=== PATIENT | female | born 1955 | race Caucasian/White ===

== ENCOUNTER 2017-09-29 14:13 | Emergency (ER) | payer MEDICARE ==
[2017-09-29] MEDS ORDERED: HYDROmorphone 0.5 MG/0.5 ML SYRINGE IVP STA (14:27)
[2017-09-29] MEDS ORDERED: SODIUM CHLORIDE 0.9% 1,000 ML IV STA ×2 (14:27→16:00)
[2017-09-29] MEDS ORDERED: ONDANSETRON 4 MG/2 ML VIAL IVP STA (14:27)
--- NOTE | 2017-09-29 14:29 | ED ---
General Adult HPI <Ruddy Donnelly - Last Filed: 09/29/17 18:31> - General Source: patient, RN notes reviewed Mode of arrival: wheelchair Limitations: no limitations <Hany Valles - Last Filed: 09/30/17 08:08> - General Chief complaint: Abdominal Pain Stated complaint: VOMITING, ABDOMINAL PAIN Time Seen by Provider: 09/29/17 14:21 - History of Present Illness Initial comments: Patient's a 62-year-old female who presents emergency room today with a chief complaint of increased nausea vomiting diarrhea that started at 1 AM in the morning. Patient does admit to abdominal pain lower abdomen. Denies any signs of blood in the emesis or stool. Patient admits to approximate 5 episodes of nausea vomiting diarrhea. She denies any blood symptoms currently. Patient denies any recent fever, chills, shortness of breath, chest pain, back pain, numbness or tingling, dysuria or hematuria, constipation, headaches or visual changes, or any other complaints. (Hany Valles) - Related Data Home Medications Medication Instructions Recorded Confirmed Escitalopram [Lexapro] 20 mg PO DAILY 09/29/17 09/29/17 Ezetimibe [Zetia] 10 mg PO DAILY 09/29/17 09/29/17 Levothyroxine Sodium [Synthroid] 125 mcg PO DAILY 09/29/17 09/29/17 Multivitamins, Thera [Multivitamin 1 tab PO DAILY 09/29/17 09/29/17 (formulary)] Previous Rx's Medication Instructions Recorded Ondansetron Odt [Zofran Odt] 4 mg PO Q8HR PRN #3 tab 09/29/17 Allergies Allergy/AdvReac Type Severity Reaction Status Date / Time No Known Allergies Allergy Verified 09/29/17 14:41 Review of Systems ROS Other: All systems not noted in ROS Statement are negative. <Ruddy Donnelly - Last Filed: 09/29/17 18:31> ROS Other: All systems not noted in ROS Statement are negative. <Hany Valles - Last Filed: 09/30/17 08:08> ROS Statement: Those systems with pertinent positive or pertinent negative responses have been documented in the HPI. Past Medical History Past Medical History: No Reported History History of Any Multi-Drug Resistant Organisms: None Reported Past Surgical History: Joint Replacement Additional Past Surgical History / Comment(s): hip replacements Past Psychological History: No Psychological Hx Reported Smoking Status: Current every day smoker Past Alcohol Use History: Unable to Obtain Past Drug Use History: Marijuana <Hany Valles - Last Filed: 09/30/17 08:08> General Exam <ConyRuddy A - Last Filed: 09/29/17 18:31> Limitations: no limitations <Hany Valles - Last Filed: 09/30/17 08:08> - General Exam Comments Initial Comments: General: The patient is awake and alert, in no distress, and does not appear acutely ill. Eye: Pupils are equal, round and reactive to light, extra-ocular movements are intact. No nystagmus. There is normal conjunctiva bilaterally. No signs of icterus. Ears, nose, mouth and throat: There are moist mucous membranes and no oral lesions. Neck: The neck is supple, there is no tenderness or JVD. Cardiovascular: There is a regular rate and rhythm. No murmur, rub or gallop is appreciated. Respiratory: Lungs are clear to auscultation, respirations are non-labored, breath sounds are equal. No wheezes, stridor, rales, or rhonchi. Gastrointestinal: Normal. 7. Normal bowel sounds. Abdomen soft on palpation. Patient does have tenderness to the lower abdomen. No rebound or guarding. No CVA tenderness. Musculoskeletal: Normal ROM, no tenderness. Strength 5/5. Sensation intact. Pulses equal bilaterally 2+. Neurological: A&O x 3. CN II-XII intact, There are no obvious motor or sensory deficits. Coordination appears grossly intact. Speech is normal. Skin: Skin is warm and dry and no rashes or lesions are noted. Psychiatric: Cooperative, appropriate mood & affect, normal judgment. (Hany Valles) Course <Ruddy Donnelly - Last Filed: 09/29/17 18:31> <Hany Valles - Last Filed: 09/30/17 08:08> Vital Signs 09/29/17 09/29/17 09/29/17 14:15 17:13 18:53 Temperature 98.1 F 98.0 F 98.8 F Pulse Rate 61 59 L 59 L Respiratory 20 16 16 Rate Blood Pressure 185/85 106/58 109/59 O2 Sat by Pulse 97 96 94 L Oximetry - Reevaluation(s) Reevaluation #1: 09/29/17 16:[address] at this time. Case discussed and signed out to Dr Donnelly at this time. (Hany Valles) Medical Decision Making - Lab Data Result diagrams: 09/29/17 14:50 09/29/17 14:50 <Ruddy Donnelly - Last Filed: 09/29/17 18:31> - Lab Data Result diagrams: 09/29/17 14:50 09/29/17 14:50 <Hany Valles - Last Filed: 09/30/17 08:08> - Medical Decision Making Patient was signed out to me at the end of previous shift. Patient was reevaluated and stated marketed improvement in her symptoms and requested a by mouth challenge which she tolerated without complications. CT abdomen and pelvis resulted and showed evidence of previous surgeries, small umbilical hernia, and evidence of removal of gastric sleeve compared to previous exam. No sign of acute abdomen and pelvis. The patient was informed of this result and through shared decision making it was determined that she would be discharged home with instructions to follow-up with her primary care physician. She was further given return instructions including but not limited to: Intractable abdominal pain, intractable nausea and vomiting, fevers and chills, profound constipation, lightheadedness/dizziness and the patient acknowledged an understanding of all information provided and agreed with this plan of care. (Ruddy Donnelly) - Lab Data Lab Results 09/29/17 09/29/17 09/29/17 Range/Units 14:50 14:50 14:50 WBC 6.7 (3.8-10.6) k/uL RBC 4.16 (3.80-5.40) m/uL Hgb 14.2 (11.4-16.0) gm/dL Hct 41.9 (34.0-46.0) % MCV 100.6 H (80.0-100.0) fL MCH 34.0 (25.0-35.0) pg MCHC 33.8 (31.0-37.0) g/dL RDW 13.3 (11.5-15.5) % Plt Count 201 (150-450) k/uL Neutrophils % 83 % Lymphocytes % 13 % Monocytes % 4 % Eosinophils % 0 % Basophils % 0 % Neutrophils # 5.6 (1.3-7.7) k/uL Lymphocytes # 0.9 L (1.0-4.8) k/uL Monocytes # 0.3 (0-1.0) k/uL Eosinophils # 0.0 (0-0.7) k/uL Basophils # 0.0 (0-0.2) k/uL Sodium 138 (137-145) mmol/L Potassium 4.2 (3.5-5.1) mmol/L Chloride 102 (98-107) mmol/L Carbon Dioxide 24 (22-30) mmol/L Anion Gap 12 mmol/L BUN 10 (7-17) mg/dL Creatinine 0.70 (0.52-1.04) mg/dL Est GFR (MDRD) Af Amer >60 (>60 ml/min/1.73 sqM) Est GFR (MDRD) Non-Af >60 (>60 ml/min/1.73 sqM) Glucose 167 H (74-99) mg/dL Lactic Ac Sepsis Rflx Plasma Lactic Acid Franklyn 2.2 H* (0.7-2.0) mmol/L Calcium 10.2 (8.4-10.2) mg/dL Total Bilirubin 0.7 (0.2-1.3) mg/dL AST 33 (14-36) U/L ALT 36 (9-52) U/L Alkaline Phosphatase 70 (38-126) U/L Total Protein 7.8 (6.3-8.2) g/dL Albumin 4.7 (3.5-5.0) g/dL Amylase 88 (30-110) U/L Lipase 53 (23-300) U/L Urine Color Urine Appearance (Clear) Urine pH (5.0-8.0) Ur Specific Caspian (1.001-1.035) Urine Protein (Negative) Urine Glucose (UA) (Negative) Urine Ketones (Negative) Urine Blood (Negative) Urine Nitrite (Negative) Urine Bilirubin (Negative) Urine Urobilinogen (<2.0) mg/dL Ur Leukocyte Esterase (Negative) Urine RBC (0-5) /hpf Urine WBC (0-5) /hpf Ur Squamous Epith Cells (0-4) /hpf Urine Bacteria (None) /hpf Urine Mucus (None) /hpf Urine Yeast (Budding) (None) /hpf 09/29/17 09/29/17 Range/Units 15:30 15:50 WBC (3.8-10.6) k/uL RBC (3.80-5.40) m/uL Hgb (11.4-16.0) gm/dL Hct (34.0-46.0) % MCV (80.0-100.0) fL MCH (25.0-35.0) pg MCHC (31.0-37.0) g/dL RDW (11.5-15.5) % Plt Count (150-450) k/uL Neutrophils % % Lymphocytes % % Monocytes % % Eosinophils % % Basophils % % Neutrophils # (1.3-7.7) k/uL Lymphocytes # (1.0-4.8) k/uL Monocytes # (0-1.0) k/uL Eosinophils # (0-0.7) k/uL Basophils # (0-0.2) k/uL Sodium (137-145) mmol/L Potassium (3.5-5.1) mmol/L Chloride (98-107) mmol/L Carbon Dioxide (22-30) mmol/L Anion Gap mmol/L BUN (7-17) mg/dL Creatinine (0.52-1.04) mg/dL Est GFR (MDRD) Af Amer (>60 ml/min/1.73 sqM) Est GFR (MDRD) Non-Af (>60 ml/min/1.73 sqM) Glucose (74-99) mg/dL Lactic Ac Sepsis Rflx Y Plasma Lactic Acid Franklyn (0.7-2.0) mmol/L Calcium (8.4-10.2) mg/dL Total Bilirubin (0.2-1.3) mg/dL AST (14-36) U/L ALT (9-52) U/L Alkaline Phosphatase (38-126) U/L Total Protein (6.3-8.2) g/dL Albumin (3.5-5.0) g/dL Amylase (30-110) U/L Lipase (23-300) U/L Urine Color Yellow Urine Appearance Cloudy H (Clear) Urine pH 8.0 (5.0-8.0) Ur Specific Caspian 1.014 (1.001-1.035) Urine Protein 1+ H (Negative) Urine Glucose (UA) Trace H (Negative) Urine Ketones Negative (Negative) Urine Blood Negative (Negative) Urine Nitrite Negative (Negative) Urine Bilirubin Negative (Negative) Urine Urobilinogen <2.0 (<2.0) mg/dL Ur Leukocyte Esterase Negative (Negative) Urine RBC 7 H (0-5) /hpf Urine WBC 2 (0-5) /hpf Ur Squamous Epith Cells <1 (0-4) /hpf Urine Bacteria Rare H (None) /hpf Urine Mucus Rare H (None) /hpf Urine Yeast (Budding) Occasional H (None) /hpf Disposition Time of Disposition: 18:35 <Ruddy Donnelly - Last Filed: 09/29/17 18:31> <Hany Valles - Last Filed: 09/30/17 08:08> Clinical Impression: Abdominal pain Disposition: HOME SELF-CARE Condition: Stable Instructions: Abdominal Pain (ED) Prescriptions: Ondansetron Odt [Zofran Odt] 4 mg PO Q8HR PRN #3 tab PRN Reason: Nausea Referrals: None,Stated [REFERRING] - 1-2 days Jason Horowitz MD [STAFF PHYSICIAN] - 1-2 days
[2017-09-29] MEDS ORDERED: RX INFO: IV CONTRAST WAS GIVEN 1 EACH MISC MISCELLANE PRN (15:00)
[2017-09-29 15:26] LABS: ALT 36 U/L (9-52); AST 33 U/L (14-36); Alkaline Phosphatase 70 U/L (38-126); Amylase 88 U/L (30-110); Anion Gap 12 mmol/L; Blood Urea Nitrogen 10 mg/dL (7-17); Calcium 10.2 mg/dL (8.4-10.2); Carbon Dioxide 24 mmol/L (22-30); Chloride 102 mmol/L (98-107); Glucose 167 mg/dL (74-99); Non-African American GFR(MDRD) >60 (>60 ml/min/1.73 sqM); Potassium 4.2 mmol/L (3.5-5.1); Sodium 138 mmol/L (137-145); Total Bilirubin 0.7 mg/dL (0.2-1.3); Total Protein 7.8 g/dL (6.3-8.2)
--- NOTE | 2017-09-29 15:27 | XR ---
EXAMINATION TYPE: XR KUB DATE OF EXAM: 09/29/2017 CLINICAL DATA: 62-year-old female with abdominal pain, [facility] COMPARISON: 01/26/2011 FINDINGS: The lap band appears to have been removed in the interval. There is some strandy atelectasis at the l eft base. No evidence for free intraperitoneal air. Nondilated small bowel. No significant stool burden. Some scattered air within small bowel and colon and some small air-fluid levels in the upper mid abdomen seem to localize to the colon. High density material along the peritoneum is unchanged. Numerous phleboliths in the low right hemipe lvis. Partially visualized bilateral total hip arthroplasties IMPRESSION: 1. No evidence of bowel obstruction or free intraperitoneal air. Some small air-fluid levels could re flect enteritis or ileus. 2. High density material along the peritoneum and some surgical clips are unchanged from 2010. Correl ate as to any known etiology.
[2017-09-29 15:42] LABS: Basophils % (A) 0 %; CH 34.8; CHCM 34.8; Eosinophils % (A) 0 %; HCT 41.9 % (34.0-46.0); HDW 2.47; HGB 14.2 gm/dL (11.4-16.0); Luc # (Auto) 0.04; Luc % (Auto) 1; Lymphocytes # (A) 0.9 k/uL (1.0-4.8); Lymphocytes % (A) 13 %; MCHC 33.8 g/dL (31.0-37.0); MCV 100.6 fL (80.0-100.0); Mean Platelet Volume 8.6; Monocytes # (A) 0.3 k/uL (0-1.0); Monocytes % (A) 4 %; Neutrophils # (A) 5.6 k/uL (1.3-7.7); Neutrophils % (A) 83 %; RBC 4.16 m/uL (3.80-5.40); RDW 13.3 % (11.5-15.5); WBC 6.7 k/uL (3.8-10.6); WBC (Perox) 6.61
[2017-09-29 16:08] LABS: Appearance,Urine Cloudy (Clear); Bacteria,Urine Rare /hpf; Bilirubin,Urine Negative (Negative); Glucose,Urine (UA) Trace (Negative); Ketones,Urine Negative (Negative); Leukocyte Esterase,Urine Negative (Negative); Mucus,Urine Rare /hpf; Nitrite,Urine Negative (Negative); Particle Count 3670; Protein,Urine 1+ (Negative); RBC,Urine 7 /hpf (0-5); Specific Gravity,Urine 1.014 (1.001-1.035); Squamous Epithelial Cell,Urine <1 /hpf (0-4); UA Billing (MACRO vs. MICRO) MICRO; Urobilinogen,Urine <2.0 mg/dL (<2.0); WBC,Urine 2 /hpf (0-5)
--- NOTE | 2017-09-29 17:04 | CT ---
EXAMINATION TYPE: CT abdomen pelvis w con DATE OF EXAM: 09/29/2017 COMPARISON: 09/07/2011 HISTORY: Vomiting and abdominal pain. CT DLP: 976.7 mGycm Automated exposure control for dose reduction was used. TECHNIQUE: Helical acquisition of images was performed from the lung bases through the pelvis. CONTRAST: Performed without Oral Contrast and with IV Contrast, patient injected with 100 mL of Omnipaque 300. FINDINGS: Lung bases are clear. There is no pleural effusion. Liver spleen pancreas and bladder appear normal. Bile ducts are not dilated. There is no adrenal mass. Kidneys show satisfactory contrast opacificatio n. There is no hydronephrosis. There is no retroperitoneal adenopathy. Abdominal aorta is atheromatou s. There are surgical clips around the stomach. There is a 3 cm umbilical hernia that contains fat. There is no sign of free air. I see no intestinal wall thickening. There are multiple metallic densit ies at the floor of the pelvis. Detail of the pelvis is limited by metal artifact from the hip surger y. There is no free fluid in the pelvis. There is no sign of appendicitis. There is a first-degree L4 -5 spondylolisthesis. I see no focal bone destruction. IMPRESSION: PREVIOUS SURGERY. SMALL UMBILICAL HERNIA. THERE IS BEEN REMOVAL OF THE GASTRIC SLEEVE COMPARED TO LAS T EXAM. EXTENSIVE METAL DENSITY AT THE FLOOR OF THE PELVIS OF UNCERTAIN SIGNIFICANCE. NO SIGN OF ACUT E ABDOMEN AND PELVIS. THERE IS MODERATELY SEVERE L4-5 BONY SPINAL STENOSIS DUE TO DEGENERATIVE FIRST DEGREE SPONDYLOLISTHES IS.
[2017-09-29 17:14] VITALS: PULSE 59; RESP 16
[2017-09-29 18:54] VITALS: BP 109/59; TEMP 98.8
== END 2017-09-29 18:56 | disposition home or self-care (01) ==
LOC: EC 14:13
DX: R10.30 Lower abdominal pain, unspecified (principal); R11.2 Nausea with vomiting, unspecified; R19.7 Diarrhea, unspecified; K42.9 Umbilical hernia without obstruction or gangrene; F17.200 Nicotine dependence, unspecified, uncomplicated; Z79.899 Other long term (current) drug therapy; Z98.890 Other specified postprocedural states
CPT/HCPCS: 36415; 80053; 82150; 83605; 83690; 85025; 81001; 74000; 74177; 99284; 96374; 96375; 96361 ×3; J2405; Q9967; J1170

== ENCOUNTER → 2018-03-22 | Outpatient (CLI) | payer MEDICARE ==
--- NOTE | 2018-03-22 13:09 | CT ---
EXAMINATION TYPE: CT abdomen wo/w con DATE OF EXAM: 03/22/2018 HISTORY: LLQ pain CT DLP: 1274.6mGycm Automated Exposure Control for Dose Reduction was Utilized. CONTRAST: CT scan of the abdomen is performed with oral and without and with IV Contrast, patient injected with 100 mL of Isovue 300. COMPARISON: CT abdomen pelvis September 29, 2017. FINDINGS: LUNG BASES: There is linear scarring and/or atelectasis anteriorly in both bases. LIVER/GB: There is mild to moderate extrahepatic biliary dilatation without significant intrahepatic biliary dilatation. Common bile duct measures up to 12 mm near cassy hepatis and 12 mm distally near duodenal ampulla. No obstructing calculus or mass is clearly seen. Pancreatic duct is not dilated. Th is is not significantly changed from prior CT. PANCREAS: No significant abnormality is seen. SPLEEN: No significant abnormality is seen. ADRENALS: No significant abnormality is seen. KIDNEYS: Noncontrast images show no renal calculi bilaterally. Postcontrast images show symmetric upt shannon and excretion from both kidneys without evidence of hydronephrosis bilaterally. There is subcenti meter simple appearing cyst medially upper pole level left kidney series 8 image 25. Right kidney is asymmetrically smaller versus left kidney. BOWEL: No suspicious small or large bowel dilatation is seen. Oral contrast does not reach colonic l evel. There are few diverticula seen in the sigmoid colon. Evaluation suboptimal as the pelvis is not included LYMPH NODES: No greater than 1cm abdominal lymph nodes are appreciated. OSSEOUS STRUCTURES: Facet arthropathy lower lumbar levels is seen. There is grade 1 anterolisthesis o f L4 on L5. There is moderate to advanced disc space narrowing at this level. Osseous structures are demineralized. OTHER: There is persistent moderate to large sized umbilical hernia containing fat and tiny mesenteri c vessels. There is moderate calcified plaque in the distal abdominal aorta. IMPRESSION: No significant acute finding is seen to account for patient's clinical symptoms on CT abd omen study. Technologist called office to change to CT abdomen and pelvis study before performing exa m but this was refused. Cannot exclude pelvic pathology or diverticulitis in the sigmoid colon at [facility] el of pelvis.
--- NOTE | 2018-03-22 15:13 | CT ---
EXAMINATION TYPE: CT pelvis wo con DATE OF EXAM: 03/22/2018 COMPARISON: CT abdomen earlier today. HISTORY: Pain, rule out diverticulitis. CT DLP: 472 mGycm Automated exposure control for dose reduction was used. FINDINGS: Diverticula are seen in the sigmoid colon. There is mild to moderate mesenteric fat stranding and ill -defined fluid in the pelvis just left of midline near axial image 27 centered in the proximal sigmoi d colon. CT findings are consistent with acute diverticulitis at this level. No free air is identifie d. No well-formed fluid collection is seen. Evaluation slightly suboptimal as oral contrast does not reach the distal colon level. Metallic hardware from bilateral hip arthroplasties is present causing streak artifact limiting evalu ation of pelvic structures. Some scattered pelvic phleboliths are present. IMPRESSION: CT FINDINGS CONSISTENT WITH A MILD TO MODERATE ACUTE DIVERTICULITIS CENTERED IN THE PROXIMAL SIGMOID COLON OF THE LEFT PELVIS DETAILED ABOVE.
== END | disposition home or self-care (01) ==
LOC: RADCTMAIN 11:40
PROVIDERS: ATTEND Family Medicine
DX: R10.31 Right lower quadrant pain (principal)
CPT/HCPCS: 72192; 74170; Q9967

== ENCOUNTER → 2018-05-04 | Outpatient (CLI) | payer MEDICARE ==
[2018-05-05 14:50] LABS: Hepatits C Virus RNA Not detected (Not detected); Hepatits C Virus RNA, Quant <12 IU/mL (<12); LOG HCV IU/mL <1.08 (<1.08)
== END | disposition home or self-care (01) ==
LOC: LABWHC1 15:58
PROVIDERS: ATTEND Family Medicine
DX: R76.8 Other specified abnormal immunological findings in serum (principal)
CPT/HCPCS: 36415; 87522

== ENCOUNTER → 2018-05-17 | Outpatient (CLI) | payer MEDICARE ==
--- NOTE | 2018-05-19 08:55 | MM ---
Reason for exam: screening (asymptomatic). Last mammogram was performed 5 years and 2 months ago. History: Patient is postmenopausal. Physical Findings: A clinical breast exam by your physician is recommended on an annual basis and results should be correlated with mammographic findings. MG Screening Mammo w CAD Bilateral CC and MLO view(s) were taken. Prior study comparison: March 20, 2013, bilateral digital screening mammo w/CAD. October 14, 2011, bilateral digital screening mammo w/CAD. There is a stable right middle depth central mass back to 2010. Benign appearing bilateral calcifications. There is no discrete abnormality. No significant changes when compared with prior studies. ASSESSMENT: Benign, BI-RAD 2 RECOMMENDATION: Routine screening mammogram of both breasts in 1 year.
== END | disposition home or self-care (01) ==
LOC: RADMAMWWP 13:43
PROVIDERS: ATTEND Family Medicine
DX: Z12.31 Encounter for screening mammogram for malignant neoplasm of breast (principal)
CPT/HCPCS: 77067

== ENCOUNTER → 2018-05-30 | Outpatient (CLI) | payer MEDICARE ==
--- NOTE | 2018-05-30 14:54 | BD ---
EXAMINATION TYPE: Axial Bone Density DATE OF EXAM: 05/30/2018 COMPARISON: NONE CLINICAL HISTORY: Postmenopausal female. Osteoporosis screening. Height: 64 IN Weight: 188 LBS FRAX RISK QUESTIONS: Family History (Parent hip fracture): YES MOTHER Secondary Osteoporosis: Current Tobacco Use: YES RISK FACTORS HISTORY OF: Surgery to Hip(ABIMAEL): When: LEFT 2015 RIGHT 2007 Active: MODERATE Postmenopausal woman: AGE 48 MEDICATIONS: Thyroid Medications: YES Which medication: LEVOTHYROXINE How Lon YEARS Additional Medications: LEVOTHYROXINE,ANTI DEPRESSANT MEDS, EZETIMIVE, PROBIOTIC, CENTRUM, TUMERIC, P ERCOCET EXAM MEASUREMENTS: Bone mineral densitometry was performed using the [employer] System. Bone mineral density as measured about the Lumbar spine is: ----- L1-L4(G/cm2): 1.464 T Score Values are as follows: ----- L2: 1.1 ----- L3: 2.3 ----- L4: 3.3 ----- L1-L4: 2.4 Bone mineral density BASELINE PT HAD BILATERAL HIP REPLACEMENTS. Bone mineral density about the L Wrist (g/cm2): 0.649 T Score values are as follows: -----Dist. R+U: -1.0 -----Prox. R+U: -0.1 -----Radius total: -0.4 Bone mineral density BASELINE IMPRESSION: Normal (Values between +1 and -1 indicate normal bone mass). Consider repeating this study in 5 year s or sooner if there is some new clinical indication. NOTE: T-SCORE=SD OF THE YOUNG ADULT MEAN.
== END | disposition home or self-care (01) ==
LOC: RADBDWWP 09:24
PROVIDERS: ATTEND Family Medicine
DX: Q78.2 Osteopetrosis (principal); Z96.643 Presence of artificial hip joint, bilateral
CPT/HCPCS: 77080

== ENCOUNTER → 2019-06-27 | Outpatient (CLI) | payer MEDICARE ==
--- NOTE | 2019-06-29 07:46 | MM ---
Reason for exam: screening (asymptomatic). Last mammogram was performed 1 year and 1 month ago. History: Patient is postmenopausal. Physical Findings: A clinical breast exam by your physician is recommended on an annual basis and results should be correlated with mammographic findings. MG 3D Screening Mammo W/Cad Bilateral CC and MLO view(s) were taken. Prior study comparison: May 17, 2018, bilateral MG screening mammo w CAD. March 20, 2013, bilateral digital screening mammo w/CAD. There are scattered fibroglandular densities. Focal asymmetry right CC is stable. No significant changes when compared with prior studies. ASSESSMENT: Benign, BI-RAD 2 RECOMMENDATION: Routine screening mammogram of both breasts in 1 year.
== END | disposition home or self-care (01) ==
LOC: RADMAMWWP 16:07
PROVIDERS: ATTEND Family Medicine
DX: Z12.31 Encounter for screening mammogram for malignant neoplasm of breast (principal)
CPT/HCPCS: 77063; 77067

== ENCOUNTER 2019-08-26 15:44 | Emergency (ER) | payer MEDICARE ==
[2019-08-26 15:50] VITALS: TEMP 98.3
--- NOTE | 2019-08-26 16:42 | XR ---
EXAMINATION TYPE: XR hand complete RT DATE OF EXAM: 08/26/2019 COMPARISON: NONE HISTORY: Pain after falling TECHNIQUE: 3 views FINDINGS: There is soft tissue swelling around the hand. There is moderate narrowing and spurring at the DIP joints and more severe at the thumb and index finger and middle finger. There is some spurrin g at the first carpometacarpal joint. Metacarpals are intact. On the lateral view there is a 5 mm bon y density that could be at chip fracture of the triquetrum. IMPRESSION: Osteoarthritic changes. Possi ble posterior chip fracture of the carpus. Soft tissue swelling.
--- NOTE | 2019-08-26 16:44 | XR ---
EXAMINATION TYPE: XR wrist complete RT DATE OF EXAM: 08/26/2019 COMPARISON: NONE HISTORY: Pain after falling TECHNIQUE: 4 views FINDINGS: There is 5 mm triangular-shaped bony density posterior to the mid carpus on the lateral vie w consistent with a chip fracture. This is probably arising from the triquetrum. There is no dislocat ion. There is some spurring at the first carpometacarpal joint. There is narrowing and spurring at th e scaphoid trapezium joint. There is soft tissue swelling. IMPRESSION: Chip fracture of the triquetrum. Soft tissue swelling. Osteoarthritis.
[2019-08-26] MEDS ORDERED: KETOROLAC 30 MG/ML 1 ML VIAL IM STA (16:45)
--- NOTE | 2019-08-26 16:45 | ED ---
General Adult HPI - General Chief complaint: Fall Stated complaint: Fall Time Seen by Provider: 08/26/19 15:51 Source: patient, RN notes reviewed Mode of arrival: ambulatory Limitations: no limitations - History of Present Illness Initial comments: 64-year-old female without any past medical history presents to the emergency department for a chief complaint of fall. Patient states that she tripped yesterday on a dog leash and fell onto her right hand and wrist. States that she also fell onto her left knee her left knee. States it is painful to walk on the left knee or move the right wrist. Patient denies hitting her head. Denies any neck pain or back pain. Patient is not on any blood thinners. No lightheadedness preceding the fall.Patient has no other complaints at this time including shortness of breath, chest pain, abdominal pain, nausea or vomiting, headache, or visual changes. - Related Data Home Medications Medication Instructions Recorded Confirmed Escitalopram [Lexapro] 20 mg PO DAILY 09/29/17 09/29/17 Ezetimibe [Zetia] 10 mg PO DAILY 09/29/17 09/29/17 Levothyroxine Sodium [Synthroid] 125 mcg PO DAILY 09/29/17 09/29/17 Multivitamins, Thera [Multivitamin 1 tab PO DAILY 09/29/17 09/29/17 (formulary)] Previous Rx's Medication Instructions Recorded Ondansetron Odt [Zofran Odt] 4 mg PO Q8HR PRN #3 tab 09/29/17 Allergies Allergy/AdvReac Type Severity Reaction Status Date / Time No Known Allergies Allergy Verified 08/26/19 15:50 Review of Systems ROS Statement: Those systems with pertinent positive or pertinent negative responses have been documented in the HPI. ROS Other: All systems not noted in ROS Statement are negative. Past Medical History Past Medical History: No Reported History History of Any Multi-Drug Resistant Organisms: None Reported Past Surgical History: Joint Replacement Additional Past Surgical History / Comment(s): hip replacements Past Psychological History: No Psychological Hx Reported Smoking Status: Current every day smoker Past Alcohol Use History: Unable to Obtain Past Drug Use History: Marijuana General Exam - General Exam Comments Initial Comments: Right wrist: Patient has tenderness noted to the distal right radius as well as the dorsum of the right hand. Patient does have range of motion in all digits of the right hand although this is somewhat limited by pain. Radial pulse 2+. Capillary refill less than 2 seconds. Sensation intact in the right upper extremities. Left knee: Patient has full flexion and extension of the left knee. DP pulse 2+, capillary refill less than 2 seconds in the left lower extremity. Patient is able to ambulate on the left knee but does have a slight limp due to pain. Patient has tenderness noted to the anterior aspect of the left knee as well as the lateral aspect. Limitations: no limitations General appearance: alert, in no apparent distress Head exam: Present: atraumatic, normocephalic, normal inspection Eye exam: Present: normal appearance, PERRL, EOMI. Absent: scleral icterus, conjunctival injection, periorbital swelling ENT exam: Present: normal exam, mucous membranes moist Neck exam: Present: normal inspection, full ROM. Absent: tenderness, meningismus, lymphadenopathy Respiratory exam: Present: normal lung sounds bilaterally. Absent: respiratory distress, wheezes, rales, rhonchi, stridor Cardiovascular Exam: Present: regular rate, normal rhythm, normal heart sounds. Absent: systolic murmur, diastolic murmur, rubs, gallop, clicks Neurological exam: Present: alert, oriented X3, other (GCS 15) Psychiatric exam: Present: normal affect, normal mood Course Vital Signs 08/26/19 15:48 Temperature 98.3 F Pulse Rate 63 Respiratory 18 Rate Blood Pressure 142/75 O2 Sat by Pulse 93 L Oximetry Procedures - Orthopedic Splinting/Casting Injury #1 Side: right Upper Extremity Injury Location: wrist Upper Extremity Immobilizer: volar splint Medical Decision Making - Medical Decision Making Neurovascular status intact in the left lower extremity. Patient is ambulatory with full range of motion. X-ray shows osteoarthritis in the lateral joint space, no fracture or joint effusion. No significant concern for occult injury given ambulatory nature, no edema or ecchymosis. Patient does have tenderness noted to the dorsum of the right hand and wrist. Neurovascular status intact. However x-ray does reveal a chip fracture of the triquetrum. X-ray of the right hand again demonstrates the posterior chip fracture of the carpus. Patient was splinted in a volar wrist splint. She will follow-up with orthopedics in one to 2 days. She will return here if she has any worsening symptoms. Disposition Clinical Impression: Fracture of triquetrum of right wrist Disposition: HOME SELF-CARE Condition: Good Instructions (If sedation given, give patient instructions): Wrist Injury (ED) Additional Instructions: Please take Motrin for pain. If pain is severe take tramadol. Rest ice and elevate the right wrist. Follow-up with orthopedics on Tuesday. Return here to the emergency department if you have any worsening symptoms. Is patient prescribed a controlled substance at d/c from ED?: No Referrals: Gladis Wilkins MD [Primary Care Provider] - 1-2 days Charlie Vance MD [STAFF PHYSICIAN] - 1-2 days Time of Disposition: 17:06
--- NOTE | 2019-08-26 16:45 | XR ---
EXAMINATION TYPE: XR knee 4V LT DATE OF EXAM: 08/26/2019 COMPARISON: NONE HISTORY: Pain TECHNIQUE: 4 views FINDINGS: There is some narrowing and spurring of the lateral femoral and tibial condyles. There is s light genu valgus. I see no fracture nor dislocation. There is no sign of joint effusion. IMPRESSION: Osteoarthritis mainly in the lateral joint space. No fracture seen.
[2019-08-26] MEDS ORDERED: traMADol 50 MG STARTER PACK 3 TAB BTL PO STA (17:03)
[2019-08-26 17:10] VITALS: BP 140/70; PULSE 64; RESP 16
== END 2019-08-26 17:08 | disposition home or self-care (01) ==
LOC: EC 15:44
DX: S62.111A Displaced fracture of triquetrum [cuneiform] bone, right wrist, initial encounter for closed fracture (principal); M25.562 Pain in left knee; F17.200 Nicotine dependence, unspecified, uncomplicated; W01.0XXA Fall on same level from slipping, tripping and stumbling without subsequent striking against object, initial encounter; Y92.009 Unspecified place in unspecified non-institutional (private) residence as the place of occurrence of the external cause
CPT/HCPCS: 73110; 73130; 73564; 99283; 29125; 96372; J1885

== ENCOUNTER → 2019-10-17 | Outpatient (CLI) | payer MEDICARE | END | disposition home or self-care (01) | LOC: LABWHC1 11:50 | PROVIDERS: ATTEND Orthopaedic Surgery | DX: Z01.812 Encounter for preprocedural laboratory examination (principal) | CPT/HCPCS: 87070 ==

== ENCOUNTER 2019-11-13 14:24 | Day surgery (SDC) | payer MEDICARE ==
[2019-11-08 14:08] VITALS: BMI 32.5
--- NOTE | 2019-11-12 09:45 | HP ---
HISTORY AND PHYSICAL CHIEF COMPLAINT: Left knee pain. HISTORY OF PRESENT ILLNESS: The patient is a 64-year-old retired female who presents with progressive left knee pain secondary to osteoarthrosis for the past several years. It has worsened recently. She has pain with weightbearing activities with intermittent swelling. She has tried medications, injections, and use of a brace. She does ambulate with a cane. PAST MEDICAL HISTORY: Significant for arthritis, hypothyroidism, COPD, and obesity. PAST SURGICAL HISTORY: Significant for bilateral total hip arthroplasty with subsequent revision hip arthroplasty, hernia repair, carpal tunnel surgery, bladder suspension, and tubal ligation. CURRENT MEDICATIONS: Omeprazole, levothyroxine, Simms, Zetia. She denies drug allergies. FAMILY HISTORY: Noncontributory. SOCIAL HISTORY: Significant for one pack per day tobacco use. REVIEW OF SYSTEMS: Sixteen-point review of systems otherwise reviewed and is noncontributory. PHYSICAL EXAMINATION: On examination, the patient is approximately 5 foot 6, 155 pounds of endomorphic habitus. HEENT: Nonfocal. Neck is supple. She has painless passive motion of her left hip. Straight leg raise is negative. Active motion left knee -10 to 115 degrees of flexion. She has a large effusion. She is tender about the lateral joint line. She has genu valgum alignment. Collaterals are stable, Barb is negative, Naveed's is equivocal. Her distal neurovascular exam appears intact in the left lower extremity. Previous x-rays of the left knee obtained in the office show severe lateral patellofemoral compartment osteoarthrosis with [id number] changes. IMPRESSION: 1. Left knee severe lateral and patellofemoral compartment osteoarthrosis. 2. Chronic Obstructive Pulmonary Disease. .. RECOMMENDATIONS: I talked to the patient at length regarding her condition along with treatment options. At this point, she is quite symptomatic despite extensive conservative measures. After thorough discussion, she opts to proceed with surgery. We will plan to proceed with left total knee arthroplasty. Risks and benefits were discussed at length in layman's terms. We will institute DVT prophylaxis postoperatively. MMODL / IJN: [id number] /
[~2019-11-13 14:24] MED LIST: ACETAMINOPHEN TAB 500 MG TAB PO ONE; DEXAMETHASONE SOD PHOSPHATE 10 MG/ML 1 ML VIAL IV ONE; HYDROmorphone 0.5 MG/0.5 ML SYRINGE IVP PRN; LIDOCAINE 1% 20 ML VIAL (10MG/ML) FOR IV START INTRADERMA PRN; MELOXICAM 7.5 MG TAB PO ONE; MIDAZOLAM 2 MG/2 ML VIAL IV PRN; ONDANSETRON 4 MG/2 ML VIAL IVP ONE; SCOPOLAMINE 1.5MG/72HR PATCH TRANSDERM ONE; TRANEXAMIC ACID 1,000 MG in SODIUM CHLORIDE 0.9% 100 ML IVPB ONE
[2019-11-13] MEDS: LACTATED RINGERS 1,000 ML IV SCH (15:14)
[2019-11-13] MEDS ORDERED: MIDAZOLAM 2 MG/2 ML VIAL IV ONE (15:36)
[2019-11-13] MEDS ORDERED: fentaNYL (PF) 50 MCG/ML 2 ML AMP IV ONE (15:36)
[2019-11-13] MEDS ORDERED: ROPIVACAINE 246.25 MG, EPINEPHrine 0.5 MG, KETOROLAC 30 MG, cloNIDine HCL/PF 80 MCG, WA... MISCELLANE ONE ×5 (15:38)
[2019-11-13] MEDS ORDERED: ROPIVACAINE 0.2%-NS ON-Q PUMP 1,090 MG, EMPTY PAIN BALL 1 EACH MISCELLANE PRN (16:05)
--- NOTE | 2019-11-13 16:05 | P.OP ---
Date of Procedure: 11/13/19 Preoperative Diagnosis: Left knee tricompartmental osteoarthrosis Postoperative Diagnosis: Same Procedure(s) Performed: Left total knee arthroplastycementedposterior stabilized Implants: Depuy Attune size 5 narrow cemented femoral component, size 4 cemented tibial component, 9 mm articular surface, 32 mm cemented patellar component. This is a posterior stabilized implant. Anesthesia: regional, local, spinal Surgeon: Charlie Vance Visually Impaired Teacher #1: Barrington Manzanares Estimated Blood Loss (ml): 50 Pathology: other (Bone fragments) Condition: stable Disposition: PACU Indications for Procedure: The patient's a 64-year-old female who presents with progressive left knee pain secondary to osteoarthrosis despite conservative measures. A discussion of the risks and benefits of operative intervention versus continued conservative measures was made with patient. She opted proceed with surgery. Operative risks to include infection, neurovascular injury, development of blood clots, possible component loosening, possible fracture, possible need for subsequent procedures was discussed. Informed consent was obtained. Operative Findings: As below Description of Procedure: The patient was brought to the operating room, and after induction of spinal anesthesia the left lower extremity was prepped and draped in a normal fashion. The tourniquet was inflated to 270 mm marker. A longitudinal incision extending 3 finger breaths above the superior pole of patella extending to the medial aspect the tibial tubercle was then made. The skin and subcutaneous tissues wer e divided sharply. Electrocautery was used for hemostasis. A medial parapatellar arthrotomy was performed. The medial soft tissues to include the superficial and deep portions of the medial collateral ligament were elevated subperiosteally. The patella was everted. A portion of the retropatellar fat pad was excised sharply. The anterior cruciate ligament was sacrificed. Blunt retractors were placed. A starting hole was made in the distal femur 1 cm anterior to the posterior cruciate ligament origin. An intramedullary femoral guide was then inserted planning on 5 valgus distal cut with 9 mm distal resection. The cutting block was pinned in place. The distal cut was then made. The posterior referencing sizing guide was utilized. I felt size 5 narrow was most appropriate. 3 of external rotation was built into the system and verified off the trans-epicondylar axis and the posterior condyles. The cutting block was pinned in place. The anterior, posterior, and chamfer cuts then made. Bone fragments were removed. The intercondylar guide was placed and the notch cut was made with a sagittal saw. The bone block was removed in one fragment. The trial component was then placed. There is good anterior to posterior and medial to lateral fit. The distal peg holes were drilled. The trial component was removed. Attention was then paid towards preparing the proximal femur. An extra medullary guide was utilized in line with the tibial shaft and second metatarsal distally. I planned on 2 mm resection from the medial compartment. The cutting block was pinned in place. The proximal tibial cut was then made. The bone was removed in one fragment. The remnants of the medial and lateral menisci were excised at the capsular junction with electrocautery. The tibia sized most appropriately at size 4. The trial femoral and tibial components were placed along with a 9 mm articular surface. I was able to obtain full flexion and extension with internal and external rotation. After several flexion and extension cycles, the tibial rotation was marked with electrocautery line with the medial one third of the tibial tubercle. Attention was then paid towards preparing the patella. A patella reamer was utilized taking stem to 14 mm of bone stock. A good flush cut was made. The patella sized most appropriately 32 mm. The peg holes were drilled. The trial components placed. I had good patellofemoral tracking with no hands technique. The trial components were then removed. The tibia was prepared in the appropriate rotation with appropriate drill and keel punch. The posterior osteophytes were removed with a curved osteotome. The flexion and extension gaps were checked and felt to be symmetric at 9 mm. A trial components were then removed. The posterior soft tissues were injected with ropivacaine. The bony surfaces were prepared with pulsatile lavage and dried. The tibial component was then cemented place was fully seated. Excess cement was removed. The femoral component cemented place and was fully seated. Excess cement was removed. The trial 9 mm articular surface was placed and the knee was put in full extension. The patella component was cemented place. After the cement had sufficiently hardened, the knee was again taken through a range of motion. Again I was able to obtain full flexion and extension with varus and valgus stress. The trial 9 mm articular surface was removed and the final one inserted. This was fully seated. Care was taken to avoid any soft tissue interposition. Pulsatile lavage was again utilized. The medial parapatellar arthrotomy was closed with #2 Ethibond suture. The tourniquet was deflated with approximately 70 minutes total tourniquet time. Final hemostasis was obtained with the cautery. There was minimal bleeding therefore a deep drain was not placed. The subcutaneous tissues were reapproximated with interrupted 2-0 Vicryl sutures. The skin was reapproximated with 3-0 subcuticular strata fix suture. Skin tape and adhesive was applied. A sterile dressing was applied. The patient was awoken from sedation and transferred to recovery room in good condition. Blood loss was estimated at 50 mL. No complications were incurred. Sponge and needle counts were correct at the end of the case. Estrada ALDANA assisted during the major components of this case to include exposure, bone resection, implantation, and closure.
--- NOTE | 2019-11-13 16:07 | P.ANPRN ---
Procedure Note - Anesthesia - Nerve Block Performed Left Adductor Canal Infusion Time Out Performed: Yes (1535) Date of Procedure: 11/13/19 Procedure Start Time: 15:36 Procedure Stop Time: 15:42 Location of Patient: PreOp Indication: Acute Post-Operative Pain, Requested by Surgeon Specifically requested for management of pain by : Charlie Vance Sedation Type: Sedate with meaningful contact maintained Preparation: Sterile Prep Position: Supine Catheter Depth at Skin (cm): 6 Catheter: Indwelling Needle Types: Pajunk Needle Gauge: 18 Ultrasound used to visualize needle placement: Yes Ultrasound used to observe medication spread: Yes Injectate: 0.5% Ropivacaine (see comment for volume) (20 cc) Blood Aspirated: No Pain Paresthesia on Injection Noted: No Resistance on Injection: Normal Image Stored and Saved: Yes Events: Uneventful and Well Tolerated
[2019-11-13] MEDS ORDERED: MIDAZOLAM 2 MG/2 ML VIAL ONE (16:11)
[2019-11-13] MEDS ORDERED: fentaNYL (PF) 50 MCG/ML 2 ML AMP ONE (16:11)
[2019-11-13] MEDS ORDERED: PROPOFOL 10 MG/ML 20 ML VIAL IV ONE (16:11)
[2019-11-13] MEDS ORDERED: HYDROcodone/APAP 10-325MG 1 EACH TAB PO PRN (17:52)
[2019-11-13] MEDS ORDERED: ONDANSETRON 4 MG/2 ML VIAL IVP PRN (17:52)
[2019-11-13] MEDS ORDERED: HYDROmorphone 1 MG/ML 1 ML SYRINGE IVP PRN (17:52)
[2019-11-13] MEDS ORDERED: traMADol 50 MG TAB PO PRN (17:52)
[2019-11-13] MEDS ORDERED: HYDROmorphone 0.5 MG/0.5 ML SYRINGE IVP PRN (17:52)
[2019-11-13] MEDS ORDERED: NALOXONE 0.4 MG/ML 1 ML VIAL IV PRN (17:52)
[2019-11-13] MEDS ORDERED: MAGNESIUM HYDROXIDE 2,400 MG/10 ML CUP PO PRN (17:52)
[2019-11-13] MEDS ORDERED: ACETAMINOPHEN TAB 325 MG TAB PO PRN (17:52)
[2019-11-13] MEDS ORDERED: ceFAZolin 3,000 MG in SODIUM CHLORIDE 0.9% IRRIGATIO 3,000 ML IRRIGATION ONE (18:08)
--- NOTE | 2019-11-13 18:23 | P.OP ---
Date of Procedure: 11/13/19 Preoperative Diagnosis: Left knee severe tricompartmental osteoarthrosis Postoperative Diagnosis: Same Procedure(s) Performed: Left total knee arthroplastycementedcruciate retaining Implants: Depuy Attune size 6 narrow femoral component, size 5 tibial component, 9 mm articular surface, 35 mm cemented patellar component. This is a cruciate retaining implant. Anesthesia: regional, local, spinal Surgeon: Charlie Vance Trashman #1: Barrington Manzanares Estimated Blood Loss (ml): 50 Pathology: other (Bone fragments) Condition: stable Disposition: PACU Indications for Procedure: The patient's a 64-year-old female who presents with progressive left knee pain secondary to osteoarthrosis despite conservative measures. A discussion of the risks and benefits of operative intervention versus continued conservative measures was made with patient. She opted to proceed. Operative risks to include infection, neurovascular injury, development of blood clots, possible component loosening, possible component failure need for subsequent procedures was discussed. Informed consent was obtained. Operative Findings: As below Description of Procedure: The patient was brought to the operating room, and after induction of spinal anesthesia the left lower extremity was prepped and draped in a normal fashion. The tourniquet was inflated to 270 mmHg. A longitudinal incision extending 3 finger breaths above the superior pole of the patella extending to the medial aspect the tibial tubercle was then made. The skin and subcutaneous tissues were divided sharply. Electrocautery was used for hemostasis. A medial parapatellar arthrotomy was then performed. The medial soft tissues to include the superficial and deep portions of the medial collateral ligament as well as the medial hamstring tendons were elevated subperiosteally. The lateral collateral and popliteus were elevated subperiosteally off the lateral femoral epicondyle as she had significant valgus deformity. The proximal medial tibia osteophytes were carefully removed. The patella was everted. The knee was flexed. A portion of the retropatellar fat pad was excised sharply. The anterior cruciate ligament was sacrificed. A starting hole was made in the distal femur 1 cm anterior to the posterior cruciate origin. An intramedullary femoral guide was gently inserted planning on 5 valgus distal cut with 9 mm distal resection. The cutting block was pinned in place. The distal cut was then made. The posterior referencing sizing guide was utilized. 3 of external rotation was built into the system and verified off the trans- epicondylar axis and the posterior condyles. I felt size 6 narrow was most appropriate. The cutting block was pinned in place. The anterior, posterior, and chamfer cuts were then made. The bone fragments were removed. A sulcus cut was then made with the appropriate guide. The trial size 6 narrow femoral component was then placed and was fully seated. There was good anterior to posterior and medial to lateral fit. The distal peg holes were then drilled. The trial component was then removed. Attention was then paid towards preparing the proximal tibia. An extra medullary guide was utilized in line with the tibial shaft and second metatarsal distally. A 7 posterior slope was planned. I planned on 2 mm resection from the medial compartment. The cutting block was pinned in place. The proximal tibial cut was then made. The bone was removed in one fragment. The remnants of the medial and lateral menisci were excised the capsule junction with electrocautery. The tibia sized most appropriately at size 5. The posterior osteophytes off the distal femur were carefully removed with a curved osteotome. The trial tibial and femoral components were placed along with a 9 millimeters articular surface. I was able to obtain full flexion and extension with good stability with varus and valgus stress. After several flexion and extension cycles, the tibial rotation was marked with electrocautery in line with the medial one third of the tibial tubercle. Attention was then paid towards preparing the patella. A patella reamer was utilized taking this down to 14 mm of bone stock. A good flush cut was made. The patella sized most appropriately at 35 millimeters. The peg holes were then drilled. The trial component was placed. The knee was taken through a range of motion. I had good patellofemoral tracking with no hands technique. The trial components were then removed. The tibia was prepared in the appropriate rotation with appropriate drill and keel punch. The flexion and extension gaps were checked and felt to be symmetric. The posterior soft tissues were injected with ropivacaine. The bony surfaces were prepared with pulsatile lavage and dried. The deep tibial component was then cemented in place and was fully seated. Excess cement was removed. The femoral component was cemented in place and was fully seated. Again excess cement was removed. The trial 9 millimeters surface was then inserted in the knee was put in full extension. The patella component was cemented in place. After the cement had sufficiently hardened, the knee was again taken through a range of motion. Again there was good stability in flexion and extension with varus and valgus stress. The trial articular surface was then removed. The final articular surface was placed and was impacted. Care was taken to avoid any soft tissue interposition. Pulsatile lavage was again utilized. The tourniquet was deflated with approximately 60 minutes total tourniquet time. There was minimal drainage therefore a deep drain was not placed. The medial parapatellar arthrotomy was then closed with #2 Ethibond suture. The subcutaneous tissues were reapproximated interrupted 2-0 Vicryl sutures. The skin was reapproximated with 3-0 subarticular strata fix suture. Skin tape and adhesive was applied. A sterile dressing was applied. The patient was then awoken from sedation and transferred to recovery room in good condition. Blood loss was estimated at 50 milliliters. No complications were incurred. Sponge and needle counts were correct at the end the case. Estrada ALDANA assisted during the major components this case to include exposure, bone resection, and implantation.
--- NOTE | 2019-11-13 18:54 | XR ---
EXAMINATION TYPE: XR knee limited LT DATE OF EXAM: 11/13/2019 COMPARISON: 08/26/2019 HISTORY: Knee surgery There is a left knee prosthesis. Components are in anatomic position. : IMPRESSION: No complicating process seen.
[2019-11-13] MEDS ORDERED: SENNOSIDES-DOCUSATE SODIUM 1 EACH TAB PO SCH (21:00)
[2019-11-13] MEDS: HYDROcodone/APAP 10-325MG 1 EACH TAB PO PRN (21:55)
[2019-11-14 00:47] VITALS: RESP 16
[2019-11-14] MEDS: HYDROcodone/APAP 10-325MG 1 EACH TAB PO PRN ×2 (04:48→10:08)
[2019-11-14] MEDS ORDERED: LEVOTHYROXINE 112 MCG TAB PO SCH (06:30)
[2019-11-14] MEDS: LACTATED RINGERS 1,000 ML IV SCH (07:11)
--- NOTE | 2019-11-14 07:32 | P.PN ---
Progress Note - Text Progress Note Date: 11/14/19 Patient was seen at bedside at 6:30 AM. Patient is postop day 1 from left total knee replacement with adductor canal catheter placed for pain . Ropivacaine 0.2% infusion running at 8 ml per hour. VAS score is 4/10. Patient denies side effects. Lower extremity sensation and motor function is intact. Patient has ambulated. Dressing clean dry and intact over catheter site
[2019-11-14 08:23] LABS: Basophils # (A) 0.1 k/uL (0-0.2); Basophils % (A) 1 %; Eosinophils % (A) 0 %; HCT 38.4 % (34.0-46.0); Lymphocytes # (A) 1.1 k/uL (1.0-4.8); Lymphocytes % (A) 12 %; MCH 34.1 pg (25.0-35.0); MCHC 33.9 g/dL (31.0-37.0); MCV 100.7 fL (80.0-100.0); Mean Platelet Volume 8.2; Monocytes # (A) 0.5 k/uL (0-1.0); Monocytes % (A) 6 %; Neutrophils # (A) 7.8 k/uL (1.3-7.7); Neutrophils % (A) 81 %; Platelet Count 197 k/uL (150-450); RBC 3.82 m/uL (3.80-5.40); RDW 12.2 % (11.5-15.5); WBC 9.6 k/uL (3.8-10.6)
[2019-11-14 08:55] VITALS: BP 133/75; PULSE 60; TEMP 97.8
[2019-11-14] MEDS ORDERED: ESCITALOPRAM 20 MG TAB PO SCH (09:00)
[2019-11-14] MEDS ORDERED: RIVAROXABAN 10 MG TAB PO SCH (09:00)
[2019-11-14] MEDS ORDERED: PANTOPRAZOLE 40 MG TABLET PO ONE (10:18)
--- NOTE | 2019-11-14 10:18 | P.CONS ---
History of Present Illness - Reason for Consult Consult date: 11/14/19 - Chief Complaint L knee pain - History of Present Illness Wen Schwarz is a 64 yo F with hx OA, hypothyroidism, anxiety who is s/p L TKA with Dr. Vance. She has been ambulatory today and has good knee ROM. She denies chest pain, shortness of breath, abdominal pain, fever, chills, leg swelling. Pt does complain of some heartburn today and reports pain with ambulation, which has been well controlled with norco. Vitals and labs are reviewed today and unremarkable. Review of Systems All systems: negative Constitutional: Denies chills, Denies fever Eyes: denies blurred vision, denies pain Ears, nose, mouth and throat: Denies headache, Denies sore throat Cardiovascular: Denies chest pain, Denies shortness of breath Respiratory: Denies cough Gastrointestinal: Denies abdominal pain, Denies diarrhea, Denies nausea, Denies vomiting Genitourinary: Denies dysuria, Denies hematuria Musculoskeletal: Reports limitation of motion, Denies myalgias Integumentary: Denies pruritus, Denies rash Neurological: Denies numbness, Denies weakness Psychiatric: Denies anxiety, Denies depression Endocrine: Denies fatigue, Denies weight change Past Medical History Past Medical History: Hyperlipidemia, Osteoarthritis (OA), Thyroid Disorder History of Any Multi-Drug Resistant Organisms: None Reported Past Surgical History: Bariatric Surgery, Bladder Surgery, Hernia Repair, Joint Replacement, Tubal Ligation Additional Past Surgical History / Comment(s): kilo hip replacement, kilo carpal tunnel, bladder suspension, lap band in, now removed, abd hernia Past Anesthesia/Blood Transfusion Reactions: No Reported Reaction Past Psychological History: Anxiety, Depression Smoking Status: Current every day smoker Past Alcohol Use History: Occasional Additional Past Alcohol Use History / Comment(s): smokes 1ppd from age 16 Past Drug Use History: Marijuana Additional Drug Use History / Comment(s): occasional use instructed to hold 24 hrs prior Medications and Allergies Home Medications Medication Instructions Recorded Confirmed Type Escitalopram [Lexapro] 20 mg PO DAILY 09/29/17 11/13/19 History Ezetimibe [Zetia] 10 mg PO DAILY 09/29/17 11/13/19 History HYDROcodone/APAP 10-325MG [[place] 1 tab PO Q6HR PRN 11/08/19 11/08/19 History 10-325] L.acidoph,Paracasei, B.lactis 1 each PO DAILY 11/08/19 11/13/19 History [Probiotic] Levothyroxine Sodium [Synthroid] 112 mcg PO DAILY 11/08/19 11/13/19 History Multivit-Min/Iron/Folic/Lutein 1 each PO DAILY 11/08/19 11/13/19 History [Centrum Silver Women Tablet] Allergies Allergy/AdvReac Type Severity Reaction Status Date / Time No Known Allergies Allergy Verified 11/13/19 14:53 Physical Exam Vitals: Vital Signs Temp Pulse Resp BP Pulse Ox 11/14/19 07:35 16 11/14/19 07:00 97.8 F 60 16 133/75 95 11/14/19 00:19 98.1 F 53 L 16 112/66 97 11/13/19 21:35 49 L 117/67 11/13/19 21:20 47 L 116/73 11/13/19 21:05 49 L 122/70 11/13/19 20:50 50 L 111/68 11/13/19 20:35 49 L 102/61 11/13/19 20:20 49 L 111/60 11/13/19 20:05 47 L 129/66 11/13/19 19:50 46 L 121/72 11/13/19 19:35 97.6 F 51 L 15 132/75 98 11/13/19 19:15 45 L 16 111/61 98 11/13/19 19:00 48 L 16 111/61 98 11/13/19 18:45 47 L 16 112/66 99 11/13/19 18:30 50 L 14 112/66 94 L 11/13/19 18:25 97.7 F 51 L 122/70 96 11/13/19 18:17 98.7 F 50 L 12 113/59 95 11/13/19 15:55 53 L 16 102/58 94 L 11/13/19 15:34 50 L 16 121/72 98 11/13/19 14:51 56 L 16 141/74 94 L Intake and Output 11/13/19 11/14/19 11/14/19 22:59 06:59 14:59 Intake Total 1950 596 Output Total 50 Balance 1900 596 Intake: IV 1950 Oral 596 Output: Estimated Blood Loss 50 Other: Weight 84.1 kg General: well nourished, well developed, NAD. Vitals reviewed Eyes: PERRL, EOMI, conjunctiva normal HENT: normocephalic, mucus membranes moist Neck: supple, no JVD Lungs: normal respiratory effort, no wheezes or rales CV: Regular rate and rhythm, no murmur. Peripheral pulses 2+ MSK: L knee full ROM, no erythema or edema Abdomen: soft, nondistended, no organomegaly Lymph: no cervical or axillary LAD Skin: warm and dry. Results CBC & Chem 7: 11/14/19 07:29 Labs: Abnormal Lab Results - Last 24 Hours (Table) 11/14/19 Range/Units 07:29 MCV 100.7 H (80.0-100.0) fL Neutrophils # 7.8 H (1.3-7.7) k/uL Assessment and Plan (1) Osteoarthritis of left knee Current Visit: Yes Status: Acute Code(s): M17.12 - UNILATERAL PRIMARY OSTEOARTHRITIS, LEFT KNEE SNOMED Code(s): 634015449134145 (2) Status post total knee replacement, left Current Visit: Yes Status: Acute Code(s): Z96.652 - PRESENCE OF LEFT ARTIFICIAL KNEE JOINT SNOMED Code(s): 5277794143568 (3) Hypothyroid Current Visit: Yes Status: Acute Code(s): E03.9 - HYPOTHYROIDISM, UNSPECIFIED SNOMED Code(s): 58313423 (4) Hyperlipidemia Current Visit: Yes Status: Acute Code(s): E78.5 - HYPERLIPIDEMIA, UNSPECIFIED SNOMED Code(s): 82955821 (5) Anxiety Current Visit: Yes Status: Acute Code(s): F41.9 - ANXIETY DISORDER, UNSPECIFIED SNOMED Code(s): 96368948 Plan: 1. S/p L TKA. Management per primary. Continue to mobilize with PT. Pain control. Continue xarelto for total 12 days. Pt is medically stable for discha rge 2. Hypothyroidism. Continue home synthroid 3. HLD. Resume zetia 4. JOURDAN. Continue lexapro 5. GERD. Protonix
--- NOTE | 2019-11-14 12:01 | P.PN ---
Subjective Progress Note Date: 11/14/19 Principal diagnosis: Status post left total knee arthroplasty Patient evaluated at bedside, she is resting comfortably. She's ambulating well with therapy. Patient did notice some increasing pain after ambulating. She denies any chest pain or shortness of breath. Objective - Vital Signs Vital signs: Vital Signs Temp 97.8 F 11/14/19 07:00 Pulse 60 11/14/19 07:00 Resp 16 11/14/19 07:35 BP 133/75 11/14/19 07:00 Pulse Ox 95 11/14/19 07:00 Intake & Output 11/13/19 11/14/19 11/14/19 18:59 06:59 18:59 Intake Total 1950 596 Output Total 50 Balance 1 596 Weight 84.1 kg Intake: IV 1950 Oral 596 Output: Estimated Blood Loss 50 - Exam Left lower extremity: Incision is clean, dry, and intact. The exofin fusion tape is in good condition. There is minimal soft tissue swelling and ecchymosis surrounding the medial and lateral aspects of the incision. Calf is soft, no tenderness with palpation. Plantar flexion, dorsiflexion, EHL, FHL are intact. Sensory exam to light touch throughout the extremity is intact, dorsal pedis pulses 2+. - Labs CBC & Chem 7: 11/14/19 07:29 Labs: Abnormal Lab Results - Last 24 Hours (Table) 11/14/19 Range/Units 07:29 MCV 100.7 H (80.0-100.0) fL Neutrophils # 7.8 H (1.3-7.7) k/uL Assessment and Plan Plan: Assessment: Postop day 1 status post left total knee arthroplasty Plan: Pain control, will increase pain medication oxycodone 5 mg/325 mg. Explained the patient to have her call her pain management doctor regarding this. GI and DVT prophylaxis, Eliquis 2.5mg bid for 2 weeks Wound care instructions discussed Home physical therapy and nursing after discharge Icing and elevating techniques discussed Medical recommendations Plan discharged home today
--- NOTE | 2019-11-14 12:05 | P.DS ---
Providers Date of admission: 11/13/2019 Expected date of discharge: 11/14/19 Attending physician: Charlie Vance Consults: 11/13/19 17:52 Consult Physician Routine Consulting Provider: Giovanny Mendoza Consult Reason/Comments: medical management Do you want consulting provider notified?: Yes Primary care physician: Gladis Wilkins Hospital Course: Date of admission: 11/13/2019 Date of discharge: 11/14/2019 Admission diagnosis: Status post left total knee arthroplasty Discharge diagnosis: Same Attending physician: Dr. Vance Surgical procedures: Left total knee arthroplasty Brief history: Patient is a 64-year-old female with a history of progressive primary left knee osteoarthritis. At this point patient has failed conservative treatment measures and has opted to proceed with a elective left total knee arthroplasty. Hospital course: Details of patient's surgery can be found in operative report. Patient tolerated the procedure well and was subsequently transported to orthopedic floor. Patient's orthopeidc and medical care was provided daily. Patient had daily laboratory tests performed for evaluation of overall blood counts. Patient had daily physical therapy to include strengthening range of motion as well as education with walker ambulation. Patient had daily CPM usage as part of their physical therapy program. Patient was treated with Xarelto for their postoperative DVT prophylaxis during their inpatient stay. Patient was noted to have a relatively uneventful postoperative course. Patient reported satisfactory pain control with oral pain medications by postoperative day 0. Patient showed satisfactory progress with physical therapy. Patient moved steadily through the program and had no difficulty meeting the goals by postoperative day 1. Given patient's otherwise satisfactory course and having met physical therapy goals, plan is to discharge patient home on postoperative day 1. Discharge condition/disposition: Patient will be discharged home in stable condition. Discharge medications: Instructions are given on resumption of patient's normal daily medications per primary care recommendation, in addition patient will be prescribed Percocet 5 mg/325 mg, Eliquis 2.5mg. Discharge instructions: 1. Wound care and infection precautions, keep incision dry and covered while showering, no lotions, creams, moisturizers. No soaking, tubs, pools, hottubs. Do not scrub over the incision. 2. Weight-bear as tolerated with walker / cane until follow-up. 3. Ice and elevate when necessary. Do not exceed 20 minutes per hour with ice pack. 4. Utilize compression sleeve until seen at first follow up appointment. 5. Visiting nursing care. 6. Home physical therapy including home CPM. 7. Pain meds and anticoagulants per prescription. 8. Pain medication has potential to cause constipation. Increase oral fluid and fiber intake. Contact primary care provider if you have not had a bowel movement within 48 hours after discharge 9. No anti-inflammatory medication until discussed at first post operative visit, this including Motrin, Aleve, Mobic, Diclofenac. 10. Follow up in office at 2 weeks postop with Estrada Manzanares PA-C 11. Follow up with your primary care doctor 7-10 days after discharge. 12. Contact [facility] with any questions, . Procedures: Left total knee arthroplasty Patient Condition at Discharge: Good Plan - Discharge Summary Discharge Rx Participant: Yes New Discharge Prescriptions: New Apixaban [Eliquis] 2.5 mg PO BID #60 tab oxyCODONE HCL/ACETAMINOPHEN [Percocet 5-325 mg] 1 tab PO Q6HR PRN 7 Days #28 tab PRN Reason: Pain No Action Ezetimibe [Zetia] 10 mg PO DAILY Escitalopram [Lexapro] 20 mg PO DAILY Levothyroxine Sodium [Synthroid] 112 mcg PO DAILY HYDROcodone/APAP 10-325MG [[place] 10-325] 1 tab PO Q6HR PRN PRN Reason: Pain Multivit-Min/Iron/Folic/Lutein [Centrum Silver Women Tablet] 1 each PO DAILY L.acidoph,Paracasei, B.lactis [Probiotic] 1 each PO DAILY Discharge Medication List Escitalopram [Lexapro] 20 mg PO DAILY 09/29/17 [History] Ezetimibe [Zetia] 10 mg PO DAILY 09/29/17 [History] HYDROcodone/APAP 10-325MG [[place] 10-325] 1 tab PO Q6HR PRN 11/08/19 [History] L.acidoph,Paracasei, B.lactis [Probiotic] 1 each PO DAILY 11/08/19 [History] Levothyroxine Sodium [Synthroid] 112 mcg PO DAILY 11/08/19 [History] Multivit-Min/Iron/Folic/Lutein [Centrum Silver Women Tablet] 1 each PO DAILY 11/08/19 [History] Apixaban [Eliquis] 2.5 mg PO BID #60 tab 11/14/19 [Rx] oxyCODONE HCL/ACETAMINOPHEN [Percocet 5-325 mg] 1 tab PO Q6HR PRN 7 Days #28 tab 11/14/19 [Rx] Follow up Appointment(s)/Referral(s): [facility] [NON-STAFF] - As Needed (walker and Continuous Passive Motion knee machine) [facility], [NON-STAFF] - As Needed Barrington Manzanares PAC [PHYSICIAN WEB ANALYST] - 11/28/19 3:10 pm Gladis Wilkins MD [Primary Care Provider] - 11/21/19 12:00 pm ([place] [facility].) Patient Instructions/Handouts: *Surgery [facility] - On-Q Pain Pump Discharge Instructions, Knee Replacement (DC) Activity/Diet/Wound Care/Special Instructions: Orthopedic Discharge Instructions: 1. Wound care and infection precautions, keep incision dry and covered while showering, no lotions, creams, moisturizers. No soaking, pools, hot tubs. Do not scrub over incision. 2. Weight-bear as tolerated with walker / cane until follow-up. 3. Ice and elevate when necessary. Do not exceed 20 minutes per hour with ice pack. 4. Utilize compression sleeve until seen at first follow up appointment. 5. Pain meds and anticoagulants per prescription. 6. Pain medication has potential to cause constipation. Increase oral fluid and fiber intake. Contact primary care provider if you have not had a bowel movement within 48 hours after discharge. 7. No anti-inflammatory medication until discussed at first post operative visit, this including Motrin, Aleve, Mobic, Diclofenac 8. Follow up in office at 2 weeks postop with Estrada Manzanares PA-C 9. Follow up with your primary care doctor 7-10 days after discharge. 10. Contact [facility] with any questions, . Discharge Disposition: HOME WITH HOME HEALTH SERVICES
== END 2019-11-14 14:27 | disposition home health service (06) ==
LOC: OR 14:24 → 4SSUR 18:15 → OR 11-14 14:27
PROVIDERS: ATTEND Orthopaedic Surgery
DX: M17.12 Unilateral primary osteoarthritis, left knee (principal); E03.9 Hypothyroidism, unspecified; J44.9 Chronic obstructive pulmonary disease, unspecified; K21.9 Gastro-esophageal reflux disease without esophagitis; E66.9 Obesity, unspecified; Z68.31 Body mass index [BMI] 31.0-31.9, adult; Z96.643 Presence of artificial hip joint, bilateral; F41.1 Generalized anxiety disorder; F17.210 Nicotine dependence, cigarettes, uncomplicated; E78.5 Hyperlipidemia, unspecified; F32.9 Major depressive disorder, single episode, unspecified; Z79.890 Hormone replacement therapy; Z79.891 Long term (current) use of opiate analgesic; Z79.899 Other long term (current) drug therapy
CPT/HCPCS: 97161; 64448; 76942; 85025; 88300; 73560; 27447; C1713; C1776; J2250; J0171; J1100; J0690 ×3; J2405; J3010; J1885; J2795 ×2; J2704; J0735

== ENCOUNTER 2020-12-01 08:28 | Emergency (ER) | payer MEDICARE ==
[2020-12-01 08:37] VITALS: TEMP 99.3
[2020-12-01] MEDS ORDERED: ONDANSETRON 4 MG/2 ML VIAL IVP STA (08:55)
[2020-12-01] MEDS ORDERED: SODIUM CHLORIDE 0.9% 1,000 ML IV STA ×2 (08:55)
[2020-12-01] MEDS ORDERED: KETOROLAC 15 MG/ML 1 ML VIAL IVP STA (08:56)
[2020-12-01 09:06] VITALS: PULSE 80
--- NOTE | 2020-12-01 09:10 | ED ---
Nausea/Vomiting/Diarrhea HPI - General Chief complaint: Nausea/Vomiting/Diarrhea Stated complaint: abd pain, dehydration Time Seen by Provider: 12/01/20 08:40 Source: patient, RN notes reviewed Mode of arrival: wheelchair Limitations: no limitations - History of Present Illness Initial comments: This is a 65-year-old female with a history of diverticulitis past as well as a lap band with removal of all the hardware who states for the past 5 days she's had nausea vomiting decreased oral intake and doesn't believe she is dehydrated. She's had some hot and cold flashes and some sweats. She states the pain has been mostly lower abdominal but some upper abdominal pain. /10 pain is knifelike in nature. It goes to her back and flank areas. MD complaint: nausea, vomiting, abdominal pain - Related Data Home Medications Medication Instructions Recorded Confirmed Ezetimibe [Zetia] 10 mg PO DAILY 09/29/17 12/01/20 Levothyroxine Sodium [Synthroid] 112 mcg PO DAILY 11/08/19 12/01/20 Multivit-Min/Iron/Folic/Lutein 1 tab PO DAILY 11/08/19 12/01/20 [Centrum Silver Women Tablet] ARIPiprazole [Abilify] 5 mg PO DAILY 12/01/20 12/01/20 Cyanocobalamin (Vitamin B-12) 1,000 mcg PO DAILY 12/01/20 12/01/20 [Vitamin B-12] Cyclobenzaprine [Flexeril] 10 mg PO HS 12/01/20 12/01/20 Diclofenac Sodium [Voltaren] 75 mg PO BID 12/01/20 12/01/20 Elderberry Fruit and Flower [Black 1 cap PO DAILY 12/01/20 12/01/20 Elderberry 575 mg Cap] Magnesium(Unknown Dose) 1 tab PO DAILY 12/01/20 12/01/20 Zinc 50 mg PO DAILY 12/01/20 12/01/20 oxyCODONE-APAP 10-325MG [Percocet 1 tab PO Q6H PRN 12/01/20 12/01/20 10-325 mg] Previous Rx's Medication Instructions Recorded Dicyclomine [Bentyl] 10 mg PO TID #12 capsule 12/01/20 Allergies Allergy/AdvReac Type Severity Reaction Status Date / Time No Known Allergies Allergy Verified 12/01/20 09:10 Review of Systems ROS Statement: Those systems with pertinent positive or pertinent negative responses have been documented in the HPI. ROS Other: All systems not noted in ROS Statement are negative. Past Medical History Past Medical History: Hyperlipidemia, Osteoarthritis (OA), Thyroid Disorder Additional Past Medical History / Comment(s): diverticulitis History of Any Multi-Drug Resistant Organisms: None Reported Past Surgical History: Bariatric Surgery, Bladder Surgery, Hernia Repair, Joint Replacement, Tubal Ligation Additional Past Surgical History / Comment(s): kilo hip replacement, kilo carpal tunnel, bladder suspension, lap band in, now removed, abd hernia Past Anesthesia/Blood Transfusion Reactions: No Reported Reaction Past Psychological History: Anxiety, Depression Smoking Status: Current every day smoker Past Alcohol Use History: Occasional Past Drug Use History: Marijuana General Exam - General Exam Comments Initial Comments: This is a well-developed well-nourished awake alert oriented 3 female Limitations: no limitations General appearance: alert, anxious Head exam: Present: atraumatic, normocephalic, normal inspection Eye exam: Present: normal appearance, PERRL, EOMI. Absent: scleral icterus, conjunctival injection, periorbital swelling ENT exam: Present: mucous membranes dry Neck exam: Present: normal inspection. Absent: tenderness, meningismus, lymphadenopathy Respiratory exam: Present: normal lung sounds bilaterally. Absent: respiratory distress, wheezes, rales, rhonchi, stridor Cardiovascular Exam: Present: regular rate, normal rhythm, normal heart sounds. Absent: systolic murmur, diastolic murmur, rubs, gallop, clicks GI/Abdominal exam: Present: soft, tenderness, normal bowel sounds. Absent: distended, guarding, rebound, rigid, bruit, pulsatile mass, hernia (Some tenderness palpation no definitive guarding or rebound this time) Rectal exam: Present: deferred Extremities exam: Present: normal inspection, full ROM, normal capillary refill. Absent: tenderness, pedal edema, joint swelling, calf tenderness Back exam: Present: normal inspection Neurological exam: Present: alert, oriented X3, CN II-XII intact Psychiatric exam: Present: normal affect, normal mood Skin exam: Present: warm, dry, intact, normal color. Absent: rash Course Vital Signs 12/01/20 12/01/20 12/01/20 08:35 09:00 09:06 Temperature 99.3 F Pulse Rate 90 80 Respiratory 18 15 16 Rate Blood Pressure 110/72 120/78 120/78 O2 Sat by Pulse 99 96 97 Oximetry 12/01/20 12/01/20 12/01/20 10:00 11:00 12:00 Temperature Pulse Rate Respiratory 15 15 15 Rate Blood Pressure 120/78 119/72 O2 Sat by Pulse 95 97 96 Oximetry - Reevaluation(s) Reevaluation #1: 12/01/20 10:41 The patient still nauseated in spite of fluids and IV Zofran. Compazine has been ordered Medical Decision Making - Medical Decision Making The patient did get relief and feels much improved this time she would like to go home she'll be discharged and is to keep follow-up with her doctor. She will go home with a prescription for Bentyl. He lactic acidosis noted is likely secondary to find depletion which has been corrected. - Lab Data Result diagrams: 12/01/20 09:02 12/01/20 09:02 Lab Results 12/01/20 12/01/20 12/01/20 Range/Units 09:02 09:02 09:02 WBC 7.3 (3.8-10.6) k/uL RBC 4.40 (3.80-5.40) m/uL Hgb 15.3 (11.4-16.0) gm/dL Hct 44.4 (34.0-46.0) % MCV 100.9 H (80.0-100.0) fL MCH 34.7 (25.0-35.0) pg MCHC 34.4 (31.0-37.0) g/dL RDW 12.4 (11.5-15.5) % Plt Count 192 (150-450) k/uL MPV 8.2 Neutrophils % 72 % Lymphocytes % 15 % Monocytes % 7 % Eosinophils % 3 % Basophils % 0 % Neutrophils # 5.2 (1.3-7.7) k/uL Lymphocytes # 1.1 (1.0-4.8) k/uL Monocytes # 0.5 (0-1.0) k/uL Eosinophils # 0.2 (0-0.7) k/uL Basophils # 0.0 (0-0.2) k/uL Manual Slide Review Performed Toxic Granulation Present Sodium 130 L (137-145) mmol/L Potassium 4.2 (3.5-5.1) mmol/L Chloride 99 (98-107) mmol/L Carbon Dioxide 27 (22-30) mmol/L Anion Gap 4 mmol/L BUN 12 (7-17) mg/dL Creatinine 0.71 (0.52-1.04) mg/dL Est GFR (CKD-EPI)AfAm >90 (>60 ml/min/1.73 sqM) Est GFR (CKD-EPI)NonAf 89 (>60 ml/min/1.73 sqM) Glucose 240 H (74-99) mg/dL Lactic Ac Sepsis Rflx Plasma Lactic Acid Frank[place] (0.7-2.0) mmol/L Calcium 8.7 (8.4-10.2) mg/dL Magnesium 2.1 (1.6-2.3) mg/dL Total Bilirubin 1.0 (0.2-1.3) mg/dL AST 23 (14-36) U/L ALT 17 (4-34) U/L Alkaline Phosphatase 65 (38-126) U/L Creatine Kinase 42 (30-135) U/L Troponin I (0.000-0.034) ng/mL Total Protein 6.6 (6.3-8.2) g/dL Albumin 3.5 (3.5-5.0) g/dL Lipase 46 (23-300) U/L Urine Color Yellow Urine Appearance Cloudy H (Clear) Urine pH 6.0 (5.0-8.0) Ur Specific Monon 1.021 (1.001-1.035) Urine Protein 1+ H (Negative) Urine Glucose (UA) 2+ H (Negative) Urine Ketones Negative (Negative) Urine Blood Small H (Negative) Urine Nitrite Negative (Negative) Urine Bilirubin Negative (Negative) Urine Urobilinogen <2.0 (<2.0) mg/dL Ur Leukocyte Esterase Small H (Negative) Urine RBC 7 H (0-5) /hpf Urine WBC 7 H (0-5) /hpf Ur Squamous Epith Cells 24 H (0-4) /hpf Urine Bacteria Many H (None) /hpf Urine Mucus Rare H (None) /hpf 12/01/20 12/01/20 12/01/20 Range/Units 09:02 09:02 09:32 WBC (3.8-10.6) k/uL RBC (3.80-5.40) m/uL Hgb (11.4-16.0) gm/dL Hct (34.0-46.0) % MCV (80.0-100.0) fL MCH (25.0-35.0) pg MCHC (31.0-37.0) g/dL RDW (11.5-15.5) % Plt Count (150-450) k/uL MPV Neutrophils % % Lymphocytes % % Monocytes % % Eosinophils % % Basophils % % Neutrophils # (1.3-7.7) k/uL Lymphocytes # (1.0-4.8) k/uL Monocytes # (0-1.0) k/uL Eosinophils # (0-0.7) k/uL Basophils # (0-0.2) k/uL Manual Slide Review Toxic Granulation Sodium (137-145) mmol/L Potassium (3.5-5.1) mmol/L Chloride (98-107) mmol/L Carbon Dioxide (22-30) mmol/L Anion Gap mmol/L BUN (7-17) mg/dL Creatinine (0.52-1.04) mg/dL Est GFR (CKD-EPI)AfAm (>60 ml/min/1.73 sqM) Est GFR (CKD-EPI)NonAf (>60 ml/min/1.73 sqM) Glucose (74-99) mg/dL Lactic Ac Sepsis Rflx Y Plasma Lactic Acid Franklyn 2.7 H* (0.7-2.0) mmol/L Calcium (8.4-10.2) mg/dL Magnesium (1.6-2.3) mg/dL Total Bilirubin (0.2-1.3) mg/dL AST (14-36) U/L ALT (4-34) U/L Alkaline Phosphatase (38-126) U/L Creatine Kinase (30-135) U/L Troponin I <0.012 (0.000-0.034) ng/mL Total Protein (6.3-8.2) g/dL Albumin (3.5-5.0) g/dL Lipase (23-300) U/L Urine Color Urine Appearance (Clear) Urine pH (5.0-8.0) Ur Specific Monon (1.001-1.035) Urine Protein (Negative) Urine Glucose (UA) (Negative) Urine Ketones (Negative) Urine Blood (Negative) Urine Nitrite (Negative) Urine Bilirubin (Negative) Urine Urobilinogen (<2.0) mg/dL Ur Leukocyte Esterase (Negative) Urine RBC (0-5) /hpf Urine WBC (0-5) /hpf Ur Squamous Epith Cells (0-4) /hpf Urine Bacteria (None) /hpf Urine Mucus (None) /hpf - Radiology Data Radiology results: report reviewed (I did review the imaging and report no acute findings are seen patient does demonstrate a persistent mildly dilated common bile duct.), image reviewed Disposition Clinical Impression: Spastic colon, Dehydration, Nausea & vomiting Disposition: HOME SELF-CARE Condition: Good Instructions (If sedation given, give patient instructions): Acute Nausea and Vomiting (ED), Dehydration (ED), Irritable Bowel Syndrome (ED) Prescriptions: Dicyclomine [Bentyl] 10 mg PO TID #12 capsule Is patient prescribed a controlled substance at d/c from ED?: No Referrals: Gladis Wilkins MD [Primary Care Provider] - 1-2 days
[2020-12-01 09:16] LABS: Basophils % (A) 0 %; Eosinophils # (A) 0.2 k/uL (0-0.7); Eosinophils % (A) 3 %; HCT 44.4 % (34.0-46.0); HGB 15.3 gm/dL (11.4-16.0); Lymphocytes # (A) 1.1 k/uL (1.0-4.8); Lymphocytes % (A) 15 %; MCH 34.7 pg (25.0-35.0); MCHC 34.4 g/dL (31.0-37.0); MCV 100.9 fL (80.0-100.0); Mean Platelet Volume 8.2; Monocytes # (A) 0.5 k/uL (0-1.0); Monocytes % (A) 7 %; Neutrophils # (A) 5.2 k/uL (1.3-7.7); Neutrophils % (A) 72 %; Platelet Count 192 k/uL (150-450); RDW 12.4 % (11.5-15.5); WBC 7.3 k/uL (3.8-10.6)
[2020-12-01 09:38] LABS: Appearance,Urine Cloudy (Clear); Bacteria,Urine Many /hpf; Bilirubin,Urine Negative (Negative); Blood,Urine Small (Negative); Color,Urine Yellow; Glucose,Urine (UA) 2+ (Negative); Ketones,Urine Negative (Negative); Leukocyte Esterase,Urine Small (Negative); Mucus,Urine Rare /hpf; Nitrite,Urine Negative (Negative); Protein,Urine 1+ (Negative); RBC,Urine 7 /hpf (0-5); Specific Gravity,Urine 1.021 (1.001-1.035); Squamous Epithelial Cell,Urine 24 /hpf (0-4); Urobilinogen,Urine <2.0 mg/dL (<2.0); WBC,Urine 7 /hpf (0-5)
[2020-12-01 09:46] LABS: Toxic Granulation Present
[2020-12-01 09:59] LABS: ALT 17 U/L (4-34); AST 23 U/L (14-36); African American GFR (CKD) >90 (>60 ml/min/1.73 sqM); Albumin 3.5 g/dL (3.5-5.0); Alkaline Phosphatase 65 U/L (38-126); Anion Gap 4 mmol/L; Blood Urea Nitrogen 12 mg/dL (7-17); Calcium 8.7 mg/dL (8.4-10.2); Carbon Dioxide 27 mmol/L (22-30); Chloride 99 mmol/L (98-107); Creatine Kinase 42 U/L (30-135); Glucose 240 mg/dL (74-99); Lipase 46 U/L (23-300); Magnesium 2.1 mg/dL (1.6-2.3); Non-African American GFR(CKD) 89 (>60 ml/min/1.73 sqM); Potassium 4.2 mmol/L (3.5-5.1); Sodium 130 mmol/L (137-145); Total Protein 6.6 g/dL (6.3-8.2)
--- NOTE | 2020-12-01 10:25 | XR ---
EXAMINATION TYPE: XR chest 2V DATE OF EXAM: 12/01/2020 COMPARISON: 01/26/2011 HISTORY: 65-year-old female with pain TECHNIQUE: PA and lateral views FINDINGS: Heart normal size. Aorta and pulmonary vasculature within normal limits. Focal bibasilar opacities xiong ve a somewhat linear configuration suggesting atelectasis rather than infiltrate. No pleural effusion . IMPRESSION: Focal bibasilar opacities have a somewhat strandy configuration suggesting bands of atelectasis rathe r than infiltrates. Clinically correlate.
--- NOTE | 2020-12-01 10:26 | XR ---
EXAMINATION TYPE: XR KUB DATE OF EXAM: 12/01/2020 Comparison: 09/29/2017 Clinical History: 65-year-old female pain Findings: Chest reported separately. No evidence for free intraperitoneal air. No dilated small bowel or air-fluid levels. Moderate stool burden with air and stool extending throughout the colon and distally to the rectum. This seems to be a surgical clip in the left upper quadrant. Fluid within the pelvis. Bilateral total hip arthroplasties partially visualized. Impression: Moderate stool burden may reflect constipation. Clinically correlate. No evidence for free air or bow el obstruction.
[2020-12-01] MEDS ORDERED: PROCHLORPERAZINE INJ 10 MG/2 ML VIAL IVP STA (10:40)
--- NOTE | 2020-12-01 11:33 | CT ---
EXAMINATION TYPE: CT abdomen pelvis w con DATE OF EXAM: 12/01/2020 COMPARISON: 03/22/2018 HISTORY: Gagan pain, acute, not localized CT DLP: 1123.7 mGycm CONTRAST: CT scan of the abdomen and pelvis is performed without Oral Contrast and with IV Contrast, patient in jected with 100 mL of Isovue 300. FINDINGS: LUNG BASES-: No visible nodule. Strandy basilar infiltrates are nonspecific. LIVER/GB: No calcified gallstones. No space occupying hepatic lesion. Persistent common bile duct dilatation of 1.1 cm with mild intrahepatic biliary ductal dilatation. Mild distention of the gallbla dder. PANCREAS: No inflammation. No distinct mass. SPLEEN: No splenic enlargement. No lesion seen. ADRENALS: No nodule. No thickening. KIDNEYS/BLADDER: No hydronephrosis. No nephrolithiasis. No distinct renal mass. Urinary bladder g rossly unremarkable. BOWEL: Sigmoid diverticulosis without diverticulitis. Normal bowel caliber. No inflammation. GENITAL ORGANS: No gross abnormality. LYMPH NODES: No greater than 1cm abdominal or pelvic lymph nodes are appreciated. AORTA: No significant abnormality. OSSEOUS STRUCTURES: Bilateral hip prostheses noted. Severe degenerative change of thoracolumbar spine . Grade 1 anterolisthesis L4 on L5. OTHER: Umbilical fat-containing hernia noted. Multiple pelvic morgan cifications. IMPRESSION: 1. Persistent common bile duct dilatation of 1.1 cm with mild intrahepatic biliary ductal dilatation. Mild distention of the gallbladder.
[2020-12-01] MEDS ORDERED: HYDROmorphone 1 MG/ML 1 ML SYRINGE IVP STA (12:06)
[2020-12-01 12:23] VITALS: BP 119/72; RESP 15
== END 2020-12-01 12:45 | disposition home or self-care (01) ==
LOC: EC 08:28
DX: K58.9 Irritable bowel syndrome, unspecified (principal); E86.0 Dehydration; R11.2 Nausea with vomiting, unspecified; F41.9 Anxiety disorder, unspecified; F32.9 Major depressive disorder, single episode, unspecified; E78.5 Hyperlipidemia, unspecified; E07.9 Disorder of thyroid, unspecified; M19.90 Unspecified osteoarthritis, unspecified site; F17.200 Nicotine dependence, unspecified, uncomplicated; Z79.1 Long term (current) use of non-steroidal anti-inflammatories (NSAID); Z79.890 Hormone replacement therapy; Z79.899 Other long term (current) drug therapy; Z98.51 Tubal ligation status; Z96.643 Presence of artificial hip joint, bilateral
CPT/HCPCS: 36415; 80053; 82550; 83605; 83690; 83735; 84484; 85025; 81001; 71046; 74018; 74177; 99284; 96374; 96375 ×3; 96361 ×4; J0780; J2405; J1170; J1885; Q9967

== ENCOUNTER 2021-01-21 10:20 | Day surgery (SDC) | payer MEDICARE ==
[2021-01-19 09:26] VITALS: BMI 26.6
--- NOTE | 2021-01-21 07:16 | P.GSHP ---
History of Present Illness H&P Date: 01/21/21 CHIEF COMPLAINT: GERD and colon screen HISTORY OF PRESENT ILLNESS: The patient is a 65-year-old female who presents with gastroesophageal reflux disease and need for colon screen. Upper and lower endoscopy were offered for further evaluation and management. PAST MEDICAL HISTORY: Please see list. PAST SURGICAL HISTORY: Please see list. MEDICATIONS: Please see list. ALLERGIES: Please see list. SOCIAL HISTORY: No illicit drug use FAMILY HISTORY: No reports of Crohn disease or ulcerative colitis. REVIEW OF ORGAN SYSTEMS: CONSTITUTIONAL: No reports of fevers or chills. GI: Denies any blood in stools or constipation. PHYSICAL EXAM: VITAL SIGNS: Stable GENERAL: Well-developed pleasant in no acute distress. HEENT: No scleral icterus. Extraocular movements grossly intact. Moist buccal mucosa. NECK: Supple without lymphadenopathy. CHEST: Unlabored respirations. Equal bilateral excursions. CARDIOVASCULAR: Regular rate and rhythm. Distal 2+ pulses. ABDOMEN: Soft, nondistended. MUSCULOSKELETAL: No clubbing, cyanosis, or edema. ASSESSMENT: 1. Gastroesophageal reflux disease 2. Colon screen. PLAN: 1. Recommend proceeding with an upper and lower endoscopy Past Medical History Past Medical History: Hyperlipidemia, Osteoarthritis (OA), Thyroid Disorder Additional Past Medical History / Comment(s): diverticulitis History of Any Multi-Drug Resistant Organisms: None Reported Past Surgical History: Bariatric Surgery, Bladder Surgery, Hernia Repair, Joint Replacement, Tubal Ligation Additional Past Surgical History / Comment(s): kilo hip replacement, kilo carpal tunnel, bladder suspension, lap band in, now removed, abd hernia, TOTAL LEFT KNEE Past Anesthesia/Blood Transfusion Reactions: No Reported Reaction Smoking Status: Current every day smoker - Past Family History Mother Family Medical History: No Reported History Medications and Allergies Home Medications Medication Instructions Recorded Confirmed Type Ezetimibe [Zetia] 10 mg PO DAILY 09/29/17 01/19/21 History Levothyroxine Sodium [Synthroid] 112 mcg PO DAILY 11/08/19 01/19/21 History Elderberry Fruit and Flower [Black 1 cap PO DAILY 12/01/20 01/19/21 History Elderberry 575 mg Cap] Zinc 50 mg PO DAILY 12/01/20 01/19/21 History oxyCODONE-APAP 10-325MG [Percocet 1 tab PO Q6H PRN 12/01/20 01/19/21 History 10-325 mg] Cholecalciferol [Vitamin D3 (25 50 mcg PO DAILY 01/19/21 01/19/21 History Mcg = 1000 Iu)] Cyanocobalamin (Vitamin B-12) 50 mcg PO DAILY 01/19/21 01/19/21 History [Vitamin B-12] L.acidoph,Paracasei, B.lactis 1 each PO DAILY 01/19/21 01/19/21 History [Probiotic] Magnesium Oxide [Mag-Ox] 400 mg PO DAILY 01/19/21 01/19/21 History Multivitamins, Thera [Multivitamin 1 tab PO DAILY 01/19/21 01/19/21 History (formulary)] Allergies Allergy/AdvReac Type Severity Reaction Status Date / Time No Known Allergies Allergy Verified 01/19/21 08:43
[~2021-01-21 10:20] MED LIST changes: -ACETAMINOPHEN TAB 500 MG TAB PO ONE; -DEXAMETHASONE SOD PHOSPHATE 10 MG/ML 1 ML VIAL IV ONE; -HYDROmorphone 0.5 MG/0.5 ML SYRINGE IVP PRN; +LIDOCAINE 1% (10MG/ML) FOR IV START INTRADERMA PRN; -LIDOCAINE 1% 20 ML VIAL (10MG/ML) FOR IV START INTRADERMA PRN; -MELOXICAM 7.5 MG TAB PO ONE; -MIDAZOLAM 2 MG/2 ML VIAL IV PRN; -ONDANSETRON 4 MG/2 ML VIAL IVP ONE; -SCOPOLAMINE 1.5MG/72HR PATCH TRANSDERM ONE; -TRANEXAMIC ACID 1,000 MG in SODIUM CHLORIDE 0.9% 100 ML IVPB ONE
[2021-01-21 11:01] VITALS: TEMP 98.2
[2021-01-21] MEDS: LACTATED RINGERS 1,000 ML IV SCH ×2 (11:08→11:41)
[2021-01-21] MEDS ORDERED: PROPOFOL 10 MG/ML 20 ML VIAL IV ONE (11:44)
[2021-01-21] MEDS ORDERED: LIDOCAINE 1% INJ 10MG/ML (20 ML MDV) ONE (11:44)
--- NOTE | 2021-01-21 11:58 | P.PCN ---
Date of Procedure: 01/21/21 Description of Procedure: PREOPERATIVE DIAGNOSIS: Gastroesophageal reflux disease. Previous history of perforated stomach due to adjustable gastric POSTOPERATIVE DIAGNOSIS: Gastroesophageal reflux disease. Previous history of perforated stomach due to adjustable gastric Severe acute on chronic gastritis, antrum Gastric ischemia Diaphragmatic hiatal hernia OPERATION: Esophagogastroduodenoscopy with biopsies along antrum. SURGEON: Jacqueline Lopes MD ANESTHESIA: MAC. INDICATIONS: The patient is a 65-year-old female who presents with a history of reflux disease. Benefits and risks of the procedure were described. Informed consent was obtained. DESCRIPTION: The patient was brought into the endoscopy suite and laid in the left lateral decubitus position. An Olympus gastroscope was passed along the posterior oropharynx down to the distal esophagus where the squamocolumnar junction was encountered at 37 cm from the incisors. The stomach was entered and no bile reflux was found. Additional findings are listed below. Biopsies with cold forceps were obtained of the antrum. The first through third portion of the duodenum was examined and unremarkable. Retroflexion of the scope confirmed Hill grade 3 lower esophageal valve. The squamocolumnar junction demonstrated LA grade B erosive esophagitis. The stomach was desufflated. The patient tolerated the procedure well. FINDINGS: Squamocolumnar junction 37 cm from the incisors. Diaphragmatic hiatus at 38 cm. Hiatal hernia, 1 cm Hill grade 3 lower esophageal valve. Ischemia along the gastric cardia with partial fundoplasty LA grade B erosive esophagitis. No active duodenitis. Acute on chronic gastritis with recent bleed RECOMMENDATIONS: Upper endoscopy as needed. Omeprazole 40 mg daily
--- NOTE | 2021-01-21 12:13 | P.PCN ---
Date of Procedure: 01/21/21 Description of Procedure: PREOPERATIVE DIAGNOSIS: Change in bowel habits Diverticulosis POSTOPERATIVE DIAGNOSIS: Diverticulosis Rectal polyp OPERATION: Colonoscopy to the ileocecal valve and appendiceal orifice, cecum Colonoscopy with cold forceps biopsy SURGEON: Jacqueline Lopes MD. ANESTHESIA: MAC. INDICATIONS: The patient is an 65-year-old male who presents change in bowel habits including diverticulosis. Last colonoscopy over 5 years. Benefits and risks were described and informed consent was obtained. DESCRIPTION OF PROCEDURE: The patient had undergone Suprep. The patient had been brought into the operating room and laid in the left lateral decubitus position. After adequate intravenous sedation, the rectum was examined with 2% lidocaine jelly. The prostate was unremarkable. External hemorrhoids were encountered. The rectal tone was within normal limits. No lesions were palpated in the rectal vault. An Olympus colonoscope was advanced until the cecum, ileocecal valve and appendiceal orifice were clearly viewed. The prep was fair. Sigmoid diverticulosis was encountered. Colonic polyps were found and removed. No evidence of focal colitis was found. Retroflexion of the scope demonstrated grade 2 internal hemorrhoids without active bleeding or inflammation. The colon was desufflated. The patient had tolerated the procedure well. Withdrawal time was over 6 minutes. FINDINGS: Aronchick preparation quality scale 2 (1-5) Internal hemorrhoids, grade 2 External hemorrhoids, grade 2. No arteriovenous malformations. Sigmoid diverticulosis Removal of 1 polyp: - Cold forceps biopsy at 10 cm from the anal verge, 4 mm polyp, rectal polyp No focal colitis. RECOMMENDATIONS: Repeat colonoscopy 5 years, 2025 Plan - Discharge Summary Discharge Rx Participant: No New Discharge Prescriptions: New Sucralfate [Carafate] 1 gm PO BID #60 tab Omeprazole [PriLOSEC] 40 mg PO DAILY #14 cap Continue Ezetimibe [Zetia] 10 mg PO DAILY Levothyroxine Sodium [Synthroid] 112 mcg PO DAILY Elderberry Fruit and Flower [Black Elderberry 575 mg Cap] 1 cap PO DAILY Zinc 50 mg PO DAILY oxyCODONE-APAP 10-325MG [Percocet 10-325 mg] 1 tab PO Q6H PRN PRN Reason: Pain Cholecalciferol [Vitamin D3 (25 Mcg = 1000 Iu)] 50 mcg PO DAILY Magnesium Oxide [Mag-Ox] 400 mg PO DAILY Multivitamins, Thera [Multivitamin (formulary)] 1 tab PO DAILY L.acidoph,Paracasei, B.lactis [Probiotic] 1 each PO DAILY Cyanocobalamin (Vitamin B-12) [Vitamin B-12] 50 mcg PO DAILY Discharge Medication List Ezetimibe [Zetia] 10 mg PO DAILY 09/29/17 [History] Levothyroxine Sodium [Synthroid] 112 mcg PO DAILY 11/08/19 [History] Elderberry Fruit and Flower [Black Elderberry 575 mg Cap] 1 cap PO DAILY 12/01/20 [History] Zinc 50 mg PO DAILY 12/01/20 [History] oxyCODONE-APAP 10-325MG [Percocet 10-325 mg] 1 tab PO Q6H PRN 12/01/20 [History] Cholecalciferol [Vitamin D3 (25 Mcg = 1000 Iu)] 50 mcg PO DAILY 01/19/21 [History] Cyanocobalamin (Vitamin B-12) [Vitamin B-12] 50 mcg PO DAILY 01/19/21 [History] L.acidoph,Paracasei, B.lactis [Probiotic] 1 each PO DAILY 01/19/21 [History] Magnesium Oxide [Mag-Ox] 400 mg PO DAILY 01/19/21 [History] Multivitamins, Thera [Multivitamin (formulary)] 1 tab PO DAILY 01/19/21 [History] Omeprazole [PriLOSEC] 40 mg PO DAILY #14 cap 01/21/21 [Rx] Sucralfate [Carafate] 1 gm PO BID #60 tab 01/21/21 [Rx] Follow up Appointment(s)/Referral(s): Jacqueline Lopes MD [STAFF PHYSICIAN] - 02/03/21 Patient Instructions/Handouts: Gastritis (DC), Colorectal Polyps (GEN) Activity/Diet/Wound Care/Special Instructions: Repeat colonoscopy 5 years, 2025 Discharge Disposition: HOME SELF-CARE
[2021-01-21 12:28] VITALS: RESP 16
[2021-01-21 12:33] VITALS: BP 133/74; PULSE 66
== END 2021-01-21 13:19 | disposition home or self-care (01) ==
LOC: ORWHC2ENDO 10:20
PROVIDERS: ATTEND Surgery Plastic and Reconstructive Surgery
DX: K29.00 Acute gastritis without bleeding (principal); K29.50 Unspecified chronic gastritis without bleeding; K21.00 Gastro-esophageal reflux disease with esophagitis, without bleeding; K31.9 Disease of stomach and duodenum, unspecified; K44.9 Diaphragmatic hernia without obstruction or gangrene; K62.1 Rectal polyp; K57.30 Diverticulosis of large intestine without perforation or abscess without bleeding; K64.1 Second degree hemorrhoids; K64.4 Residual hemorrhoidal skin tags; E78.5 Hyperlipidemia, unspecified; M19.90 Unspecified osteoarthritis, unspecified site; E07.9 Disorder of thyroid, unspecified; F17.210 Nicotine dependence, cigarettes, uncomplicated; Z98.84 Bariatric surgery status; Z87.19 Personal history of other diseases of the digestive system; Z79.890 Hormone replacement therapy; Z79.899 Other long term (current) drug therapy; Z98.890 Other specified postprocedural states; Z96.652 Presence of left artificial knee joint; Z98.51 Tubal ligation status; Z96.643 Presence of artificial hip joint, bilateral
CPT/HCPCS: 88305; 45380; 43239; J2001; J2704

== ENCOUNTER 2021-03-10 19:22 | Observation (INO) | payer MEDICARE ==
[2021-03-10] MEDS ORDERED: SODIUM CHLORIDE 0.9% 1,000 ML IV STA (19:43)
[2021-03-10] MEDS ORDERED: METOCLOPRAMIDE 5 MG/ML 2 ML VIAL IVP STA (19:43)
--- NOTE | 2021-03-10 19:52 | ED ---
General Adult HPI - General Chief complaint: Headache Stated complaint: Weakness, headache Time Seen by Provider: 03/10/21 19:33 Source: patient, family, RN notes reviewed Mode of arrival: ambulatory Limitations: no limitations - History of Present Illness Initial comments: 65-year-old white female patient, alert and oriented 4, presents to the emergen cy room with nausea and vomiting and diarrhea for 3 days. Patient states this has happened to her in the past and it was a dehydration issue. States came to the hospital and at that time and received IV fluids and felt better. Patient states that started Tuesday night and he had vomiting all night with diarrhea. Patient states tried to hydrate by taking sips of fluid but continues to have nausea and vomiting. Patient denies any further diarrhea, has not had a bowel movement since Tuesday. Patient denies any hematochezia or hematemesis. States that with all the vomiting since Tuesday she has developed a frontal headache and abdominal pain. Patient denies chest pain or shortness of breath. States she feels chills. -: days(s) (4) Location: head, abdomen Radiation: non-radiation Severity scale (1-10): 9 Quality: aching Consistency: constant Improves with: none Worsens with: other (vomiting) Associated Symptoms: fever/chills, headaches, loss of appetite, nausea/vomiting - Related Data Home Medications Medication Instructions Recorded Confirmed Ezetimibe [Zetia] 10 mg PO DAILY 09/29/17 03/10/21 Levothyroxine Sodium [Synthroid] 112 mcg PO DAILY 11/08/19 03/10/21 Elderberry Fruit and Flower [Black 1 cap PO DAILY 12/01/20 03/10/21 Elderberry 575 mg Cap] Zinc 50 mg PO DAILY 12/01/20 03/10/21 oxyCODONE-APAP 10-325MG [Percocet 1 tab PO Q6H PRN 12/01/20 03/10/21 10-325 mg] Cholecalciferol [Vitamin D3 (25 50 mcg PO DAILY 01/19/21 03/10/21 Mcg = 1000 Iu)] Cyanocobalamin (Vitamin B-12) 1,000 mcg PO DAILY 01/19/21 03/10/21 [Vitamin B-12] L.acidoph,Paracasei, B.lactis 1 cap PO DAILY 01/19/21 03/10/21 [Probiotic] Magnesium Oxide [Mag-Ox] 400 mg PO DAILY 01/19/21 03/10/21 Multivitamins, Thera [Multivitamin 1 tab PO DAILY 01/19/21 03/10/21 (formulary)] Escitalopram [Lexapro] 20 mg PO DAILY 03/10/21 03/10/21 Allergies Allergy/AdvReac Type Severity Reaction Status Date / Time No Known Allergies Allergy Verified 03/10/21 20:44 Review of Systems ROS Statement: Those systems with pertinent positive or pertinent negative responses have been documented in the HPI. ROS Other: All systems not noted in ROS Statement are negative. Past Medical History Past Medical History: Hyperlipidemia, Osteoarthritis (OA), Thyroid Disorder Additional Past Medical History / Comment(s): diverticulitis History of Any Multi-Drug Resistant Organisms: None Reported Past Surgical History: Bariatric Surgery, Bladder Surgery, Hernia Repair, Joint Replacement, Tubal Ligation Additional Past Surgical History / Comment(s): kilo hip replacement, kilo carpal tunnel, bladder suspension, lap band in, now removed, abd hernia, TOTAL LEFT KNEE Past Anesthesia/Blood Transfusion Reactions: No Reported Reaction Past Psychological History: Anxiety, Depression Smoking Status: Current every day smoker Past Alcohol Use History: Occasional Past Drug Use History: Marijuana - Past Family History Mother Family Medical History: No Reported History General Exam Limitations: no limitations General appearance: alert, anxious Head exam: Present: atraumatic, normocephalic, normal inspection Eye exam: Present: normal appearance, PERRL, EOMI. Absent: scleral icterus, conjunctival injection, nystagmus, periorbital swelling Pupils: Present: normal accommodation ENT exam: Present: normal exam, normal oropharynx, mucous membranes moist Neck exam: Present: normal inspection, full ROM. Absent: tenderness, meningismus, lymphadenopathy, thyromegaly Respiratory exam: Present: normal lung sounds bilaterally. Absent: respiratory distress, wheezes, rales, rhonchi, stridor Cardiovascular Exam: Present: regular rate, normal rhythm, normal heart sounds. Absent: systolic murmur, diastolic murmur, rubs, gallop, clicks, JVD GI/Abdominal exam: Present: soft, normal bowel sounds. Absent: distended, tenderness, guarding, rebound, rigid Extremities exam: Present: normal inspection, full ROM, normal capillary refill. Absent: tenderness, pedal edema, joint swelling, calf tenderness Back exam: Present: normal inspection. Absent: tenderness, CVA tenderness (R), CVA tenderness (L) Neurological exam: Present: alert, oriented X3, CN II-XII intact Psychiatric exam: Present: anxious Skin exam: Present: warm, dry, intact, normal color. Absent: rash, cyanosis, diaphoretic, erythema, pallor, mottled Course Vital Signs 03/10/21 03/10/21 03/10/21 19:24 19:59 21:54 Temperature 98.0 F Pulse Rate 72 61 53 L Respiratory 22 24 22 Rate Blood Pressure 119/75 113/73 158/95 O2 Sat by Pulse 96 97 96 Oximetry EKG Findings - EKG Results: EKG: sinus rhythm (Ventricular rate is 64, NM interval 0.16, QRS of 0.84, QTC is 0.625; no old EKG available) Medical Decision Making - Medical Decision Making Troponin of 0.47 which is elevated from December 01 result of 0.012. Patient also with a lactic acid 2.7, patient given 1 L bolus normal saline.. WBC 9.5. hematocrit 18.6 and 50.4 respectively x-ray shows no obstruction, EKG shows a left axis deviation over there is no old EKG to compare. Patient had minimal relief of frontal headache with Benadryl and Pepcid and Reglan however the nausea has resolved. Patient still not feeling well and remains a weak. Case discussed with Dr. Givens will admit patient and had a cardiology consult. Patient given 4 baby aspirin to chew and swallow 2 mg of morphine for pain. - Lab Data Result diagrams: 03/10/21 19:59 03/10/21 19:59 Lab Results 03/10/21 03/10/21 03/10/21 Range/Units 19:59 19:59 19:59 WBC 9.5 (3.8-10.6) k/uL RBC 5.24 (3.80-5.40) m/uL Hgb 18.6 H (11.4-16.0) gm/dL Hct 50.4 H (34.0-46.0) % MCV 96.3 (80.0-100.0) fL MCH 35.5 H (25.0-35.0) pg MCHC 36.9 (31.0-37.0) g/dL RDW 12.1 (11.5-15.5) % Plt Count 253 (150-450) k/uL MPV 7.7 Neutrophils % 55 % Lymphocytes % 34 % Monocytes % 7 % Eosinophils % 1 % Basophils % 0 % Neutrophils # 5.2 (1.3-7.7) k/uL Lymphocytes # 3.3 (1.0-4.8) k/uL Monocytes # 0.7 (0-1.0) k/uL Eosinophils # 0.1 (0-0.7) k/uL Basophils # 0.0 (0-0.2) k/uL PT (9.0-12.0) sec INR (<1.2) APTT (22.0-30.0) sec Sodium 133 L (137-145) mmol/L Potassium 3.8 (3.5-5.1) mmol/L Chloride 98 (98-107) mmol/L Carbon Dioxide 21 L (22-30) mmol/L Anion Gap 14 mmol/L BUN 25 H (7-17) mg/dL Creatinine 1.00 (0.52-1.04) mg/dL Est GFR (CKD-EPI)AfAm 68 (>60 ml/min/1.73 sqM) Est GFR (CKD-EPI)NonAf 59 (>60 ml/min/1.73 sqM) Glucose 138 H (74-99) mg/dL Plasma Lactic Acid Franklyn (0.7-2.0) mmol/L Calcium 10.7 H (8.4-10.2) mg/dL Total Bilirubin 1.2 (0.2-1.3) mg/dL AST 31 (14-36) U/L ALT 16 (4-34) U/L Alkaline Phosphatase 90 (38-126) U/L Troponin I 0.047 H* (0.000-0.034) ng/mL Total Protein 8.6 H (6.3-8.2) g/dL Albumin 4.9 (3.5-5.0) g/dL Amylase 58 (30-110) U/L Lipase 212 (23-300) U/L 03/10/21 03/10/21 Range/Units 19:59 19:59 WBC (3.8-10.6) k/uL RBC (3.80-5.40) m/uL Hgb (11.4-16.0) gm/dL Hct (34.0-46.0) % MCV (80.0-100.0) fL MCH (25.0-35.0) pg MCHC (31.0-37.0) g/dL RDW (11.5-15.5) % Plt Count (150-450) k/uL MPV Neutrophils % % Lymphocytes % % Monocytes % % Eosinophils % % Basophils % % Neutrophils # (1.3-7.7) k/uL Lymphocytes # (1.0-4.8) k/uL Monocytes # (0-1.0) k/uL Eosinophils # (0-0.7) k/uL Basophils # (0-0.2) k/uL PT 10.5 (9.0-12.0) sec INR 1.0 (<1.2) APTT 21.7 L (22.0-30.0) sec Sodium (137-145) mmol/L Potassium (3.5-5.1) mmol/L Chloride (98-107) mmol/L Carbon Dioxide (22-30) mmol/L Anion Gap mmol/L BUN (7-17) mg/dL Creatinine (0.52-1.04) mg/dL Est GFR (CKD-EPI)AfAm (>60 ml/min/1.73 sqM) Est GFR (CKD-EPI)NonAf (>60 ml/min/1.73 sqM) Glucose (74-99) mg/dL Plasma Lactic Acid Franklyn 2.7 H* (0.7-2.0) mmol/L Calcium (8.4-10.2) mg/dL Total Bilirubin (0.2-1.3) mg/dL AST (14-36) U/L ALT (4-34) U/L Alkaline Phosphatase (38-126) U/L Troponin I (0.000-0.034) ng/mL Total Protein (6.3-8.2) g/dL Albumin (3.5-5.0) g/dL Amylase (30-110) U/L Lipase (23-300) U/L Disposition Clinical Impression: Elevated troponin Disposition: ADMITTED IP TO THIS HOSP Condition: Fair Referrals: Gladis Wilkins MD [Primary Care Provider] - 1-2 days Decision Date: 03/10/21 Decision Time: 22:03
[2021-03-10] MEDS ORDERED: FAMOTIDINE 20 MG/2 ML VIAL IV STA (20:02)
[2021-03-10] MEDS ORDERED: diphenhydrAMINE 50 MG/ML 1 ML VIAL IVP STA (20:03)
[2021-03-10 20:19] LABS: Basophils % (A) 0 %; Eosinophils # (A) 0.1 k/uL (0-0.7); Eosinophils % (A) 1 %; HCT 50.4 % (34.0-46.0); HGB 18.6 gm/dL (11.4-16.0); Lymphocytes # (A) 3.3 k/uL (1.0-4.8); Lymphocytes % (A) 34 %; MCH 35.5 pg (25.0-35.0); MCHC 36.9 g/dL (31.0-37.0); MCV 96.3 fL (80.0-100.0); Mean Platelet Volume 7.7; Monocytes # (A) 0.7 k/uL (0-1.0); Monocytes % (A) 7 %; Neutrophils # (A) 5.2 k/uL (1.3-7.7); Neutrophils % (A) 55 %; Platelet Count 253 k/uL (150-450); RBC 5.24 m/uL (3.80-5.40); RDW 12.1 % (11.5-15.5); WBC 9.5 k/uL (3.8-10.6)
[2021-03-10 20:39] LABS: Prothrombin Time 10.5 sec (9.0-12.0)
[2021-03-10 20:41] LABS: Potassium 3.8 mmol/L (3.5-5.1)
[2021-03-10 20:42] LABS: Albumin 4.9 g/dL (3.5-5.0); Calcium 10.7 mg/dL (8.4-10.2); Total Bilirubin 1.2 mg/dL (0.2-1.3); Total Protein 8.6 g/dL (6.3-8.2)
--- NOTE | 2021-03-10 20:43 | XR ---
EXAM: Abdomen radiograph. HISTORY: Pain. TECHNIQUE: Upright AP view. COMPARISON: CT and radiographs 12/01/2020. FINDINGS: There is mild colonic gas with a nonobstructive pattern. Dystrophic calcification overlying the lower pelvis again seen. No acute osseous abnormality seen. No free air. Bilateral hip arthroplasties seen . IMPRESSION: Nonobstructive bowel gas pattern. Mild colonic gas.
[2021-03-10 21:11] LABS: Partial Thromboplastin Time 21.7 sec (22.0-30.0)
[2021-03-10] MEDS ORDERED: MORPHINE SULFATE 2 MG/ML SYRINGE IVP ONE (21:34)
[2021-03-10] MEDS ORDERED: ASPIRIN 81 MG PO STA (21:34)
[2021-03-10] MEDS ORDERED: NALOXONE 0.4 MG/ML 1 ML VIAL IV PRN (21:59)
[2021-03-10] MEDS ORDERED: HEPARIN SOD,PORK IN 0.45% NACL 25,000 UNIT in 0.45% NACL 1 250ML.BAG IV SCH (22:15)
[2021-03-10] MEDS ORDERED: HEPARIN SODIUM 1,000 UN/ML (10ML VL) IV ONE (22:15)
[2021-03-10] MEDS ORDERED: HEPARIN SODIUM 1,000 UN/ML (10ML VL) IV PRN (22:15)
[2021-03-10] MEDS: SODIUM CHLORIDE 0.9% 1,000 ML IV SCH ×2 (22:22→23:58)
[2021-03-10] MEDS: ACETAMINOPHEN TAB 325 MG TAB PO PRN (23:57)
[2021-03-11 03:42] LABS: Basophils # (A) 0.1 k/uL (0-0.2); Basophils % (A) 1 %; Eosinophils # (A) 0.3 k/uL (0-0.7); Eosinophils % (A) 3 %; HCT 45.8 % (34.0-46.0); HGB 16.4 gm/dL (11.4-16.0); Lymphocytes # (A) 3.6 k/uL (1.0-4.8); Lymphocytes % (A) 42 %; MCH 34.9 pg (25.0-35.0); MCHC 35.7 g/dL (31.0-37.0); MCV 97.7 fL (80.0-100.0); Mean Platelet Volume 7.5; Monocytes # (A) 0.5 k/uL (0-1.0); Monocytes % (A) 6 %; Neutrophils # (A) 3.8 k/uL (1.3-7.7); Neutrophils % (A) 45 %; Platelet Count 222 k/uL (150-450); RBC 4.69 m/uL (3.80-5.40); RDW 12.3 % (11.5-15.5); WBC 8.4 k/uL (3.8-10.6)
[2021-03-11 07:00] LABS: Appearance,Urine Clear (Clear); Bacteria,Urine Rare /hpf; Bilirubin,Urine Negative (Negative); Blood,Urine Trace (Negative); Color,Urine Yellow; Glucose,Urine (UA) Negative (Negative); Ketones,Urine Negative (Negative); Leukocyte Esterase,Urine Small (Negative); Mucus,Urine Rare /hpf; Nitrite,Urine Negative (Negative); PH, Urine 5.5 (5.0-8.0); Protein,Urine Negative (Negative); RBC,Urine <1 /hpf (0-5); Specific Gravity,Urine 1.011 (1.001-1.035); Squamous Epithelial Cell,Urine 1 /hpf (0-4); Urobilinogen,Urine <2.0 mg/dL (<2.0); WBC,Urine 8 /hpf (0-5)
[2021-03-11] MEDS ORDERED: oxyCODONE-APAP 10-325MG 1 EACH TAB PO PRN (07:41)
[2021-03-11] MEDS: SODIUM CHLORIDE 0.9% 1,000 ML IV SCH ×3 (07:56→10:35)
[2021-03-11] MEDS ORDERED: LEVOTHYROXINE 112 MCG TAB PO SCH (08:00)
[2021-03-11] MEDS: ACETAMINOPHEN TAB 325 MG TAB PO PRN (08:01)
[2021-03-11 08:05] VITALS: RESP 18; TEMP 97.5
--- NOTE | 2021-03-11 08:19 | P.HPIM ---
History of Present Illness Patient is an 65-year-old came in with the multiple episodes nausea vomiting going on for 3 days and patient appeared to be dehydrated and felt dehydrated because of which patient came to the hospital patient was started on IV fluids and patient was given Pepcid and GI cocktail after which her symptoms improved 3. Patient denied any chest tenderness did have elevated troponins mild elevation. Patient the has positive orthostatic vitals with hyponatremia although creatinine is 0.9 patient was in renal failure which is responsible for elevated troponins EKG did not show any acute ST-T wave changes that are some PVCs. Cardiology was consulted will evaluate the patient patient will undergo echocardiogram if needed doesn't show any wall motion abnormality probably can be discharged later today. Patient was also complaining of some headache and patient was complaining of abdominal discomfort mostly because of reaching rosie sea vomiting. Review of Systems REVIEW OF SYSTEMS: CONSTITUTIONAL: No fever, no malaise, no fatigue. HEENT: No recent visual problems or hearing problems. Denied any sore throat. CARDIOVASCULAR: No chest pain, orthopnea, PND, no palpitations, no syncope. PULMONARY: No shortness of breath, no cough, no hemoptysis. GASTROINTESTINAL: As mentioned in HPI NEUROLOGICAL: No headaches, no weakness, no numbness. HEMATOLOGICAL: Denies any bleeding or petechiae. GENITOURINARY: Denies any burning micturition, frequency, or urgency. MUSCULOSKELETAL/RHEUMATOLOGICAL: Denies any joint pain, swelling, or any muscle pain. ENDOCRINE: Denies any polyuria or polydipsia. The rest of the 14-point review of systems is negative. Past Medical History Past Medical History: Hyperlipidemia, Osteoarthritis (OA), Thyroid Disorder Additional Past Medical History / Comment(s): diverticulitis History of Any Multi-Drug Resistant Organisms: None Reported Past Surgical History: Bariatric Surgery, Bladder Surgery, Hernia Repair, Joint Replacement, Tubal Ligation Additional Past Surgical History / Comment(s): kilo hip replacement, kilo carpal tunnel, bladder suspension, lap band in, now removed, abd hernia, TOTAL LEFT KNEE Past Anesthesia/Blood Transfusion Reactions: No Reported Reaction Past Psychological History: Anxiety, Depression Smoking Status: Current every day smoker Past Alcohol Use History: Occasional Additional Past Alcohol Use History / Comment(s): smokes 1ppd from age 16 Past Drug Use History: Marijuana Additional Drug Use History / Comment(s): occasional use instructed to hold 24 hrs prior - Past Family History Mother Family Medical History: No Reported History Medications and Allergies Home Medications Medication Instructions Recorded Confirmed Type Ezetimibe [Zetia] 10 mg PO DAILY 09/29/17 03/10/21 History Levothyroxine Sodium [Synthroid] 112 mcg PO DAILY 11/08/19 03/10/21 History Elderberry Fruit and Flower [Black 1 cap PO DAILY 12/01/20 03/10/21 History Elderberry 575 mg Cap] Zinc 50 mg PO DAILY 12/01/20 03/10/21 History oxyCODONE-APAP 10-325MG [Percocet 1 tab PO Q6H PRN 12/01/20 03/10/21 History 10-325 mg] Cholecalciferol [Vitamin D3 (25 50 mcg PO DAILY 01/19/21 03/10/21 History Mcg = 1000 Iu)] Cyanocobalamin (Vitamin B-12) 1,000 mcg PO DAILY 01/19/21 03/10/21 History [Vitamin B-12] L.acidoph,Paracasei, B.lactis 1 cap PO DAILY 01/19/21 03/10/21 History [Probiotic] Magnesium Oxide [Mag-Ox] 400 mg PO DAILY 01/19/21 03/10/21 History Multivitamins, Thera [Multivitamin 1 tab PO DAILY 01/19/21 03/10/21 History (formulary)] Escitalopram [Lexapro] 20 mg PO DAILY 03/10/21 03/10/21 History Allergies Allergy/AdvReac Type Severity Reaction Status Date / Time No Known Allergies Allergy Verified 03/10/21 20:44 Physical Exam Vitals: Vital Signs Temp Pulse Pulse Resp BP BP Pulse Ox 03/11/21 08:00 97.5 F L 60 18 111/75 97 03/11/21 04:00 98.6 F 56 L 17 99/65 97 03/11/21 00:00 98.1 F 52 L 18 109/69 97 03/10/21 22:27 98.1 F 52 L 18 109/69 97 03/10/21 21:54 53 L 22 158/95 96 03/10/21 19:59 61 24 113/73 97 03/10/21 19:24 98.0 F 72 22 119/75 96 Intake and Output 03/10/21 03/11/21 03/11/21 22:59 06:59 14:59 Intake Total 79.037 Output Total 0 Balance 79.037 Intake: Intake, IV Titration 79.037 Amount Heparin Sod,Pork in 0.45% 79.037 NaCl 25,000 unit In 0.45 % NaCl 1 250ml.bag @ 18 UNITS/KG/HR 13.064 mls/hr IV .Q19H9M [facility] Rx#: [id number] Output: Urine 0 Other: # Voids 1 0 Weight 72.575 kg 74.4 kg PHYSICAL EXAMINATION: GENERAL: The patient is alert and oriented x3, not in any acute distress. Well developed, well nourished. HEENT: Pupils are round and equally reacting to light. EOMI. No scleral icterus. No conjunctival pallor. Normocephalic, atraumatic. No pharyngeal erythema. No thyromegaly. CARDIOVASCULAR: S1 and S2 present. No murmurs, rubs, or gallops. PULMONARY: Chest is clear to auscultation, no wheezing or crackles. ABDOMEN: Soft, nontender, nondistended, normoactive bowel sounds. No palpable organomegaly. MUSCULOSKELETAL: No joint swelling or deformity. EXTREMITIES: No cyanosis, clubbing, or pedal edema. NEUROLOGICAL: Gross neurological examination did not reveal any focal deficits. SKIN: No rashes. Results CBC & Chem 7: 03/11/21 03:29 03/10/21 19:59 Labs: Abnormal Lab Results - Last 24 Hours (Table) 03/10/21 03/10/21 03/10/21 Range/Units 19:59 19:59 19:59 Hgb 18.6 H (11.4-16.0) gm/dL Hct 50.4 H (34.0-46.0) % MCH 35.5 H (25.0-35.0) pg APTT (22.0-30.0) sec Sodium 133 L (137-145) mmol/L Carbon Dioxide 21 L (22-30) mmol/L BUN 25 H (7-17) mg/dL Glucose 138 H (74-99) mg/dL Plasma Lactic Acid Franklyn (0.7-2.0) mmol/L Calcium 10.7 H (8.4-10.2) mg/dL Troponin I 0.047 H* (0.000-0.034) ng/mL Total Protein 8.6 H (6.3-8.2) g/dL Urine Blood (Negative) Ur Leukocyte Esterase (Negative) Urine WBC (0-5) /hpf Urine Bacteria (None) /hpf Urine Mucus (None) /hpf 03/10/21 03/10/21 03/10/21 Range/Units 19:59 19:59 23:11 Hgb (11.4-16.0) gm/dL Hct (34.0-46.0) % MCH (25.0-35.0) pg APTT 21.7 L (22.0-30.0) sec Sodium (137-145) mmol/L Carbon Dioxide (22-30) mmol/L BUN (7-17) mg/dL Glucose (74-99) mg/dL Plasma Lactic Acid Franklyn 2.7 H* (0.7-2.0) mmol/L Calcium (8.4-10.2) mg/dL Troponin I 0.045 H* (0.000-0.034) ng/mL Total Protein (6.3-8.2) g/dL Urine Blood (Negative) Ur Leukocyte Esterase (Negative) Urine WBC (0-5) /hpf Urine Bacteria (None) /hpf Urine Mucus (None) /hpf 03/11/21 03/11/21 03/11/21 Range/Units 03:29 03:29 06:31 Hgb 16.4 H (11.4-16.0) gm/dL Hct (34.0-46.0) % MCH (25.0-35.0) pg APTT 118.1 H* (22.0-30.0) sec Sodium (137-145) mmol/L Carbon Dioxide (22-30) mmol/L BUN (7-17) mg/dL Glucose (74-99) mg/dL Plasma Lactic Acid Franklyn (0.7-2.0) mmol/L Calcium (8.4-10.2) mg/dL Troponin I (0.000-0.034) ng/mL Total Protein (6.3-8.2) g/dL Urine Blood Trace H (Negative) Ur Leukocyte Esterase Small H (Negative) Urine WBC 8 H (0-5) /hpf Urine Bacteria Rare H (None) /hpf Urine Mucus Rare H (None) /hpf Thrombosis Risk Factor Assmnt - Choose All That Apply Any of the Below Risk Factors Present?: No Other Risk Factors: Yes Each Risk Factor Represents 2 Points: Age 61-74 years Other congenital or acquired thrombophilia - If yes, enter type in comment: No Thrombosis Risk Factor Assessment Total Risk Factor Score: 2 Thrombosis Risk Factor Assessment Level: Low Risk Assessment and Plan Plan: -Nausea vomiting: Probably secondary to gastritis or peptic ulcer disease. Patient's symptoms improved with the GI cocktail. Patient will be started on Protonix today will be discharged on Protonix. Patient will be hydrated we'll increase the IV normal saline. Patient has positive orthostatic vitals because of severe dehydration. Patient's symptoms improved. Once evaluated by cardiology and the cleared patient will be discharged today. Patient continues to have the symptoms after discharge patient will need follow-up with gastroneurology probably upper GI endoscopy at that time to evaluate for other etiologies of nausea vomiting. -Mildly elevated troponins: Secondary to dehydration renal failure. -Acute renal failure. Prerenal Azotemia from dehydration from nausea vomiting hypovolemic hyponatremia -Hyperlipidemia -Hyperthyroidism -Nicotine use: Counseling was provided -Depression
--- NOTE | 2021-03-11 08:29 | P.DS ---
Providers Date of admission: 03/10/21 21:54 Attending physician: Tex Barger MD Consults: 03/10/21 21:59 Consult Physician Stat Consulting Provider: Ferdinand Manzano Consult Reason/Comments: elevated trop Do you want consulting provider notified?: Yes Primary care physician: Gladis [facility] Course: Please refer to [facility] for further details Patient Condition at Discharge: Fair Plan - Discharge Summary Discharge Rx Participant: No New Discharge Prescriptions: New Omeprazole [PriLOSEC] 40 mg PO -KFST #14 capsule.dr Continue Ezetimibe [Zetia] 10 mg PO DAILY Levothyroxine Sodium [Synthroid] 112 mcg PO DAILY Elderberry Fruit and Flower [Black Elderberry 575 mg Cap] 1 cap PO DAILY Zinc 50 mg PO DAILY oxyCODONE-APAP 10-325MG [Percocet 10-325 mg] 1 tab PO Q6H PRN PRN Reason: Pain Cholecalciferol [Vitamin D3 (25 Mcg = 1000 Iu)] 50 mcg PO DAILY Magnesium Oxide [Mag-Ox] 400 mg PO DAILY Multivitamins, Thera [Multivitamin (formulary)] 1 tab PO DAILY L.acidoph,Paracasei, B.lactis [Probiotic] 1 cap PO DAILY Cyanocobalamin (Vitamin B-12) [Vitamin B-12] 1,000 mcg PO DAILY Escitalopram [Lexapro] 20 mg PO DAILY Discharge Medication List Ezetimibe [Zetia] 10 mg PO DAILY 09/29/17 [History] Levothyroxine Sodium [Synthroid] 112 mcg PO DAILY 11/08/19 [History] Elderberry Fruit and Flower [Black Elderberry 575 mg Cap] 1 cap PO DAILY 12/01/20 [History] Zinc 50 mg PO DAILY 12/01/20 [History] oxyCODONE-APAP 10-325MG [Percocet 10-325 mg] 1 tab PO Q6H PRN 12/01/20 [History] Cholecalciferol [Vitamin D3 (25 Mcg = 1000 Iu)] 50 mcg PO DAILY 01/19/21 [History] Cyanocobalamin (Vitamin B-12) [Vitamin B-12] 1,000 mcg PO DAILY 01/19/21 [History] L.acidoph,Paracasei, B.lactis [Probiotic] 1 cap PO DAILY 01/19/21 [History] Magnesium Oxide [Mag-Ox] 400 mg PO DAILY 01/19/21 [History] Multivitamins, Thera [Multivitamin (formulary)] 1 tab PO DAILY 01/19/21 [History] Escitalopram [Lexapro] 20 mg PO DAILY 03/10/21 [History] Omeprazole [PriLOSEC] 40 mg PO HAKEEMKFSeHlen #14 capsule. 03/11/21 [Rx] Follow up Appointment(s)/Referral(s): Gladis Wilkins MD [Primary Care Provider] - 3 Days Discharge Disposition: HOME SELF-CARE
[2021-03-11] MEDS ORDERED: MAGNESIUM OXIDE 400 MG TAB PO SCH (09:00)
[2021-03-11] MEDS ORDERED: CHOLECALCIFEROL 25 MCG (1000 IU) TABLET PO SCH (09:00)
[2021-03-11] MEDS ORDERED: ZINC SULFATE 220 MG CAP PO SCH (09:00)
[2021-03-11] MEDS ORDERED: EZETIMIBE 10 MG TAB PO SCH (09:00)
[2021-03-11] MEDS ORDERED: LACTOBACILLUS ACIDOPH & BULGAR 1 EACH PACKET PO SCH (09:00)
[2021-03-11] MEDS ORDERED: CYANOCOBALAMIN 500 MCG TAB PO SCH (09:00)
[2021-03-11] MEDS ORDERED: MULTIVITAMINS, THERA 1 EACH TAB PO SCH (09:00)
[2021-03-11] MEDS ORDERED: ESCITALOPRAM 20 MG TAB PO SCH (09:00)
[2021-03-11] MEDS ORDERED: PANTOPRAZOLE 40 MG/10 ML VIAL IVP SCH (09:00)
[2021-03-11] MEDS: POTASSIUM CHLORIDE ER 20 MEQ TAB.ER PO SCH (09:08)
--- NOTE | 2021-03-11 10:33 | ECHOF ---
Referral Reason:elevated troponin MEASUREMENTS -------- HEIGHT: 167.6 cm WEIGHT: 74.4 kg BP: RVIDd: 1.7 cm (< 3.3) IVSd: 1.2 cm (0.6 - 1.1) LVIDd: 3.9 cm (3.9 - 5.3) LVPWd: 1.4 cm (0.6 - 1.1) IVSs: 1.9 cm LVIDs: 1.6 cm LVPWs: 1.8 cm LAESV Index (A-L): 15.74 ml/m Ao Diam: 3.0 cm (2.0 - 3.7) AV Cusp: 1.7 cm (1.5 - 2.6) LA Diam: 3.5 cm (2.7 - 3.8) MV EXCURSION: 10.759 mm (> 18.000) MV EF SLOPE: 39 mm/s (70 - 150) EPSS: 0.6 cm MV E Chadwick: 0.75 m/s MV DecT: 214 ms MV A Chadwick: 0.66 m/s MV E/A Ratio: 1.13 RAP: 5.00 mmHg RVSP: 21.14 mmHg FINDINGS -------- This was a technically good study. The left ventricular size is normal. There is moderate concentric left ventricular hypertrophy. O verall left ventricular systolic function is normal with, an EF between 55 - 60 %. The diastolic fi lling pattern is normal for the age of the patient 11.94. The right ventricle is normal in size. The left atrial size is normal. Normal LA size by volume 22+/-6 ml/m2. The right atrial size is normal. The aortic valve is trileaflet and appears structurally normal. The mitral valve is normal. The mitral valve leaflets are mildly thickened. Mild mitral regurgita tion is present. The tricuspid valve appears structurally normal. Mild tricuspid regurgitation present. Right vent ricular systolic pressure is normal at < 35 mmHg. There is no pulmonic regurgitation present. The aortic root size is normal. Normal inferior vena cava with normal inspiratory collapse consistent with estimated right atrial pre ssure of 5 mmHg. Echo free space indicative of a pericardial fat pad. CONCLUSIONS -------- 1. The left ventricular size is normal. 2. There is moderate concentric left ventricular hypertrophy. 3. Overall left ventricular systolic function is normal with, an EF between 55 - 60 %. 4. The diastolic filling pattern is normal for the age of the patient 11.94 5. The mitral valve leaflets are mildly thickened. 6. Mild mitral regurgitation is present. 7. Mild tricuspid regurgitation present. 8. Echo free space indicative of a pericardial fat pad. FABRICATOR FOAM RUBBER: Patience Mcgraw RDCS
--- NOTE | 2021-03-11 11:09 | P.CRDCN ---
History of Present Illness History of present illness: HISTORY OF PRESENTING ILLNESS This is a pleasant 65-year-old female past medical history significant for high cholesterol She does not follow with a end packer. We have been asked to see in consultation for elevated troponin. Patient presents to the emergency room with nausea and vomiting and diarrhea for 3 days. She started having nausea Tuesday that progressed to vomiting multiple times. Then proceeded to have episodes of diarrhea. Non-bloody. She denies eating anything out of the ordinary. She denies chest pain, palpitations, shortness of breath, lower extremity edema. She did having some lightheadedness and headache after vomiting. She denies symptoms of orthopnea or PND. Denies smoking or alcohol use. She is a non-diabetic. Denies history of MA, hypertension, stroke, diabe barby. She has had a cardiac workup with stress test years ago, and was told it was normal. Patient takes Zetia 10 mg daily, Lexapro, omeprazole 20 mg daily, magnesium daily, Synthroid 112 mcg daily. Laboratory data reviewed, sodium 133, potassium 3.8, serum creatinine 1.0, peaked 25, magnesium 2.0, troponin trend 0.04-->0.04-->0.17 Vital signs blood pressure 11[birth year]17/1974, heart rate 60, afebrile, maintaining oxygen saturations 97% on room air DIAGNOSTICS EKG reveals sinus rhythm with premature atrial complexes, left axis deviation, prolonged QTC .625 Second EKG sinus bradycardia HR 50, left axis deviation, prolonged QTc .495 Telemetry tracings indicate sinus mechanism heart rate 50 to 60s. REVIEW OF SYSTEMS At the time of my exam: CONSTITUTIONAL: Denies fever or chills. CARDIOVASCULAR: Denies chest pain, shortness of breath, orthopnea, PND or palpitations. RESPIRATORY: Denies cough. GASTROINTESTINAL: Positive abdominal pain, positive diarrhea, and positive nausea and vomiting. MUSCULOSKELETAL: Denies myalgias. NEUROLOGIC: Denies numbness, tingling, headacbe or weakness. ENDOCRINE: Denies fatigue, weight change, polydipsia or polyurina. GENITOURINARY: Denies burning, hematuria or urgency with micturation. HEMATOLOGIC: Denies history of anemia or bleeding. PHYSICAL EXAMINATION CONSTITUTIONAL: No apparent distress. HEENT: Head is normocephalic. Pupils are equal, round. Sclerae anicteric. Mucous membranes of the mouth are moist. No JVD. No carotid bruit. CHEST EXAMINATION: Lungs are clear to auscultation. No chest wall tenderness is noted on palpation or with deep breathing. HEART EXAMINATION: Regular rate and rhythm. S1, S2 heard. No murmurs, gallops or rub. ABDOMEN: Soft, nontender. Positive bowel sounds. EXTREMITIES: 2+ peripheral pulses, no lower extremity edema and no calf tenderness. SKIN: intact NEUROLOGIC EXAMINATION: Patient is awake, alert and oriented x3. ASSESSMENT -Nausea, vomiting diarrhea -Prolonged QT -Hyponatremia -Elevated troponin - Not significant for acute coronary syndrome. EKG with no evidence of ischemia. Troponin trend 0.04-->0.04-->0.17 PLAN Obtain 2D echocardiogram- which revealed EF 55-60%, mild mitral regurgitation, mild tricuspid regurgitation Draw third troponin- which came back negative Will discontinue Lexapro. Avoid other prolonged QT medications Will give patient two doses of 20meq of Potassium Chloride Repeat EKG this afternoon around 2PM If no acute changes on EKG, ok to discharge patient home today from cardiology perspective Thank you kindly for this consultation. Nurse Practitioner note has been reviewed, I agree with a documented findings and plan of care. Patient was seen and examined. Past Medical History Past Medical History: Hyperlipidemia, Osteoarthritis (OA), Thyroid Disorder Additional Past Medical History / Comment(s): diverticulitis History of Any Multi-Drug Resistant Organisms: None Reported Past Surgical History: Bariatric Surgery, Bladder Surgery, Hernia Repair, Joint Replacement, Tubal Ligation Additional Past Surgical History / Comment(s): kilo hip replacement, kilo carpal tunnel, bladder suspension, lap band in, now removed, abd hernia, TOTAL LEFT KNEE Past Anesthesia/Blood Transfusion Reactions: No Reported Reaction Past Psychological History: Anxiety, Depression Smoking Status: Current every day smoker Past Alcohol Use History: Occasional Additional Past Alcohol Use History / Comment(s): smokes 1ppd from age 16 Past Drug Use History: Marijuana Additional Drug Use History / Comment(s): occasional use instructed to hold 24 hrs prior - Past Family History Mother Family Medical History: No Reported History Medications and Allergies Home Medications Medication Instructions Recorded Confirmed Type Ezetimibe [Zetia] 10 mg PO DAILY 09/29/17 03/10/21 History Levothyroxine Sodium [Synthroid] 112 mcg PO DAILY 11/08/19 03/10/21 History Elderberry Fruit and Flower [Black 1 cap PO DAILY 12/01/20 03/10/21 History Elderberry 575 mg Cap] Zinc 50 mg PO DAILY 12/01/20 03/10/21 History oxyCODONE-APAP 10-325MG [Percocet 1 tab PO Q6H PRN 12/01/20 03/10/21 History 10-325 mg] Cholecalciferol [Vitamin D3 (25 50 mcg PO DAILY 01/19/21 03/10/21 History Mcg = 1000 Iu)] Cyanocobalamin (Vitamin B-12) 1,000 mcg PO DAILY 01/19/21 03/10/21 History [Vitamin B-12] L.acidoph,Paracasei, B.lactis 1 cap PO DAILY 01/19/21 03/10/21 History [Probiotic] Magnesium Oxide [Mag-Ox] 400 mg PO DAILY 01/19/21 03/10/21 History Multivitamins, Thera [Multivitamin 1 tab PO DAILY 01/19/21 03/10/21 History (formulary)] Omeprazole [PriLOSEC] 40 mg PO ROSS #14 capsule. 03/11/21 Rx Allergies Allergy/AdvReac Type Severity Reaction Status Date / Time No Known Allergies Allergy Verified 03/10/21 20:44 Physical Exam Vitals: Vital Signs Temp Pulse Pulse Resp BP BP Pulse Ox 03/11/21 04:00 98.6 F 56 L 17 99/65 97 03/11/21 00:00 98.1 F 52 L 18 109/69 97 03/10/21 22:27 98.1 F 52 L 18 109/69 97 03/10/21 21:54 53 L 22 158/95 96 03/10/21 19:59 61 24 113/73 97 03/10/21 19:24 98.0 F 72 22 119/75 96 Intake and Output 03/10/21 03/10/21 03/11/21 14:59 22:59 06:59 Intake Total 79.037 Output Total 0 Balance 79.037 Intake: Intake, IV Titration 79.037 Amount Heparin Sod,Pork in 0.45% 79.037 NaCl 25,000 unit In 0.45 % NaCl 1 250ml.bag @ 18 UNITS/KG/HR 13.064 mls/hr IV .Q19H9M [facility] Rx#: [id number] Output: Urine 0 Other: # Voids 1 0 Weight 72.575 kg 74.4 kg Results 03/11/21 03:29 03/10/21 19:59 Cardiac Enzymes 03/10/21 03/10/21 03/10/21 Range/Units 19:59 19:59 23:11 AST 31 (14-36) U/L Troponin I 0.047 H* 0.045 H* (0.000-0.034) ng/mL Coagulation 03/10/21 03/11/21 Range/Units 19:59 03:29 PT 10.5 (9.0-12.0) sec APTT 21.7 L 118.1 H* (22.0-30.0) sec CBC 03/10/21 03/11/21 Range/Units 19:59 03:29 WBC 9.5 8.4 (3.8-10.6) k/uL RBC 5.24 4.69 (3.80-5.40) m/uL Hgb 18.6 H 16.4 H (11.4-16.0) gm/dL Hct 50.4 H 45.8 (34.0-46.0) % Plt Count 253 222 (150-450) k/uL Comprehensive Metabolic Panel 03/10/21 Range/Units 19:59 Sodium 133 L (137-145) mmol/L Potassium 3.8 (3.5-5.1) mmol/L Chloride 98 (98-107) mmol/L Carbon Dioxide 21 L (22-30) mmol/L BUN 25 H (7-17) mg/dL Creatinine 1.00 (0.52-1.04) mg/dL Glucose 138 H (74-99) mg/dL Calcium 10.7 H (8.4-10.2) mg/dL AST 31 (14-36) U/L ALT 16 (4-34) U/L Alkaline Phosphatase 90 (38-126) U/L Total Protein 8.6 H (6.3-8.2) g/dL Albumin 4.9 (3.5-5.0) g/dL Current Medications Generic Name Dose Route Start Last Admin Trade Name Freq PRN Reason Stop Dose Admin Acetaminophen 650 mg 03/10/21 21:59 03/10/21 23:57 Acetaminophen Tab 325 Mg Tab PO 650 mg Q6HR PRN Administration Mild Pain or Fever > 100.5 Heparin Sodium (Porcine) 0 unit 03/10/21 22:15 Heparin Sodium 1,000 Un/Ml (10ml Vl) IV PER PROTOCOL PRN Low PTT Protocol Sodium Chloride 1,000 mls @ 75 mls/hr 03/10/21 21:45 03/10/21 22:22 Saline 0.9% IV 75 mls/hr .[id number] [facility] Administration Sodium Chloride 1,000 mls @ 100 mls/hr 03/10/21 22:00 03/10/21 23:58 Saline 0.9% IV 100 mls/hr .Q10H [facility] Administration Heparin Sodium/Sodium Chloride 250 mls @ 13.064 mls/hr 03/10/21 22:15 03/11/21 05:54 25,000 unit/ Sodium Chloride IV 15 units/kg/hr .Q19H9M [facility] 10.886 mls/hr Titration Protocol 18 UNITS/KG/HR Naloxone HCl 0.2 mg 03/10/21 21:59 Naloxone 0.4 Mg/Ml 1 Ml Vial IV Q2M PRN Opioid Reversal Intake and Output 03/10/21 03/10/21 03/11/21 14:59 22:59 06:59 Intake Total 79.037 Output Total 0 Balance 79.037 Intake: Intake, IV Titration 79.037 Amount Heparin Sod,Pork in 0.45% 79.037 NaCl 25,000 unit In 0.45 % NaCl 1 250ml.bag @ 18 UNITS/KG/HR 13.064 mls/hr IV .Q19H9M [facility] Rx#: [id number] Output: Urine 0 Other: # Voids 1 0 Weight 72.575 kg 74.4 kg Patient Weight 03/11/21 06:59 Weight 74.4 kg 03/11/21 03:29 03/10/21 19:59
[2021-03-11 12:23] VITALS: BP 104/69; PULSE 54
[2021-03-11] MEDS ORDERED: HEPARIN SODIUM,PORCINE/PF 5,000 UNIT/0.5 ML SYRINGE SQ SCH (21:00)
== END 2021-03-11 15:10 | disposition home or self-care (01) ==
LOC: EC 19:22 → 3SCARD 21:54
PROVIDERS: ADMIT Internal Medicine; ATTEND Internal Medicine
DX: R11.2 Nausea with vomiting, unspecified (principal); E86.0 Dehydration; N17.9 Acute kidney failure, unspecified; R79.89 Other specified abnormal findings of blood chemistry; E87.1 Hypo-osmolality and hyponatremia; I49.1 Atrial premature depolarization; I08.1 Rheumatic disorders of both mitral and tricuspid valves; E78.5 Hyperlipidemia, unspecified; E07.9 Disorder of thyroid, unspecified; M19.90 Unspecified osteoarthritis, unspecified site; E78.00 Pure hypercholesterolemia, unspecified; R19.7 Diarrhea, unspecified; R00.1 Bradycardia, unspecified; R63.0 Anorexia; R10.9 Unspecified abdominal pain; F32.9 Major depressive disorder, single episode, unspecified; F41.9 Anxiety disorder, unspecified; F17.210 Nicotine dependence, cigarettes, uncomplicated; Z20.822 Contact with and (suspected) exposure to COVID-19; Z79.890 Hormone replacement therapy; Z79.891 Long term (current) use of opiate analgesic; Z79.899 Other long term (current) drug therapy; Z98.51 Tubal ligation status; Z98.84 Bariatric surgery status; Z96.643 Presence of artificial hip joint, bilateral; Z96.652 Presence of left artificial knee joint; Z98.890 Other specified postprocedural states
CPT/HCPCS: 96366 ×2; 96375 ×2; 93005 ×2; 96361; 96365; 99285; 36415; 93306; 80053; 82150; 83605; 83690; 83735; 84484 ×2; 85025 ×2; 85610; 85730 ×2; 81001; 87636; 74018; G0378 ×2; J1200; J2765; J2270; J1644 ×2; C9113

== ENCOUNTER → 2021-03-20 | Outpatient (CLI) | payer MEDICARE ==
--- NOTE | 2021-03-25 12:20 | MM ---
Reason for exam: screening (asymptomatic). Last mammogram was performed 1 year and 9 months ago. History: Patient is postmenopausal. Physical Findings: A clinical breast exam by your physician is recommended on an annual basis and results should be correlated with mammographic findings. MG Screening Mammo w CAD Bilateral CC and MLO view(s) were taken. Prior study comparison: June 27, 2019, bilateral MG 3d screening mammo w/cad. May 17, 2018, bilateral MG screening mammo w CAD. There are scattered fibroglandular densities. Bilateral scattered benign appearing calcifications. ASSESSMENT: Benign, BI-RAD 2 RECOMMENDATION: Routine screening mammogram of both breasts in 1 year.
== END | disposition home or self-care (01) ==
LOC: RADMAMWWP 13:38
PROVIDERS: ATTEND Family Medicine
DX: Z12.31 Encounter for screening mammogram for malignant neoplasm of breast (principal); Z78.0 Asymptomatic menopausal state
CPT/HCPCS: 77067

== ENCOUNTER → 2021-07-15 | Outpatient (CLI) | payer MEDICARE ==
--- NOTE | 2021-07-15 12:00 | XR ---
EXAMINATION TYPE: XR chest 2V DATE OF EXAM: 07/15/2021 COMPARISON: 12/01/20 HISTORY: Shortness of breath TECHNIQUE: Frontal and lateral views of the chest are obtained. FINDINGS: Scattered senescent parenchymal changes noted. Hyperinflation compatible with COPD. No evidence for infiltrate. No evidence for atelectasis. Heart size is stable. Mediastinal structures are stable and grossly unremarkable. No evidence for hilar prominence. Degenerative changes dorsal spine. IMPRESSION: 1. No evidence for acute pulmonary disease.
--- NOTE | 2021-07-15 12:16 | XR ---
EXAMINATION TYPE: XR cervical spine comp DATE OF EXAM: 07/15/2021 CLINICAL HISTORY: pain COMPARISON: NONE TECHNIQUE: Frontal, lateral, oblique, swimmers, and open mouth view of the cervical spine are obtaine d. FINDINGS: The cervical spine is visualized in its entirety from C1 thru the top of T1 level. It is s atisfactory in alignment without evidence of acute fracture or dislocation. The pre-vertebral soft t issue appears within normal limits. Severe degenerative change at C4-5, C5-6 and C6-7. Ventral and do rsal spondylosis. The C1-C2 articulation is unremarkable on the open mouth view. The oblique images are within normal limits. IMPRESSION: No acute fracture or dislocation is seen in the cervical spine.ICD 10 NO FRACTURE, INITI AL EVALUATION
== END | disposition home or self-care (01) ==
LOC: RADXRMAIN 11:32
PROVIDERS: ATTEND Family Medicine
DX: M54.2 Cervicalgia (principal); R06.02 Shortness of breath
CPT/HCPCS: 71046; 72050

== ENCOUNTER 2021-09-20 16:03 | Observation (INO) | payer MEDICARE ==
[2021-09-20] MEDS ORDERED: MORPHINE SULFATE 4 MG/ML SYRINGE IV STA (18:03)
[2021-09-20] MEDS ORDERED: ONDANSETRON 4 MG/2 ML VIAL IVP STA (18:03)
[2021-09-20] MEDS ORDERED: SODIUM CHLORIDE 0.9% 1,000 ML IV STA (18:03)
--- NOTE | 2021-09-20 18:05 | ED ---
General Adult HPI - General Chief complaint: Nausea/Vomiting/Diarrhea Stated complaint: Dehydration Time Seen by Provider: 09/20/21 17:46 Source: patient, RN notes reviewed, old records reviewed Mode of arrival: wheelchair Limitations: no limitations - History of Present Illness Initial comments: 66-year-old female presenting with acute onset nausea and vomiting. Patient has had multiple episodes of vomiting as well as abdominal pain. She states she believes the pain is secondary to the vomiting. She states she has had an episode similar to this in the past but is uncertain what the diagnosis was. She states she is passing gas. She's had subjective fever and chills. No central chest pain. - Related Data Home Medications Medication Instructions Recorded Confirmed Ezetimibe [Zetia] 10 mg PO DAILY 09/29/17 03/10/21 Zinc 50 mg PO DAILY 12/01/20 03/10/21 Cholecalciferol [Vitamin D3 (25 50 mcg PO DAILY 01/19/21 03/10/21 Mcg = 1000 Iu)] Cyanocobalamin (Vitamin B-12) 1,000 mcg PO DAILY 01/19/21 03/10/21 [Vitamin B-12] L.acidoph,Paracasei, B.lactis 1 cap PO DAILY 01/19/21 03/10/21 [Probiotic] Magnesium Oxide [Mag-Ox] 400 mg PO DAILY 01/19/21 03/10/21 Multivitamins, Thera [Multivitamin 1 tab PO DAILY 01/19/21 03/10/21 (formulary)] Escitalopram [Lexapro] 20 mg PO DAILY 09/20/21 09/20/21 Levothyroxine Sodium 125 mcg PO DAILY 09/20/21 09/20/21 Lisinopril(Unknown Dose) 1 tab PO DAILY 09/20/21 09/20/21 Allergies Allergy/AdvReac Type Severity Reaction Status Date / Time No Known Allergies Allergy Verified 09/20/21 19:52 Review of Systems ROS Statement: Those systems with pertinent positive or pertinent negative responses have been documented in the HPI. ROS Other: All systems not noted in ROS Statement are negative. Past Medical History Past Medical History: Hyperlipidemia, Osteoarthritis (OA), Thyroid Disorder Additional Past Medical History / Comment(s): diverticulitis History of Any Multi-Drug Resistant Organisms: None Reported Past Surgical History: Bariatric Surgery, Bladder Surgery, Hernia Repair, Joint Replacement, Tubal Ligation Additional Past Surgical History / Comment(s): kilo hip replacement, kilo carpal tunnel, bladder suspension, lap band in, now removed, abd hernia, TOTAL LEFT KNEE Past Anesthesia/Blood Transfusion Reactions: No Reported Reaction Past Psychological History: Anxiety, Depression Smoking Status: Current every day smoker Past Alcohol Use History: Occasional Past Drug Use History: Marijuana - Past Family History Mother Family Medical History: No Reported History General Exam Limitations: no limitations General appearance: alert, in no apparent distress Head exam: Present: atraumatic, normocephalic Eye exam: Present: normal appearance, PERRL ENT exam: Present: mucous membranes dry Neck exam: Present: normal inspection. Absent: tenderness, meningismus Respiratory exam: Present: normal lung sounds bilaterally. Absent: respiratory distress, wheezes Cardiovascular Exam: Present: regular rate, normal rhythm GI/Abdominal exam: Present: soft. Absent: distended, tenderness, guarding, rebound Extremities exam: Present: normal inspection, normal capillary refill. Absent: pedal edema Neurological exam: Present: alert, oriented X3, CN II-XII intact. Absent: motor sensory deficit Psychiatric exam: Present: anxious Skin exam: Present: warm, dry, intact. Absent: cyanosis, diaphoretic, erythema Course Vital Signs 09/20/21 16:56 Temperature 98.6 F Pulse Rate 72 Respiratory 20 Rate Blood Pressure 131/80 O2 Sat by Pulse 99 Oximetry - Reevaluation(s) Reevaluation #1: 09/20/21 19:59 Patient reevaluated, resting comfortably, no further vomiting. No abdominal pain. No chest pain. EKG Findings - EKG Comments: EKG Findings:: Sinus rhythm with PAC, left axis deviation, LVH, no ST segment elevation, rate of 65, NJ interval 162, QRS duration 90, QTC 486 Medical Decision Making - Medical Decision Making 66-year-old female presented with nausea and vomiting over the past 24 hours. Patient is ill appearing on initial evaluation. She has some abdominal pain without focal tenderness. I did perform both evaluation of the nausea vomiting as well as workup for an atypical presentation of ACS. Her EKG sinus rhythm without ST segment elevation. She has normal leukocytosis, hemoglobin is 16.4. She has a mild lactic acid of 2.5. Normal lites lites, normal kidney function. She has a minimally elevated troponin 0.053. No active chest pain. Her coronavirus testing is negative. She will be kept in observation both for symptomatic relief of her nausea and vomiting as well as trended cardiac enzymes. I did discuss case with Dr. Smith who will admit. - Lab Data Result diagrams: 09/20/21 18:12 09/20/21 18:12 Lab Results 09/20/21 09/20/21 09/20/21 Range/Units 17:01 18:12 18:12 WBC 8.8 (3.8-10.6) k/uL RBC 4.70 (3.80-5.40) m/uL Hgb 16.4 H (11.4-16.0) gm/dL Hct 46.2 H (34.0-46.0) % MCV 98.3 (80.0-100.0) fL MCH 34.8 (25.0-35.0) pg MCHC 35.4 (31.0-37.0) g/dL RDW 12.4 (11.5-15.5) % Plt Count 253 (150-450) k/uL MPV 8.4 Neutrophils % 84 % Lymphocytes % 12 % Monocytes % 3 % Eosinophils % 0 % Basophils % 0 % Neutrophils # 7.4 (1.3-7.7) k/uL Lymphocytes # 1.0 (1.0-4.8) k/uL Monocytes # 0.3 (0-1.0) k/uL Eosinophils # 0.0 (0-0.7) k/uL Basophils # 0.0 (0-0.2) k/uL Hyperchromasia Slight PT (9.0-12.0) sec INR (<1.2) APTT (22.0-30.0) sec Sodium 135 L (137-145) mmol/L Potassium 4.1 (3.5-5.1) mmol/L Chloride 100 (98-107) mmol/L Carbon Dioxide 23 (22-30) mmol/L Anion Gap 12 mmol/L BUN 10 (7-17) mg/dL Creatinine 0.51 L (0.52-1.04) mg/dL Est GFR (CKD-EPI)AfAm >90 (>60 ml/min/1.73 sqM) Est GFR (CKD-EPI)NonAf >90 (>60 ml/min/1.73 sqM) Glucose 166 H (74-99) mg/dL Plasma Lactic Acid Franklyn (0.7-2.0) mmol/L Calcium 10.6 H (8.4-10.2) mg/dL Total Bilirubin 0.9 (0.2-1.3) mg/dL AST 35 (14-36) U/L ALT 20 (4-34) U/L Alkaline Phosphatase 88 (38-126) U/L Troponin I (0.000-0.034) ng/mL Total Protein 8.7 H (6.3-8.2) g/dL Albumin 5.0 (3.5-5.0) g/dL Amylase 62 (30-110) U/L Lipase 70 (23-300) U/L Coronavirus (PCR) Not Detected (Not Detectd) 09/20/21 09/20/21 09/20/21 Range/Units 18:12 18:12 18:12 WBC (3.8-10.6) k/uL RBC (3.80-5.40) m/uL Hgb (11.4-16.0) gm/dL Hct (34.0-46.0) % MCV (80.0-100.0) fL MCH (25.0-35.0) pg MCHC (31.0-37.0) g/dL RDW (11.5-15.5) % Plt Count (150-450) k/uL MPV Neutrophils % % Lymphocytes % % Monocytes % % Eosinophils % % Basophils % % Neutrophils # (1.3-7.7) k/uL Lymphocytes # (1.0-4.8) k/uL Monocytes # (0-1.0) k/uL Eosinophils # (0-0.7) k/uL Basophils # (0-0.2) k/uL Hyperchromasia PT 9.9 (9.0-12.0) sec INR 0.9 (<1.2) APTT 22.1 (22.0-30.0) sec Sodium (137-145) mmol/L Potassium (3.5-5.1) mmol/L Chloride (98-107) mmol/L Carbon Dioxide (22-30) mmol/L Anion Gap mmol/L BUN (7-17) mg/dL Creatinine (0.52-1.04) mg/dL Est GFR (CKD-EPI)AfAm (>60 ml/min/1.73 sqM) Est GFR (CKD-EPI)NonAf (>60 ml/min/1.73 sqM) Glucose (74-99) mg/dL Plasma Lactic Acid Franklyn 2.5 H* (0.7-2.0) mmol/L Calcium (8.4-10.2) mg/dL Total Bilirubin (0.2-1.3) mg/dL AST (14-36) U/L ALT (4-34) U/L Alkaline Phosphatase (38-126) U/L Troponin I 0.053 H* (0.000-0.034) ng/mL Total Protein (6.3-8.2) g/dL Albumin (3.5-5.0) g/dL Amylase (30-110) U/L Lipase (23-300) U/L Coronavirus (PCR) (Not Detectd) Disposition Clinical Impression: Elevated troponin, Dehydration, N&V (nausea and vomiting) Disposition: ADMITTED IP TO THIS [facility] Condition: Stable Is patient prescribed a controlled substance at d/c from ED?: No Referrals: Gladis Wilkins MD [Primary Care Provider] - 1-2 days Decision to Admit Reason: Admit from EC Decision Date: 09/20/21 Decision Time: 20:01
[2021-09-20 18:43] LABS: ALT 20 U/L (4-34); AST 35 U/L (14-36); African American GFR (CKD) >90 (>60 ml/min/1.73 sqM); Alkaline Phosphatase 88 U/L (38-126); Amylase 62 U/L (30-110); Anion Gap 12 mmol/L; Blood Urea Nitrogen 10 mg/dL (7-17); Calcium 10.6 mg/dL (8.4-10.2); Carbon Dioxide 23 mmol/L (22-30); Chloride 100 mmol/L (98-107); Glucose 166 mg/dL (74-99); Lipase 70 U/L (23-300); Non-African American GFR(CKD) >90 (>60 ml/min/1.73 sqM); Potassium 4.1 mmol/L (3.5-5.1); Sodium 135 mmol/L (137-145); Total Bilirubin 0.9 mg/dL (0.2-1.3); Total Protein 8.7 g/dL (6.3-8.2)
--- NOTE | 2021-09-20 18:56 | XR ---
EXAMINATION TYPE: XR KUB DATE OF EXAM: 09/20/2021 COMPARISON: 03/10/2021 HISTORY: Abdominal pain TECHNIQUE: Single view FINDINGS: There is no sign of intestinal obstruction or pneumoperitoneum. Fecal pattern is normal. Th ere is no evidence of a mass. There is bilateral hip prosthesis. Lung bases are clear. There are no p athologic calcifications over the kidneys. IMPRESSION: Nonacute abdomen. No change.
[2021-09-20 19:03] LABS: Basophils % (A) 0 %; Eosinophils % (A) 0 %; HCT 46.2 % (34.0-46.0); HGB 16.4 gm/dL (11.4-16.0); Hyperchromasia Slight; Lymphocytes % (A) 12 %; MCH 34.8 pg (25.0-35.0); MCHC 35.4 g/dL (31.0-37.0); MCV 98.3 fL (80.0-100.0); Mean Platelet Volume 8.4; Monocytes # (A) 0.3 k/uL (0-1.0); Monocytes % (A) 3 %; Neutrophils # (A) 7.4 k/uL (1.3-7.7); Neutrophils % (A) 84 %; Platelet Count 253 k/uL (150-450); RDW 12.4 % (11.5-15.5); WBC 8.8 k/uL (3.8-10.6)
[2021-09-20] MEDS ORDERED: ASPIRIN 325 MG TAB PO STA (19:18)
[2021-09-20 19:27] LABS: INR 0.9 (<1.2); Partial Thromboplastin Time 22.1 sec (22.0-30.0); Prothrombin Time 9.9 sec (9.0-12.0)
[2021-09-20] MEDS ORDERED: ONDANSETRON 4 MG/2 ML VIAL IVP PRN (19:57)
[2021-09-20] MEDS ORDERED: ACETAMINOPHEN TAB 325 MG TAB PO PRN (19:57)
[2021-09-20] MEDS ORDERED: NALOXONE 0.4 MG/ML 1 ML VIAL IV PRN (19:57)
[2021-09-20] MEDS: SODIUM CHLORIDE 0.9% 1,000 ML IV SCH (20:38)
[2021-09-20] MEDS: MORPHINE SULFATE 4 MG/ML SYRINGE IV PRN (22:05)
[2021-09-21 01:05] VITALS: RESP 18
[2021-09-21] MEDS: MORPHINE SULFATE 4 MG/ML SYRINGE IV PRN (06:29)
[2021-09-21 06:56] LABS: Appearance,Urine Clear (Clear); Bilirubin,Urine Negative (Negative); Blood,Urine Negative (Negative); Color,Urine Yellow; Glucose,Urine (UA) Negative (Negative); Ketones,Urine Negative (Negative); Leukocyte Esterase,Urine Negative (Negative); Nitrite,Urine Negative (Negative); Protein,Urine Trace (Negative); Specific Gravity,Urine 1.015 (1.001-1.035); Urobilinogen,Urine <2.0 mg/dL (<2.0)
[2021-09-21 08:43] VITALS: BP 137/78; PULSE 51; TEMP 98.1
[2021-09-21] MEDS: SODIUM CHLORIDE 0.9% 1,000 ML IV SCH (08:44)
[2021-09-21] MEDS ORDERED: ASPIRIN 325 MG TAB PO SCH (09:00)
--- NOTE | 2021-09-21 12:39 | P.CRDCN ---
History of Present Illness History of present illness: HISTORY OF PRESENTING ILLNESS This is a pleasant 66-year-old female past medical history significant for high cholesterol, chronic nicotine dependence and hypothyroidism. 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 We have been asked to see in consultation for elevated troponin. Patient presents to the emergency room with nausea and vomiting for 3- 4days. She started having nausea that progressed to vomiting multiple times. She denies eating anything out of the ordinary. She denies chest pain, palpitations, shortness of breath, lower extremity edema. Denies symptoms of orthopnea or PND. She did having some lightheadedness and headache after vomiting. She denies symptoms of orthopnea or PND. She smokes 1PPD. Denies alcohol use. She is a non-diabetic. Denies history of CA, hypertension, stroke, diabetes. She states she has followed up with her doctor for this and her nausea and vomiting has been attributed to dehydration. She presented to the ER with this similar presentation in 03/2021, her troponins were minimally elevated at that time, She was told to stop her Lexapro due to prolonged QT. She underwent an echocardiogram which was normal. She states after receiving IV morphine, IV zofran and IV fluids she is feeling much better. DIAGNOSTICS EKG sinus rhythm with PACs, heart rate 65, left axis deviation, slow R wave progression. LVH borderline, prior EKG with similar findings Echocardiogram in 03/2021 EF 55-60%, mild mitral regurgitation, mild tricuspid regurgitation Patient takes Zetia 10 mg daily, omeprazole 20 mg daily, Synthroid 112 mcg daily. Laboratory data reviewed, include 16.4, sodium 135, potassium 4.1, BUN 10, serum creatinine 0.5, lactate 2.5, repeat 0.8, troponin 0.05, 0.05 0.04, COVID-19 PCR negative Vital signs 137/70, heart 51, afebrile oxygen saturation is 96% on room air Telemetry tracings indicate sinus mechanism heart in the 50s to 60s REVIEW OF SYSTEMS At the time of my exam: CONSTITUTIONAL: Denies fever or chills. CARDIOVASCULAR: Denies chest pain, shortness of breath, orthopnea, PND or palpitations. RESPIRATORY: Denies cough. GASTROINTESTINAL: Positive abdominal pain, and positive nausea and vomiting. MUSCULOSKELETAL: Denies myalgias. NEUROLOGIC: Denies numbness, tingling, headacbe or weakness. ENDOCRINE: Denies fatigue, weight change, polydipsia or polyurina. GENITOURINARY: Denies burning, hematuria or urgency with micturation. HEMATOLOGIC: Denies history of anemia or bleeding. PHYSICAL EXAMINATION CONSTITUTIONAL: No apparent distress. HEENT: Head is normocephalic. Pupils are equal, round. Sclerae anicteric. Mucous membranes of the mouth are moist. No JVD. No carotid bruit. CHEST EXAMINATION: Lungs are clear to auscultation. No chest wall tenderness is noted on palpation or with deep breathing. HEART EXAMINATION: Regular rate and rhythm. S1, S2 heard. No murmurs, gallops or rub. ABDOMEN: Soft, nontender. Positive bowel sounds. EXTREMITIES: 2+ peripheral pulses, no lower extremity edema and no calf tend erness. SKIN: intact NEUROLOGIC EXAMINATION: Patient is awake, alert and oriented x3. ASSESSMENT Nausea, vomiting Elevated troponin - Not significant for acute coronary syndrome. EKG with no evidence of ischemia. Troponin trend 0.05-->0.05-->0.043 History of hyperlipidemia Chronic nicotine dependence Hypothyroidism PLAN From a cardiology perspective, patient can be discharged home. recommend follow up with Dr. Saini in the office in 1-2 weeks for stress test outpatient Nurse Practitioner note has been reviewed, I agree with a documented findings and plan of care. Patient was seen and examined. Past Medical History Past Medical History: Hyperlipidemia, Osteoarthritis (OA), Thyroid Disorder Additional Past Medical History / Comment(s): diverticulitis History of Any Multi-Drug Resistant Organisms: None Reported Past Surgical History: Bariatric Surgery, Bladder Surgery, Hernia Repair, Joint Replacement, Tubal Ligation Additional Past Surgical History / Comment(s): kilo hip replacement, kilo carpal tunnel, bladder suspension, lap band in, now removed, abd hernia, TOTAL LEFT KNEE Past Anesthesia/Blood Transfusion Reactions: No Reported Reaction Past Psychological History: Anxiety, Depression Smoking Status: Current every day smoker Past Alcohol Use History: Occasional Past Drug Use History: Marijuana - Past Family History Mother Family Medical History: No Reported History Medications and Allergies Home Medications Medication Instructions Recorded Confirmed Type Ezetimibe [Zetia] 10 mg PO DAILY 09/29/17 09/20/21 History Zinc 50 mg PO DAILY 12/01/20 09/20/21 History Cholecalciferol [Vitamin D3 (25 50 mcg PO DAILY 01/19/21 09/20/21 History Mcg = 1000 Iu)] Cyanocobalamin (Vitamin B-12) 1,000 mcg PO DAILY 01/19/21 09/20/21 History [Vitamin B-12] L.acidoph,Paracasei, B.lactis 1 cap PO DAILY 01/19/21 09/20/21 History [Probiotic] Magnesium Oxide [Mag-Ox] 400 mg PO DAILY 01/19/21 09/20/21 History Multivitamins, Thera [Multivitamin 1 tab PO DAILY 01/19/21 09/20/21 History (formulary)] Escitalopram [Lexapro] 20 mg PO DAILY 09/20/21 09/20/21 History Levothyroxine Sodium 125 mcg PO DAILY 09/20/21 09/20/21 History Lisinopril(Unknown Dose) 1 tab PO DAILY 09/20/21 09/20/21 History Allergies Allergy/AdvReac Type Severity Reaction Status Date / Time No Known Allergies Allergy Verified 09/20/21 19:52 Physical Exam Vitals: Vital Signs Temp Pulse Resp BP Pulse Ox 09/21/21 06:00 59 L 18 139/89 96 09/21/21 05:00 55 L 18 09/21/21 04:00 60 18 09/21/21 02:00 87 18 09/21/21 00:00 98.4 F 58 L 18 108/74 95 09/20/21 20:40 97.9 F 71 20 153/91 94 L 09/20/21 16:56 98.6 F 72 20 131/80 99 Intake and Output 09/20/21 09/21/21 09/21/21 22:59 06:59 14:59 Other: Weight 72.575 kg Results 09/20/21 18:12 09/20/21 18:12 Cardiac Enzymes 09/20/21 09/20/21 09/20/21 Range/Units 18:12 18:12 22:23 AST 35 (14-36) U/L Troponin I 0.053 H* 0.054 H* (0.000-0.034) ng/mL 09/21/21 Range/Units 01:19 AST (14-36) U/L Troponin I 0.043 H* (0.000-0.034) ng/mL Coagulation 09/20/21 Range/Units 18:12 PT 9.9 (9.0-12.0) sec APTT 22.1 (22.0-30.0) sec CBC 09/20/21 Range/Units 18:12 WBC 8.8 (3.8-10.6) k/uL RBC 4.70 (3.80-5.40) m/uL Hgb 16.4 H (11.4-16.0) gm/dL Hct 46.2 H (34.0-46.0) % Plt Count 253 (150-450) k/uL Comprehensive Metabolic Panel 09/20/21 Range/Units 18:12 Sodium 135 L (137-145) mmol/L Potassium 4.1 (3.5-5.1) mmol/L Chloride 100 (98-107) mmol/L Carbon Dioxide 23 (22-30) mmol/L BUN 10 (7-17) mg/dL Creatinine 0.51 L (0.52-1.04) mg/dL Glucose 166 H (74-99) mg/dL Calcium 10.6 H (8.4-10.2) mg/dL AST 35 (14-36) U/L ALT 20 (4-34) U/L Alkaline Phosphatase 88 (38-126) U/L Total Protein 8.7 H (6.3-8.2) g/dL Albumin 5.0 (3.5-5.0) g/dL Current Medications Generic Name Dose Route Start Last Admin Trade Name Freq PRN Reason Stop Dose Admin Acetaminophen 650 mg 09/20/21 19:57 Acetaminophen Tab 325 Mg Tab PO Q6HR PRN Mild Pain or Fever > 100.5 Aspirin 325 mg 09/21/21 09:00 Aspirin 325 Mg Tab PO DAILY MARSHALL Sodium Chloride 1,000 mls @ 75 mls/hr 09/20/21 20:00 09/20/21 20:38 Saline 0.9% IV 75 mls/hr .[id number] MARSHALL Administration Morphine Sulfate 4 mg 09/20/21 19:57 09/21/21 06:29 Morphine Sulfate 4 Mg/Ml Syringe IV 4 mg Q3HR PRN Administration Severe Pain Naloxone HCl 0.2 mg 09/20/21 19:57 Naloxone 0.4 Mg/Ml 1 Ml Vial IV Q2M PRN Opioid Reversal Ondansetron HCl 4 mg 09/20/21 19:57 Ondansetron 4 Mg/2 Ml Vial IVP Q8HR PRN Nausea And Vomiting Intake and Output 09/20/21 09/21/21 09/21/21 22:59 06:59 14:59 Other: Weight 72.575 kg 09/20/21 18:12 09/20/21 18:12
--- NOTE | 2021-10-11 21:57 | P.HPIM ---
History of Present Illness H&P Date: 09/21/21 Chief Complaint: nausea, vomiting Wen Schwarz is a 66-year-old female with PMH of HLD, chronic nicotine dependence and hypothyroidism who presented to the emergency room with nausea and vomiting for 3-4 days. She started having nausea that progressed to vomiting multiple times. She denies eating anything out of the ordinary. She denies chest pain, palpitations, shortness of breath, lower extremity edema. Denies symptoms of orthopnea or PND. She did having some lightheadedness and headache after vomiting. She denies symptoms of orthopnea or PND. She smokes 1PPD. Denies alcohol use. She is a non-diabetic. Denies history of AR, hypertension, stroke, diabetes. She states she has followed up with her doctor for this and her nausea and vomiting has been attributed to dehydration. She presented to the ER with this similar presentation in 03/2021, her troponins were minimally elevated at that time, She was told to stop her Lexapro due to prolonged QT. She underwent an echocardiogram which was normal. She states after receiving IV morphine, IV zofran and IV fluids she is feeling much better. Review of Systems All systems: negative Constitutional: Reports malaise, Reports weakness, Denies chills, Denies fever Eyes: denies blurred vision, denies pain Ears, nose, mouth and throat: Denies headache, Denies sore throat Cardiovascular: Denies chest pain, Denies shortness of breath Respiratory: Denies cough Gastrointestinal: Reports abdominal pain, Reports nausea, Reports vomiting, Denies diarrhea Genitourinary: Denies dysuria, Denies hematuria Musculoskeletal: Denies myalgias Integumentary: Denies pruritus, Denies rash Neurological: Denies numbness, Denies weakness Psychiatric: Denies anxiety, Denies depression Endocrine: Denies fatigue, Denies weight change Past Medical History Past Medical History: Hyperlipidemia, Osteoarthritis (OA), Thyroid Disorder Additional Past Medical History / Comment(s): diverticulitis History of Any Multi-Drug Resistant Organisms: None Reported Past Surgical History: Bariatric Surgery, Bladder Surgery, Hernia Repair, Joint Replacement, Tubal Ligation Additional Past Surgical History / Comment(s): kilo hip replacement, kilo carpal tunnel, bladder suspension, lap band in, now removed, abd hernia, TOTAL LEFT KNEE Past Anesthesia/Blood Transfusion Reactions: No Reported Reaction Past Psychological History: Anxiety, Depression Smoking Status: Current every day smoker Past Alcohol Use History: Occasional Past Drug Use History: Marijuana - Past Family History Mother Family Medical History: No Reported History Medications and Allergies Home Medications Medication Instructions Recorded Confirmed Type Ezetimibe [Zetia] 10 mg PO DAILY 09/29/17 09/20/21 History Zinc 50 mg PO DAILY 12/01/20 09/20/21 History Cholecalciferol [Vitamin D3 (25 50 mcg PO DAILY 01/19/21 09/20/21 History Mcg = 1000 Iu)] Cyanocobalamin (Vitamin B-12) 1,000 mcg PO DAILY 01/19/21 09/20/21 History [Vitamin B-12] L.acidoph,Paracasei, B.lactis 1 cap PO DAILY 01/19/21 09/20/21 History [Probiotic] Magnesium Oxide [Mag-Ox] 400 mg PO DAILY 01/19/21 09/20/21 History Multivitamins, Thera [Multivitamin 1 tab PO DAILY 01/19/21 09/20/21 History (formulary)] Escitalopram [Lexapro] 20 mg PO DAILY 09/20/21 09/20/21 History Levothyroxine Sodium 125 mcg PO DAILY 09/20/21 09/20/21 History Lisinopril(Unknown Dose) 1 tab PO DAILY 09/20/21 09/20/21 History Allergies Allergy/AdvReac Type Severity Reaction Status Date / Time No Known Allergies Allergy Verified 09/20/21 19:52 Physical Exam General: well nourished, well developed, NAD. Vitals reviewed Eyes: PERRL, EOMI, conjunctiva normal HENT: normocephalic, mucus membranes moist Neck: supple, no JVD Lungs: normal respiratory effort, no wheezes or rales CV: Regular rate and rhythm, no murmur. Peripheral pulses 2+ Abdomen: soft, nondistended, no organomegaly Lymph: no cervical or axillary LAD Skin: warm and dry. Neuro: A&Ox3, normal mood and affect Results CBC & Chem 7: 09/20/21 18:12 09/20/21 18:12 Assessment and Plan Plan: 1. Nausea, vomiting, and diarrhea. Suspect infectious gastroenteritis. Treat conservatively, continue IV fluids, zofran 2. Elevated troponin. Represents demand ischemia. No evidence of ACS. Cardiology consult for further evaluation
--- NOTE | 2021-10-11 21:58 | P.DS ---
Providers Date of admission: 09/20/21 19:57 Expected date of discharge: 09/21/21 Attending physician: Giovanny Mendoza MD Consults: 09/20/21 19:57 Consult Physician Routine Consulting Provider: Lewis Lui Consult Reason/Comments: N/V . elevated Troponin Do you want consulting provider notified?: Yes 09/21/21 09:31 Consult Physician Stat Consulting Provider: Giovanny Mendoza Consult Reason/Comments: Per Dr Lara; change admit to doc Do you want consulting provider notified?: Yes Primary care physician: [facility] Course: Wen Schwarz is a 66-year-old female with PMH of HLD, chronic nicotine dependence and hypothyroidism who presented to the emergency room with nausea and vomiting for 3-4 days. She started having nausea that progressed to vomiting multiple times. She denies eating anything out of the ordinary. She denies chest pain, palpitations, shortness of breath, lower extremity edema. Denies symptoms of orthopnea or PND. She did having some lightheadedness and headache after vomiting. She denies symptoms of orthopnea or PND. She smokes 1PPD. Denies alcohol use. She is a non-diabetic. Denies history of MS, hypertension, stroke, diabetes. She states she has followed up with her doctor for this and her nausea and vomiting has been attributed to dehydration. She presented to the ER with this similar presentation in 03/2021, her troponins w ere minimally elevated at that time, She was told to stop her Lexapro due to prolonged QT. She underwent an echocardiogram which was normal. She states after receiving IV morphine, IV zofran and IV fluids she is feeling much better. She was evaluated and cleared by Cardiology. Pt discharged in stable condition and recommended to follow up with her PCP. Patient Condition at Discharge: Stable Plan - Discharge Summary New Discharge Prescriptions: Continue Ezetimibe [Zetia] 10 mg PO DAILY Zinc 50 mg PO DAILY Cholecalciferol [Vitamin D3 (25 Mcg = 1000 Iu)] 50 mcg PO DAILY Magnesium Oxide [Mag-Ox] 400 mg PO DAILY Multivitamins, Thera [Multivitamin (formulary)] 1 tab PO DAILY L.acidoph,Paracasei, B.lactis [Probiotic] 1 cap PO DAILY Cyanocobalamin (Vitamin B-12) [Vitamin B-12] 1,000 mcg PO DAILY Lisinopril(Unknown Dose) 1 tab PO DAILY Escitalopram [Lexapro] 20 mg PO DAILY Levothyroxine Sodium 125 mcg PO DAILY Discharge Medication List Ezetimibe [Zetia] 10 mg PO DAILY 09/29/17 [History] Zinc 50 mg PO DAILY 12/01/20 [History] Cholecalciferol [Vitamin D3 (25 Mcg = 1000 Iu)] 50 mcg PO DAILY 01/19/21 [History] Cyanocobalamin (Vitamin B-12) [Vitamin B-12] 1,000 mcg PO DAILY 01/19/21 [History] L.acidoph,Paracasei, B.lactis [Probiotic] 1 cap PO DAILY 01/19/21 [History] Magnesium Oxide [Mag-Ox] 400 mg PO DAILY 01/19/21 [History] Multivitamins, Thera [Multivitamin (formulary)] 1 tab PO DAILY 01/19/21 [History] Escitalopram [Lexapro] 20 mg PO DAILY 09/20/21 [History] Levothyroxine Sodium 125 mcg PO DAILY 09/20/21 [History] Lisinopril(Unknown Dose) 1 tab PO DAILY 09/20/21 [History] Follow up Appointment(s)/Referral(s): Maddie Saini MD [STAFF PHYSICIAN] - 2 Weeks Gladis Wilkins MD [Primary Care Provider] - 1-2 days Discharge Disposition: HOME SELF-CARE
== END 2021-09-21 13:09 | disposition home or self-care (01) ==
LOC: EC 16:03 → 6NMEDSUR 19:57 → 3SCARD 20:54
PROVIDERS: ADMIT Family Medicine; ATTEND Family Medicine
DX: R11.2 Nausea with vomiting, unspecified (principal); R19.7 Diarrhea, unspecified; R77.8 Other specified abnormalities of plasma proteins; E03.9 Hypothyroidism, unspecified; R10.9 Unspecified abdominal pain; R51.9 Headache, unspecified; Z20.822 Contact with and (suspected) exposure to COVID-19; R50.9 Fever, unspecified; E86.0 Dehydration; E78.5 Hyperlipidemia, unspecified; I07.1 Rheumatic tricuspid insufficiency; I34.0 Nonrheumatic mitral (valve) insufficiency; F17.210 Nicotine dependence, cigarettes, uncomplicated; E78.00 Pure hypercholesterolemia, unspecified; M19.90 Unspecified osteoarthritis, unspecified site; K57.90 Diverticulosis of intestine, part unspecified, without perforation or abscess without bleeding; K46.9 Unspecified abdominal hernia without obstruction or gangrene; F32.A Depression, unspecified; F41.9 Anxiety disorder, unspecified; Z79.899 Other long term (current) drug therapy; Z79.890 Hormone replacement therapy; Z87.448 Personal history of other diseases of urinary system; Z96.652 Presence of left artificial knee joint; Z96.643 Presence of artificial hip joint, bilateral; Z98.84 Bariatric surgery status; Z98.51 Tubal ligation status
CPT/HCPCS: 99285; 96376 ×2; 96361 ×2; 96374; 96375; 36415; 93005; 80053; 82150; 83605; 83690; 84484 ×2; 85025; 85610; 85730; 81003; 87635; 74018; G0378 ×2; J2270 ×2; J2405

== ENCOUNTER → 2022-01-18 | Outpatient (CLI) | payer MEDICARE ==
[2022-01-18 14:13] VITALS: BP 103/69; PULSE 62; RESP 18; TEMP 98.6
--- NOTE | 2022-01-18 14:21 | P.CON ---
Consult Note - . Consult date: 01/18/22 Assessment/Plan:: HISTORY OF PRESENT ILLNESS: 66 year old female as a referral from Dr Milner presents today with neck pain due to DDD, disc bulges, spinal stenosis, anterolisthesis, neuroforaminal stenoses and facet arthropathy for an evaluation. Patient states her neck pain is constant, 8 out of 10, throbbing, achy for the last year, localized to the lower aspects of her cervical spine with radiation of pain to the upper aspects of the shoulders bilaterally and the upper extremities, left greater than right. Pain is provoked to 10 out of 10 with lifting or extension of the neck. It is relieved with medications (Percocet 10/325 mg), heat, laying supine, repositioning, home-based stretching regimen and rest. Past Medical History: Hyperlipidemia, Osteoarthritis (OA), Thyroid Disorder, MDD Past Surgical History: Lap Band Bariatric Surgery, Bladder Suspension Surgery, Abd Hernia Repair, Joint Replacement, Tubal Ligation, BL Carpal Tunnel Release, BL Hip Replacement, Total Left Knee Social History: Daily Tobacco user. Cannabis Use. Occassional ETOH use. Smoking Status: Current every day smoker All: NKDA Meds: See list REVIEW OF ORGAN SYSTEMS: CONSTITUTIONAL: No fevers or chills. No recent weight loss. HEENT: No visual acuity loss, eye pain, difficulties with hearing. No nosebleeds. No difficulty swallowing. RESPIRATORY: Denies any troubles with breathing or dyspnea on exertion. CARDIOVASCULAR: Denies any chest pain, palpitations, or recent heart attacks. GASTROINTESTINAL: Denies fatty food intolerance. Has change in bowel habits and gas bloat. GENITOURINARY: Denies any blood in urine. Has increased urinary frequency. NEUROLOGICAL: + numbness and tingling along the distal extremities. No seizure disorders or headaches. MUSCULOSKELETAL: + back pain SKIN: No skin cancer. No rash. PSYCHIATRIC: Denies current depression or suicidal thoughts. ENDOCRINE: Denies current thyroid disorders. Denies any blood sugar glucose intolerance. HEME/LYMPHATIC: Denies any lumps and bumps around the neck. History of deep venous thrombosis. ALLERGY/IMMUNOLOGY: No immunoglobulin therapy. No immune deficiencies. BREAST: Denies current breast lumps, pain or nipple discharge. Physical Examinations : Constitutional : Cooperative , not in acute distress . HEENT: Neck supple. No Lymphadenopathy. Normal thyroid size . Eyes no ptosis , no icterus, no photophobia . Hearing intact. Normal oropharynx. No Thrush. Respiratory : Chest clear to auscultations bilaterally. No wheezing. No rhonchi. Cardiovascular : Regular rate and rhythm , S1 / S2. No S3 . No S4. Gastrointestinal : Abdomen soft. No tenderness. Bowel sounds x 4. No organomegaly . Genitourinary : Deferred. Neurologic : Cranial nerve II to XII intact. No focal n eurological deficits. Psychiatric : alert & oriented x 3. Matching mood & appropriate affect. Judgment & insight intact. Lymphatic No Lymphadenopathy. Musculoskeletal : Cervical Spine Motor strength in the deltoid and biceps: Normal right side. Normal Left side Motor strength biceps and the wrist extensors: Normal right side . Normal left side Motor strength in the triceps muscle: Normal right side. Normal left side Deep tendon reflexes: Normal at the biceps. Normal at Brachioradialis. Normal at triceps Cervical facet loading test: positive bilaterally Vertebral body tenderness over C7, C8 Spurling test: positive bilaterally Neck distraction test: positive bilaterally Sherman sign: positive bilaterally Lumbar spine Motor strength lower extremities ,thigh and legs 5/5 Right side , 5/5 Left side Deep tendon reflexes : Normal Knee Jerk. Normal Ankle Jerk Vertebral body tenderness over Lumbar facet Loading Test: positive Right / positive Left Range of motion of the lumbar spine Flexion 30 degrees, extension 10 degrees Straight Leg Raise test: Left/ Right positive at degree Pancho test: positive right / positive left. Severe tenderness over the Sacroiliac joint on the Right / Left sides Gaenslen test: positive bilaterally Seated flexion test: positive bilaterally. Imaging: MRI of the cervical spine without contrast from 09/05/21 reviewed. Assessment/ Plan : Recommendation of ÁNGELA C6-C7. May need a series, up to 3 within a six-month period, for optimal pain relief. Risks, benefits of procedure discussed and patient verbalized understanding. Denies aspirin or anti- coagulant use. Denies medical history of diabetes mellitus. All questions answered. I have spent greater than 50 minutes on patient care today. Dr Soares was available by phone for the evaluation of this patient. The time was used to review the medical records including relevant urine studies and Prescription history (MAPs), review of the available imaging, evaluation and examination of the patient, coordination of care with the medical staff and if applicable referring physicians, as well as creation of the medical record PQRS Measure Charge Sheet Mode of Arrival: Ambulatory - Pain Location Bilateral Lower Neck Non-Pharmacological Interventions: Heat, Inactivity Pharmacological Interventions: PRN Medication PQRS Narrative: Smoking Status Current every day smoker Blood Pressure 103/69 Pain Intensity [Bilateral 8 Lower Neck] Scale Used Numeric (1 - 10) Hx Alcohol Use (MH) No Home Medications: Ambulatory Orders Ezetimibe [Zetia] 10 mg PO DAILY 09/29/17 Zinc 50 mg PO DAILY 12/01/20 Cholecalciferol [Vitamin D3 (25 Mcg = 1000 Iu)] 50 mcg PO DAILY 01/19/21 Cyanocobalamin (Vitamin B-12) [Vitamin B-12] 1,000 mcg PO DAILY 01/19/21 L.acidoph,Paracasei, B.lactis [Probiotic] 1 cap PO DAILY 01/19/21 Magnesium Oxide [Mag-Ox] 400 mg PO DAILY 01/19/21 Multivitamins, Thera [Multivitamin (formulary)] 1 tab PO DAILY 01/19/21 Escitalopram [Lexapro] 20 mg PO DAILY 09/20/21 Levothyroxine Sodium 125 mcg PO DAILY 09/20/21 Lisinopril(Unknown Dose) 1 tab PO DAILY 09/20/21
== END ==
LOC: PNWHC3 13:10
PROVIDERS: ATTEND Physician Assistant Medical
DX: M50.30 Other cervical disc degeneration, unspecified cervical region (principal); M48.02 Spinal stenosis, cervical region; M50.20 Other cervical disc displacement, unspecified cervical region; M47.812 Spondylosis without myelopathy or radiculopathy, cervical region; E78.5 Hyperlipidemia, unspecified; M19.90 Unspecified osteoarthritis, unspecified site; F17.200 Nicotine dependence, unspecified, uncomplicated
CPT/HCPCS: 99211

== ENCOUNTER → 2022-02-24 | Outpatient (CLI) | payer MEDICARE ==
[2022-02-24 19:06] LABS: HGB 15.7 g/dL (12.0-15.0); MCH 34.2 pg (27.0-32.0); MCHC 34.1 g/dL (32.0-37.0); MCV 100.2 fL (80.0-97.0); Mean Platelet Volume 11.3 fL (9.5-12.2); NRBC Per 100 WBC 0 /100 WBCS (0.0-0.0); Platelet Count 282 X 10*3/uL (140-440); RBC 4.59 X 10*6/uL (4.10-5.20); RDW 12.5 % (11.5-14.5); WBC 7.17 X 10*3/uL (4.50-10.00)
[2022-02-24 21:54] LABS: ALT 16 U/L (8-44); AST 21 U/L (13-35); African American GFR (CKD) 84.3 (60.0-200.0); Albumin 4.2 g/dL (3.8-4.9); Albumin/Globulin Ratio 1.29 (1.60-3.17); Alkaline Phosphatase 83 U/L (41-126); BUN/Creat Ratio 17.05 Ratio (12.00-20.00); Blood Urea Nitrogen 14.1 mg/dL (9.0-27.0); Calcium 9.9 mg/dL (8.7-10.3); Carbon Dioxide 25.6 mmol/L (20.0-27.5); Chloride 99 mmol/L (96-109); Chol/HDL Ratio 3.63 Ratio; Globulin 3.3 g/dL (1.6-3.3); Glucose 132 mg/dL (70-110); Non-African American GFR(CKD) 72.8 (60.0-200.0); Potassium 4.7 mmol/L (3.5-5.5); Sodium 138 mmol/L (135-145); Total Protein 7.5 g/dL (6.2-8.2)
== END | disposition home or self-care (01) ==
LOC: LABWHC1 12:54
PROVIDERS: ATTEND Physician Assistant
DX: E66.9 Obesity, unspecified (principal); E78.5 Hyperlipidemia, unspecified; E03.9 Hypothyroidism, unspecified
CPT/HCPCS: 36415; 80053; 80061; 84439; 84443; 84480; 85027

== ENCOUNTER → 2022-03-02 | Outpatient (CLI) | payer MEDICARE ==
[~2022-03-02] MED LIST changes: -LIDOCAINE 1% (10MG/ML) FOR IV START INTRADERMA PRN; +REGADENOSON 0.4 MG/5 ML SYRINGE IV PRN
--- NOTE | 2022-03-02 22:18 | NM ---
EXAMINATION TYPE: NM stress lexiscan cardiolite DATE OF EXAM: 03/02/2022 COMPARISON: NONE HISTORY: Hypercholesterolemia. History of tobacco use and COPD. TECHNIQUE: After the intravenous administration of 9.6 mCi Tc 99m Sestamibi - Cardiolite resting SPE CT images acquired 45 minutes post injection. The patient received 0.4mg Lexiscan, 25.3 mCi Tc 99m Sestamibi - Stress images obtained [address] injection FINDINGS: Review of stress and rest SPECT images demonstrates no distinct perfusion abnormality. Gated analysi s shows normal wall motion with an estimated left ventricular ejection fraction of 63 %. IMPRESSION: No scintigraphic evidence for reversible ischemia.
--- NOTE | 2022-03-04 07:24 | CA ---
Lexiscan Nuclear Stress Test Report Name: Wen Schwarz Exam Date: 03/02/2022 10:18 Exam Location: [facility] Stress Ht (in): 65 Wt (lb): 180 BSA: 1.89 Ordering Phys: Giovanny Mendoza MD Referring Phys: Marilou Miguel PAC Technologist: Markell Eldridge Age: 66 Gender: F : 1955 Procedure CPT: Indications: r55 ICD-10 Codes: Patient History: SYNCOPE Medications: LAVOXATHRINE, ZETIA, LEXAPRIL Meds past 24 hrs: Pretest Chest Pain: STRESS TEST Lexiscan Protocol Exercise Duration (min:sec): 02:[address] Depressions (mm): Angina Score: Jones Score: Resting HR (bpm): 46 Peak HR (bpm): 59 Resting BP (mmHg): 126 / 69 Peak BP (mmHg): 127 / 68 MPHR: 152 Target HR: 129 % MPHR: 39 METS: 1.0 Total Dose: Peak Dose: Atropine: Double Product: 7493 BP Response: Stress Termination: Stress Symptoms: HEAVINESS IN HEAD AND NECK Stress Summary: ECG ANALYSIS Resting ECG: Stress ECG: CONCLUSIONS Baseline EKG revealed a normal sinus rhythm with poor R-wave progression over the precordial leads. With Lexiscan administration the heart rate changed from 46-59 bpm and the blood pressure changed from 127/68-119/80. Patient had fullness in her head. No angina. By EKG criteria this is a unremarkable Lexiscan stress test. The nuclear scan results which are more pertinently be reported by the radiologist Dr. Maddie Saini MD (Electronically Signed) Final Date: 04 March 2022 07:22
== END | disposition home or self-care (01) ==
LOC: RADNMMAIN 08:09
PROVIDERS: ATTEND Family Medicine
DX: E78.00 Pure hypercholesterolemia, unspecified (principal); J44.9 Chronic obstructive pulmonary disease, unspecified; R55 Syncope and collapse; Z87.891 Personal history of nicotine dependence
CPT/HCPCS: 93017; 78452; A9500; J2785

== ENCOUNTER 2022-03-16 09:20 | Day surgery (SDC) | payer MEDICARE ==
[2022-02-19 15:20] VITALS: BMI 29.9
[2022-03-16] MEDS ORDERED: LIDOCAINE 1% (10MG/ML) FOR IV START INTRADERMA PRN (09:41)
[2022-03-16] MEDS ORDERED: LACTATED RINGERS 1,000 ML IV SCH (09:41)
[2022-03-16 09:45] VITALS: RESP 16; TEMP 97.6
[2022-03-16] MEDS ORDERED: DEXAMETHASONE SOD PHOSPHATE 10 MG/ML 1 ML VIAL ONE (10:06)
[2022-03-16] MEDS ORDERED: IOPAMIDOL M200 10 ML VIAL ONE (10:06)
[2022-03-16] MEDS ORDERED: fentaNYL (PF) 50 MCG/ML 2 ML AMP ONE (10:06)
[2022-03-16] MEDS ORDERED: MIDAZOLAM 2 MG/2 ML VIAL ONE (10:06)
--- NOTE | 2022-03-16 10:28 | P.PCN ---
Date of Procedure: 03/16/22 Procedure(s) Performed: . PROCEDURE 1. Cervical epidural steroid injection under fluoroscopic guidance, C6-7 (fluoroscopy images available in the radiology department ) 2. Cervical epidurogram. PREOPERATIVE DIAGNOSIS: 1- Cervical Degenerative Disc Diseases 2- Cervical spinal stenosis POSTOPERATIVE DIAGNOSIS: : 1- Cervical Degenerative Disc Diseases , 2- Cervical spinal stenosis ANESTHESIA: Local anesthesia with lidocaine 1 % , and moderate sedation, with Versed 2 mg and Fentanyl 100 mcg. EBL 0 PROCEDURE INDICATION: The patient with neck pain and radiculitis unresponsive to conservative treatment consents for procedure. PROCEDURE DESCRIPTION / TECHNIQUE: The patient was seen and identified in the preoperative area. Risks, benefits, complications, including but not limited to infections ,bleeding , allergic reactions to the medications ,and not complete pain releife, and alternatives were discussed with the patient, the patient agreed to proceed with the procedure and signed the consent. Patient was taken to the OR and time out was completed. The patient was placed in the prone position on the procedure table. A pillow was placed under the patients chest to increase the cervical interlaminar space. The cervical area was prepped and draped in the usual sterile fashion. Vital signs were closely monitored during the procedure. Conscious sedation was used during the procedure to decrease patients anxiety. Using anterior-posterior fluoroscopy, the C6-7 interlaminar space was identified and the skin over this site was marked and then infiltrated with 1% lidocaine subcutaneously. Subsequently, a 18-gauge 3-1/2-inch Tuohy epidural needle was inserted and advanced toward the epidural space by means of the ``hanging-drop technique and guided by AP and lateral fluoroscopy. The correct needle position in the epidural space was verified with the injection of 2 mL of the water soluble contrast dye [id number]-200 and observing an excellent epidurogram with the epidural spread of the dye, after negative aspiration for blood and CSF and in the absence of paresthesias. then, mixture containing 20 mg Dexamethasone and 2 ml of preservative-free normal saline injected and a washout of epidurogram was seen. Needle was withdrawn intact, skin was cleansed, and bandages were applied. Complications= none. Disposition= patient was placed in supine position and transferred to the recovery room area in stable condition and there was no evidence of upper or lower extremity motor or sensory deficit after the procedure patient was discharged from recovery room after discharge criteria met and home discharge instructions was given by the staff and patient will follow with the pain clinic in 2-4 weeks
[2022-03-16] MEDS ORDERED: IV FLUID CONTINUATION 1,000 ML IV ONE (10:33)
[2022-03-16 10:49] VITALS: BP 119/62; PULSE 48
--- NOTE | 2022-03-16 12:22 | FL ---
EXAMINATION TYPE: FL guided pain mgmt statistic DATE OF EXAM: 03/16/2022 CLINICAL HISTORY: Back pain. TECHNIQUE: Fluoroscopy. COMPARISON: None. FINDINGS: Fluoroscopic guidance was provided during pain relief procedure performed by Dr. Soares . A total of 2 seconds of fluoroscopic time was utilized during the procedure and 1 spot images are acquired. Single limits acquired shows needle localization at C7 level. IMPRESSION: As Above.
== END 2022-03-16 11:07 | disposition home or self-care (01) ==
LOC: ORPAIN 09:20
PROVIDERS: ATTEND Specialist
DX: M48.02 Spinal stenosis, cervical region (principal); M50.30 Other cervical disc degeneration, unspecified cervical region
CPT/HCPCS: 62321; J2250; J1100; J3010; Q9966; 99152

== ENCOUNTER → 2022-03-23 | Outpatient (CLI) | payer MEDICARE ==
--- NOTE | 2022-03-24 13:07 | MM ---
Reason for Exam: Screening (asymptomatic). Last screening mammogram was performed 12 month(s) ago. Patient History: Menarche at age 14. First Full-Term at age 27. Postmenopausal. Risk Values: Merline 5 year model risk: 1.7%. NCI Lifetime model risk: 5.6%. Film Views: Bilateral CC views were taken. Bilateral MLO views were taken. Prior Study Comparison: 05/17/2018 Bilateral Screening Mammogram, [facility]. 06/27/2019 Bilateral Screening Mammogram, [facility]. 03/20/2021 Bilateral Screening Mammogram, [facility]. Tissue Density: There are scattered fibroglandular densities. Findings: Analyzed By CAD. There are scattered and regional benign appearing round calcifications throughout both breasts redemonstrated. No suspicious new focal mass or worrisome cluster of microcalcification in either breast. Overall Assessment: Benign, BI-RAD 2 Management: Screening Mammogram of both breasts in 1 year. A clinical breast exam by your physician is recommended on an annual basis and results should be correlated with mammographic findings.
== END | disposition home or self-care (01) ==
LOC: RADMAMWWP 13:12
PROVIDERS: ATTEND Family Medicine
DX: Z12.31 Encounter for screening mammogram for malignant neoplasm of breast (principal); Z78.0 Asymptomatic menopausal state
CPT/HCPCS: 77067

== ENCOUNTER 2024-03-13 13:39 | Emergency (ER) | payer MEDICARE ==
--- NOTE | 2024-03-13 13:54 | ED ---
Nausea/Vomiting/Diarrhea HPI - General Chief complaint: Nausea/Vomiting/Diarrhea Stated complaint: Vomiting Time Seen by Provider: 03/13/24 13:53 Source: patient, RN notes reviewed Mode of arrival: wheelchair Limitations: no limitations - History of Present Illness Initial comments: 68-year-old female presenting to the ER with chief complaint of nausea and diarrhea. She also is endorsing abdominal pain. She states that she started having diarrhea earlier this morning and has felt extremely nauseous. She has not taken anything for the pain. Denies any fevers or chills. Denies chest pain, shortness of breath, urinary complaints or peripheral edema. - Related Data Home Medications Medication Instructions Recorded Confirmed Ezetimibe [Zetia] 10 mg PO DAILY 09/29/17 03/15/22 Zinc 50 mg PO DAILY 12/01/20 03/15/22 Cholecalciferol [Vitamin D3 (25 50 mcg PO DAILY 01/19/21 03/15/22 Mcg = 1000 Iu)] Cyanocobalamin (Vitamin B-12) 1,000 mcg PO DAILY 01/19/21 03/15/22 [Vitamin B-12] L.acidoph,Paracasei, B.lactis 1 cap PO DAILY 01/19/21 03/15/22 [Probiotic] Magnesium Oxide [Mag-Ox] 400 mg PO DAILY 01/19/21 03/15/22 Multivitamins, Thera [Multivitamin 1 tab PO DAILY 01/19/21 03/15/22 (formulary)] Escitalopram [Lexapro] 20 mg PO DAILY 09/20/21 03/15/22 Levothyroxine Sodium 125 mcg PO DAILY 09/20/21 03/15/22 oxyCODONE-APAP 5-325MG [Percocet 1 tab PO Q6HR PRN 02/19/22 03/16/22 5-325 mg] Previous Rx's Medication Instructions Recorded Dicyclomine [Bentyl] 20 mg PO TID #30 tablet 03/13/24 Loperamide HCl [Imodium A-D] 2 mg PO ONCE #10 tablet 03/13/24 Ondansetron Odt [Zofran Odt] 4 mg PO Q8HR PRN #10 tab 03/13/24 Allergies Allergy/AdvReac Type Severity Reaction Status Date / Time No Known Allergies Allergy Verified 05/07/24 13:45 Review of Systems ROS Statement: Those systems with pertinent positive or pertinent negative responses have been documented in the HPI. ROS Other: All systems not noted in ROS Statement are negative. Past Medical History Past Medical History: Hyperlipidemia, Osteoarthritis (OA), Thyroid Disorder Additional Past Medical History / Comment(s): diverticulitis, arthritis History of Any Multi-Drug Resistant Organisms: None Reported Past Surgical History: Bariatric Surgery, Bladder Surgery, Hernia Repair, Joint Replacement, Tubal Ligation Additional Past Surgical History / Comment(s): kilo hip replacement, kilo carpal tunnel, bladder suspension, lap band in, now removed, abd hernia, TOTAL LEFT KNEE. Coonoscopy. Past Anesthesia/Blood Transfusion Reactions: No Reported Reaction Past Psychological History: No Psychological Hx Reported Smoking Status: Current every day smoker Past Alcohol Use History: Occasional Past Drug Use History: Marijuana - Past Family History Mother Family Medical History: No Reported History General Exam Limitations: no limitations General appearance: alert, in no apparent distress Respiratory exam: Present: normal lung sounds bilaterally. Absent: respiratory distress, wheezes, rales, rhonchi, stridor Cardiovascular Exam: Present: regular rate, normal rhythm, normal heart sounds. Absent: systolic murmur, diastolic murmur, rubs, gallop, clicks GI/Abdominal exam: Present: soft, tenderness (generalized), normal bowel sounds Skin exam: Present: warm, dry, intact, normal color. Absent: rash Course Vital Signs 03/13/24 03/13/24 03/13/24 13:43 15:53 16:49 Temperature 98.1 F 98.9 F Pulse Rate 73 89 Respiratory 20 18 Rate Blood Pressure 174/98 130/88 O2 Sat by Pulse 97 96 Oximetry Medical Decision Making - Medical Decision Making Was pt. sent in by a medical professional or institution (, PA, DIELECTRIC TESTER, urgent care, hospital, or senior care...) When possible be specific @ -No Did you speak to anyone other than the patient for history (EMS, parent, family, police, friend...)? What history was obtained from this source @ -No Did you review nursing and triage notes (agree or disagree)? Why? @ -I reviewed and agree with nursing and triage notes Were old charts reviewed (outside hosp., previous admission, EMS record, old EKG, old radiological studies, urgent care reports/EKG's, senior care records)? Report findings @ -No old charts were reviewed Differential Diagnosis (chest pain, altered mental status, abdominal pain women, abdominal pain men, vaginal bleeding, weakness, fever, dyspnea, syncope, headache, dizziness, GI bleed, back pain, seizure, CVA, palpatations, mental health, musculoskeletal)? @ -Differential Abdominal Pain Women:Appendicitis, Cholecystitis, diverticulosis, ischemic bowel, pancreatitis, hepatitis, UTI, gastroenteritis, AAA, incarcerated hernia, bowel obstruction, constipation, inflammatory bowel, hepatitis, peptic ulcer disease, splenic infarction, perforated viscus, vulvitis, ovarian torsion, PID, kidney stone, placenta abruption, this is not meant to be an all-inclusive list EKG interpreted by me (3pts min.). @ -None X-rays interpreted by me (1pt min.). @ -None done CT interpreted by me (1pt min.). @ -CT abdomen pelvis significant for findings correlated with colitis. Colonic diverticulosis. Multiple calcifications to urethra. Fat-containing umbilical hernia. Bilateral renal cyst. U/S interpreted by me (1pt. min.). @ -None done What testing was considered but not performed or refused? (CT, X-rays, U/S, labs)? Why? @ -None What meds were considered but not given or refused? Why? @ -None Did you discuss the management of the patient with other professionals (professionals i.e. , PA, DIELECTRIC TESTER, lab, RT, psych nurse, social worker psychiatric, bioinformatics developer, teacher, sanitation officer, caser)? Give summary @ -No Was smoking cessation discussed for >3mins.? @ -I discussed smoking cessation for greater than 3 minutes. The risk of smoking were discussed with the patient including but not limited to risks of cancer, stroke, coronary artery disease and COPD. Also discussed with patient were multiple methods of quitting smoking. Lastly we discussed the financial cost of smoking. Was critical care preformed (if so, how long)? @ -No Were there social determinants of health that impacted care today? How? (Homelessness, low income, unemployed, alcoholism, drug addiction, transportation, low edu. Level, literacy, decrease access to med. care, half-way, rehab)? @ -No Was there de-escalation of care discussed even if they declined (Discuss DNR or withdrawal of care, Hospice)? DNR status @ -No What co-morbidities impacted this encounter? (DM, HTN, Smoking, COPD, CAD, Cancer, CVA, ARF, Chemo, Hep., AIDS, mental health diagnosis, sleep apnea, morbid obesity)? @ -Smoker Was patient admitted / discharged? Hospital course, mention meds given and route, prescriptions, significant lab abnormalities, going to OR and other pertinent info. @ -Discharge. 68-year-old female presented to the ER with chief complaint of diarrhea and abdominal pain. History and physical exam completed. Vitals stable. Patient in no signs acute distress and nontoxic-appearing. Generalized abdominal pain on exam with normal bowel sounds. Laboratory studies obtained unimpressive. CT findings consistent with colitis. Symptomatic treatment in ER. Results discussed with patient, all questions answered. Bentyl, Zofran and Imodium prescribed. Advise close follow-up with PCP and GI. Referral given. Return parameters discussed. Patient discharged stable condition. Patient verbally expressed understanding and agreement with care plan. Case discussed with ED attending, Dr. Montalvo Undiagnosed new problem with uncertain prognosis? @ -No Drug Therapy requiring intensive monitoring for toxicity (Heparin, Nitro, Insulin, Cardizem)? @ -No Were any procedures done? @ -No Diagnosis/symptom? @ -Colitis Acute, or Chronic, or Acute on Chronic? @ -Acute Uncomplicated (without systemic symptoms) or Complicated (systemic symptoms)? @ -Uncomplicated Side effects of treatment? @ -No Exacerbation, Progression, or Severe Exacerbation? @ -No Poses a threat to life or bodily function? How? (Chest pain, USA, SC, pneumonia, PE, COPD, DKA, ARF, appy, cholecystitis, CVA, Diverticulitis, Homicidal, Suici isatu, threat to staff... and all critical care pts) @ -No - Lab Data Result diagrams: 03/13/24 14:04 03/13/24 14:04 Lab Results 03/13/24 03/13/24 03/13/24 Range/Units 14:04 14:04 14:04 WBC 8.0 (3.8-10.6) k/uL RBC 5.01 (3.80-5.40) m/uL Hgb 16.4 H (11.4-16.0) gm/dL Hct 48.6 H (34.0-46.0) % MCV 97.0 (80.0-100.0) fL MCH 32.8 (25.0-35.0) pg MCHC 33.8 (31.0-37.0) g/dL RDW 12.3 (11.5-15.5) % Plt Count 200 (150-450) k/uL MPV 9.5 Neutrophils % 81 % Lymphocytes % 12 % Monocytes % 5 % Eosinophils % 1 % Basophils % 0 % Neutrophils # 6.5 (1.3-7.7) k/uL Lymphocytes # 0.9 L (1.0-4.8) k/uL Monocytes # 0.4 (0-1.0) k/uL Eosinophils # 0.1 (0-0.7) k/uL Basophils # 0.0 (0-0.2) k/uL Sodium 141 (137-145) mmol/L Potassium 4.4 (3.5-5.1) mmol/L Chloride 107 (98-107) mmol/L Carbon Dioxide 23 (22-30) mmol/L Anion Gap 11 mmol/L BUN 9 (7-17) mg/dL Creatinine 0.53 (0.52-1.04) mg/dL Est GFR (CKD-EPI)AfAm >90 (>60 ml/min/1.73 sqM) Est GFR (CKD-EPI)NonAf >90 (>60 ml/min/1.73 sqM) Glucose 191 H (74-99) mg/dL Plasma Lactic Acid Franklyn 2.0 (0.7-2.0) mmol/L Calcium 10.1 (8.4-10.2) mg/dL Total Bilirubin 1.3 (0.2-1.3) mg/dL AST 38 H (14-36) U/L ALT 18 (4-34) U/L Alkaline Phosphatase 115 (38-126) U/L Total Protein 8.3 H (6.3-8.2) g/dL Albumin 4.6 (3.5-5.0) g/dL Amylase 45 (30-110) U/L Lipase 44 (23-300) U/L Urine Color Urine Appearance (Clear) Urine pH (5.0-8.0) Ur Specific Chester (1.001-1.035) Urine Protein (Negative) Urine Glucose (UA) (Negative) Urine Ketones (Negative) Urine Blood (Negative) Urine Nitrite (Negative) Urine Bilirubin (Negative) Urine Urobilinogen (<2.0) mg/dL Ur Leukocyte Esterase (Negative) Urine RBC (0-5) /hpf Urine WBC (0-5) /hpf Ur Squamous Epith Cells (0-4) /hpf Urine Mucus (None) /hpf 03/13/24 Range/Units 15:53 WBC (3.8-10.6) k/uL RBC (3.80-5.40) m/uL Hgb (11.4-16.0) gm/dL Hct (34.0-46.0) % MCV (80.0-100.0) fL MCH (25.0-35.0) pg MCHC (31.0-37.0) g/dL RDW (11.5-15.5) % Plt Count (150-450) k/uL MPV Neutrophils % % Lymphocytes % % Monocytes % % Eosinophils % % Basophils % % Neutrophils # (1.3-7.7) k/uL Lymphocytes # (1.0-4.8) k/uL Monocytes # (0-1.0) k/uL Eosinophils # (0-0.7) k/uL Basophils # (0-0.2) k/uL Sodium (137-145) mmol/L Potassium (3.5-5.1) mmol/L Chloride (98-107) mmol/L Carbon Dioxide (22-30) mmol/L Anion Gap mmol/L BUN (7-17) mg/dL Creatinine (0.52-1.04) mg/dL Est GFR (CKD-EPI)AfAm (>60 ml/min/1.73 sqM) Est GFR (CKD-EPI)NonAf (>60 ml/min/1.73 sqM) Glucose (74-99) mg/dL Plasma Lactic Acid Franklyn (0.7-2.0) mmol/L Calcium (8.4-10.2) mg/dL Total Bilirubin (0.2-1.3) mg/dL AST (14-36) U/L ALT (4-34) U/L Alkaline Phosphatase (38-126) U/L Total Protein (6.3-8.2) g/dL Albumin (3.5-5.0) g/dL Amylase (30-110) U/L Lipase (23-300) U/L Urine Color Colorless Urine Appearance Clear (Clear) Urine pH 7.5 (5.0-8.0) Ur Specific Chester 1.026 (1.001-1.035) Urine Protein Trace H (Negative) Urine Glucose (UA) 1+ H (Negative) Urine Ketones 2+ H (Negative) Urine Blood Negative (Negative) Urine Nitrite Negative (Negative) Urine Bilirubin Negative (Negative) Urine Urobilinogen <2.0 (<2.0) mg/dL Ur Leukocyte Esterase Small H (Negative) Urine RBC 5 (0-5) /hpf Urine WBC 4 (0-5) /hpf Ur Squamous Epith Cells 3 (0-4) /hpf Urine Mucus Rare H (None) /hpf - Radiology Data Radiology results: report reviewed, image reviewed Disposition Clinical Impression: Colitis Disposition: HOME SELF-CARE Condition: Stable Instructions (If sedation given, give patient instructions): Colitis (ED) Additional Instructions: Follow-up with GI if symptoms persist. Please follow-up with PCP as well. Return to the ER for any new or worsening concerns. Prescriptions: Dicyclomine [Bentyl] 20 mg PO TID #30 tablet Loperamide HCl [Imodium A-D] 2 mg PO ONCE #10 tablet Ondansetron Odt [Zofran Odt] 4 mg PO Q8HR PRN #10 tab PRN Reason: Nausea Is patient prescribed a controlled substance at d/c from ED?: No Referrals: None,Stated [REFERRING] - 1-2 days Anny Henao MD [STAFF PHYSICIAN] - 1-2 days Forms: PH Area PCPs Time of Disposition: 16:37
[2024-03-13] MEDS: SODIUM CHLORIDE 0.9% 1,000 ML IV STA (14:06)
[2024-03-13] MEDS: ONDANSETRON 4 MG/2 ML VIAL IVP STA (14:07)
[2024-03-13 14:36] LABS: ALT 18 U/L (4-34); AST 38 U/L (14-36); African American GFR (CKD) >90 (>60 ml/min/1.73 sqM); Albumin 4.6 g/dL (3.5-5.0); Alkaline Phosphatase 115 U/L (38-126); Amylase 45 U/L (30-110); Anion Gap 11 mmol/L; Blood Urea Nitrogen 9 mg/dL (7-17); Calcium 10.1 mg/dL (8.4-10.2); Carbon Dioxide 23 mmol/L (22-30); Chloride 107 mmol/L (98-107); Glucose 191 mg/dL (74-99); Lipase 44 U/L (23-300); Non-African American GFR(CKD) >90 (>60 ml/min/1.73 sqM); Sodium 141 mmol/L (137-145); Total Bilirubin 1.3 mg/dL (0.2-1.3); Total Protein 8.3 g/dL (6.3-8.2)
[2024-03-13 14:45] LABS: Potassium 4.4 mmol/L (3.5-5.1)
[2024-03-13 14:48] LABS: Basophils % (A) 0 %; Eosinophils # (A) 0.1 k/uL (0-0.7); Eosinophils % (A) 1 %; HCT 48.6 % (34.0-46.0); HGB 16.4 gm/dL (11.4-16.0); Lymphocytes # (A) 0.9 k/uL (1.0-4.8); Lymphocytes % (A) 12 %; MCH 32.8 pg (25.0-35.0); MCHC 33.8 g/dL (31.0-37.0); Mean Platelet Volume 9.5; Monocytes # (A) 0.4 k/uL (0-1.0); Monocytes % (A) 5 %; Neutrophils # (A) 6.5 k/uL (1.3-7.7); Neutrophils % (A) 81 %; Platelet Count 200 k/uL (150-450); RBC 5.01 m/uL (3.80-5.40); RDW 12.3 % (11.5-15.5)
--- NOTE | 2024-03-13 15:26 | CT ---
EXAMINATION TYPE: CT abdomen pelvis w con CT DLP: 794.5 mGycm, Automated exposure control for dose reduction was used. DATE OF EXAM: 03/13/2024 3:16 PM COMPARISON: CT abdomen pelvis most recent from 12/01/2020 CLINICAL INDICATION:Female, 68 years old with history of abdominal pain; nausea, vomiting, umbilical pain TECHNIQUE: Axial CT abdomen pelvis w con;Sagittal and coronal reformats were created on a separate w orkstation. Contrast used:100 mL of Isovue 300 with IV Contrast, (none if empty) Oral contrast used: with Oral Contrast (none if empty) FINDINGS: LOWER CHEST: Unremarkable ABDOMEN LIVER: Unremarkable GALLBLADDER AND BILE DUCTS: Unremarkable. PANCREAS: Unremarkable. SPLEEN: Unremarkable. ADRENAL GLANDS: Unremarkable. KIDNEYS AND URETERS: No evidence of hydronephrosis or renal calculus. The ureters are unremarkable. Simple cystic appearing bilateral renal cysts. PELVIS BLADDER: Unremarkable REPRODUCTIVE: Multiple calcifications are seen near the urethra unclear etiology. ABDOMEN & PELVIS STOMACH AND BOWEL: No evidence of bowel obstruction. Few scattered colonic diverticula. Nondistention of the colon with circumferential wall thickening. Small hiatal hernia. PERITONEUM/RETROPERITONEUM: No evidence of pneumoperitoneum or free fluid. VASCULATURE: Mild atherosclerotic calcifications are present throughout the abdominal aorta and its b ranches. No evidence of aortic aneurysm. MUSCULOSKELETAL: No acute osseous abnormalities, bilateral hip arthroplasties with streak artifact. H ardware appears intact. Grade 2 anterolisthesis of L4 and L5 with out spondylolysis. LYMPH NODES: No gross evidence for lymphadenopathy. SOFT TISSUE/ABDOMINAL WALL: Fat-containing umbilical hernia. IMPRESSION: 1. Nondistention of the colon with some circumferential wall thickening throughout correlate for col itis. 2. Colonic diverticulosis. 3. Multiple calcifications are seen near the urethra unclear etiology. Findings could represent uret hral diverticulum with stones. 4. Fat-containing umbilical hernia. 5. Simple appearing bilateral renal cysts. 6. Grade 2 anterolisthesis of L4 and L5 with out spondylolysis.
[2024-03-13] MEDS: METOCLOPRAMIDE 5 MG/ML 2 ML VIAL IVP STA (15:54)
[2024-03-13] MEDS: KETOROLAC 15 MG/ML 1 ML VIAL IVP STA (15:54)
[2024-03-13 16:02] VITALS: BP 130/88; PULSE 89; RESP 18
[2024-03-13 16:07] LABS: Appearance,Urine Clear (Clear); Bilirubin,Urine Negative (Negative); Blood,Urine Negative (Negative); Color,Urine Colorless; Glucose,Urine (UA) 1+ (Negative); Leukocyte Esterase,Urine Small (Negative); Mucus,Urine Rare /hpf; Nitrite,Urine Negative (Negative); PH, Urine 7.5 (5.0-8.0); Protein,Urine Trace (Negative); RBC,Urine 5 /hpf (0-5); Specific Gravity,Urine 1.026 (1.001-1.035); Squamous Epithelial Cell,Urine 3 /hpf (0-4); Urobilinogen,Urine <2.0 mg/dL (<2.0); WBC,Urine 4 /hpf (0-5)
[2024-03-13 16:10] LABS: Ketones,Urine 2+ (Negative)
[2024-03-13] MEDS: DIPHENOX-ATROP 2.5-0.025 MG 1 EACH TAB PO STA (16:45)
[2024-03-13 17:26] VITALS: TEMP 98.9
== END 2024-03-13 16:51 | disposition home or self-care (01) ==
LOC: EC 13:39
DX: K52.9 Noninfective gastroenteritis and colitis, unspecified (principal); F17.200 Nicotine dependence, unspecified, uncomplicated; F12.90 Cannabis use, unspecified, uncomplicated
CPT/HCPCS: 36415; 80053; 82150; 83605; 83690; 85025; 81001; 74177; 99284; 96374; 96375 ×2; 96361 ×2; 99406; J2765; J2405; J1885; Q9967

== ENCOUNTER 2024-03-22 18:15 | Observation (INO) | payer MEDICARE ==
--- NOTE | 2024-03-22 18:53 | ED ---
General Adult HPI - General Chief complaint: Shortness of Breath Stated complaint: N/V/D abd pain Time Seen by Provider: 03/22/24 18:15 Source: patient, RN notes reviewed, old records reviewed Mode of arrival: ambulatory Limitations: no limitations - History of Present Illness Initial comments: Is a 68-year-old female who presents to the emergency department complaining of abdominal pain since the beginning of March. Patient states he is already been to the emergency department to be evaluated on the and they did not find anything send her back on her way. Patient states she continues to have abdominal pain and finding it very difficult to keep anything down because she is so nauseated. Patient also was complaining of a significant cough and shortness of breath. Patient denies chest pain. Patient states she has not had any actual vomiting lately but has had a lot of dry heaves and denies any diarrhea but states she thinks she is somewhat constipated. Patient denies any fever or chills. Patient has any back pain. Patient denies any dysuria hematuria urinary frequency. - Related Data Home Medications Medication Instructions Recorded Confirmed Ezetimibe [Zetia] 10 mg PO DAILY 09/29/17 03/15/22 Zinc 50 mg PO DAILY 12/01/20 03/15/22 Cholecalciferol [Vitamin D3 (25 50 mcg PO DAILY 01/19/21 03/15/22 Mcg = 1000 Iu)] Cyanocobalamin (Vitamin B-12) 1,000 mcg PO DAILY 01/19/21 03/15/22 [Vitamin B-12] L.acidoph,Paracasei, B.lactis 1 cap PO DAILY 01/19/21 03/15/22 [Probiotic] Magnesium Oxide [Mag-Ox] 400 mg PO DAILY 01/19/21 03/15/22 Multivitamins, Thera [Multivitamin 1 tab PO DAILY 01/19/21 03/15/22 (formulary)] Escitalopram [Lexapro] 20 mg PO DAILY 09/20/21 03/15/22 Levothyroxine Sodium 125 mcg PO DAILY 09/20/21 03/15/22 oxyCODONE-APAP 5-325MG [Percocet 1 tab PO Q6HR PRN 02/19/22 03/16/22 5-325 mg] Previous Rx's Medication Instructions Recorded Dicyclomine [Bentyl] 20 mg PO TID #30 tablet 03/13/24 Loperamide HCl [Imodium A-D] 2 mg PO ONCE #10 tablet 03/13/24 Ondansetron Odt [Zofran Odt] 4 mg PO Q8HR PRN #10 tab 03/13/24 Allergies Allergy/AdvReac Type Severity Reaction Status Date / Time No Known Allergies Allergy Verified 03/22/24 18:28 Review of Systems ROS Statement: Those systems with pertinent positive or pertinent negative responses have been documented in the HPI. ROS Other: All systems not noted in ROS Statement are negative. Past Medical History Past Medical History: Hyperlipidemia, Osteoarthritis (OA), Thyroid Disorder Additional Past Medical History / Comment(s): diverticulitis, arthritis History of Any Multi-Drug Resistant Organisms: None Reported Past Surgical History: Bariatric Surgery, Bladder Surgery, Hernia Repair, Joint Replacement, Tubal Ligation Additional Past Surgical History / Comment(s): kilo hip replacement, kilo carpal t unnel, bladder suspension, lap band in, now removed, abd hernia, TOTAL LEFT KNEE. Coonoscopy. Past Anesthesia/Blood Transfusion Reactions: No Reported Reaction Past Psychological History: No Psychological Hx Reported Smoking Status: Current every day smoker Past Alcohol Use History: Occasional Past Drug Use History: Marijuana - Past Family History Mother Family Medical History: No Reported History General Exam - General Exam Comments Initial Comments: GENERAL: Patient is well-developed and well-nourished. Patient is nontoxic and well- hydrated and is in mild distress. ENT: Neck is soft and supple. No significant lymphadenopathy is noted. Oropharynx is clear. Moist mucous membranes. Neck has full range of motion without eliciting any pain. EYES: The sclera were anicteric and conjunctiva were pink and moist. Extraocular movements were intact and pupils were equal round and reactive to light. Eyelids were unremarkable. PULMONARY: Patient has diffuse expiratory wheezing with some crackles in the bases CARDIOVASCULAR: There is a regular rate and rhythm without any murmurs gallops or rubs. ABDOMEN: Patient has mild epigastric abdominal pain SKIN: Skin is clear with no lesions or rashes and otherwise unremarkable. NEUROLOGIC: Patient is alert and oriented x3. Cranial nerves II through XII are grossly intact. Motor and sensory are also intact. Normal speech, volume and content. Symmetrical smile. MUSCULOSKELETAL: Normal extremities with adequate strength and full range of motion. No lower extremity swelling or edema. No calf tenderness. LYMPHATICS: No significant lymphadenopathy is noted PSYCHIATRIC: Normal psychiatric evaluation. Limitations: no limitations Course Vital Signs 03/22/24 03/22/24 03/22/24 18:25 19:20 19:47 Temperature 98.5 F Pulse Rate 63 64 Respiratory 18 18 Rate Blood Pressure 96/59 O2 Sat by Pulse 91 L Oximetry 03/22/24 03/22/24 20:05 20:06 Temperature Pulse Rate 57 L 56 L Respiratory 18 Rate Blood Pressure 77/59 O2 Sat by Pulse 98 Oximetry Medical Decision Making - Medical Decision Making EKG is interpreted by myself EKG shows a sinus bradycardia 57 bpm [place] interval is 149 QRS of 94 QT interval is 470 QTc is 464. Patient's EKG shows no ST segment elevation or depression. Was pt. sent in by a medical professional or institution (, PA, [employer], urgent care, hospital, or custodial...) When possible be specific @ -No Did you speak to anyone other than the patient for history (EMS, parent, family, police, friend...)? What history was obtained from this source @ -No Did you review nursing and triage notes (agree or disagree)? Why? @ -I reviewed and agree with nursing and triage notes Were old charts reviewed (outside hosp., previous admission, EMS record, old EKG, old radiological studies, urgent care reports/EKG's, custodial records)? Report findings @ -I reviewed today's chest x-ray with the prior admission x-ray and today's x- ray shows a left lower lobe infiltrate Differential Diagnosis (chest pain, altered mental status, abdominal pain women, abdominal pain men, vaginal bleeding, weakness, fever, dyspnea, syncope, headache, dizziness, GI bleed, back pain, seizure, CVA, palpatations, mental health, musculoskeletal)? @ -Differential Dyspnea: Coronary syndrome, arrhythmia, tamponade, asthma, COPD, pulmonary embolism, pneumonia, pneumothorax, pulmonary effusion, anaphylaxis, diabetic ketoacidosis, flailed chest, pulmonary contusion, diaphragmatic rupture, anemia, neuromuscular, this is not meant to be an all-inclusive list. EKG interpreted by me (3pts min.). @ -As above X-rays interpreted by me (1pt min.). @ -Chest x-ray shows an infiltrate in the left lower lobe CT interpreted by me (1pt min.). @ -None done U/S interpreted by me (1pt. min.). @ -None done What testing was considered but not performed or refused? (CT, X-rays, U/S, labs)? Why? @ -None What meds were considered but not given or refused? Why? @ -None Did you discuss the management of the patient with other professionals (professionals i.e. DrMahesh, PA, [employer], lab, RT, psych nurse, high school social science teacher, obstetrical tech, teacher, hearing officer, case finisher)? Give summary @ -I spoke with Dr. Rodríguez he agreed admit the patient admit the patient I wrote admitting orders Was smoking cessation discussed for >3mins.? @ -No Was critical care preformed (if so, how long)? @ -No Were there social determinants of health that impacted care today? How? (Homelessness, low income, unemployed, alcoholism, drug addiction, transportation, low edu. Level, literacy, decrease access to med. care, long-term, rehab)? @ -No Was there de-escalation of care discussed even if they declined (Discuss DNR or withdrawal of care, Hospice)? DNR status @ -No What co-morbidities impacted this encounter? (DM, HTN, Smoking, COPD, CAD, Cancer, CVA, ARF, Chemo, Hep., AIDS, mental health diagnosis, sleep apnea, morbid obesity)? @ -None Was patient admitted / discharged? Hospital course, mention meds given and route, prescriptions, significant lab abnormalities, going to OR and other pertinent info. @ -Patient has pneumonia. Patient also has a white count. Patient was given antibiotics in the emergency department will be admitted to Dr. Mendoza. I will continue antibiotics on the floor. Undiagnosed new problem with uncertain prognosis? @ -No Drug Therapy requiring intensive monitoring for toxicity (Heparin, Nitro, Insulin, Cardizem)? @ -No Were any procedures done? @ -No Diagnosis/symptom? @ -Pneumonia Acute, or Chronic, or Acute on Chronic? @ -Acute Uncomplicated (without systemic symptoms) or Complicated (systemic symptoms)? @ -Complicated Side effects of treatment? @ -No Exacerbation, Progression, or Severe Exacerbation? @ -No Poses a threat to life or bodily function? How? (Chest pain, [place], [place], pneumonia, PE, COPD, DKA, ARF, appy, cholecystitis, CVA, Diverticulitis, Homicidal, Suicidal, threat to staff... and all critical care pts) @ -Yes this can lead to sepsis and endorgan dysfunction - Lab Data Result diagrams: 03/22/24 19:01 03/22/24 19: Lab Results 03/22/24 03/22/24 03/22/24 Range/Units 19:01 19: 19:01 WBC 15.6 H (3.8-10.6) k/uL RBC 4.62 (3.80-5.40) m/uL Hgb 15.0 (11.4-16.0) gm/dL Hct 45.1 (34.0-46.0) % MCV 97.5 (80.0-100.0) fL MCH 32.4 (25.0-35.0) pg MCHC 33.3 (31.0-37.0) g/dL RDW 11.8 (11.5-15.5) % Plt Count 286 (150-450) k/uL MPV 8.8 Neutrophils % 83 % Lymphocytes % 11 % Monocytes % 4 % Eosinophils % 1 % Basophils % 0 % Neutrophils # 13.0 H (1.3-7.7) k/uL Lymphocytes # 1.7 (1.0-4.8) k/uL Monocytes # 0.6 (0-1.0) k/uL Eosinophils # 0.1 (0-0.7) k/uL Basophils # 0.0 (0-0.2) k/uL Sodium 139 (137-145) mmol/L Potassium 3.9 (3.5-5.1) mmol/L Chloride 105 (98-107) mmol/L Carbon Dioxide 27 (22-30) mmol/L Anion Gap 7 mmol/L BUN 12 (7-17) mg/dL Creatinine 0.60 (0.52-1.04) mg/dL Est GFR (CKD-EPI)AfAm >90 (>60 ml/min/1.73 sqM) Est GFR (CKD-EPI)NonAf >90 (>60 ml/min/1.73 sqM) Glucose 116 H (74-99) mg/dL Plasma Lactic Acid Franklyn 1.9 (0.7-2.0) mmol/L Calcium 9.1 (8.4-10.2) mg/dL Total Bilirubin 0.6 (0.2-1.3) mg/dL AST 32 (14-36) U/L ALT 18 (4-34) U/L Alkaline Phosphatase 97 (38-126) U/L NT-Pro-B Natriuret Pep 981 pg/mL Total Protein 6.4 (6.3-8.2) g/dL Albumin 3.3 L (3.5-5.0) g/dL Amylase 45 (30-110) U/L Lipase 149 (23-300) U/L Disposition Clinical Impression: Pneumonia Disposition: ADMITTED IP TO THIS HOSP Referrals: Wen Villeda DO [Primary Care Provider] - 1-2 days Time of Disposition: 20:20
[2024-03-22] MEDS: methylPREDNISolone SOD SUCCI 125 MG/2 ML VIAL IV STA (19:17)
[2024-03-22 19:33] LABS: Basophils % (A) 0 %; Eosinophils # (A) 0.1 k/uL (0-0.7); Eosinophils % (A) 1 %; HCT 45.1 % (34.0-46.0); Lymphocytes # (A) 1.7 k/uL (1.0-4.8); Lymphocytes % (A) 11 %; MCH 32.4 pg (25.0-35.0); MCHC 33.3 g/dL (31.0-37.0); MCV 97.5 fL (80.0-100.0); Mean Platelet Volume 8.8; Monocytes # (A) 0.6 k/uL (0-1.0); Monocytes % (A) 4 %; Neutrophils % (A) 83 %; Platelet Count 286 k/uL (150-450); RBC 4.62 m/uL (3.80-5.40); RDW 11.8 % (11.5-15.5); WBC 15.6 k/uL (3.8-10.6)
[2024-03-22] MEDS: IPRATROPIUM-ALBUTEROL 3 ML NEB INHALATION STA (19:46)
--- NOTE | 2024-03-22 19:51 | XR ---
EXAMINATION: XR chest 2V: 03/22/2024 7:27 PM CLINICAL INDICATION: abdominal pain TECHNIQUE: Departmental protocol COMPARISON: CXR 07/15/2021 FINDINGS/IMPRESSION: There is focal silhouetting of the pulmonary vasculature in the left lower lobe, lingula, and right i nfrahilar lung by ill-defined partial consolidation; the findings which can correlate with a clinical diagnosis of multifocal bronchopneumonia. These findings are not seen on the comparison CXR. The pleural spaces are negative. The cardiac silhouette is not enlarged. The skeletal structures and soft tissues are negative for acute findings.
[2024-03-22 19:56] LABS: ALT 18 U/L (4-34); AST 32 U/L (14-36); African American GFR (CKD) >90 (>60 ml/min/1.73 sqM); Albumin 3.3 g/dL (3.5-5.0); Alkaline Phosphatase 97 U/L (38-126); Amylase 45 U/L (30-110); Anion Gap 7 mmol/L; Blood Urea Nitrogen 12 mg/dL (7-17); Calcium 9.1 mg/dL (8.4-10.2); Carbon Dioxide 27 mmol/L (22-30); Chloride 105 mmol/L (98-107); Glucose 116 mg/dL (74-99); Lipase 149 U/L (23-300); Non-African American GFR(CKD) >90 (>60 ml/min/1.73 sqM); Potassium 3.9 mmol/L (3.5-5.1); Sodium 139 mmol/L (137-145); Total Bilirubin 0.6 mg/dL (0.2-1.3); Total Protein 6.4 g/dL (6.3-8.2)
[2024-03-22 20:05] LABS: NT-Pro-B-Type Natriuretic Pept 981 pg/mL
[2024-03-22] MEDS ORDERED: PNEUMONIA PROTOCOL UTILIZED 1 EACH MISC PO PRN (20:21)
[2024-03-22] MEDS: LORazepam 2 MG/ML INJ IV STA (20:59)
[2024-03-22] MEDS: AZITHROMYCIN 500 MG in SODIUM CHLORIDE 0.9% 250 ML IVPB STA (21:45)
[2024-03-23 00:18] LABS: Amorphous Sediment,Urine Occasional /hpf; Appearance,Urine Cloudy (Clear); Bacteria,Urine Occasional /hpf; Bilirubin,Urine Negative (Negative); Blood,Urine Negative (Negative); Color,Urine Yellow; Glucose,Urine (UA) Trace (Negative); Hyaline Casts,Urine 58 /lpf (0-2); Ketones,Urine Trace (Negative); Leukocyte Esterase,Urine Moderate (Negative); Mucus,Urine Many /hpf; Nitrite,Urine Negative (Negative); Protein,Urine 1+ (Negative); RBC,Urine 2 /hpf (0-5); Specific Gravity,Urine 1.034 (1.001-1.035); Squamous Epithelial Cell,Urine 7 /hpf (0-4); WBC,Urine 30 /hpf (0-5)
[2024-03-23] MEDS: methylPREDNISolone SOD SUCCI 125 MG/2 ML VIAL IV SCH (00:19)
[2024-03-23 06:31] LABS: Glucose,Whole Blood 206 mg/dL (70-110)
[2024-03-23] MEDS: DICYCLOMINE 20 MG TAB PO SCH (08:46)
[2024-03-23] MEDS: PREGABALIN 75 MG CAP PO SCH (08:49)
[2024-03-23] MEDS: AZITHROMYCIN 500 MG TAB PO SCH (08:50)
[2024-03-23] MEDS: LEVOTHYROXINE 125 MCG TAB PO SCH (08:51)
[2024-03-23] MEDS: ESCITALOPRAM 20 MG TAB PO SCH (08:51)
--- NOTE | 2024-03-23 08:54 | XR ---
EXAMINATION TYPE: XR chest 2V DATE OF EXAM: 03/23/2024 COMPARISON: 03/22/2024 HISTORY: 68-year-old female pneumonia TECHNIQUE: PA and lateral views FINDINGS: Heart normal size. Aorta and pulmonary vasculature within normal limits. Mild hyperinflation. Worseni ng patchy opacity left lower lung. No sizable pleural effusion. IMPRESSION: COPD with worsening left lower lung airspace disease.
[2024-03-23] MEDS: polyethylene glycoL 3350 17 GM POWD.PACK PO SCH (10:09)
[2024-03-23 11:33] LABS: Glucose,Whole Blood 225 mg/dL (70-110)
--- NOTE | 2024-03-23 12:46 | P.CNPUL ---
History of Present Illness Consult date: 03/23/24 Requesting physician: Giovanny Mendoza Reason for consult: dyspnea, cough, COPD, pneumonia, abnormal CXR/CT Chief complaint: Cough, and shortness of breath. History of present illness: Pulmonary consult dated March 23, 2024. 68-year-old female seen today in room 376. The patient presented to the [facility], on March 22, complaining of shortness of breath. The patient states that he started not feeling well in early March, primarily with constipation, and abdominal pain. The patient apparently went to the emergency department, was evaluated, and apparently discharged. More recently, over the last day or 2, the patient complains of increasing shortness of breath, cough, and phlegm production. She denied any chest pain. There is no fever or chills. The patient was told in the emergency room, that she possibly had pneumonia. The patient is a heavy smoker, having started smoking at the age of 18, and continuing to smoke, 50 years. The patient has never been seen by a lung do ctor, or formally diagnosed with COPD. She does have a history of hyperlipidemia, osteoarthritis, And Hypothyroidism. Current labs include a white count 15.6, hemoglobin 15, hematocrit 45.1, and platelet count 286,000. Sodium 139, potassium 3.9, chlorides 105, CO2 27, BUN 12, creatinine 0.6. Glu cose is 225. Troponin is 0.070. N-terminal proBNP is 981. Urine is cloudy, with 1+ protein. It was positive for leukocyte esterase, with 30 WBCs, and occasional bacteria. Urinary Legionella antigen was negative. The chest x-ray is potentially showing some infiltrate, in the left lower lobe. Review of Systems REVIEW OF SYSTEMS: CONSTITUTIONAL: [Negative.] NEUROLOGIC: [ Negative.] HEENT: [ Negative.] CARDIAC: [Negative.] PULMONARY: Shortness of breath, cough, chest congestion, and phlegm production. GI: Constipation, abdominal pain. : [Negative.] RHEUMATOLOGIC: [ Negative.] IMMUNOLOGIC: [ Negative.] ENDOCRINE: [Negative. ] DERMATOLOGIC: [Negative.] Past Medical History Past Medical History: COPD, Hyperlipidemia, Osteoarthritis (OA), Thyroid Disorder Additional Past Medical History / Comment(s): diverticulitis, arthritis History of Any Multi-Drug Resistant Organisms: None Reported Past Surgical History: Bariatric Surgery, Bladder Surgery, Hernia Repair, Joint Replacement, Tubal Ligation Additional Past Surgical History / Comment(s): kilo hip replacement, kilo carpal tunnel, bladder suspension, lap band in, now removed, abd hernia, TOTAL LEFT KNEE. Colonoscopy. Past Anesthesia/Blood Transfusion Reactions: No Reported Reaction Past Psychological History: No Psychological Hx Reported Smoking Status: Current every day smoker Past Alcohol Use History: Occasional Additional Past Alcohol Use History / Comment(s): smokes 1ppd from age 16 Past Drug Use History: Marijuana Additional Drug Use History / Comment(s): current marijuana smoker - Past Family History Mother Family Medical History: No Reported History Medications and Allergies Home Medications Medication Instructions Recorded Confirmed Type Ezetimibe [Zetia] 10 mg PO DAILY 09/29/17 03/22/24 History Escitalopram [Lexapro] 20 mg PO DAILY 09/20/21 03/22/24 History Levothyroxine Sodium 125 mcg PO DAILY 09/20/21 03/22/24 History Dicyclomine [Bentyl] 20 mg PO TID #30 tablet 03/13/24 03/22/24 Rx Ondansetron Odt [Zofran Odt] 4 mg PO Q8HR PRN #10 tab 03/13/24 03/22/24 Rx Liothyronine Sodium [Cytomel] 5 mcg PO DAILY 03/22/24 03/22/24 History Loperamide HCl [Imodium A-D] 2 - 4 mg PO TID PRN MDD 8 MG 03/22/24 03/22/24 History Omeprazole 40 mg PO DAILY 03/22/24 03/22/24 History Pregabalin [Lyrica] 75 mg PO BID 03/22/24 03/22/24 History oxyCODONE-APAP 10-325MG [Percocet 1 tab PO TID PRN 03/22/24 03/22/24 History 10-325 mg] Allergies Allergy/AdvReac Type Severity Reaction Status Date / Time No Known Allergies Allergy Verified 03/22/24 18:28 Physical Exam Osteopathic Statement: *. No significant issues noted on an osteopathic structural exam other than those noted in the History and Physical/Consult. Vitals: Vital Signs Temp Pulse Pulse Resp BP BP Pulse Ox 03/23/24 11:20 98.1 F 58 L 18 138/68 94 L 03/23/24 08:59 97.8 F 61 20 111/61 89 L 03/23/24 04:00 98.0 F 54 L 18 112/54 92 L 03/23/24 01:36 18 03/23/24 00:00 99.1 F 58 L 18 103/56 93 L 03/22/24 23:00 99.1 F 58 L 18 103/56 93 L 03/22/24 22:52 60 16 114/63 94 L 03/22/24 21:45 60 18 105/65 94 L 03/22/24 21:05 68 11 L 108/60 91 L 03/22/24 20:19 62 18 114/55 95 03/22/24 20:06 56 L 03/22/24 20:05 57 L 18 77/59 98 03/22/24 19:47 64 03/22/24 19:20 18 03/22/24 18:25 98.5 F 63 18 96/59 91 L Intake and Output 03/22/24 03/23/24 03/23/24 22:59 06:59 14:59 Intake Total 26 Balance 26 Intake: IV 26 Invasive Line 1 26 Other: Voiding Method Toilet Toilet # Voids 1 2 Weight 79.379 kg 79.379 kg No acute distress, oriented 3. Currently on 2 L. Saturations are 94%. No conversational dyspnea or use of accessory muscles. HEENT examination is grossly unremarkable. Mucous membranes are moist. No oral lesions. Neck supple. Full range of motion. No adenopathy thyromegaly or neck vein distention. Cardiovascular examination reveals regular rhythm rate. S1-S2 normal. No S3 or S4. No discernible murmur noted. Rate 58 bpm. Lungs reveal bilateral rhonchi, with minimal wheezes. No crackles. Breath sounds equal bilaterally. Abdomen soft bowel sounds are heard. No masses or tenderness. Extremities are intact. No cyanosis clubbing or edema. Skin is without rash or lesion. Neurologic examination is brief but nonfocal. Results - Laboratory Findings CBC and BMP: 03/22/24 19:01 03/22/24 19:01 Abnormal lab findings: Abnormal Labs 03/22/24 03/22/24 03/22/24 19:01 19:01 19:01 WBC 15.6 H Neutrophils # 13.0 H Glucose 116 H POC Glucose (mg/dL) Troponin I 0.070 H* Albumin 3.3 L Urine Appearance Urine Protein Urine Glucose (UA) Urine Ketones Ur Leukocyte Esterase Urine WBC Ur Squamous Epith Cells Amorphous Sediment Urine Bacteria Hyaline Casts Urine Mucus 03/22/24 03/23/24 03/23/24 23:17 06:30 11:32 WBC Neutrophils # Glucose POC Glucose (mg/dL) 206 H 225 H Troponin I Albumin Urine Appearance Cloudy H Urine Protein 1+ H Urine Glucose (UA) Trace H Urine Ketones Trace H Ur Leukocyte Esterase Moderate H Urine WBC 30 H Ur Squamous Epith Cells 7 H Amorphous Sediment Occasional H Urine Bacteria Occasional H Hyaline Casts 58 H Urine Mucus Many H - Diagnostic Findings Chest x-ray: image reviewed Assessment and Plan Assessment: Acute exacerbation of COPD, complicated by either purulent tracheobronchitis/pneumonia, left lower lobe. History of ongoing tobacco use with nicotine addiction, for 50 years. History of hyperlipidemia. History of hypothyroidism. History of osteoarthritis. History of diverticular disease. Plan: Plan dated March 23, 2024. The patient was seen today in room 376. She is not in any respiratory distress. She is currently on 2 L. Saturations are 94%. Currently, she is on azithromycin and Rocephin. She is getting updrafts with albuterol sulfate ipratropium bromide. She is also getting Solu-Medrol 60 mg every 6 hours. I will add some Symbicort 160/4.5, 2 puffs twice a day. I am not convinced that she actually has pneumonia. Chest x-ray my opinion shows more of an atelectatic picture. We will continue to follow and make recommendations along the way. A procalcitonin level has been ordered. Time with Patient: Greater than 30
[2024-03-23] MEDS: ONDANSETRON 4 MG/2 ML VIAL IVP PRN (13:53)
[2024-03-23 16:46] LABS: Glucose,Whole Blood 199 mg/dL (70-110)
[2024-03-23] MEDS ORDERED: DEXTROSE 50% SYRINGE 50 ML IVP PRN ×2 (16:55)
[2024-03-23] MEDS: INSULIN ASPART (NovoLOG) 100 UNIT/ML VIAL SQ SCH (17:03)
[2024-03-23] MEDS: oxyCODONE-APAP 10-325MG 1 EACH TAB PO PRN (17:06)
[2024-03-23] MEDS: LACTULOSE 20 GM/30 ML CUP PO PRN (17:08)
--- NOTE | 2024-03-23 17:42 | P.HPIM ---
History of Present Illness H&P Date: 03/23/24 Chief Complaint: Coughing, shortness of breath Is a 68-year-old female with past medical history of HLD, chronic nicotine dependence and hypothyroidism who presented to the emergency room with worsening shortness of breath with cough since the beginning of this month. Denies history of IBS, states negative diarrhea, problems with constipation. Patient is on Percocet for chronic hip and shoulder pain/DDD-follows with a neurologist. Reports abdominal pain has subsided. Reports over the last couple days, she had loose productive cough with yellow, greenish and whitish sputum, currently unproductive, accompanied by upper abdominal and rib cage pain from coughing. Denies chills or fever. Initial chest x-ray reported focal silhouetting of the pulmonary vascular in the left lower lobe, lingula and right infrahilar lung by ill-defined partial consolidation possible multifocal bronchopneumoniathese findings are not seen on the comparison chest x-ray. Repeat chest x-ray reported mild hyperinflation, worsening patchy opacity left lower lung. Procalcitonin ordered. Afebrile Tmax 99.1. On admission O2 sat 91% on room air, decreased to 89% this morning and currently maintaining O2 sats of the 90s on 2 L nasal cannula. WBC 15.6, hemoglobin 15, platelets 286, electrolytes and renal function stable. Troponin 0.070., Legionella negative, UA reporting moderate leukocytes, negative nitrates, 30 urine WBCs. Review of Systems All systems: negative Constitutional: Reports malaise, Reports weakness, Denies chills, Denies fever Eyes: denies blurred vision, denies pain Ears, nose, mouth and throat: Denies headache, Denies sore throat Cardiovascular: Denies chest pain, positive shortness of breath Respiratory: positive cough Gastrointestinal: Reports subsided abdominal pain, denies nausea vomiting or diarrhea. Reports constipation. Genitourinary: Denies dysuria, Denies hematuria Musculoskeletal: Denies myalgias Integumentary: Denies pruritus, Denies rash Neurological: Denies numbness, Denies weakness Psychiatric: Denies anxiety, Denies depression Endocrine: Denies fatigue, Denies weight change Past Medical History Past Medical History: COPD, Hyperlipidemia, Osteoarthritis (OA), Thyroid Disorder Additional Past Medical History / Comment(s): diverticulitis, arthritis History of Any Multi-Drug Resistant Organisms: None Reported Past Surgical History: Bariatric Surgery, Bladder Surgery, Hernia Repair, Joint Replacement, Tubal Ligation Additional Past Surgical History / Comment(s): kilo hip replacement, kilo carpal tunnel, bladder suspension, lap band in, now removed, abd hernia, TOTAL LEFT KNEE. Colonoscopy. Past Anesthesia/Blood Transfusion Reactions: No Reported Reaction Past Psychological History: No Psychological Hx Reported Smoking Status: Current every day smoker Past Alcohol Use History: Occasional Additional Past Alcohol Use History / Comment(s): smokes 1ppd from age 16 Past Drug Use History: Marijuana Additional Drug Use History / Comment(s): current marijuana smoker - Past Family History Mother Family Medical History: No Reported History Medications and Allergies Home Medications Medication Instructions Recorded Confirmed Type Ezetimibe [Zetia] 10 mg PO DAILY 09/29/17 03/22/24 History Escitalopram [Lexapro] 20 mg PO DAILY 09/20/21 03/22/24 History Levothyroxine Sodium 125 mcg PO DAILY 09/20/21 03/22/24 History Dicyclomine [Bentyl] 20 mg PO TID #30 tablet 03/13/24 03/22/24 Rx Ondansetron Odt [Zofran Odt] 4 mg PO Q8HR PRN #10 tab 03/13/24 03/22/24 Rx Liothyronine Sodium [Cytomel] 5 mcg PO DAILY 03/22/24 03/22/24 History Loperamide HCl [Imodium A-D] 2 - 4 mg PO TID PRN MDD 8 MG 03/22/24 03/22/24 History Omeprazole 40 mg PO DAILY 03/22/24 03/22/24 History Pregabalin [Lyrica] 75 mg PO BID 03/22/24 03/22/24 History oxyCODONE-APAP 10-325MG [Percocet 1 tab PO TID PRN 03/22/24 03/22/24 History 10-325 mg] Allergies Allergy/AdvReac Type Severity Reaction Status Date / Time No Known Allergies Allergy Verified 03/22/24 18:28 Physical Exam Vitals: Vital Signs Temp Pulse Pulse Resp BP BP Pulse Ox 03/23/24 15:35 16 101/52 92 L 03/23/24 11:20 98.1 F 58 L 18 138/68 94 L 03/23/24 08:59 97.8 F 61 20 111/61 89 L 03/23/24 04:00 98.0 F 54 L 18 112/54 92 L 03/23/24 01:36 18 03/23/24 00:00 99.1 F 58 L 18 103/56 93 L 03/22/24 23:00 99.1 F 58 L 18 103/56 93 L 03/22/24 22:52 60 16 114/63 94 L 03/22/24 21:45 60 18 105/65 94 L 03/22/24 21:05 68 11 L 108/60 91 L 03/22/24 20:19 62 18 114/55 95 03/22/24 20:06 56 L 03/22/24 20:05 57 L 18 77/59 98 03/22/24 19:47 64 03/22/24 19:20 18 03/22/24 18:25 98.5 F 63 18 96/59 91 L Intake and Output 03/23/24 03/23/24 03/23/24 06:59 14:59 22:59 Intake Total 144 50 Balance 144 50 Intake: IV 26 Invasive Line 1 26 Intake, IV Titration 50 Amount cefTRIAXone 2 gm In 50 Sodium Chloride 0.9% 50 ml @ 100 mls/hr IVPB Q24HR [facility] Rx#:[id number] Oral 118 Other: Voiding Method Toilet Toilet Toilet # Voids 1 2 # Bowel Movements 1 Weight 79.379 kg General: well nourished, well developed, NAD. Vitals reviewed Eyes: PERRL, EOMI, conjunctiva normal HENT: normocephalic, mucus membranes moist Neck: supple, no JVD Lungs: Scattered rhonchi throughout with loose congested cough currently nonproductive, left basilar crackles. CV: Regular rate and rhythm, no murmur. No edema, peripheral pulses 2+ Abdomen: soft, nondistended, nontender, no guarding, no rigidity, no organomegaly, positive bowel sounds Lymph: no cervical or axillary LAD Skin: warm and dry. Neuro: A&Ox3, normal mood and affect Results CBC & Chem 7: 03/22/24 19:01 03/22/24 19:01 Labs: Abnormal Lab Results - Last 24 Hours (Table) 03/22/24 03/22/24 03/22/24 Range/Units 19:01 19:01 19:01 WBC 15.6 H (3.8-10.6) k/uL Neutrophils # 13.0 H (1.3-7.7) k/uL Glucose 116 H (74-99) mg/dL POC Glucose (mg/dL) (70-110) mg/dL Troponin I 0.070 H* (0.000-0.034) ng/mL Albumin 3.3 L (3.5-5.0) g/dL Urine Appearance (Clear) Urine Protein (Negative) Urine Glucose (UA) (Negative) Urine Ketones (Negative) Ur Leukocyte Esterase (Negative) Urine WBC (0-5) /hpf Ur Squamous Epith Cells (0-4) /hpf Amorphous Sediment (None) /hpf Urine Bacteria (None) /hpf Hyaline Casts (0-2) /lpf Urine Mucus (None) /hpf 03/22/24 03/23/24 03/23/24 Range/Units 23:17 06:30 11:32 WBC (3.8-10.6) k/uL Neutrophils # (1.3-7.7) k/uL Glucose (74-99) mg/dL POC Glucose (mg/dL) 206 H 225 H (70-110) mg/dL Troponin I (0.000-0.034) ng/mL Albumin (3.5-5.0) g/dL Urine Appearance Cloudy H (Clear) Urine Protein 1+ H (Negative) Urine Glucose (UA) Trace H (Negative) Urine Ketones Trace H (Negative) Ur Leukocyte Esterase Moderate H (Negative) Urine WBC 30 H (0-5) /hpf Ur Squamous Epith Cells 7 H (0-4) /hpf Amorphous Sediment Occasional H (None) /hpf Urine Bacteria Occasional H (None) /hpf Hyaline Casts 58 H (0-2) /lpf Urine Mucus Many H (None) /hpf 03/23/24 Range/Units 16:45 WBC (3.8-10.6) k/uL Neutrophils # (1.3-7.7) k/uL Glucose (74-99) mg/dL POC Glucose (mg/dL) 199 H (70-110) mg/dL Troponin I (0.000-0.034) ng/mL Albumin (3.5-5.0) g/dL Urine Appearance (Clear) Urine Protein (Negative) Urine Glucose (UA) (Negative) Urine Ketones (Negative) Ur Leukocyte Esterase (Negative) Urine WBC (0-5) /hpf Ur Squamous Epith Cells (0-4) /hpf Amorphous Sediment (None) /hpf Urine Bacteria (None) /hpf Hyaline Casts (0-2) /lpf Urine Mucus (None) /hpf Thrombosis Risk Factor Assmnt - Choose All That Apply Any of the Below Risk Factors Present?: Yes Each Factor Represents 1 point: Abnormal pulmonary function (COPD), Obesity (BMI >25), Serious lung disease incl. pneumonia (< 1month) Thrombosis Risk Factor Assessment Total Risk Factor Score: 3 Thrombosis Risk Factor Assessment Level: Moderate Risk Assessment and Plan Assessment: Possible acute community-acquired left lower lobe pneumonia, procalcitonin pending Acute COPD exacerbation secondary to the above Constipation Hyperlipidemia Hypothyroidism Osteoarthritis Nicotine dependence, extensive, 1 pack/day x 52 years Marijuana use Plan: Continue on current medication resume ,monitoring and symptomatic treatment. Sputum culture ordered. aggressive pulmonary toileting with nebulized bronchodilators, IV steroids, along with antibiotics of azithromycin and Rocephin ordered. Procalcitonin pending. Levemir insulin ordered in addition to NovoLog sliding scale, close monitoring of Accu-Cheks. pulmonary consult in place with recommendations pending. MiraLAX ordered for constipation-does not remember when her last bowel movement was, states she only had a very tiny bowel movement earlier this morning. Nicotine cessation reinforced, nicotine patch ordered. The impression and plan of care has been dictated as directed. : I performed a history and examination of this patient, discussed the same with the dictator. I agree with the dictator's note ,documented as a scribe. Any additional findings or plans will be noted.
[2024-03-23] MEDS: NICOTINE 21MG/24HR PATCH TRANSDERM SCH (17:50)
[2024-03-23] MEDS: PANTOPRAZOLE 40 MG/10 ML VIAL IVP SCH (18:47)
[2024-03-23] MEDS: INSULIN DETEMIR (LEVEMIR) 100 UNIT/ML SYR SQ SCH (18:47)
[2024-03-23 20:01] LABS: Glucose,Whole Blood 130 mg/dL (70-110)
[2024-03-23] MEDS: SYMBICORT 160-4.5 MCG INHALER INHALATION SCH (20:53)
[2024-03-24 06:25] LABS: Glucose,Whole Blood 149 mg/dL (70-110)
[2024-03-24 11:16] LABS: Basophils % (A) 0 %; Eosinophils % (A) 0 %; HCT 40.1 % (34.0-46.0); HGB 13.1 gm/dL (11.4-16.0); Lymphocytes # (A) 0.8 k/uL (1.0-4.8); Lymphocytes % (A) 5 %; MCH 33.3 pg (25.0-35.0); MCHC 32.7 g/dL (31.0-37.0); MCV 101.9 fL (80.0-100.0); Mean Platelet Volume 9.3; Monocytes # (A) 0.7 k/uL (0-1.0); Monocytes % (A) 4 %; Neutrophils # (A) 14.2 k/uL (1.3-7.7); Neutrophils % (A) 90 %; Platelet Count 296 k/uL (150-450); RBC 3.94 m/uL (3.80-5.40); RDW 12.3 % (11.5-15.5); WBC 15.7 k/uL (3.8-10.6)
[2024-03-24 11:24] LABS: African American GFR (CKD) >90 (>60 ml/min/1.73 sqM); Anion Gap 7 mmol/L; Blood Urea Nitrogen 19 mg/dL (7-17); Carbon Dioxide 30 mmol/L (22-30); Chloride 102 mmol/L (98-107); Glucose 356 mg/dL (74-99); Non-African American GFR(CKD) >90 (>60 ml/min/1.73 sqM); Sodium 139 mmol/L (137-145)
[2024-03-24 11:43] LABS: Glucose,Whole Blood 330 mg/dL (70-110)
--- NOTE | 2024-03-24 12:09 | P.PN ---
Subjective Progress Note Date: 03/24/24 Principal diagnosis: Shortness of breath. Pulmonary consult dated March 23, 2024. 68-year-old female seen today in room 376. The patient presented to the emergency department, on March 22, complaining of shortness of breath. The patient states that he started not feeling well in early March, primarily with constipation, and abdominal pain. The patient apparently went to the emergency department, was evaluated, and apparently discharged. More recently, over the last day or 2, the patient complains of increasing shortness of breath, cough, and phlegm production. She denied any chest pain. There is no fever or chills. The patient was told in the emergency room, that she possibly had pneumonia. The patient is a heavy smoker, having started smoking at the age of 18, and continuing to smoke, 50 years. The patient has never been seen by a lung doctor, or formally diagnosed with COPD. She does have a history of hyperlipidemia, osteoarthritis, And Hypothyroidism. Current labs include a white count 15.6, hemoglobin 15, hematocrit 45.1, and platelet count 286,000. Sodium 139, potassium 3.9, chlorides 105, CO2 27, BUN 12, creatinine 0.6. Glucose is 225. Troponin is 0.070. N-terminal proBNP is 981. Urine is cloudy, with 1+ protein. It was positive for leukocyte esterase, with 30 WBCs, and occasional bacteria. Urinary Legionella antigen was negative. The chest x-ray is potentially showing some infiltrate, in the left lower lobe. Progress note dated March 24, 2024. 68-year-old female seen yesterday in consultation. Please see the note above. She was admitted with a diagnosis of COPD exacerbation, she was thought to have pneumonia. Her procalcitonin level was normal. Antibiotics were discontinued. Procalcitonin level was 0.04. She was previously on ceftriaxone, doxycycline. She is currently on 2 L of oxygen. She is not receiving any IV fluids. Her breathing is improved today. Current labs include a white count 15.7, hemoglobin 13.1, hematocrit 40.1, and a platelet count of 296,000. Sodium 139, potassium 4, chlorides 102, CO2 30, BUN 19, creatinine 0.60. Glucose is 330. Calcium is 9.0. Sputum and blood sampling are currently negative. Chest x-ray from May 17 has been reviewed. Objective - Vital Signs Vital signs: Vital Signs Temp 98.0 F 03/24/24 04:00 Pulse 59 L 03/24/24 04:00 Resp 18 03/24/24 04:00 BP 124/60 03/24/24 04:00 Pulse Ox 92 L 03/24/24 09:19 FiO2 Intake & Output 03/23/24 03/24/24 03/24/24 18:59 06:59 18:59 Intake Total 194 10 340 Balance 194 10 340 Intake: IV 26 10 Invasive Line 1 26 10 Intake, IV Titration 50 Amount cefTRIAXone 2 gm In 50 Sodium Chloride 0.9% 50 ml @ 100 mls/hr IVPB Q24HR [facility] Rx#:[id number] Oral 118 340 Other: Voiding Method Toilet Toilet # Voids 2 1 # Bowel Movements 1 1 - Exam No acute distress, oriented 3. Currently on 2 L. Saturations are 92 %. No conversational dyspnea or use of accessory muscles. HEENT examination is grossly unremarkable. Mucous membranes are moist. No oral lesions. Neck supple. Full range of motion. No adenopathy thyromegaly or neck vein distention. Cardiovascular examination reveals regular rhythm rate. S1-S2 normal. No S3 or S4. No discernible murmur noted. Rate 59 bpm. Lungs reveal bilateral rhonchi, with minimal wheezes. No crackles. Breath sounds equal bilaterally. Abdomen soft bowel sounds are heard. No masses or tenderness. Extremities are intact. No cyanosis clubbing or edema. Skin is without rash or lesion. Neurologic examination is brief but nonfocal. - Labs CBC & Chem 7: 03/24/24 10:27 03/24/24 10:27 Labs: Abnormal Lab Results - Last 24 Hours (Table) 03/23/24 03/23/24 03/24/24 Range/Units 16:45 20:00 06:15 WBC (3.8-10.6) k/uL MCV (80.0-100.0) fL Neutrophils # (1.3-7.7) k/uL Lymphocytes # (1.0-4.8) k/uL BUN (7-17) mg/dL Glucose (74-99) mg/dL POC Glucose (mg/dL) 199 H 130 H 149 H (70-110) mg/dL 03/24/24 03/24/24 03/24/24 Range/Units 10:27 10:27 11:42 WBC 15.7 H (3.8-10.6) k/uL MCV 101.9 H (80.0-100.0) fL Neutrophils # 14.2 H (1.3-7.7) k/uL Lymphocytes # 0.8 L (1.0-4.8) k/uL BUN 19 H (7-17) mg/dL Glucose 356 H (74-99) mg/dL POC Glucose (mg/dL) 330 H (70-110) mg/dL Microbiology - Last 24 Hours (Table) 03/22/24 20:39 Blood Culture - Preliminary Blood 03/22/24 20:21 Blood Culture - Preliminary Blood 03/22/24 23:17 Gram Stain - Preliminary Sputum Assessment and Plan Assessment: Acute exacerbation of COPD, complicated by either purulent tracheobronchitis/pneumonia, left lower lobe. History of ongoing tobacco use with nicotine addiction, for 50 years. History of hyperlipidemia. History of hypothyroidism. History of osteoarthritis. History of diverticular disease. Plan: Plan dated March 23, 2024. The patient was seen today in room 376. She is not in any respiratory distress. She is currently on 2 L. Saturations are 94%. Currently, she is on azithromycin and Rocephin. She is getting updrafts with albuterol sulfate ipratropium bromide. She is also getting Solu-Medrol 60 mg every 6 hours. I will add some Symbicort 160/4.5, 2 puffs twice a day. I am not convinced that she actually has pneumonia. Chest x-ray my opinion shows more of an atelectatic picture. We will continue to follow and make recommendations along the way. A procalcitonin level has been ordered. Plan dated March 24, 2024. The patient's procalcitonin level was 0.04. The patient ceftriaxone, doxycycline, for that reason, is canceled. The patient is on 2 L of oxygen. She is receiving all other appropriate medications. She is not receiving any IV fluids. Clinically, she is feeling better. Her 2 L saturations are in the low 90s. Labs, x-rays, and medications are reviewed. We will continue to follow the patient, make recommendations along the way. Prognosis is certainly guarded. We have encouraged the patient to stop smoking once and for all. Time with Patient: Less than 30
[2024-03-24] MEDS: HEPARIN SODIUM,PORCINE 5,000 UNIT/ML 1 ML VIAL SQ SCH (16:24)
[2024-03-24 16:53] LABS: Glucose,Whole Blood 107 mg/dL (70-110)
[2024-03-24 20:16] LABS: Glucose,Whole Blood 171 mg/dL (70-110)
[2024-03-24] MEDS: NYSTATIN 100,000 UNIT/GM POWD 15 GM TOPICAL SCH (21:04)
[2024-03-25 06:25] LABS: Glucose,Whole Blood 143 mg/dL (70-110)
[2024-03-25 06:36] LABS: Basophils % (A) 0 %; Eosinophils % (A) 0 %; HCT 40.8 % (34.0-46.0); HGB 13.2 gm/dL (11.4-16.0); Lymphocytes # (A) 1.2 k/uL (1.0-4.8); Lymphocytes % (A) 9 %; MCH 32.6 pg (25.0-35.0); MCHC 32.3 g/dL (31.0-37.0); MCV 100.9 fL (80.0-100.0); Mean Platelet Volume 8.8; Monocytes # (A) 0.3 k/uL (0-1.0); Monocytes % (A) 2 %; Neutrophils # (A) 11.4 k/uL (1.3-7.7); Neutrophils % (A) 88 %; Platelet Count 311 k/uL (150-450); RBC 4.05 m/uL (3.80-5.40); RDW 12.2 % (11.5-15.5); WBC 12.9 k/uL (3.8-10.6)
[2024-03-25 06:54] LABS: African American GFR (CKD) >90 (>60 ml/min/1.73 sqM); Anion Gap 1 mmol/L; Blood Urea Nitrogen 23 mg/dL (7-17); Calcium 9.6 mg/dL (8.4-10.2); Carbon Dioxide 35 mmol/L (22-30); Chloride 102 mmol/L (98-107); Glucose 133 mg/dL (74-99); Non-African American GFR(CKD) >90 (>60 ml/min/1.73 sqM); Potassium 4.9 mmol/L (3.5-5.1); Sodium 138 mmol/L (137-145)
[2024-03-25 11:54] LABS: Glucose,Whole Blood 175 mg/dL (70-110)
--- NOTE | 2024-03-25 12:28 | P.PN ---
Subjective Progress Note Date: 03/25/24 Principal diagnosis: Shortness of breath. Pulmonary consult dated March 23, 2024. 68-year-old female seen today in room 376. The patient presented to the emergency department, on March 22, complaining of shortness of breath. The patient states that he started not feeling well in early March, primarily with constipation, and abdominal pain. The patient apparently went to the emergency department, was evaluated, and apparently discharged. More recently, over the last day or 2, the patient complains of increasing shortness of breath, cough, and phlegm production. She denied any chest pain. There is no fever or chills. The patient was told in the emergency room, that she possibly had pneumonia. The patient is a heavy smoker, having started smoking at the age of 18, and continuing to smoke, 50 years. The patient has never been seen by a lung doctor, or formally diagnosed with COPD. She does have a history of hyperlipidemia, osteoarthritis, And Hypothyroidism. Current labs include a white count 15.6, hemoglobin 15, hematocrit 45.1, and platelet count 286,000. Sodium 139, potassium 3.9, chlorides 105, CO2 27, BUN 12, creatinine 0.6. Glucose is 225. Troponin is 0.070. N-terminal proBNP is 981. Urine is cloudy, with 1+ protein. It was positive for leukocyte esterase, with 30 WBCs, and occasional bacteria. Urinary Legionella antigen was negative. The chest x-ray is potentially showing some infiltrate, in the left lower lobe. Progress note dated March 24, 2024. 68-year-old female seen yesterday in consultation. Please see the note above. She was admitted with a diagnosis of COPD exacerbation, she was thought to have pneumonia. Her procalcitonin level was normal. Antibiotics were discontinued. Procalcitonin level was 0.04. She was previously on ceftriaxone, doxycycline. She is currently on 2 L of oxygen. She is not receiving any IV fluids. Her breathing is improved today. Current labs include a white count 15.7, hemoglobin 13.1, hematocrit 40.1, and a platelet count of 296,000. Sodium 139, potassium 4, chlorides 102, CO2 30, BUN 19, creatinine 0.60. Glucose is 330. Calcium is 9.0. Sputum and blood sampling are currently negative. Chest x-ray from May 17 has been reviewed. Progress note dated March 25, 2024. 68-year-old patient admitted with a diagnosis of COPD exacerbation. She is doing much better. She is on 2 L of oxygen. No IV fluids. She is not quite ready for discharge. She is currently on Symbicort, updrafts with albuterol sulfate and ipratropium bromide, and Solu-Medrol. Current laboratory data includes a white count 12.9, hemoglobin 13.2, hematocrit 40.8, and a normal platelet count. Sodium 138, potassium 4.9, chlorides 102, CO2 35, BUN 23, creatinine 0.63. Calcium is 9.6. Glucose is 175. Blood and sputum sampling is thus far negative. Objective - Vital Signs Vital signs: Vital Signs Temp 97.9 F 03/25/24 00:00 Pulse 75 03/25/24 04:00 Resp 16 03/25/24 04:00 BP 153/74 03/25/24 04:00 Pulse Ox 95 03/25/24 08:02 FiO2 Intake & Output 03/24/24 03/25/24 03/25/24 18:59 06:59 18:59 Intake Total 1120 10 460 Balance 1120 10 460 Intake: IV 10 Invasive Line 1 10 Oral 1120 460 Other: Voiding Method Toilet Toilet # Voids 3 2 # Bowel Movements 1 - Exam No acute distress, oriented 3. Currently on 2 L. Saturations are 95 %. No conversational dyspnea or use of accessory muscles. HEENT examination is grossly unremarkable. Mucous membranes are moist. No oral lesions. Neck supple. Full range of motion. No adenopathy thyromegaly or neck vein distention. Cardiovascular examination reveals regular rhythm rate. S1-S2 normal. No S3 or S4. No discernible murmur noted. Heart rate is 75 bpm. Lungs reveal bilateral rhonchi, with minimal wheezes. No crackles. Breath sounds equal bilaterally. Abdomen soft bowel sounds are heard. No masses or tenderness. Extremities are intact. No cyanosis clubbing or edema. Skin is without rash or lesion. Neurologic examination is brief but nonfocal. - Labs CBC & Chem 7: 03/25/24 06:09 03/25/24 06:09 Labs: Abnormal Lab Results - Last 24 Hours (Table) 03/24/24 03/25/24 03/25/24 Range/Units 20:14 06:09 06:09 WBC 12.9 H (3.8-10.6) k/uL MCV 100.9 H (80.0-100.0) fL Neutrophils # 11.4 H (1.3-7.7) k/uL Carbon Dioxide 35 H (22-30) mmol/L BUN 23 H (7-17) mg/dL Glucose 133 H (74-99) mg/dL POC Glucose (mg/dL) 171 H (70-110) mg/dL 03/25/24 03/25/24 Range/Units 06:23 11:53 WBC (3.8-10.6) k/uL MCV (80.0-100.0) fL Neutrophils # (1.3-7.7) k/uL Carbon Dioxide (22-30) mmol/L BUN (7-17) mg/dL Glucose (74-99) mg/dL POC Glucose (mg/dL) 143 H 175 H (70-110) mg/dL Microbiology - Last 24 Hours (Table) 03/22/24 23:17 Gram Stain - Final Sputum Sputum Culture - Final 03/22/24 20:39 Blood Culture - Preliminary Blood 03/22/24 20:21 Blood Culture - Preliminary Blood Assessment and Plan Assessment: Acute exacerbation of COPD, complicated by purulent tracheobronchitis. History of ongoing tobacco use with nicotine addiction, for 50 years. History of hyperlipidemia. History of hypothyroidism. History of osteoarthritis. History of diverticular disease. Plan: Plan dated March 23, 2024. The patient was seen today in room 376. She is not in any respiratory distress. She is currently on 2 L. Saturations are 94%. Currently, she is on azithromycin and Rocephin. She is getting updrafts with albuterol sulfate ipra tropium bromide. She is also getting Solu-Medrol 60 mg every 6 hours. I will add some Symbicort 160/4.5, 2 puffs twice a day. I am not convinced that she actually has pneumonia. Chest x-ray my opinion shows more of an atelectatic picture. We will continue to follow and make recommendations along the way. A procalcitonin level has been ordered. Plan dated March 24, 2024. The patient's procalcitonin level was 0.04. The patient ceftriaxone, doxycycline, for that reason, is canceled. The patient is on 2 L of oxygen. She is receiving all other appropriate medications. She is not receiving any IV fluids. Clinically, she is feeling better. Her 2 L saturations are in the low 90s. Labs, x-rays, and medications are reviewed. We will continue to follow the patient, make recommendations along the way. Prognosis is certainly guarded. We have encouraged the patient to stop smoking once and for all. Plan dated March 25, 2024. The patient's procalcitonin level was quite low, so antibiotics were discontinued. The patient continues on appropriate medications including bronchodilators, and corticosteroids. The patient is feeling much better. I suspect she might be able to be discharged tomorrow. The patient does continue to smoke cigarettes. We counseled her about the importance of smoking cessation once and for all. Labs, x-rays, and medications are reviewed. Prognosis is guarded. Time with Patient: Less than 30
[2024-03-25] MEDS: IPRATROPIUM-ALBUTEROL 3 ML NEB INHALATION SCH (15:39)
[2024-03-25 16:18] LABS: Glucose,Whole Blood 160 mg/dL (70-110)
[2024-03-25 18:57] VITALS: RESP 16
[2024-03-25 20:10] LABS: Glucose,Whole Blood 153 mg/dL (70-110)
[2024-03-25] MEDS: MELATONIN 3 MG TABLET PO PRN (20:31)
--- NOTE | 2024-03-26 00:45 | P.PN ---
Subjective Progress Note Date: 03/24/24 Is a 68-year-old female with past medical history of HLD, chronic nicotine dependence and hypothyroidism who presented to the emergency room with worsening shortness of breath with cough since the beginning of this month. Denies history of IBS, states negative diarrhea, problems with constipation. Patient is on Percocet for chronic hip and shoulder pain/DDD-follows with a neurologist. Reports abdominal pain has subsided. Reports over the last couple days, she had loose productive cough with yellow, greenish and whitish sputum, currently unproductive, accompanied by upper abdominal and rib cage pain from coughing. Denies chills or fever. Initial chest x-ray reported focal silhouetting of the pulmonary vascular in the left lower lobe, lingula and right infrahilar lung by ill-defined partial consolidation possible multifocal bronchopneumoniathese findings are not seen on the comparison chest x-ray. Repeat chest x-ray reported mild hyperinflation, worsening patchy opacity left lower lung. Procalcitonin ordered. Afebrile Tmax 99.1. On admission O2 sat 91% on room air, decreased to 89% this morning and currently maintaining O2 sats of the 90s on 2 L nasal cannula. WBC 15.6, hemoglobin 15, platelets 286, electrolytes and renal function stable. Troponin 0.070., Legionella negative, UA reporting moderate leukocytes, negative nitrates, 30 urine WBCs. 03/24/2024 Patient is currently sitting in the bed. Awake alert and oriented x 3. Still having Shortness of breath and diffuse wheezing on exam. No complaints of chest pain. No nausea vomiting abdominal pain or diarrhea. Presents dizziness slightly better today. Currently requiring 2 L oxygen via nasal cannula. Otherwise procalcitonin is not elevated. Antibiotics have been discontinued. Laboratory data showed WBC 15.7 hemoglobin 13.1 and platelets 296 sodium 139 potassium 4.0 chloride 102 bicarb is 30 BUN 19 and creatinine 0.60 and blood sugar 356. Current medications reviewed. Objective - Vital Signs Vital signs: Vital Signs Temp 98.0 F 03/24/24 04:00 Pulse 59 L 03/24/24 04:00 Resp 18 03/24/24 04:00 BP 124/60 03/24/24 04:00 Pulse Ox 92 L 03/24/24 09:19 FiO2 Intake & Output 03/23/24 03/24/24 03/24/24 18:59 06:59 18:59 Intake Total 194 10 340 Balance 194 10 340 Intake: IV 26 10 Invasive Line 1 26 10 Intake, IV Titration 50 Amount cefTRIAXone 2 gm In 50 Sodium Chloride 0.9% 50 ml @ 100 mls/hr IVPB Q24HR REPLACED BY [facility] Rx#:[id number] Oral 118 340 Other: Voiding Method Toilet Toilet # Voids 2 1 # Bowel Movements 1 1 - Exam PHYSICAL EXAMINATION: Patient is lying in the bed comfortably, no acute distress, awake alert and oriented.. HEENT: Normocephalic. Neck is supple. Pupils reactive. Nostrils clear. Oral cavity is moist. Neck reveals no JVD, carotid bruits, or thyromegaly. CHEST EXAMINATION: Trachea is central. Symmetrical expansion. Bilateral diffuse wheezing and diminished sounds. Nonlabored breathing.. CARDIAC: Normal S1, S2 with no gallops. No murmurs ABDOMEN: Soft. Bowel sounds normal. No organomegaly. No abdominal bruits. Extremities: reveal no edema. No clubbing or cyanosis Neurologically awake, alert, oriented x3 with well-coordinated movements. No focal deficits noted Skin: No rash or skin lesions. Psychiatric: Coperative. Nonsuicidal Musculoskeletal: No joint swelling or deformity. Normal range of motion. - Labs CBC & Chem 7: 03/25/24 06:09 03/25/24 06:09 Labs: Abnormal Lab Results - Last 24 Hours (Table) 03/23/24 03/23/24 03/23/24 Range/Units 11:32 16:45 20:00 POC Glucose (mg/dL) 225 H 199 H 130 H (70-110) mg/dL 03/24/24 Range/Units 06:15 POC Glucose (mg/dL) 149 H (70-110) mg/dL Microbiology - Last 24 Hours (Table) 03/22/24 20:39 Blood Culture - Preliminary Blood 03/22/24 20:21 Blood Culture - Preliminary Blood 03/22/24 23:17 Gram Stain - Preliminary Sputum Assessment and Plan Assessment: Acute COPD exacerbation Acute hypoxic respiratory failure requiring oxygen via nasal cannula. Purulent tracheobronchitis and possible pneumonia. Less likely. Hyperglycemia due to steroids. Patient is not on any hypoglycemic agents at home. Constipation Hyperlipidemia Hypothyroidism Osteoarthritis Nicotine dependence, extensive, 1 pack/day x 52 years Marijuana use GI and DVT prophylaxis with PPI and heparin subcu Plan: Patient will be continued on IV Solu-Medrol, DuoNebs and Symbicort. Continue with oxygen supplementation and titrate down to room air. Antibiotics have been discontinued. Procalcitonin level is not elevated. Less likely pneumonia. Continue with insulin sliding scale and insulin regimen and titrate dose as needed. Follow-up A1c level. Changed to diabetic diet. Pulmonary is on board.. Time with Patient: Greater than 30
--- NOTE | 2024-03-26 00:47 | P.PN ---
Subjective Progress Note Date: 03/25/24 Is a 68-year-old female with past medical history of HLD, chronic nicotine dependence and hypothyroidism who presented to the emergency room with worsening shortness of breath with cough since the beginning of this month. Denies history of IBS, states negative diarrhea, problems with constipation. Patient is on Percocet for chronic hip and shoulder pain/DDD-follows with a neurologist. Reports abdominal pain has subsided. Reports over the last couple days, she had loose productive cough with yellow, greenish and whitish sputum, currently unproductive, accompanied by upper abdominal and rib cage pain from coughing. Denies chills or fever. Initial chest x-ray reported focal silhouetting of the pulmonary vascular in the left lower lobe, lingula and right infrahilar lung by ill-defined partial consolidation possible multifocal bronchopneumoniathese findings are not seen on the comparison chest x-ray. Repeat chest x-ray reported mild hyperinflation, worsening patchy opacity left lower lung. Procalcitonin ordered. Afebrile Tmax 99.1. On admission O2 sat 91% on room air, decreased to 89% this morning and currently maintaining O2 sats of the 90s on 2 L nasal cannula. WBC 15.6, hemoglobin 15, platelets 286, electrolytes and renal function stable. Troponin 0.070., Legionella negative, UA reporting moderate leukocytes, negative nitrates, 30 urine WBCs. 03/24/2024 Patient is currently sitting in the bed. Awake alert and oriented x 3. Still having Shortness of breath and diffuse wheezing on exam. No complaints of chest pain. No nausea vomiting abdominal pain or diarrhea. Presents dizziness slightly better today. Currently requiring 2 L oxygen via nasal cannula. Otherwise procalcitonin is not elevated. Antibiotics have been discontinued. Laboratory data showed WBC 15.7 hemoglobin 13.1 and platelets 296 sodium 139 potassium 4.0 chloride 102 bicarb is 30 BUN 19 and creatinine 0.60 and blood sugar 356. 03/25/2024 Patient is currently resting in the bed. Awake alert and oriented x 3. On 2 L oxygen via nasal cannula which has been titrated down to room air. Breathing status is much improved. No complaints of chest pain. No nausea vomiting abdominal pain or diarrhea. Laboratory showed WBC 12.9 hemoglobin 13.2 and platelets 311 BUN 23 and creatinine 0.63 and blood sugar improved to 133. Follow-up A1c level tomorrow. Pulmonary is on board. Anticipate discharge in the next 24 hours with more clinical improvement. Current medications reviewed. Objective - Vital Signs Vital signs: Vital Signs Temp 97.7 F 03/25/24 09:10 Pulse 49 L 03/25/24 16:00 Resp 16 03/25/24 16:00 BP 151/78 03/25/24 16:00 Pulse Ox 95 03/25/24 16:00 FiO2 Intake & Output 03/25/24 03/25/24 03/26/24 06:59 18:59 06:59 Intake Total 10 1058 Balance 10 1058 Intake: IV 10 Invasive Line 1 10 Oral 1058 Other: Voiding Method Toilet Toilet # Voids 2 2 - Exam PHYSICAL EXAMINATION: Patient is lying in the bed comfortably, no acute distress, awake alert and oriented.. HEENT: Normocephalic. Neck is supple. Pupils reactive. Nostrils clear. Oral cavity is moist. Neck reveals no JVD, carotid bruits, or thyromegaly. CHEST EXAMINATION: Trachea is central. Symmetrical expansion. Mild expiratory wheeze. Nonlabored breathing. No rhonchi or crackles. CARDIAC: Normal S1, S2 with no gallops. No murmurs ABDOMEN: Soft. Bowel sounds normal. No organomegaly. No abdominal bruits. Extremities: reveal no edema. No clubbing or cyanosis Neurologically awake, alert, oriented x3 with well-coordinated movements. No focal deficits noted Skin: No rash or skin lesions. Psychiatric: Coperative. Nonsuicidal Musculoskeletal: No joint swelling or deformity. Normal range of motion. - Labs CBC & Chem 7: 03/25/24 06:09 03/25/24 06:09 Labs: Abnormal Lab Results - Last 24 Hours (Table) 03/25/24 03/25/24 03/25/24 Range/Units 06:09 06:09 06:23 WBC 12.9 H (3.8-10.6) k/uL MCV 100.9 H (80.0-100.0) fL Neutrophils # 11.4 H (1.3-7.7) k/uL Carbon Dioxide 35 H (22-30) mmol/L BUN 23 H (7-17) mg/dL Glucose 133 H (74-99) mg/dL POC Glucose (mg/dL) 143 H (70-110) mg/dL 03/25/24 03/25/24 03/25/24 Range/Units 11:53 16:17 20:09 WBC (3.8-10.6) k/uL MCV (80.0-100.0) fL Neutrophils # (1.3-7.7) k/uL Carbon Dioxide (22-30) mmol/L BUN (7-17) mg/dL Glucose (74-99) mg/dL POC Glucose (mg/dL) 175 H 160 H 153 H (70-110) mg/dL Microbiology - Last 24 Hours (Table) 03/22/24 23:17 Gram Stain - Final Sputum Sputum Culture - Final 03/22/24 20:39 Blood Culture - Preliminary Blood 03/22/24 20:21 Blood Culture - Preliminary Blood Assessment and Plan Assessment: Acute COPD exacerbation Acute hypoxic respiratory failure requiring oxygen via nasal cannula. Purulent tracheobronchitis and possible pneumonia. Less likely. Hyperglycemia due to steroids. Improved now patient is not on any hypoglycemic agents at home. Constipation Hyperlipidemia Hypothyroidism Osteoarthritis Nicotine dependence, extensive, 1 pack/day x 52 years Marijuana use GI and DVT prophylaxis with PPI and heparin subcu Plan: Patient will be continued on IV Solu-Medrol, DuoNebs and Symbicort. Continue with oxygen supplementation and titrate down to room air. Antibiotics have been discontinued. Procalcitonin level is not elevated. Less likely pneumonia. Continue with insulin sliding scale and insulin regimen and titrate dose as needed. Follow-up A1c level. Changed to diabetic diet. Pulmonary is on board.. Time with Patient: Greater than 30
[2024-03-26 06:28] LABS: Glucose,Whole Blood 175 mg/dL (70-110)
[2024-03-26 08:05] VITALS: BP 129/79; TEMP 98
--- NOTE | 2024-03-26 09:23 | P.DS ---
Providers Date of admission: 03/22/24 20:24 Expected date of discharge: 03/26/24 Attending physician: Giovanny Mendoza MD Consults: 03/23/24 08:27 Consult Physician Routine Consulting Provider: Artemio Schneider Consult Reason/Comments: pneumonia, hypoxia Do you want consulting provider notified?: Yes Primary care physician: [facility] Course: Is a 68-year-old female with past medical history of HLD, chronic nicotine dependence and hypothyroidism who presented to the emergency room with worsening shortness of breath with cough since the beginning of this month. Denies history of IBS, states negative diarrhea, problems with constipation. Patient is on Percocet for chronic hip and shoulder pain/DDD-follows with a neurologist. Reports abdominal pain has subsided. Reports over the last couple days, she had loose productive cough with yellow, greenish and whitish sputum, currently unproductive, accompanied by upper abdominal and rib cage pain from coughing. Denies chills or fever. Initial chest x-ray reported focal silhouetting of the pulmonary vascular in the left lower lobe, lingula and right infrahilar lung by ill-defined partial consolidation possible multifocal bronchopneumoniathese findings are not seen on the comparison chest x-ray. Repeat chest x-ray reported mild hyperinflation, worsening patchy opacity left lower lung. Procalcitonin ordered. Afebrile Tmax 99.1. On admission O2 sat 91% on room air, decreased to 89% this morning and currently maintaining O2 sats of the 90s on 2 L nasal cannula. WBC 15.6, hemoglobin 15, platelets 286, electrolytes and renal function stable. Troponin 0.070., Legionella negative, UA reporting moderate leukocytes, negative nitrates, 30 urine WBCs. 03/24/2024 Patient is currently sitting in the bed. Awake alert and oriented x 3. Still having Shortness of breath and diffuse wheezing on exam. No complaints of chest pain. No nausea vomiting abdominal pain or diarrhea. Presents dizziness slightly better today. Currently requiring 2 L oxygen via nasal cannula. Otherwise procalcitonin is not elevated. Antibiotics have been discontinued. Laboratory data showed WBC 15.7 hemoglobin 13.1 and platelets 296 sodium 139 potassium 4.0 chloride 102 bicarb is 30 BUN 19 and creatinine 0.60 and blood sugar 356. 03/25/2024 Patient is currently resting in the bed. Awake alert and oriented x 3. On 2 L oxygen via nasal cannula which has been titrated down to room air. Breathing status is much improved. No complaints of chest pain. No nausea vomiting abdominal pain or diarrhea. Laboratory showed WBC 12.9 hemoglobin 13.2 and platelets 311 BUN 23 and creatinine 0.63 and blood sugar improved to 133. Follow-up A1c level tomorrow. Pulmonary is on board. Anticipate discharge in the next 24 hours with more clinical improvement. On day of discharge pt on room air, minimal wheezing and coughing, procalcitonin was negative. Pt discharged in stable condition and recommended to start dulera inahler and complete pred taper. She will follo up with her PCP as an outpatient. Plan - Discharge Summary Discharge Rx Participant: No New Discharge Prescriptions: New Mometasone/Formoterol [Dulera 200 Mcg-5 Mcg Inhaler] 1 puff INHALATION BID #13 gm predniSONE 0 mg PO DIRECTED #30 tab Continue Ezetimibe [Zetia] 10 mg PO DAILY Escitalopram [Lexapro] 20 mg PO DAILY Dicyclomine [Bentyl] 20 mg PO TID #30 tablet Ondansetron Odt [Zofran ODT] 4 mg PO Q8HR PRN #10 tab PRN Reason: Nausea oxyCODONE-APAP 10-325MG [Percocet 10-325 mg] 1 tab PO TID PRN PRN Reason: Pain Loperamide HCl [Imodium A-D] 2 - 4 mg PO TID PRN MDD 8 MG PRN Reason: Diarrhea Levothyroxine Sodium 125 mcg PO DAILY Liothyronine Sodium [Cytomel] 5 mcg PO DAILY Pregabalin [Lyrica] 75 mg PO BID Omeprazole 40 mg PO DAILY Discharge Medication List Ezetimibe [Zetia] 10 mg PO DAILY 09/29/17 [History] Escitalopram [Lexapro] 20 mg PO DAILY 09/20/21 [History] Levothyroxine Sodium 125 mcg PO DAILY 09/20/21 [History] Dicyclomine [Bentyl] 20 mg PO TID #30 tablet 03/13/24 [Rx] Ondansetron Odt [Zofran ODT] 4 mg PO Q8HR PRN #10 tab 03/13/24 [Rx] Liothyronine Sodium [Cytomel] 5 mcg PO DAILY 03/22/24 [History] Loperamide HCl [Imodium A-D] 2 - 4 mg PO TID PRN MDD 8 MG 03/22/24 [History] Omeprazole 40 mg PO DAILY 03/22/24 [History] Pregabalin [Lyrica] 75 mg PO BID 03/22/24 [History] oxyCODONE-APAP 10-325MG [Percocet 10-325 mg] 1 tab PO TID PRN 03/22/24 [History] Mometasone/Formoterol [Dulera 200 Mcg-5 Mcg Inhaler] 1 puff INHALATION BID #13 gm 03/26/24 [Rx] predniSONE 0 mg PO DIRECTED #30 tab 03/26/24 [Rx] Follow up Appointment(s)/Referral(s): Wen Villeda DO [Primary Care Provider] - 1-2 days Discharge Disposition: HOME SELF-CARE
[2024-03-26 10:23] LABS: Basophils # (A) 0.01 X 10*3/uL (0.00-0.10); Basophils % (A) 0.1 %; Eosinophils # (A) 0 X 10*3/uL (0.04-0.35); Eosinophils % (A) 0 %; HCT 39.2 % (37.2-46.3); HGB 13.1 g/dL (12.0-15.0); Lymphocytes # (A) 0.96 X 10*3/uL (0.90-5.00); Lymphocytes % (A) 10.4 %; MCHC 33.4 g/dL (32.0-37.0); MCV 98.7 FL (80.0-97.0); Mean Platelet Volume 11.3 FL (9.5-12.2); Monocytes # (A) 0.32 X 10*3/uL (0.20-1.00); Monocytes % (A) 3.5 %; NRBC Per 100 WBC 0 X 10*3/uL (0.00-0.01); Neutrophils # (A) 7.87 X 10*3/uL (1.80-7.70); Neutrophils % (A) 85.6 %; Platelet Count 312 X 10*3/uL (140-440); RBC 3.97 X 10*6/uL (4.10-5.20); RDW 11.7 % (11.5-14.5)
[2024-03-26 10:37] LABS: BUN/Creat Ratio 35.83 Ratio (12.00-20.00); Blood Urea Nitrogen 21.5 mg/dL (9.0-27.0); Calcium 9.2 mg/dL (8.7-10.3); Carbon Dioxide 28.1 mmol/L (21.6-31.8); Chloride 102 mmol/L (96-109); Glucose 152 mg/dL (70-110); Potassium 4.6 mmol/L (3.5-5.5); Sodium 141 mmol/L (135-145)
[2024-03-26 12:19] LABS: Glucose,Whole Blood 341 mg/dL (70-110)
[2024-03-26 16:13] VITALS: PULSE 50
== END 2024-03-26 15:28 | disposition home or self-care (01) ==
LOC: EC 18:15 → 3SCARD 20:24 → 6NMEDSUR 03-26 00:18
PROVIDERS: ADMIT Family Medicine; ATTEND Family Medicine
DX: J44.1 Chronic obstructive pulmonary disease with (acute) exacerbation (principal); J18.9 Pneumonia, unspecified organism; Z96.649 Presence of unspecified artificial hip joint; Z79.899 Other long term (current) drug therapy; J44.9 Chronic obstructive pulmonary disease, unspecified; E78.5 Hyperlipidemia, unspecified; M19.90 Unspecified osteoarthritis, unspecified site; F17.210 Nicotine dependence, cigarettes, uncomplicated; E03.9 Hypothyroidism, unspecified; Z87.19 Personal history of other diseases of the digestive system
CPT/HCPCS: 96366 ×2; 96372 ×4; 96375 ×2; 96376 ×4; 96365; 96367; 99285; 36415; 94640 ×8; 94760 ×3; 93005; 83880; 80053; 80048 ×3; 87449; 82150; 83605; 83690; 84484; 85025 ×4; 81001; 87040; 87070; 87205; 83036; 84145; 71046 ×2; G0378 ×5; S4990 ×3; J2060; J1644 ×3; J2405; J0456; J0696 ×2; C9113 ×4; J2919 ×5

== ENCOUNTER → 2024-04-17 | Outpatient (CLI) | payer MEDICARE ==
--- NOTE | 2024-04-24 03:19 | CTL ---
EXAMINATION TYPE: CT Low Dose Lung DATE OF EXAM: 04/17/2024 3:28 PM CLINICAL INDICATION:Female, 68 years old with history of Z12.2 Screening,F17.210; smoker , history of tobacco use. COMPARISON: None. TECHNIQUE: CT scan of the chest obtained without contrast from approximately the lung apices through the upper abdomen. Axial, coronal and sagittal reformatted images were obtained. Low dose technique w as utilized for nodule screening purposes. CT DLP: 85.5 mGycm, Automated exposure control for dose reduction was used. CT Contrast: IV contrast used: None. Oral contrast used: None. FINDINGS: Lack of intravenous contrast and low dose technique limits the evaluation of the vascular and soft ti ssue structures. LUNGS: No evidence of pulmonary fibrosis. No evidence of focal consolidation or infiltrate. There are emphysematous changes bilaterally, mild in degree. Mild bibasilar strandy opacities, (right, likely scarring and/or subsegmental atelectasis. There is small calcified granuloma in the left lung base. NODULES: No clinically significant nodules demonstrated. PLEURA: No sizeable pleural effusion or pneumothorax. AIRWAY: Central airways are patent. LOWER NECK: No significant findings. MEDIASTINUM: No evidence of enlarged mediastinal or hilar nodes, in the limits of noncontrast exam.. HEART: Normal heart size. Mild coronary artery calcification. No appreciable pericardial effusion. VASCULATURE: Moderate atherosclerotic calcifications of the aorta and branches. Ascending aorta is 3 .9 CM, descending is 2.6 CM. Aorta is considered fusiform ectatic at the ascending segment. Pulmonar y trunk measures 2.9 CM, upper normal in size. Vessels otherwise not further assessed without contra st. SOFT TISSUES/LYMPH NODES: No acute soft tissue abnormality. Heterogeneous breast tissues with some sc attered calcifications, please correlate with findings of screening mammography. No enlarged axillary nodes. UPPER ABDOMEN: No significant findings. MUSCULOSKELETAL: Moderate disc degeneration changes are present throughout the thoracolumbar spine. N o acute findings. Patch of sclerosis seen in the L2 vertebral body, nonspecific. IMPRESSION: 1. No clinically significant pulmonary nodules. CT LUNG-RADS AND FOLLOWUP RECOMMENDATION: Lung-RADS Category 1, Negative: Continue annual screening with LDCT in 12 months. C Modifier (Personal history of lung cancer?): No. S Modifier (Other clinically significant or potentially significant findings?): No. Other significant or potentially significant abnormalities: None. Recommend smoking cessation (if current smoker), or continuation of smoking cessation (if prior smoke r). Annual screening for lung cancer with low-dose computed tomography is recommended in adults ages 55 to 77 years who have a 30 pack-year smoking history and currently smoke or have quit within the pa st 15 years. Screening should be discontinued once a person has not smoked for 15 years or develops a health problem that substantially limits life expectancy or the ability or willingness to have curat pierre lung surgery. Lung-RADS v.2021 Link Here [email or web address]
== END | disposition home or self-care (01) ==
LOC: RADCTMAIN 14:17
PROVIDERS: ATTEND Family Medicine
DX: Z12.2 Encounter for screening for malignant neoplasm of respiratory organs (principal); F17.210 Nicotine dependence, cigarettes, uncomplicated
CPT/HCPCS: 71271

== ENCOUNTER → 2024-04-17 | Outpatient (CLI) | payer MEDICARE ==
--- NOTE | 2024-04-19 09:18 | MM ---
Reason for Exam: Screening (asymptomatic). Last mammogram was performed 2 year(s) and 1 month(s) ago. Patient History: Menarche at age 14. First Full-Term at age 27. Postmenopausal. Risk Values: Merline 5 year model risk: 1.7%. NCI Lifetime model risk: 5.1%. Prior Study Comparison: 06/27/2019 Bilateral Screening Mammogram, [facility]. 03/20/2021 Bilateral Screening Mammogram, [facility]. 03/23/2022 Bilateral MG screening mammo w CAD, [facility]. Tissue Density: The breasts are heterogeneously dense, which may obscure small masses. Findings: Analyzed By CAD. There is no suspicious group of microcalcifications or new suspicious mass in either breast. Overall Assessment: Benign, BI-RAD 2 Management: Screening Mammogram of both breasts in 1 year. . Patient should continue monthly self-breast exams. A clinical breast exam by your physician is recommended on an annual basis. This exam should not preclude additional follow-up of suspicious palpable abnormalities. Note on Merline scores and lifetime risk: 1. A Merline score greater than 3% is considered moderate risk. If this is the case, consider specialist referral to assess eligibility for a risk reducing agent. 2. If overall lifetime risk for the development of breast cancer is 20% or higher, the patient may qualify for future screening with alternating mammogram and breast MRI. Electronically signed and approved by: Guillermo Salgado M.D. Radiologis
== END | disposition home or self-care (01) ==
LOC: RADMAMWWP 14:44
PROVIDERS: ATTEND Family Medicine
DX: Z12.31 Encounter for screening mammogram for malignant neoplasm of breast (principal); Z78.0 Asymptomatic menopausal state
CPT/HCPCS: 77063; 77067

== ENCOUNTER 2024-05-23 08:07 | Day surgery (SDC) | payer MEDICARE ==
[2024-05-23 08:42] VITALS: TEMP 97.2
[2024-05-23] MEDS: LACTATED RINGERS 1,000 ML IV SCH (08:52)
[2024-05-23] MEDS: IV FLUID CONTINUATION 1,000 ML IV ONE ×2 (08:52→08:53)
[2024-05-23] MEDS: LACTATED RINGERS 1,000 ML IV ONE (08:57)
[2024-05-23] MEDS ORDERED: PROPOFOL 10 MG/ML 20 ML VIAL IV ONE (08:58)
[2024-05-23] MEDS ORDERED: LIDOCAINE 1% INJ 10MG/ML (20 ML MDV) ONE (08:58)
--- NOTE | 2024-05-23 09:20 | P.PCN ---
Date of Procedure: 05/23/24 Procedure(s) Performed: Brief history: Patient is a pleasant 68-year-old white female scheduled for an elective upper endoscopy as well as colonoscopy as a part of evaluation of GERD/abdominal pain and change in bowel habits Procedure performed: Esophagogastroduodenoscopy with biopsy Colonoscopy Preoperative diagnosis: GERD/abdominal pain/change in bowel habits Anesthesia: MAC Procedure: After informed consent was obtained from the patient was brought into the endoscopy unit and IV sedation was administered by anesthesia under continuous monitoring. Initially upper endoscopy was done. The Olympus GF 160 video endoscope was inserted inserted into the mouth and esophagus intubated without any difficulty and was gradually advanced into the stomach and duodenum and carefully examined. The bulb and second part of the duodenum appeared normal. The scope was then withdrawn into the stomach adequately insufflated with air and upon careful examination the antrum had patchy areas of erythema consistent with gastritis and biopsies were done from this area. Body, cardia and fundus appeared normal. The scope was then withdrawn into the esophagus. The GE junction was located at 35 cm to the incisors. Moderate size hiatal hernia noted. The GE junction appeared regular with no erythema erosions or ulcerations. Rest of the esophagus appeared normal. Patient tolerated the procedure well. At this time the patient continued to remain sedation. Initial digital rectal examination was normal. Olympus CF 160 video colonoscope was then inserted into the rectum and gradually advanced to the cecum without any difficulty. Careful examination was performed as the scope was gradually being withdrawn. The prep was excellent. The cecum, ascending colon, transverse colon, descending colon, sigmoid colon and rectum appeared normal. Scattered sigmoid diverticulosis. Retroflexion was performed in the rectum and no lesions were noted. Patient tolerated the procedure well. Impression: 1. Upper endoscopy revealed mild antral gastritis and moderate size hiatal hernia 2. Colonoscopy was within normal limits with no evidence of colorectal except for scattered sigmoid diverticulosis. Recommendations: Findings of this examination were discussed with the patient as well as her fami ly. She was advised to follow-up with the biopsy results. Recommend starting MiraLAX 1 scoop daily and regular bowel movements. Continue with a high-fiber diet and fiber supplements daily. Recommended repeat screening colonoscopy at age 78
[2024-05-23 09:46] VITALS: BP 122/71; PULSE 51; RESP 17
== END 2024-05-23 10:03 | disposition home or self-care (01) ==
LOC: ORWHC2ENDO 08:07
PROVIDERS: ATTEND Internal Medicine Gastroenterology
DX: K29.50 Unspecified chronic gastritis without bleeding (principal); K21.9 Gastro-esophageal reflux disease without esophagitis; K44.9 Diaphragmatic hernia without obstruction or gangrene; K57.30 Diverticulosis of large intestine without perforation or abscess without bleeding; E78.5 Hyperlipidemia, unspecified; E07.9 Disorder of thyroid, unspecified; J44.9 Chronic obstructive pulmonary disease, unspecified; M19.90 Unspecified osteoarthritis, unspecified site; F17.200 Nicotine dependence, unspecified, uncomplicated; F12.90 Cannabis use, unspecified, uncomplicated; Z79.890 Hormone replacement therapy; Z79.899 Other long term (current) drug therapy
CPT/HCPCS: 88305; 45378; 43239; J2001; J2704

== ENCOUNTER 2024-10-02 14:47 | Inpatient (IN) | payer MEDICARE ==
[2024-10-02 15:26] LABS: Basophils # (A) 0.1 k/uL (0-0.2); Basophils % (A) 0 %; Eosinophils # (A) 0.1 k/uL (0-0.7); Eosinophils % (A) 1 %; HCT 50.8 % (34.0-46.0); HGB 17.8 gm/dL (11.4-16.0); Lymphocytes # (A) 2.2 k/uL (1.0-4.8); Lymphocytes % (A) 20 %; MCH 33.7 pg (25.0-35.0); MCV 96.3 fL (80.0-100.0); Mean Platelet Volume 8.2; Monocytes # (A) 0.5 k/uL (0-1.0); Monocytes % (A) 4 %; Neutrophils # (A) 8.5 k/uL (1.3-7.7); Neutrophils % (A) 74 %; Platelet Count 203 k/uL (150-450); RBC 5.28 m/uL (3.80-5.40); RDW 12.2 % (11.5-15.5); WBC 11.5 k/uL (3.8-10.6)
--- NOTE | 2024-10-02 15:28 | ED ---
Abdominal Pain HPI - General Chief Complaint: Abdominal Pain Stated Complaint: DEHYDRATED AND LOSS OF APPETITE Time Seen by Provider: 10/02/24 15:21 Source: patient, family, RN notes reviewed, old records reviewed Mode of arrival: wheelchair Limitations: no limitations - History of Present Illness Initial Comments: This is a 69 female to the ER for evaluation patient been seen for evaluation of nausea vomiting and dehydration, patient is not eating or drinking for about 3 to 4 days decreased activity level and friend who is with her at bedside checked on the patient for the third consecutive day with no change in her activities of daily living. Patient denying any chest pain but is pointing to her belly for pain MD Complaint: abdominal pain -: days(s) (3) Location: diffuse, periumbilical, epigastric, suprapubic Radiation: epigastric, suprapubic Migration to: epigastric, suprapubic Severity: moderate Severity scale (1-10): 5 Quality: aching, sharp, burning Consistency: constant Improves With: nothing Worsens With: nothing Associated Symptoms: nausea, vomiting, anorexia Treatments Prior to Arrival: other - Related Data Home Medications Medication Instructions Recorded Confirmed Ezetimibe [Zetia] 10 mg PO DAILY 09/29/17 10/02/24 Escitalopram [Lexapro] 20 mg PO DAILY 09/20/21 10/02/24 oxyCODONE-APAP 10-325MG [Percocet 1 tab PO TID PRN 03/22/24 10/02/24 10-325 mg] Levothyroxine Sodium [Synthroid] 100 mcg PO DAILY 10/02/24 10/02/24 Omeprazole 40 mg PO DAILY 10/02/24 10/02/24 Pregabalin [Lyrica] 100 mg PO TID 10/02/24 10/02/24 Previous Rx's Medication Instructions Recorded Atorvastatin [Lipitor] 40 mg PO DAILY 14 Days #14 tab 10/05/24 Lactulose [Cephulac] 30 gm PO TID PRN 14 Days #2000 ml 10/05/24 Allergies Allergy/AdvReac Type Severity Reaction Status Date / Time No Known Allergies Allergy Verified 10/02/24 17:34 Review of Systems ROS Statement: Those systems with pertinent positive or pertinent negative responses have been documented in the HPI. ROS Other: All systems not noted in ROS Statement are negative. Past Medical History Past Medical History: COPD, Hyperlipidemia, Osteoarthritis (OA), Thyroid Disorder Additional Past Medical History / Comment(s): diverticulitis, arthritis History of Any Multi-Drug Resistant Organisms: None Reported Past Surgical History: Bariatric Surgery, Bladder Surgery, Hernia Repair, Joint Replacement, Tubal Ligation Additional Past Surgical History / Comment(s): kilo hip replacement, kilo carpal tunnel, bladder suspension, lap band in, now removed, abd hernia, TOTAL LEFT KNEE. Colonoscopy. bladder lsing Past Anesthesia/Blood Transfusion Reactions: No Reported Reaction Past Psychological History: No Psychological Hx Reported Smoking Status: Current every day smoker Past Alcohol Use History: Occasional Past Drug Use History: None Reported - Past Family History Mother Family Medical History: No Reported History General Exam Limitations: no limitations General appearance: alert, in no apparent distress, anxious, in distress Head exam: Present: atraumatic, normocephalic, normal inspection Eye exam: Present: normal appearance, PERRL, EOMI. Absent: scleral icterus, conjunctival injection, periorbital swelling ENT exam: Present: normal exam, mucous membranes moist Neck exam: Present: normal inspection. Absent: tenderness, meningismus, lymphadenopathy Respiratory exam: Present: normal lung sounds bilaterally. Absent: respiratory distress, wheezes, rales, rhonchi, stridor Cardiovascular Exam: Present: regular rate, normal rhythm, normal heart sounds. Absent: systolic murmur, diastolic murmur, rubs, gallop, clicks GI/Abdominal exam: Present: soft, normal bowel sounds. Absent: distended, ten derness, guarding, rebound, rigid Extremities exam: Present: normal inspection, full ROM, normal capillary refill. Absent: tenderness, pedal edema, joint swelling, calf tenderness Back exam: Present: normal inspection Neurological exam: Present: alert, oriented X3, CN II-XII intact Psychiatric exam: Present: normal affect, normal mood Skin exam: Present: warm, dry, intact, normal color. Absent: rash Course Vital Signs 10/02/24 10/02/24 10/02/24 14:50 16:34 16:56 Temperature 98.1 F Pulse Rate 82 76 60 Pulse Rate [ Skills Instructor ] Respiratory 22 18 18 Rate Blood Pressure 184/110 189/114 153/90 Blood Pressure [Right Arm] O2 Sat by Pulse 100 99 96 Oximetry 10/02/24 10/02/24 10/02/24 17:18 20:06 20:31 Temperature Pulse Rate 60 55 L 59 L Pulse Rate [ Skills Instructor ] Respiratory 18 18 18 Rate Blood Pressure 123/62 84/50 109/94 Blood Pressure [Right Arm] O2 Sat by Pulse 93 L 97 97 Oximetry 10/02/24 10/02/24 10/02/24 21:50 22:11 22:34 Temperature 98.8 F Pulse Rate 56 L 52 L 52 L Pulse Rate [ Skills Instructor ] Respiratory 18 18 18 Rate Blood Pressure 88/57 88/54 84/46 Blood Pressure [Right Arm] O2 Sat by Pulse 95 96 94 L Oximetry 10/02/24 10/03/24 10/03/24 23:28 00:00 00:28 Temperature Pulse Rate 51 L 52 L Pulse Rate [ Skills Instructor ] Respiratory 18 Rate Blood Pressure 88/41 88/51 85/52 Blood Pressure [Right Arm] O2 Sat by Pulse 94 L Oximetry 10/03/24 10/03/24 10/03/24 01:02 02:05 03:41 Temperature Pulse Rate 57 L 49 L 60 Pulse Rate [ Skills Instructor ] Respiratory 16 16 22 Rate Blood Pressure 98/56 96/51 90/55 Blood Pressure [Right Arm] O2 Sat by Pulse 96 98 98 Oximetry 10/03/24 10/03/24 10/03/24 05:00 06:08 06:42 Temperature Pulse Rate 49 L 66 58 L Pulse Rate [ Skills Instructor ] Respiratory 16 16 11 L Rate Blood Pressure 138/77 179/91 157/75 Blood Pressure [Right Arm] O2 Sat by Pulse 95 94 L Oximetry 10/03/24 10/03/24 08:20 12:10 Temperature 98.9 F 98.8 F Pulse Rate Pulse Rate [ 56 L 53 L Skills Instructor ] Respiratory 18 18 Rate Blood Pressure Blood Pressure 138/75 138/79 [Right Arm] O2 Sat by Pulse 98 95 Oximetry - Reevaluation(s) Reevaluation #1: 10/02/24 16:23 Records reviewed Reevaluation #2: 10/02/24 16:23 Patient symptoms are improving Reevaluation #3: 10/02/24 17:22 Informed of results and questions answered Reevaluation #4: Was pt. sent in by a medical professional or institution (, PA, [employer], urgent care, hospital, or group home...) When possible be specific @ -no Did you speak to anyone other than the patient for history (EMS, parent, family, police, friend...)? What history was obtained from this source @ -no Did you review nursing and triage notes (agree or disagree)? Why? @ -agree Are old charts reviewed (outside hosp., previous admission, EMS record, old EKG, old radiological studies, urgent care reports/EKG's, group home records)? Report findings @ -yes Differential Diagnosis (chest pain, altered mental status, abdominal pain women, abdominal pain men, vaginal bleeding, weakness, fever, dyspnea, syncope, headache, dizziness, GI bleed, back pain, seizure, CVA, palpatations, mental health, musculoskeletal)? @ -prior EKG interpreted by me (3pts min.). @ -yes X-rays interpreted by me (1pt min.). @ -yes negative for acute disease CT interpreted by me (1pt min.). @ -no U/S interpreted by me (1pt. min.). @ -no What testing was considered but not performed or refused? (CT, X-rays, U/S, labs)? Why? @ -none What meds were considered but not given or refused? Why? @ -none Did you discuss the management of the patient with other professionals (professionals i.e. , PA, [employer], lab, RT, psych nurse, geriatric social work professor, preschool paraprofessional, teacher, surveillance officer, dependency case manager)? Give summary @ -no Was smoking cessation discussed for >3mins.? @ -no Was critical care preformed (if so, how long)? @ -yes31 Were there social determinants of health that impacted care today? How? (Christy elessness, low income, unemployed, alcoholism, drug addiction, transportation, low edu. Level, literacy, decrease access to med. care, group home, rehab)? @ -none Was there de-escalation of care discussed even if they declined (Discuss DNR or withdrawal of care, Hospice)? DNR status @ -no What co-morbidities impacted this encounter? (DM, HTN, Smoking, COPD, CAD, Cancer, CVA, ARF, Chemo, Hep., AIDS, mental health diagnosis, sleep apnea, morbid obesity)? @ -none Was patient admitted / discharged? Hospital course, mention meds given and route, prescriptions, significant lab abnormalities, going to OR and other pertinent info. @ - 69 female here for evaluation of acute nausea vomiting and abdominal pain actually patient is been feeling worse for the last 3 days but pain was worse today friend sought and checked and the patient brings her to the ER for evaluation is found to have elevated troponin with complaining of abdominal pain but no abdominal findings here in the emergency department, will admit for cardiac observation Admitted Undiagnosed new problem with uncertain prognosis? @ -no Drug Therapy requiring intensive monitoring for toxicity (Heparin, Nitro, Insulin, Cardizem)? @ -no Were any procedures done? @ -no Diagnosis/symptom? @ -Chest pain nausea vomiting weakness dizziness Acute, or Chronic, or Acute on Chronic? @ -Acute Uncomplicated (without systemic symptoms) or Complicated (systemic symptoms)? @ -Complicated Side effects of treatment? @ -no Exacerbation, Progression, or Severe Exacerbation? @ -exacerbation Poses a threat to life or bodily function? How? (Chest pain, USA, MS, pneumonia, PE, COPD, DKA, ARF, appy, cholecystitis, CVA, Diverticulitis, Homicidal, Suicidal, threat to staff... and all critical care pts) @ -yes extremes of age Reevaluation #5: Differential Abdominal Pain Women: Appendicitis, Cholecystitis, diverticulosis, ischemic bowel, pancreatitis, hepatitis, UTI, gastroenteritis, AAA, incarcerated hernia, bowel obstruction, constipation, inflammatory bowel, hepatitis, peptic ulcer disease, splenic infarction, perforated viscus, vulvitis, ovarian torsion, PID, kidney stone, placenta abruption, this is not meant to be an all-inclusive list - Consultations Consultation #1: Spoke with cardiology regarding EKG findings and elevated troponin Medical Decision Making - Medical Decision Making 69 female here for evaluation of acute nausea vomiting and abdominal pain actually patient is been feeling worse for the last 3 days but pain was worse today friend sought and checked and the patient brings her to the ER for evaluation is found to have elevated troponin with complaining of abdominal pain but no abdominal findings here in the emergency department, will admit for cardiac observation - Lab Data Result diagrams: 10/05/24 03:23 10/05/24 03:23 Lab Results 10/02/24 10/02/24 10/02/24 Range/Units 15:05 15:05 15:05 WBC 11.5 H (3.8-10.6) k/uL RBC 5.28 (3.80-5.40) m/uL Hgb 17.8 H (11.4-16.0) gm/dL Hct 50.8 H (34.0-46.0) % MCV 96.3 (80.0-100.0) fL MCH 33.7 (25.0-35.0) pg MCHC 35.0 (31.0-37.0) g/dL RDW 12.2 (11.5-15.5) % Plt Count 203 (150-450) k/uL MPV 8.2 Neutrophils % 74 % Lymphocytes % 20 % Monocytes % 4 % Eosinophils % 1 % Basophils % 0 % Neutrophils # 8.5 H (1.3-7.7) k/uL Lymphocytes # 2.2 (1.0-4.8) k/uL Monocytes # 0.5 (0-1.0) k/uL Eosinophils # 0.1 (0-0.7) k/uL Basophils # 0.1 (0-0.2) k/uL PT (10.0-12.5) sec INR (<1.2) APTT (22.0-30.0) sec D-Dimer (<0.60) mg/L FEU Sodium 137 (137-145) mmol/L Potassium 3.5 (3.5-5.1) mmol/L Chloride 102 (98-107) mmol/L Carbon Dioxide 19 L (22-30) mmol/L Anion Gap 16 mmol/L BUN 17 (7-17) mg/dL Creatinine 0.65 (0.52-1.04) mg/dL Est GFR (CKD-EPI)AfAm >90 (>60 ml/min/1.73 sqM) Est GFR (CKD-EPI)NonAf 90 (>60 ml/min/1.73 sqM) Glucose 146 H (74-99) mg/dL Lactic Ac Sepsis Rflx Plasma Lactic Acid [place] (0.7-2.0) mmol/L Calcium 10.3 H (8.4-10.2) mg/dL Phosphorus (2.5-4.5) mg/dL Magnesium (1.6-2.3) mg/dL Total Bilirubin 1.6 H (0.2-1.3) mg/dL AST 60 H (14-36) U/L ALT 25 (4-34) U/L Alkaline Phosphatase 114 (38-126) U/L Troponin I 0.248 H* (0.000-0.034) ng/mL Total Protein 9.5 H (6.3-8.2) g/dL Albumin 5.3 H (3.5-5.0) g/dL Amylase 67 (30-110) U/L Lipase 171 (23-300) U/L Urine Color Urine Appearance (Clear) Urine pH (5.0-8.0) Ur Specific [place] (1.001-1.035) Urine Protein (Negative) Urine Glucose (UA) (Negative) Urine Ketones (Negative) Urine Blood (Negative) Urine Nitrite (Negative) Urine Bilirubin (Negative) Urine Urobilinogen (<2.0) mg/dL Ur Leukocyte Esterase (Negative) Urine RBC (0-5) /hpf Urine WBC (0-5) /hpf Ur Squamous Epith Cells (0-4) /hpf Urine Bacteria (None) /hpf Hyaline Casts (0-2) /lpf Urine Mucus (None) /hpf Influenza Type A (PCR) (Not Detectd) Influenza Type B (PCR) (Not Detectd) RSV (PCR) (Not Detectd) SARS-CoV-2 (PCR) (Not Detectd) 10/02/24 10/02/24 10/02/24 Range/Units 15:05 15:05 15:27 WBC (3.8-10.6) k/uL RBC (3.80-5.40) m/uL Hgb (11.4-16.0) gm/dL Hct (34.0-46.0) % MCV (80.0-100.0) fL MCH (25.0-35.0) pg MCHC (31.0-37.0) g/dL RDW (11.5-15.5) % Plt Count (150-450) k/uL MPV Neutrophils % % Lymphocytes % % Monocytes % % Eosinophils % % Basophils % % Neutrophils # (1.3-7.7) k/uL Lymphocytes # (1.0-4.8) k/uL Monocytes # (0-1.0) k/uL Eosinophils # (0-0.7) k/uL Basophils # (0-0.2) k/uL PT (10.0-12.5) sec INR (<1.2) APTT (22.0-30.0) sec D-Dimer (<0.60) mg/L FEU Sodium (137-145) mmol/L Potassium (3.5-5.1) mmol/L Chloride (98-107) mmol/L Carbon Dioxide (22-30) mmol/L Anion Gap mmol/L BUN (7-17) mg/dL Creatinine (0.52-1.04) mg/dL Est GFR (CKD-EPI)AfAm (>60 ml/min/1.73 sqM) Est GFR (CKD-EPI)NonAf (>60 ml/min/1.73 sqM) Glucose (74-99) mg/dL Lactic Ac Sepsis Rflx Plasma Lactic Acid [place] (0.7-2.0) mmol/L Calcium (8.4-10.2) mg/dL Phosphorus 2.1 L (2.5-4.5) mg/dL Magnesium 1.9 (1.6-2.3) mg/dL Total Bilirubin (0.2-1.3) mg/dL AST (14-36) U/L ALT (4-34) U/L Alkaline Phosphatase (38-126) U/L Troponin I (0.000-0.034) ng/mL Total Protein (6.3-8.2) g/dL Albumin (3.5-5.0) g/dL Amylase (30-110) U/L Lipase (23-300) U/L Urine Color Colorless Urine Appearance Clear (Clear) Urine pH 6.5 (5.0-8.0) Ur Specific [place] 1.024 (1.001-1.035) Urine Protein Trace H (Negative) Urine Glucose (UA) Negative (Negative) Urine Ketones Trace H (Negative) Urine Blood Small H (Negative) Urine Nitrite Negative (Negative) Urine Bilirubin Negative (Negative) Urine Urobilinogen <2.0 (<2.0) mg/dL Ur Leukocyte Esterase Negative (Negative) Urine RBC 4 (0-5) /hpf Urine WBC 4 (0-5) /hpf Ur Squamous Epith Cells 2 (0-4) /hpf Urine Bacteria Rare H (None) /hpf Hyaline Casts 1 (0-2) /lpf Urine Mucus Rare H (None) /hpf Influenza Type A (PCR) Not Detected (Not Detectd) Influenza Type B (PCR) Not Detected (Not Detectd) RSV (PCR) Not Detected (Not Detectd) SARS-CoV-2 (PCR) Not Detected (Not Detectd) 10/02/24 10/02/24 10/02/24 Range/Units 15:50 15:50 15:50 WBC (3.8-10.6) k/uL RBC (3.80-5.40) m/uL Hgb (11.4-16.0) gm/dL Hct (34.0-46.0) % MCV (80.0-100.0) fL MCH (25.0-35.0) pg MCHC (31.0-37.0) g/dL RDW (11.5-15.5) % Plt Count (150-450) k/uL MPV Neutrophils % % Lymphocytes % % Monocytes % % Eosinophils % % Basophils % % Neutrophils # (1.3-7.7) k/uL Lymphocytes # (1.0-4.8) k/uL Monocytes # (0-1.0) k/uL Eosinophils # (0-0.7) k/uL Basophils # (0-0.2) k/uL PT 11.0 (10.0-12.5) sec INR 1.0 (<1.2) APTT 21.7 L (22.0-30.0) sec D-Dimer 1.28 H (<0.60) mg/L FEU Sodium (137-145) mmol/L Potassium (3.5-5.1) mmol/L Chloride (98-107) mmol/L Carbon Dioxide (22-30) mmol/L Anion Gap mmol/L BUN (7-17) mg/dL Creatinine (0.52-1.04) mg/dL Est GFR (CKD-EPI)AfAm (>60 ml/min/1.73 sqM) Est GFR (CKD-EPI)NonAf (>60 ml/min/1.73 sqM) Glucose (74-99) mg/dL Lactic Ac Sepsis Rflx Plasma Lactic Acid [place] 2.7 H* (0.7-2.0) mmol/L Calcium (8.4-10.2) mg/dL Phosphorus (2.5-4.5) mg/dL Magnesium (1.6-2.3) mg/dL Total Bilirubin (0.2-1.3) mg/dL AST (14-36) U/L ALT (4-34) U/L Alkaline Phosphatase (38-126) U/L Troponin I (0.000-0.034) ng/mL Total Protein (6.3-8.2) g/dL Albumin (3.5-5.0) g/dL Amylase (30-110) U/L Lipase (23-300) U/L Urine Color Urine Appearance (Clear) Urine pH (5.0-8.0) Ur Specific [place] (1.001-1.035) Urine Protein (Negative) Urine Glucose (UA) (Negative) Urine Ketones (Negative) Urine Blood (Negative) Urine Nitrite (Negative) Urine Bilirubin (Negative) Urine Urobilinogen (<2.0) mg/dL Ur Leukocyte Esterase (Negative) Urine RBC (0-5) /hpf Urine WBC (0-5) /hpf Ur Squamous Epith Cells (0-4) /hpf Urine Bacteria (None) /hpf Hyaline Casts (0-2) /lpf Urine Mucus (None) /hpf Influenza Type A (PCR) (Not Detectd) Influenza Type B (PCR) (Not Detectd) RSV (PCR) (Not Detectd) SARS-CoV-2 (PCR) (Not Detectd) 10/02/24 10/02/24 Range/Units 16:19 16:55 WBC (3.8-10.6) k/uL RBC (3.80-5.40) m/uL Hgb (11.4-16.0) gm/dL Hct (34.0-46.0) % MCV (80.0-100.0) fL MCH (25.0-35.0) pg MCHC (31.0-37.0) g/dL RDW (11.5-15.5) % Plt Count (150-450) k/uL MPV Neutrophils % % Lymphocytes % % Monocytes % % Eosinophils % % Basophils % % Neutrophils # (1.3-7.7) k/uL Lymphocytes # (1.0-4.8) k/uL Monocytes # (0-1.0) k/uL Eosinophils # (0-0.7) k/uL Basophils # (0-0.2) k/uL PT (10.0-12.5) sec INR (<1.2) APTT (22.0-30.0) sec D-Dimer (<0.60) mg/L FEU Sodium (137-145) mmol/L Potassium (3.5-5.1) mmol/L Chloride (98-107) mmol/L Carbon Dioxide (22-30) mmol/L Anion Gap mmol/L BUN (7-17) mg/dL Creatinine (0.52-1.04) mg/dL Est GFR (CKD-EPI)AfAm (>60 ml/min/1.73 sqM) Est GFR (CKD-EPI)NonAf (>60 ml/min/1.73 sqM) Glucose (74-99) mg/dL Lactic Ac Sepsis Rflx Y Plasma Lactic Acid [place] (0.7-2.0) mmol/L Calcium (8.4-10.2) mg/dL Phosphorus (2.5-4.5) mg/dL Magnesium (1.6-2.3) mg/dL Total Bilirubin (0.2-1.3) mg/dL AST (14-36) U/L ALT (4-34) U/L Alkaline Phosphatase (38-126) U/L Troponin I 0.231 H* (0.000-0.034) ng/mL Total Protein (6.3-8.2) g/dL Albumin (3.5-5.0) g/dL Amylase (30-110) U/L Lipase (23-300) U/L Urine Color Urine Appearance (Clear) Urine pH (5.0-8.0) Ur Specific [place] (1.001-1.035) Urine Protein (Negative) Urine Glucose (UA) (Negative) Urine Ketones (Negative) Urine Blood (Negative) Urine Nitrite (Negative) Urine Bilirubin (Negative) Urine Urobilinogen (<2.0) mg/dL Ur Leukocyte Esterase (Negative) Urine RBC (0-5) /hpf Urine WBC (0-5) /hpf Ur Squamous Epith Cells (0-4) /hpf Urine Bacteria (None) /hpf Hyaline Casts (0-2) /lpf Urine Mucus (None) /hpf Influenza Type A (PCR) (Not Detectd) Influenza Type B (PCR) (Not Detectd) RSV (PCR) (Not Detectd) SARS-CoV-2 (PCR) (Not Detectd) - EKG Data -: EKG Interpreted by Me (EKG is sinus 83 PA 163 QRS 102 QTc 435) - Radiology Data Radiology results: report reviewed (CT abdomen pelvis is negative for acute disease), image reviewed Critical Care Time Critical Care Time: Yes Total Critical Care Time: 31 Disposition Clinical Impression: Elevated troponin, Dehydration, Abdominal pain, NSTEMI (non-ST elevated m yocardial infarction), ACS (acute coronary syndrome) Disposition: ADMITTED IP TO THIS HOSP Condition: Stable Is patient prescribed a controlled substance at d/c from ED?: No Time of Disposition: 17:00
[2024-10-02 15:35] LABS: ALT 25 U/L (4-34); AST 60 U/L (14-36); African American GFR (CKD) >90 (>60 ml/min/1.73 sqM); Albumin 5.3 g/dL (3.5-5.0); Alkaline Phosphatase 114 U/L (38-126); Amylase 67 U/L (30-110); Anion Gap 16 mmol/L; Blood Urea Nitrogen 17 mg/dL (7-17); Calcium 10.3 mg/dL (8.4-10.2); Carbon Dioxide 19 mmol/L (22-30); Chloride 102 mmol/L (98-107); Glucose 146 mg/dL (74-99); Lipase 171 U/L (23-300); Non-African American GFR(CKD) 90 (>60 ml/min/1.73 sqM); Potassium 3.5 mmol/L (3.5-5.1); Sodium 137 mmol/L (137-145); Total Bilirubin 1.6 mg/dL (0.2-1.3); Total Protein 9.5 g/dL (6.3-8.2)
[2024-10-02] MEDS: SODIUM CHLORIDE 0.9% 1,000 ML IV STA (15:44)
[2024-10-02] MEDS: ONDANSETRON 4 MG/2 ML VIAL IVP STA (15:44)
[2024-10-02] MEDS: HYDROmorphone 0.5 MG/0.5 ML SYRINGE IVP STA ×2 (15:44→17:42)
[2024-10-02 16:08] LABS: Magnesium 1.9 mg/dL (1.6-2.3); Phosphorus 2.1 mg/dL (2.5-4.5)
--- NOTE | 2024-10-02 16:20 | CT ---
EXAMINATION TYPE: CT abdomen pelvis w con DATE OF EXAM: 10/02/2024 4:10 PM COMPARISON: CT abdomen pelvis most recent from CLINICAL INDICATION: Female, 69 years old with history of abdominal pain; c/o abdominal pain, headach e, nausea, and decreased PO intake x 3 days TECHNIQUE: Axial CT abdomen pelvis w con;Sagittal and coronal reformats were created on a separate w orkstation. Contrast used:100ml mL of Isovue 300 with IV Contrast, (none if empty) Oral contrast used: without Oral Contrast (none if empty) CT DLP: 1373.6 mGycm, Automated exposure control for dose reduction was used. FINDINGS: LOWER CHEST: Unremarkable ABDOMEN LIVER: Unremarkable GALLBLADDER AND BILE DUCTS: Unremarkable. PANCREAS: Unremarkable. SPLEEN: Unremarkable. ADRENAL GLANDS: Unremarkable. KIDNEYS AND URETERS: No evidence of hydronephrosis or renal calculus. The ureters are unremarkable. PELVIS BLADDER: No evidence for wall thickening or mass given limitations of exam. REPRODUCTIVE: Calcifications seen near the urethra. Structures obscured by streak artifact. ABDOMEN & PELVIS STOMACH AND BOWEL: No evidence of bowel obstruction. Scattered colonic diverticula. PERITONEUM/RETROPERITONEUM: No evidence of pneumoperitoneum or free fluid. VASCULATURE: No evidence of aortic aneurysm. MUSCULOSKELETAL: No acute osseous abnormalities, streak artifact from bilateral hip arthroplasties li coy evaluation the pelvis. Grade 2 anterolisthesis of L4 and L5. LYMPH NODES: No gross evidence for l ymphadenopathy. SOFT TISSUE/ABDOMINAL WALL: Fat-containing umbilical hernia. IMPRESSION: 1. No evidence for acute process. 2. Multiple calcifications near the expected location of the urethra correlate for urethra diverticu lum consider MRI for further evaluation. 3. Scattered colonic diverticula. 4. Fat-containing umbilical hernia. 5. Streak artifact limits evaluation of the pelvis. 6. Grade 2 anterolisthesis of L4 and L5. No evidence for spondylolysis. [facility], , 10/02/2024 4:18 PM
[2024-10-02] MEDS: LORazepam 2 MG/ML INJ IV STA (16:36)
[2024-10-02] MEDS: LABETALOL 5 MG/ML VIAL MDV IVP STA (16:39)
[2024-10-02 16:51] LABS: Partial Thromboplastin Time 21.7 sec (22.0-30.0)
[2024-10-02] MEDS ORDERED: HEPARIN SODIUM 1,000 UN/ML (10ML VL) IV PRN (17:08)
[2024-10-02] MEDS ORDERED: NITROGLYCERIN SL TABS 0.4 MG TAB SUBLINGUAL PRN (17:20)
[2024-10-02] MEDS: ASPIRIN 81 MG PO STA (17:47)
[2024-10-02] MEDS: ATORVASTATIN 80 MG TAB PO SCH (17:49)
[2024-10-02] MEDS: HEPARIN SODIUM 1,000 UN/ML (10ML VL) IV ONE (17:56)
[2024-10-02] MEDS: HEPARIN SOD,PORK IN 0.45% NACL 25,000 UNIT in 0.45% NACL 1 250ML.BAG IV SCH (17:58)
[2024-10-02 18:12] LABS: Appearance,Urine Clear (Clear); Bacteria,Urine Rare /hpf; Bilirubin,Urine Negative (Negative); Blood,Urine Small (Negative); Color,Urine Colorless; Glucose,Urine (UA) Negative (Negative); Hyaline Casts,Urine 1 /lpf (0-2); Ketones,Urine Trace (Negative); Leukocyte Esterase,Urine Negative (Negative); Mucus,Urine Rare /hpf; Nitrite,Urine Negative (Negative); PH, Urine 6.5 (5.0-8.0); Protein,Urine Trace (Negative); RBC,Urine 4 /hpf (0-5); Specific Gravity,Urine 1.024 (1.001-1.035); Squamous Epithelial Cell,Urine 2 /hpf (0-4); Urobilinogen,Urine <2.0 mg/dL (<2.0); WBC,Urine 4 /hpf (0-5)
[2024-10-02] MEDS: METOPROLOL TARTRATE 25 MG TAB PO SCH (20:17)
[2024-10-02] MEDS: ACETAMINOPHEN TAB 325 MG TAB PO PRN (20:52)
[2024-10-02] MEDS: SODIUM CHLORIDE 0.9% 500 ML 500 ML IV ONE ×2 (21:56→22:54)
[2024-10-02] MEDS: SODIUM CHLORIDE 0.9% 1,000 ML IV SCH (22:52)
[2024-10-02] MEDS: HYDROmorphone 1 MG/ML 1 ML SYRINGE IVP PRN (23:31)
[2024-10-02] MEDS: SODIUM CHLORIDE 0.9% 1,000 ML IV ONE (23:55)
[2024-10-03] MEDS: SENNOSIDES 8.6 MG TAB PO PRN (08:19)
[2024-10-03] MEDS: ASPIRIN 325 MG TAB PO SCH (08:20)
[2024-10-03 08:50] LABS: Chol/HDL Ratio 3.64 Ratio; LDL Cholesterol,Calculated 113.3 mg/dL (0.0-131.0)
[2024-10-03] MEDS: NICOTINE 21MG/24HR PATCH TRANSDERM SCH (09:32)
[2024-10-03] MEDS: ESCITALOPRAM 20 MG TAB PO SCH (09:33)
[2024-10-03] MEDS: EZETIMIBE 10 MG TAB PO SCH (09:33)
[2024-10-03] MEDS: POTASSIUM CHLORIDE ER 20 MEQ TAB.ER PO STA (09:33)
[2024-10-03] MEDS: PREGABALIN 100 MG CAP PO SCH (09:33)
[2024-10-03] MEDS: HEPARIN SODIUM,PORCINE 5,000 UNIT/ML 1 ML VIAL SQ SCH (10:10)
--- NOTE | 2024-10-03 11:04 | P.CRDCN ---
History of Present Illness History of present illness: HISTORY OF PRESENT ILLNESS: This is a 69-year-old female with a past medical history significant for hyperlipidemia, hypothyroidism, marijuana use, occasional alcohol use, and nicotine dependence. Patient follows in the office with Dr. Saini but has not been seen in the office since May 2022. We have been asked to see the patient in consultation for elevated troponins. Patient examined at the bedside. Patient presented to the hospital for chief complaint of abdominal pain. Maureen serna also reports that she is constipated and has not had a bowel movement in several days. Apparently she was also having nausea and vomiting at home. The patient denies having any chest pain or pressure. She denies any shortness of breath. For unknown reason, troponins were drawn by the ER physician. Troponins were found to be elevated and patient was started on IV heparin. She was also started on metoprolol by the ER physician although she remains bradycardic with a heart rate in the 50s. She is not prescribed any beta- blockers on an outpatient basis. DIAGNOSTICS: - EKG reveals sinus mechanism with frequent PACs - Chest xray not available at the time of this dictation - Laboratory data: WBC 11.5. Hemoglobin 17.8. Platelet count 203. D-dimer 1.28. Sodium 137. Potassium 3.5. BUN 17. Creatinine 0.65. Troponin 0.248. 0.231. 0.252. 0.220. - Current home cardiac medications include Lipitor 20 mg daily, Zetia 10 mg daily - Most recent echocardiogram obtained in 2021 revealed EF of 55% - Patient underwent Lexiscan stress test in February 2022 with EF 63% and no ischemia noted - Cardiac catheterization history: Patient denies REVIEW OF SYSTEMS: At the time of my exam: CONSTITUTIONAL: Denies fever or chills. HEENT: Denies blurred vision, vision changes, or eye pain. Denies hemoptysis CARDIOVASCULAR: Denies chest pain. Denies orthopnea. Denies PND. Denies palpitations RESPIRATORY: Denies shortness of breath. GASTROINTESTINAL: Denies abdominal pain. Denies nausea or vomiting. HEMATOLOGIC: Denies bleeding disorders. GENITOURINARY: Denies any blood in urine. SKIN: Denies pruitis. Denies rash. PHYSICAL EXAM: VITAL SIGNS: Reviewed. GENERAL: Well-developed in no acute distress. HEENT: Head is normocephalic. Pupils are equal, round. Sclerae anicteric. Mucous membranes of the mouth are moist. Neck supple. No JVD or thyromegaly LUNGS: Respirations even and unlabored. Lungs essentially clear to auscultation bilaterally. HEART: Regular rate and rhythm. S1 and S2 heard. ABDOMEN: Soft. Nondistended. Nontender. EXTREMITIES: Normal range of motion. No clubbing or cyanosis. Peripheral pulses intact. No lower extremity edema NEUROLOGIC: Awake and alert. Oriented x 3. ASSESSMENT: Abdominal pain, constipation, nausea, and vomiting Elevated troponins of unclear significance, flat, no evidence of acute coronary syndrome Hyperlipidemia Hypothyroidism Marijuana use Occasional alcohol use Nicotine dependence PLAN: An acute coronary but has been ruled out Obtain 2D echo to assess cardiac structure and function Discontinue IV heparin. Begin subcu heparin Resume home cardiac medications Decrease aspirin to 81 mg daily Discontinue metoprolol secondary to bradycardia. Patient was not prescribed a beta-katya on an outpatient basis. Recommend surgical consult for abdominal pain Further recommendations pending patient course Nurse practitioner note has been reviewed by physician. Signing provider agrees with the documented findings, assessment, and plan of care documented by DIVISION[employer] H[employer] RESOURCES DIRECTOR as a scribe. Past Medical History Past Medical History: COPD, Hyperlipidemia, Osteoarthritis (OA), Thyroid Disorder Additional Past Medical History / Comment(s): diverticulitis, arthritis History of Any Multi-Drug Resistant Organisms: None Reported Past Surgical History: Bariatric Surgery, Bladder Surgery, Hernia Repair, Joint Replacement, Tubal Ligation Additional Past Surgical History / Comment(s): kilo hip replacement, kilo carpal tunnel, bladder suspension, lap band in, now removed, abd hernia, TOTAL LEFT KNEE. Colonoscopy. bladder lsing Past Anesthesia/Blood Transfusion Reactions: No Reported Reaction Past Psychological History: No Psychological Hx Reported Smoking Status: Current every day smoker Past Alcohol Use History: Occasional Past Drug Use History: None Reported - Past Family History Mother Family Medical History: No Reported History Medications and Allergies Home Medications Medication Instructions Recorded Confirmed Type Ezetimibe [Zetia] 10 mg PO DAILY 09/29/17 10/02/24 History Escitalopram [Lexapro] 20 mg PO DAILY 09/20/21 10/02/24 History oxyCODONE-APAP 10-325MG [Percocet 1 tab PO TID PRN 03/22/24 10/02/24 History 10-325 mg] Atorvastatin [Lipitor] 20 mg PO DAILY 10/02/24 10/02/24 History Levothyroxine Sodium [Synthroid] 100 mcg PO DAILY 10/02/24 10/02/24 History Omeprazole 40 mg PO DAILY 10/02/24 10/02/24 History Pregabalin [Lyrica] 100 mg PO TID 10/02/24 10/02/24 History Allergies Allergy/AdvReac Type Severity Reaction Status Date / Time No Known Allergies Allergy Verified 10/02/24 17:34 Physical Exam Vitals: Vital Signs Temp Pulse Resp BP Pulse Ox 10/03/24 06:42 58 L 11 L 157/75 94 L 10/03/24 06:08 66 16 179/91 95 10/03/24 05:00 49 L 16 138/77 10/03/24 03:41 60 22 90/55 98 10/03/24 02:05 49 L 16 96/51 98 10/03/24 01:02 57 L 16 98/56 96 10/03/24 00:28 52 L 85/52 10/03/24 00:00 51 L 18 88/51 94 L 10/02/24 23:28 88/41 10/02/24 22:34 52 L 18 84/46 94 L 10/02/24 22:11 52 L 18 88/54 96 10/02/24 21:50 98.8 F 56 L 18 88/57 95 10/02/24 20:31 59 L 18 109/94 97 10/02/24 20:06 55 L 18 84/50 97 10/02/24 17:18 60 18 123/62 93 L 10/02/24 16:56 60 18 153/90 96 10/02/24 16:34 76 18 189/114 99 10/02/24 14:50 98.1 F 82 22 184/110 100 Results 10/02/24 15:05 10/02/24 15:05 Cardiac Enzymes 10/02/24 10/02/24 10/02/24 Range/Units 15:05 15:05 16:55 AST 60 H (14-36) U/L Troponin I 0.248 H* 0.231 H* (0.000-0.034) ng/mL 10/02/24 10/02/24 Range/Units 19:14 23:56 AST (14-36) U/L Troponin I 0.252 H* 0.220 H* (0.000-0.034) ng/mL Coagulation 10/02/24 10/02/24 10/03/24 Range/Units 15:50 23:56 05:16 PT 11.0 (10.0-12.5) sec APTT 21.7 L 53.2 H 65.0 H (22.0-30.0) sec Lipids 10/03/24 Range/Units 05:16 Triglycerides 115.00 (0.00-149.00) mg/dL Cholesterol 188.00 (0.00-200.00) mg/dL HDL Cholesterol 51.70 (40.00-60.00) mg/dL Cholesterol/HDL Ratio 3.64 Ratio CBC 10/02/24 Range/Units 15:05 WBC 11.5 H (3.8-10.6) k/uL RBC 5.28 (3.80-5.40) m/uL Hgb 17.8 H (11.4-16.0) gm/dL Hct 50.8 H (34.0-46.0) % Plt Count 203 (150-450) k/uL Comprehensive Metabolic Panel 10/02/24 Range/Units 15:05 Sodium 137 (137-145) mmol/L Potassium 3.5 (3.5-5.1) mmol/L Chloride 102 (98-107) mmol/L Carbon Dioxide 19 L (22-30) mmol/L BUN 17 (7-17) mg/dL Creatinine 0.65 (0.52-1.04) mg/dL Glucose 146 H (74-99) mg/dL Calcium 10.3 H (8.4-10.2) mg/dL AST 60 H (14-36) U/L ALT 25 (4-34) U/L Alkaline Phosphatase 114 (38-126) U/L Total Protein 9.5 H (6.3-8.2) g/dL Albumin 5.3 H (3.5-5.0) g/dL Current Medications Generic Name Dose Route Start Last Admin Trade Name Freq PRN Reason Stop Dose Admin Acetaminophen 650 mg 10/02/24 20:42 10/03/24 10:11 Acetaminophen Tab 325 Mg Tab PO 650 mg Q6HR PRN Administration Fever and/ or Pain Aspirin 81 mg 10/04/24 09:00 Aspirin 81 Mg PO DAILY [facility] Atorvastatin Calcium 20 mg 10/04/24 09:00 Atorvastatin 20 Mg Tab PO DAILY [facility] Ezetimibe 10 mg 10/03/24 09:30 10/03/24 09:33 Ezetimibe 10 Mg Tab PO 10 mg DAILY [facility] Administration Escitalopram Oxalate 20 mg 10/03/24 09:30 10/03/24 09:33 Escitalopram 20 Mg Tab PO 20 mg DAILY [facility] Administration Heparin Sodium (Porcine) 5,000 unit 10/03/24 10:00 10/03/24 10:10 Heparin Sodium,Porcine 5,000 Unit/Ml 1 Ml Vial SQ 5,000 unit Q8H [facility] Administration Hydromorphone HCl 1 mg 10/02/24 17:21 10/03/24 06:05 Hydromorphone 1 Mg/Ml 1 Ml Syringe IVP 1 mg Q4HR PRN Administration Pain Sodium Chloride 1,000 mls @ 100 mls/hr 10/02/24 22:00 10/03/24 08:20 Saline 0.9% IV 100 mls/hr .Q10H [facility] Administration Nicotine 1 patch 10/03/24 09:30 10/03/24 09:32 Nicotine 21mg/24hr Patch TRANSDERM Not Given DAILY [facility] Nitroglycerin 0.4 mg 10/02/24 17:20 Nitroglycerin Sl Tabs 0.4 Mg Tab SUBLINGUAL Q5M PRN Chest Pain Ondansetron HCl 4 mg 10/03/24 07:04 Ondansetron 4 Mg/2 Ml Vial IVP Q6HR PRN Nausea And Vomiting Pantoprazole Sodium 40 mg 10/04/24 07:30 Pantoprazole 40 Mg Tablet PO AC-BRKFST [facility] Pregabalin 100 mg 10/03/24 09:30 10/03/24 09:33 Pregabalin 100 Mg Cap PO 100 mg TID [facility] Administration Senna 8.6 mg 10/03/24 07:03 10/03/24 08:19 Sennosides 8.6 Mg Tab PO 8.6 mg DAILY PRN Administration Constipation 10/02/24 15:05 10/02/24 15:05
[2024-10-03] MEDS: ONDANSETRON 4 MG/2 ML VIAL IVP PRN (12:08)
[2024-10-03] MEDS: polyethylene glycoL 3350 17 GM POWD.PACK PO PRN (12:10)
[2024-10-03] MEDS: traMADol 50 MG TAB PO PRN (14:26)
--- NOTE | 2024-10-03 15:06 | CA ---
Transthoracic Echo Report Name: Wen Schwarz Age: 69 Gender: F : 1955 Exam Date: 10/03/2024 12:28 Exam Location: [facility] Ht (in): 66 Wt (lb): 176 Ordering Physician: Zach Razo DO Attending/Referring Phys: [id number], [address] Supervisor Tami Lares RDCS Procedure CPT: Indications: elevTrop Cardiac Hx: Technical Quality: Fair Contrast 1: Total Dose (mL): Contrast 2: Total Dose (mL): MEASUREMENTS (Male / Female) Normal Values 2D ECHO LV Diastolic Diameter PLAX 4.1 cm 4.2 - 5.9 / 3.9 - 5.3 cm LV Systolic Diameter PLAX 2.6 cm IVS Diastolic Thickness 1.0 cm 0.6 - 1.0 / 0.6 - 0.9 cm LVPW Diastolic Thickness 1.3 cm 0.6 - 1.0 / 0.6 - 0.9 cm LV Relative Wall Thickness 0.6 LVOT Diameter 2.0 cm LV Diastolic Volume MOD BP 87.2 cm??? 67 - 155 / 56 - 104 cm??? LV Systolic Volume MOD BP 37.0 cm??? 22 - 58 / 19 - 49 cm??? LV Ejection Fraction MOD BP 57.6 % >= 55 % LV Cardiac Index MOD BP 1237.2 cm???/min???m??? LV Diastolic Volume MOD 4C 90.7 cm??? LV Systolic Volume MOD 4C 38.1 cm??? LV Ejection Fraction MOD 4C 58.0 % LV Cardiac Index MOD 4C 1297.3 cm???/min???m??? LV Diastolic Length 4C 7.6 cm LV Systolic Length 4C 6.4 cm LV Diastolic Volume MOD 2C 84.0 cm??? LV Systolic Volume MOD 2C 34.3 cm??? LV Ejection Fraction MOD 2C 59.2 % LV Cardiac Index MOD 2C 1224.7 cm???/min???m??? LV Diastolic Length 2C 7.6 cm LV Systolic Length 2C 6.0 cm LA Volume 67.4 cm??? 18 - 58 / 22 - 52 cm??? LA Volume Index 34.6 cm???/m??? 16 - 28 cm???/m??? Ascending Aorta Diameter 4.0 cm DOPPLER AV Peak Velocity 152.7 cm/s AV Peak Gradient 9.3 mmHg AV Mean Velocity 105.0 cm/s AV Mean Gradient 4.9 mmHg AV Velocity Time Integral 35.1 cm LVOT Peak Velocity 128.6 cm/s LVOT Peak Gradient 6.6 mmHg LVOT Velocity Time Integral 26.9 cm LVOT Stroke Volume 84.8 cm??? LVOT Stroke Volume Index 44.7 ml/m??? LVOT Cardiac Index 2088.3 cm???/min???m??? AV Area Cont Eq vti 2.4 cm??? AV Area Cont Eq pk 2.7 cm??? MV Area PHT 2.1 cm??? Mitral E Point Velocity 40.1 cm/s Mitral A Point Velocity 62.0 cm/s Mitral E to A Ratio 0.6 MV Deceleration Time 353.3 ms TR Peak Velocity 184.9 cm/s TR Peak Gradient 13.7 mmHg Right Atrial Pressure 5.0 mmHg Pulmonary Artery Systolic Pressu 18.7 mmHg Right Ventricular Systolic Press 18.7 mmHg PV Peak Velocity 71.4 cm/s PV Peak Gradient 2.0 mmHg FINDINGS Left Ventricle Left ventricular ejection fraction is estimated at 55-60 %. Mildly increased posterior wall thickness. Left ventricular cavity size normal. No obvious regional wall motion abnormalities. Right Ventricle Normal right ventricular size and function. Right ventricular systolic pressure within normal limits. Right Atrium Normal right atrial size. Left Atrium Moderately increased left atrial volume. Mildly increased left atrial area. Mitral Valve Mitral valve thickened. Mild mitral annular calcification. No evidence for mitral valve prolapse. No mitral stenosis. Trace mitral regurgitation. Aortic Valve No aortic valve stenosis or regurgitation.aortic valve sclerosis. Tricuspid Valve Structurally normal tricuspid valve. No tricuspid stenosis. Mild tricuspid regurgitation. Pulmonic Valve Pulmonic valve not well visualized. No pulmonic stenosis. No pulmonic regurgitation. Pericardium No pericardial effusion. Aorta Aortic annulus normal. Ascending aorta borderline enlarged. CONCLUSIONS Technically difficult study. Definity ECHO contrast used for improved visualization of the endocardial borders (inadequate visualization of two or more contiguous segments). Normal left ventricular size and systolic function Limited Doppler study with trace mitral and mild tricuspid regurgitation and no evidence of pulmonary hypertension Previewed by: Dr. Lewis Lui MD (Electronically Signed) Final Date: 03 October 2024 15:05
[2024-10-03] MEDS ORDERED: LACTULOSE 20 GM/30 ML CUP PO PRN (15:54)
--- NOTE | 2024-10-03 16:04 | P.HPIM ---
History of Present Illness H&P Date: 10/03/24 Chief Complaint: Abdominal pain Patient is a 69 year old female with past medical history of COPD, hyperlipidemia, osteoarthritis, hypothyroidism presented to the ED with abdo jarred pain, nausea, vomiting and poor oral intake. She mentions the pain started 4 days ago. It is epigastric pain, crampy in nature and no alleviating or relieving factors. Denies any radiation of the pain. She states not having a bowel movement in 4 days. She denies the need of taking stool softeners regularly. She also reports having nausea and dry heaves since 4 days. Denies vomiting. Additionally she also complains of a headache. Denies fever, chills, blurry vision, shortness of breath, cough, chest pain, palpitations, vomiting, dyuria, hematuria, hematochezia, melena. ED documentation reviewed. In the ED patient was treated with aspirin 324 mg, heparin, Dilaudid, labetalol, lorazepam, ondansetron, 0.9 normal saline. Vitals on admission T 98.1 F, NE 82 bpm, RR 22, BP 184/110, O2 sat 100% on room air EKG sinus rhythm with frequent supraventricular premature complexes, rate 76 bpm, QTc [address] shows no evidence for acute process, multiple calcifications near the expected location of the urethra correlate for urethral diverticulum, scattered colonic diverticula, fat-containing umbilical hernia, grade 2 anterolisthesis of L4 and L5 with no evidence for spondylolysis Labs on admission show WBC 11.5, hemoglobin 17.8, APTT 21.7, D-dimer 1.28 sodium 137, potassium 3.5, lactic acid 2.7, phosphorus 2.1, magnesium 1.9, total bilirubin 1.6, AST 60 Troponin I 0.248, 0.231, 0.252, 0.220 UA shows trace protein, trace ketones, small blood, rare bacteria, rare mucus Respiratory panel is negative Lipid panel Triglycerides 115, cholesterol 188, LDL 113.3, VLDL 23, HDL 51.7 Review of systems: Pertinent positives and negatives as discussed in HPI, a complete review of systems was performed and all other systems are negative. PMH: COPD, hyperlipidemia, osteoarthritis, hypothyroidism PSH: Bariatric surgery, hernia repair, bladder surgery, tubal ligation, joint replacement Social history: Tobacco: Current everyday smoker Alcohol: Occasional Recreational drugs: Denies use Travel: No recent travel history Sick contacts: None Physical examination: Vital signs reviewed General: nontoxic, no distress, appears at stated age Derm: warm, dry, intact Head: atraumatic, normocephalic, symmetric Eyes: EOMI, anicteric sclera Mouth: no lip lesion, mucus membranes moist Cardiovascular: S1 S2 reg, no murmur Lungs: CTA bilateral, no rhonchi, no rales, no accessory muscle use Abdominal: soft, non-tender to palpation Extremities: No cyanosis, clubbing, or pedal edema. Neuro: Alert, Oriented, Gross neurological examination did not reveal any focal deficits. Psych: well appearing, appropriate affect Assessment/Plan: Patient is a 69-year-old female with past medical history of COPD, hyperlipidemia, osteoarthritis, hypothyroidism presented to the ED with abdominal pain, nausea, vomiting and poor oral intake. In the ED she was found to have elevated D-dimer and troponin x 3 and she has been admitted for further workup and management of the same. Active: #. Epigastric pain #. Constipation CTAP- no evidence for acute process, multiple calcifications near expected location of urethra correlate for urethral diverticulum, scattered colonic diverticula, fat-containing umbilical hernia, grade 2 anterolisthesis of L4 and L5 no evidence for spondylolysis Continue acetaminophen 650 mg p.o. every 6 hours as needed, Tramadol 50 mg PO QID PRN for pain management Continue Senokot 8.6 mg p.o. daily as needed, MiraLAX 17 gm PO daily PRN and Lactulose 30 gm BID and BID PRN for constipation Pantoprazole 40 mg p.o. BID #. Elevated troponin, ACS r/o Aspirin decreased to 81 mg p.o. daily, Discontinue metoprolol Continue nitroglycerin 0.4 mg sublingual Q5M as needed Echocardiogram is ordered Continue telemetry monitoring Cardiology is consulted #. Hypertensive urgency, resolved BP on admission 184/110 Labetalol 20 mg IVP administered in the ED Monitor vitals #. Nausea and vomiting Continue Ondansetron 4 mg IVP Q6HR PRN #. Hypokalemia Potassium chloride 20 meq PO once Monitor BMP #. Elevated D-dimer Heparin drip in the ED, now discontinued Chronic: #. Hyperlipidemia Continue atorvastatin 20 mg p.o. daily and ezetimibe 10 mg p.o. daily #. Hypothyroidism Continue levothyroxine 100 mcg p.o. daily #. Anxiety/depression Continue escitalopram 20 mg p.o. daily #. GERD Pantoprazole 40 mg p.o. BID #. Neuropathy Continue pregabalin 100 mg p.o. 3 times daily #. Tobacco dependence Nicotine 21 mg/24-hour patch transdermal daily F: 0.9 normal saline 100 mL/h E: Potassium chloride 20 meq PO N: N.p.o. after midnight A: DVT prophylaxis: Heparin 5000 unit SQ Q8HR GI prophylaxis: Pantoprazole 40 mg PO BID The patient is admitted with an anticipated less than 2 midnight stay for evaluation of abdominal pain CODE STATUS: Full Code Discussed with: Patient Anticipated discharge place: Home Past Medical History Past Medical History: COPD, Hyperlipidemia, Osteoarthritis (OA), Thyroid Disorder Additional Past Medical History / Comment(s): diverticulitis, arthritis History of Any Multi-Drug Resistant Organisms: None Reported Past Surgical History: Bariatric Surgery, Bladder Surgery, Hernia Repair, Joint Replacement, Tubal Ligation Additional Past Surgical History / Comment(s): kilo hip replacement, kilo carpal tunnel, bladder suspension, lap band in, now removed, abd hernia, TOTAL LEFT KNEE. Colonoscopy. bladder lsing Past Anesthesia/Blood Transfusion Reactions: No Reported Reaction Past Psychological History: No Psychological Hx Reported Smoking Status: Current every day smoker Past Alcohol Use History: Occasional Past Drug Use History: None Reported - Past Family History Mother Family Medical History: No Reported History Medications and Allergies Home Medications Medication Instructions Recorded Confirmed Type Ezetimibe [Zetia] 10 mg PO DAILY 09/29/17 10/02/24 History Escitalopram [Lexapro] 20 mg PO DAILY 09/20/21 10/02/24 History oxyCODONE-APAP 10-325MG [Percocet 1 tab PO TID PRN 03/22/24 10/02/24 History 10-325 mg] Atorvastatin [Lipitor] 20 mg PO DAILY 10/02/24 10/02/24 History Levothyroxine Sodium [Synthroid] 100 mcg PO DAILY 10/02/24 10/02/24 History Omeprazole 40 mg PO DAILY 10/02/24 10/02/24 History Pregabalin [Lyrica] 100 mg PO TID 10/02/24 10/02/24 History Allergies Allergy/AdvReac Type Severity Reaction Status Date / Time No Known Allergies Allergy Verified 10/02/24 17:34 Physical Exam Vitals: Vital Signs Temp Pulse Resp BP Pulse Ox 10/03/24 06:42 58 L 11 L 157/75 94 L 10/03/24 06:08 66 16 179/91 95 10/03/24 05:00 49 L 16 138/77 10/03/24 03:41 60 22 90/55 98 10/03/24 02:05 49 L 16 96/51 98 10/03/24 01:02 57 L 16 98/56 96 10/03/24 00:28 52 L 85/52 10/03/24 00:00 51 L 18 88/51 94 L 10/02/24 23:28 88/41 10/02/24 22:34 52 L 18 84/46 94 L 10/02/24 22:11 52 L 18 88/54 96 10/02/24 21:50 98.8 F 56 L 18 88/57 95 10/02/24 20:31 59 L 18 109/94 97 10/02/24 20:06 55 L 18 84/50 97 10/02/24 17:18 60 18 123/62 93 L 10/02/24 16:56 60 18 153/90 96 10/02/24 16:34 76 18 189/114 99 10/02/24 14:50 98.1 F 82 22 184/110 100 Results CBC & Chem 7: 10/02/24 15:05 10/02/24 15:05 Labs: Abnormal Lab Results - Last 24 Hours (Table) 10/02/24 10/02/24 10/02/24 Range/Units 15:05 15:05 15:05 WBC 11.5 H (3.8-10.6) k/uL Hgb 17.8 H (11.4-16.0) gm/dL Hct 50.8 H (34.0-46.0) % Neutrophils # 8.5 H (1.3-7.7) k/uL APTT (22.0-30.0) sec D-Dimer (<0.60) mg/L FEU Carbon Dioxide 19 L (22-30) mmol/L Glucose 146 H (74-99) mg/dL Plasma Lactic Acid Franklyn (0.7-2.0) mmol/L Calcium 10.3 H (8.4-10.2) mg/dL Phosphorus (2.5-4.5) mg/dL Total Bilirubin 1.6 H (0.2-1.3) mg/dL AST 60 H (14-36) U/L Troponin I 0.248 H* (0.000-0.034) ng/mL Total Protein 9.5 H (6.3-8.2) g/dL Albumin 5.3 H (3.5-5.0) g/dL Urine Protein (Negative) Urine Ketones (Negative) Urine Blood (Negative) Urine Bacteria (None) /hpf Urine Mucus (None) /hpf 10/02/24 10/02/24 10/02/24 Range/Units 15:05 15:27 15:50 WBC (3.8-10.6) k/uL Hgb (11.4-16.0) gm/dL Hct (34.0-46.0) % Neutrophils # (1.3-7.7) k/uL APTT 21.7 L (22.0-30.0) sec D-Dimer (<0.60) mg/L FEU Carbon Dioxide (22-30) mmol/L Glucose (74-99) mg/dL Plasma Lactic Acid Franklyn (0.7-2.0) mmol/L Calcium (8.4-10.2) mg/dL Phosphorus 2.1 L (2.5-4.5) mg/dL Total Bilirubin (0.2-1.3) mg/dL AST (14-36) U/L Troponin I (0.000-0.034) ng/mL Total Protein (6.3-8.2) g/dL Albumin (3.5-5.0) g/dL Urine Protein Trace H (Negative) Urine Ketones Trace H (Negative) Urine Blood Small H (Negative) Urine Bacteria Rare H (None) /hpf Urine Mucus Rare H (None) /hpf 10/02/24 10/02/24 10/02/24 Range/Units 15:50 15:50 16:55 WBC (3.8-10.6) k/uL Hgb (11.4-16.0) gm/dL Hct (34.0-46.0) % Neutrophils # (1.3-7.7) k/uL APTT (22.0-30.0) sec D-Dimer 1.28 H (<0.60) mg/L FEU Carbon Dioxide (22-30) mmol/L Glucose (74-99) mg/dL Plasma Lactic Acid Franklyn 2.7 H* (0.7-2.0) mmol/L Calcium (8.4-10.2) mg/dL Phosphorus (2.5-4.5) mg/dL Total Bilirubin (0.2-1.3) mg/dL AST (14-36) U/L Troponin I 0.231 H* (0.000-0.034) ng/mL Total Protein (6.3-8.2) g/dL Albumin (3.5-5.0) g/dL Urine Protein (Negative) Urine Ketones (Negative) Urine Blood (Negative) Urine Bacteria (None) /hpf Urine Mucus (None) /hpf 10/02/24 10/02/24 10/02/24 Range/Units 19:14 23:56 23:56 WBC (3.8-10.6) k/uL Hgb (11.4-16.0) gm/dL Hct (34.0-46.0) % Neutrophils # (1.3-7.7) k/uL APTT 53.2 H (22.0-30.0) sec D-Dimer (<0.60) mg/L FEU Carbon Dioxide (22-30) mmol/L Glucose (74-99) mg/dL Plasma Lactic Acid Franklyn (0.7-2.0) mmol/L Calcium (8.4-10.2) mg/dL Phosphorus (2.5-4.5) mg/dL Total Bilirubin (0.2-1.3) mg/dL AST (14-36) U/L Troponin I 0.252 H* 0.220 H* (0.000-0.034) ng/mL Total Protein (6.3-8.2) g/dL Albumin (3.5-5.0) g/dL Urine Protein (Negative) Urine Ketones (Negative) Urine Blood (Negative) Urine Bacteria (None) /hpf Urine Mucus (None) /hpf 10/03/24 Range/Units 05:16 WBC (3.8-10.6) k/uL Hgb (11.4-16.0) gm/dL Hct (34.0-46.0) % Neutrophils # (1.3-7.7) k/uL APTT 65.0 H (22.0-30.0) sec D-Dimer (<0.60) mg/L FEU Carbon Dioxide (22-30) mmol/L Glucose (74-99) mg/dL Plasma Lactic Acid Franklyn (0.7-2.0) mmol/L Calcium (8.4-10.2) mg/dL Phosphorus (2.5-4.5) mg/dL Total Bilirubin (0.2-1.3) mg/dL AST (14-36) U/L Troponin I (0.000-0.034) ng/mL Total Protein (6.3-8.2) g/dL Albumin (3.5-5.0) g/dL Urine Protein (Negative) Urine Ketones (Negative) Urine Blood (Negative) Urine Bacteria (None) /hpf Urine Mucus (None) /hpf
[2024-10-03] MEDS: PANTOPRAZOLE 40 MG TABLET PO SCH (16:44)
[2024-10-03] MEDS: LACTULOSE 20 GM/30 ML CUP PO SCH (21:16)
[2024-10-04] MEDS: LEVOTHYROXINE 100 MCG TAB PO SCH (06:08)
[2024-10-04] MEDS ORDERED: PANTOPRAZOLE 40 MG TABLET PO SCH (07:30)
[2024-10-04] MEDS: ASPIRIN 81 MG PO SCH (08:45)
[2024-10-04] MEDS: ATORVASTATIN 20 MG TAB PO SCH (08:45)
[2024-10-04] MEDS ORDERED: MAG HYDROX/AL HYDROX/SIMETH 30 ML CUP PO PRN (09:28)
[2024-10-04] MEDS ORDERED: MAG HYDROX/AL HYDROX/SIMETH 30 ML CUP PO SCH (09:30)
[2024-10-04] MEDS ORDERED: LACTULOSE 20 GM/30 ML CUP PO PRN (09:31)
[2024-10-04] MEDS ORDERED: Potassium Replacement Protocol 1 EACH MISC MISCELLANE PRN (09:32)
--- NOTE | 2024-10-04 09:35 | P.PN ---
Subjective Progress Note Date: 10/04/24 Principal diagnosis: Hospital course: Patient is a 69 year old female with past medical history of COPD, hyperlipidemia, osteoarthritis, hypothyroidism presented to the ED with abdominal pain, nausea, vomiting and poor oral intake. She mentions the pain started 4 days ago. It is epigastric pain, crampy in nature and no alleviating or relieving factors. Denies any radiation of the pain. She states not having a bowel movement in 4 days. She denies the need of taking stool softeners regularly. She also reports having nausea and dry heaves since 4 days. Denies vomiting. Additionally she also complains of a headache. Denies fever, chills, blurry vision, shortness of breath, cough, chest pain, palpitations, vomiting, dyuria, hematuria, hematochezia, melena. ED documentation reviewed. In the ED patient was treated with aspirin 324 mg, heparin, Dilaudid, labetalol, lorazepam, ondansetron, 0.9 normal saline. Vitals on admission T 98.1 F, RI 82 bpm, RR 22, BP 184/110, O2 sat 100% on room air EKG sinus rhythm with frequent supraventricular premature complexes, rate 76 bpm, QTc [address] ms [address] Pel[address] shows no evidence for acute process, multiple calcifications near the expected location of the urethra correlate for urethral diverticulum, scattered colonic diverticula, fat-containing umbilical hernia, grade 2 anterolisthesis of L4 and L5 with no evidence for spondylolysis Labs on admission show WBC 11.5, hemoglobin 17.8, APTT 21.7, D-dimer 1.28 sodium 137, potassium 3.5, lactic acid 2.7, phosphorus 2.1, magnesium 1.9, total bilirubin 1.6, AST 60 Troponin I 0.248, 0.231, 0.252, 0.220 UA shows trace protein, trace ketones, small blood, rare bacteria, rare mucus Respiratory panel is negative Lipid panel Triglycerides 115, cholesterol 188, LDL 113.3, VLDL 23, HDL 51.7 10/04/24: Patient seen and examined at bedside today. No acute events overnight. She reports nausea, dry heaves, and the urge to defecate but hasn't been able to have a bowel movement. Echocardiogram shows EF 55-60% and normal left ventricular size and systolic function with trace MR, mild MR and no pulmonary hypertension. Review of systems: Pertinent positives and negatives as discussed in HPI, a complete review of systems was performed and all other systems are negative. Vitals: Signs Reviewed Physical examination: General: nontoxic, no distress, appears at stated age Derm: warm, dry, intact Head: atraumatic, normocephalic, symmetric Eyes: EOMI, anicteric sclera Mouth: no lip lesion, mucus membranes moist Cardiovascular: S1 S2 reg, no murmur Lungs: CTA bilateral, no rhonchi, no rales, no accessory muscle use Abdominal: soft, non-tender to palpation Extremities: No cyanosis, clubbing, or pedal edema. Neuro: Alert, Oriented, Gross neurological examination did not reveal any focal deficits. Psych: well appearing, appropriate affect Assessment/Plan: Patient is a 69-year-old female with past medical history of COPD, hyperlipidemia, osteoarthritis, hypothyroidism presented to the ED with abdominal pain, nausea, vomiting and poor oral intake. In the ED she was found to have elevated D-dimer and troponin x 3. ACS has been ruled out. She continues to be on lactulose and enema is ordered today for constipation. Active: #. Epigastric pain #. Constipation CTAP- no evidence for acute process, multiple calcifications near expected location of urethra correlate for urethral diverticulum, scattered colonic di verticula, fat-containing umbilical hernia, grade 2 anterolisthesis of L4 and L5 no evidence for spondylolysis Continue acetaminophen 650 mg p.o. every 6 hours as needed, Tramadol 50 mg PO QID PRN for pain management Continue Senokot 8.6 mg p.o. daily as needed, MiraLAX 17 gm PO daily PRN and Lactulose 30 gm TID PRN for constipation Maalox 30 mg PO QID PRN and Soapsuds enema ordered Pantoprazole 40 mg p.o. BID #. Elevated troponin, ACS r/o Continue Aspirin 81 mg p.o. daily and nitroglycerin 0.4 mg sublingual Q5M as needed Echocardiogram shows EF 55-60% and normal left ventricular size and systolic function with trace MR, mild MR and no pulmonary hypertension. Continue telemetry monitoring Cardiology is consulted #. Nausea and vomiting Continue Ondansetron 4 mg IVP Q6HR PRN #. Hypokalemia Potassium replacement per protocol Monitor BMP Chronic: #. Hyperlipidemia Continue atorvastatin 20 mg p.o. daily and ezetimibe 10 mg p.o. daily #. Hypothyroidism Continue levothyroxine 100 mcg p.o. daily #. Anxiety/depression Continue escitalopram 20 mg p.o. daily #. GERD Pantoprazole 40 mg p.o. BID #. Neuropathy Continue pregabalin 100 mg p.o. 3 times daily #. Tobacco dependence Nicotine 21 mg/24-hour patch transdermal daily Resolved: #. Hypertensive urgency F: 0.9 normal saline 100 mL/h E: Potassium replacement per protocol N: Full liquid diet A: DVT prophylaxis: Heparin 5000 unit SQ Q8HR GI prophylaxis: Pantoprazole 40 mg PO BID Objective - Vital Signs Vital signs: Vital Signs Temp 98.3 F 10/04/24 01:09 Pulse 48 L 10/04/24 01:09 Resp 16 10/04/24 04:08 BP 142/79 10/04/24 01:09 Pulse Ox 95 10/04/24 01:09 FiO2 Intake & Output 10/03/24 10/04/24 10/04/24 18:59 06:59 18:59 Weight 77.111 kg 80 kg Other: Voiding Method Toilet Toilet # Voids 1 - Labs CBC & Chem 7: 10/02/24 15:05 10/02/24 15:05
[2024-10-04 10:24] LABS: BUN/Creat Ratio 17.83 Ratio (12.00-20.00); Blood Urea Nitrogen 10.7 mg/dL (9.0-27.0); Calcium 8.5 mg/dL (8.7-10.3); Carbon Dioxide 24.3 mmol/L (21.6-31.8); Chloride 109 mmol/L (96-109); Glucose 89 mg/dL (70-110); Potassium 3.5 mmol/L (3.5-5.5); Sodium 141 mmol/L (135-145)
[2024-10-04 10:48] LABS: HCT 38.4 % (37.2-46.3); HGB 13.1 g/dL (12.0-15.0); MCH 33.5 pg (27.0-32.0); MCHC 34.1 g/dL (32.0-37.0); MCV 98.2 FL (80.0-97.0); Mean Platelet Volume 11.4 FL (9.5-12.2); NRBC Per 100 WBC 0 X 10*3/uL (0.00-0.01); Platelet Count 171 X 10*3/uL (140-440); RBC 3.91 X 10*6/uL (4.10-5.20); RDW 12.7 % (11.5-14.5); WBC 5.96 X 10*3/uL (4.50-10.00)
--- NOTE | 2024-10-04 12:33 | P.GSCN ---
History of Present Illness Consult date: 10/04/24 History of present illness: CHIEF COMPLAINT: Abdominal pain HISTORY OF PRESENT ILLNESS: The patient is a 69-year-old female admitted for acute nausea and vomiting abdominal pain and incidental non-ST NV. Patient has been evaluated by cardiology when she was noted to have incidental epigastric abdominal pain. Patient has pre-existing history of adjustable gastric band with removal as well as change in bowel habits ongoing for over 4 months. Last colonoscopy was May [address] Rizvi with findings of diverticulosis. General surgery is consulted due to her abdominal pain and change in bowel habits. At the time of my assessment, patient had nonbloody brown loose diarrhea in her room, uncontrolled. PAST MEDICAL HISTORY: See list and reviewed PAST SURGICAL HISTORY: See list and reviewed MEDICATIONS: See list and reviewed ALLERGIES: See list and reviewed SOCIAL HISTORY: See list and reviewed FAMILY HISTORY: See list and reviewed REVIEW OF ORGAN SYSTEMS: CONSTITUTIONAL: No fevers or chills. No recent weight loss. EYES: Denies any trouble with vision. No glasses. HEENT: No difficulties with hearing. No nosebleeds. No difficulty swallowing. RESPIRATORY: Has chronic obstructive pulmonary disease. Has active tobacco abuse disorder. CARDIOVASCULAR: Has recent non-ST NV for current admission. Has hyperlipidemia. GASTROINTESTINAL: Has gastroesophageal reflux disease. Has current diarrhea, loose stools. Has diverticulitis. GENITOURINARY: Denies any blood in urine or increased urinary frequency. NEUROLOGICAL: Has chronic pain syndrome. MUSCULOSKELETAL: Denies any back pain, stiffness or joint arthritis. SKIN: No current skin cancer. No rash. PSYCHIATRIC: Denies current depression or suicidal thoughts. ENDOCRINE: Has hypothyroidism. HEME/LYMPHATIC: Denies any lumps and bumps around the neck. No recent deep venous thrombosis. ALLERGY/IMMUNOLOGY: No immunoglobulin therapy. No immune deficiencies. BREAST: Denies current breast lumps, pain or nipple discharge. PHYSICAL EXAM: VITALS: Reviewed CONSTITUTIONAL: Well developed and in no acute distress. EYES: Conjuctivae without sclera icterus. Extraocular movements grossly intact. HEAD, EARS, NOSE, THROAT: Moist buccal mucosa. Head is atraumatic, normocephalic. Hears conversational speech. No nasal drainage. NECK: Supple. No JV distention. No thyroidomegaly. RESPIRATORY: Non-labored respirations and equal bilateral excursions. No gross wheezes. CARDIOVASCULAR: Palpable 2+ radial pulses. ABDOMEN: No diffuse peritonitis. Epigastric pain. LYMPH: No neck lymphadenopathy. MUSCULOSKELETAL: No clubbing cyanosis or edema SKIN: Warm and well perfused with good skin turgor. NEUROLOGIC: Cranial nerves II through XII grossly intact. No focal or lateralizing signs. PSYCH: Appropriate affect. Alert and oriented to person, place and time. Displays appropriate insight. CLINCAL LABS: Reviewed. WBC normal. Troponins elevated. Total bilirubin elevated 1.6. AST elevated 60. Lactic acid on admission elevated. IMAGING: Independently reviewed. CT of the abdomen pelvis independently reviewed demonstrate moderately distended gallbladder. No presence of colitis or diverticulitis. No free air or bowel obstruction. This is my independent interpretation. RADIOLOGY: Report reviewed. Colonic diverticula including umbilical hernia per CT abdomen pelvis. RECORDS: previous old records reviewed. EGD and colonoscopy from 2019 reviewed demonstrates diaphragmatic hiatal hernia including diverticulosis. Colonoscopy from 2023 reviewed demonstrates diverticulosis. Pathology report from May 2024 reviewed demonstrates chronic gastritis. EKG: EKG reviewed with multiple abnormalities. ASSESSMENT: 1. Abdominal pain, epigastric 2. Clinical cholecystitis 3. Elevated LFTs 4. Non-ST NV with abnormal EKG 5. Change in bowel habits with diarrhea PLAN: 1. Her clinical picture is highly suspicious of cholecystitis, chronic. At the time of my assessment, patient had a large brown liquid bowel movement for which I assisted her at bedside. 2. May benefit from HIDA scan for biliary dyskinesia 3. Will need cardiac risk assessment prior to any surgical invention regarding her gallbladder/cholecystectomy ADVANCE DIRECTIVE: CODE STATUS in chart. Thank you for this kind consultation. Past Medical History Past Medical History: COPD, Hyperlipidemia, Osteoarthritis (OA), Thyroid Disorder Additional Past Medical History / Comment(s): diverticulitis, arthritis History of Any Multi-Drug Resistant Organisms: None Reported Past Surgical History: Bariatric Surgery, Bladder Surgery, Hernia Repair, Joint Replacement, Tubal Ligation Additional Past Surgical History / Comment(s): kilo hip replacement, kilo carpal tunnel, bladder suspension, lap band in, now removed, abd hernia, TOTAL LEFT KNEE. Colonoscopy. bladder lsing Past Anesthesia/Blood Transfusion Reactions: No Reported Reaction Past Psychological History: No Psychological Hx Reported Smoking Status: Current every day smoker Past Alcohol Use History: Occasional Past Drug Use History: None Reported - Past Family History Mother Family Medical History: No Reported History Medications and Allergies Home Medications Medication Instructions Recorded Confirmed Type Ezetimibe [Zetia] 10 mg PO DAILY 09/29/17 10/02/24 History Escitalopram [Lexapro] 20 mg PO DAILY 09/20/21 10/02/24 History oxyCODONE-APAP 10-325MG [Percocet 1 tab PO TID PRN 03/22/24 10/02/24 History 10-325 mg] Atorvastatin [Lipitor] 20 mg PO DAILY 10/02/24 10/02/24 History Levothyroxine Sodium [Synthroid] 100 mcg PO DAILY 10/02/24 10/02/24 History Omeprazole 40 mg PO DAILY 10/02/24 10/02/24 History Pregabalin [Lyrica] 100 mg PO TID 10/02/24 10/02/24 History Allergies Allergy/AdvReac Type Severity Reaction Status Date / Time No Known Allergies Allergy Verified 10/02/24 17:34 Surgical - Exam Vital Signs Temp Pulse Resp BP Pulse Ox 98.1 F 82 22 184/110 100 10/02/24 14:50 10/02/24 14:50 10/02/24 14:50 10/02/24 14:50 10/02/24 14:50 Results - Labs 10/04/24 02:34 10/04/24 02:34 Abnormal Lab Results - Last 24 Hours (Table) 10/04/24 10/04/24 Range/Units 02:34 02:34 RBC 3.91 L (4.10-5.20) X 10*6/uL MCV 98.2 H (80.0-97.0) FL MCH 33.5 H (27.0-32.0) pg Calcium 8.5 L (8.7-10.3) mg/dL Diabetes panel 10/04/24 Range/Units 02:34 Sodium 141 (135-145) mmol/L Potassium 3.5 (3.5-5.5) mmol/L Chloride 109 (96-109) mmol/L Carbon Dioxide 24.3 (21.6-31.8) mmol/L BUN 10.7 (9.0-27.0) mg/dL Creatinine 0.6 (0.6-1.5) mg/dL Glucose 89 (70-110) mg/dL Calcium 8.5 L (8.7-10.3) mg/dL Calcium panel 10/04/24 Range/Units 02:34 Calcium 8.5 L (8.7-10.3) mg/dL Pituitary panel 10/04/24 Range/Units 02:34 Sodium 141 (135-145) mmol/L Potassium 3.5 (3.5-5.5) mmol/L Chloride 109 (96-109) mmol/L Carbon Dioxide 24.3 (21.6-31.8) mmol/L BUN 10.7 (9.0-27.0) mg/dL Creatinine 0.6 (0.6-1.5) mg/dL Glucose 89 (70-110) mg/dL Calcium 8.5 L (8.7-10.3) mg/dL Adrenal panel 10/04/24 Range/Units 02:34 Sodium 141 (135-145) mmol/L Potassium 3.5 (3.5-5.5) mmol/L Chloride 109 (96-109) mmol/L Carbon Dioxide 24.3 (21.6-31.8) mmol/L BUN 10.7 (9.0-27.0) mg/dL Creatinine 0.6 (0.6-1.5) mg/dL Glucose 89 (70-110) mg/dL Calcium 8.5 L (8.7-10.3) mg/dL
--- NOTE | 2024-10-04 13:37 | P.PN ---
Subjective Progress Note Date: 10/04/24 This is a 69-year-old female with a past medical history significant for hyperlipidemia, hypothyroidism, marijuana use, occasional alcohol use, and nicotine dependence. Patient follows in the office with Dr. Saini but has not been seen in the office since May 2022. We have been asked to see the patient in consultation for elevated troponins. Patient examined at the bedside. Patient presented to the hospital for chief complaint of abdominal pain. Patient also reports that she is constipated and has not had a bowel movement in several days. Apparently she was also having nausea and vomiting at home. The patient denies having any chest pain or pressure. She denies any shortness of breath. For unknown reason, troponins were drawn by the ER physician. Troponins were found to be elevated and patient was started on IV heparin. She was also started on metoprolol by the ER physician although she remains bradycardic with a heart rate in the 50s. She is not prescribed any beta- blockers on an outpatient basis. DIAGNOSTICS: - EKG reveals sinus mechanism with frequent PACs - Chest xray not available at the time of this dictation - Laboratory data: WBC 11.5. Hemoglobin 17.8. Platelet count 203. D-dimer 1.28. Sodium 137. Potassium 3.5. BUN 17. Creatinine 0.65. Troponin 0.248. 0.231. 0.252. 0.220. - Current home cardiac medications include Lipitor 20 mg daily, Zetia 10 mg daily - Most recent echocardiogram obtained in 2021 revealed EF of 55% - Patient underwent Lexiscan stress test in February 2022 with EF 63% and no ischemia noted - Cardiac catheterization history: Patient denies 10/04/2024 Patient was seen and examined sitting up at the side of the bed. She is feeling better but continues to have some abdominal upset and continues to complain of constipation with no bowel movements yet. Cardiogram with Doppler study showed a normal LV systolic function, no obvious regional wall motion abnormalities REVIEW OF SYSTEMS: At the time of my exam: CONSTITUTIONAL: Denies fever or chills. HEENT: Denies blurred vision, vision changes, or eye pain. Denies hemoptysis CARDIOVASCULAR: Denies chest pain. Denies orthopnea. Denies PND. Denies palpitations RESPIRATORY: Denies shortness of breath. GASTROINTESTINAL: Denies abdominal pain. Denies nausea or vomiting. HEMATOLOGIC: Denies bleeding disorders. GENITOURINARY: Denies any blood in urine. SKIN: Denies pruitis. Denies rash. PHYSICAL EXAM: VITAL SIGNS: Reviewed. GENERAL: Well-developed in no acute distress. HEENT: Head is normocephalic. Pupils are equal, round. Sclerae anicteric. Mucous membranes of the mouth are moist. Neck supple. No JVD or thyromegaly LUNGS: Respirations even and unlabored. Lungs essentially clear to auscultation bilaterally. HEART: Regular rate and rhythm. S1 and S2 heard. ABDOMEN: Soft. Nondistended. Nontender. EXTREMITIES: Normal range of motion. No clubbing or cyanosis. Peripheral pulses intact. No lower extremity edema NEUROLOGIC: Awake and alert. Oriented x 3. ASSESSMENT: Abdominal pain, constipation, nausea, and vomiting Elevated troponins of unclear significance, flat, no evidence of acute coronary syndrome Hyperlipidemia Hypothyroidism Marijuana use Occasional alcohol use Nicotine dependence PLAN: From cardiology's perspective we will increase atorvastatin to 20 mg daily. No further cardiac workup needed at this time as an inpatient. At this time we will follow the patient on an as-needed basis. Please do not hesitate to contact us with questions. SALON MANAGER note has been reviewed, I agree with a documented findings and plan of care. Patient was seen and examined. Objective - Vital Signs Vital signs: Vital Signs Temp 98.5 F 10/04/24 07:30 Pulse 53 L 10/04/24 07:30 Resp 20 10/04/24 07:30 BP 146/76 10/04/24 07:30 Pulse Ox 95 10/04/24 07:30 FiO2 Intake & Output 10/03/24 10/04/24 10/04/24 18:59 06:59 18:59 Weight 77.111 kg 80 kg Other: Voiding Method Toilet Toilet # Voids 1 # Bowel Movements 1 - Labs CBC & Chem 7: 10/04/24 02:34 10/04/24 02:34 Labs: Abnormal Lab Results - Last 24 Hours (Table) 10/04/24 10/04/24 Range/Units 02:34 02:34 RBC 3.91 L (4.10-5.20) X 10*6/uL MCV 98.2 H (80.0-97.0) FL MCH 33.5 H (27.0-32.0) pg Calcium 8.5 L (8.7-10.3) mg/dL
[2024-10-04 14:26] VITALS: RESP 17
--- NOTE | 2024-10-05 07:55 | US ---
EXAMINATION TYPE: US gallbladder DATE OF EXAM: 10/05/2024 COMPARISON: CT: 10/02/24 CLINICAL INDICATION: Female, 69 years old with history of Right upper quadrant abdominal pain, elevat ed LFT; abdominal pain TECHNIQUE: Grayscale and color Doppler imaging of the right upper quadrant was performed. FINDINGS: EXAM MEASUREMENTS: Liver Length: 16.8 cm Gallbladder Wall: 0.16 cm CBD: 1.8 cm Right Kidney: 10.3 x 5.5 x 4.2 cm Pancreas: Visualized portions of the pancreatic neck and some of the body show no gross abnormality. Duct measuring within normal limits up to 2mm Liver: heterogeneous Gallbladder: Borderline hydropic but without any wall thickening, shadowing stones, or surrounding fl uid. Evidence for sonographic Javed's sign: No CBD: appears dilated, no stones seen Right Kidney: wnl IMPRESSION: 1. Bile duct dilated up to 1.8 cm may be chronic for the patient. Correlate with alkaline phosphatase and bilirubin levels to exclude biliary obstruction. 2. Borderline hydropic gallbladder but without any gallstones or abnormal wall thickening. 3. Slightly heterogeneous liver parenchyma may be undetectable basis. Correlate to exclude nonspecifi c hepatocellular disease. [facility], , 10/05/2024 7:52 AM
[2024-10-05 10:02] LABS: HCT 36.7 % (37.2-46.3); HGB 12.5 g/dL (12.0-15.0); MCH 33.3 pg (27.0-32.0); MCHC 34.1 g/dL (32.0-37.0); MCV 97.9 FL (80.0-97.0); Mean Platelet Volume 11.5 FL (9.5-12.2); NRBC Per 100 WBC 0 X 10*3/uL (0.00-0.01); Platelet Count 153 X 10*3/uL (140-440); RBC 3.75 X 10*6/uL (4.10-5.20); RDW 12.5 % (11.5-14.5)
[2024-10-05 10:08] LABS: ALT 14 U/L (8-44); AST 22 U/L (13-35); Albumin 3.4 g/dL (3.8-4.9); Alkaline Phosphatase 59 U/L (41-126); BUN/Creat Ratio 11.43 Ratio (12.00-20.00); Calcium 8.6 mg/dL (8.7-10.3); Carbon Dioxide 26.3 mmol/L (21.6-31.8); Chloride 110 mmol/L (96-109); Glucose 90 mg/dL (70-110); Potassium 3.4 mmol/L (3.5-5.5); Sodium 143 mmol/L (135-145); Total Bilirubin 0.6 mg/dL (0.3-1.2); Total Protein 5.4 g/dL (6.2-8.2)
[2024-10-05] MEDS: ATORVASTATIN 40 MG TAB PO SCH (10:46)
[2024-10-05] MEDS ORDERED: Potassium Replacement Protocol 1 EACH MISC MISCELLANE PRN (12:15)
[2024-10-05] MEDS: POTASSIUM CHLORIDE ER 20 MEQ TAB.ER PO SCH (13:42)
--- NOTE | 2024-10-05 14:24 | P.PN ---
Subjective Progress Note Date: 10/05/24 Principal diagnosis: Hospital course: Patient is a 69 year old female with past medical history of COPD, hyperlipidemia, osteoarthritis, hypothyroidism presented to the ED with abdominal pain, nausea, vomiting and poor oral intake. She mentions the pain started 4 days ago. It is epigastric pain, crampy in nature and no alleviating or relieving factors. Denies any radiation of the pain. She states not having a bowel movement in 4 days. She denies the need of taking stool softeners regularly. She also reports having nausea and dry heaves since 4 days. Denies vomiting. Additionally she also complains of a headache. Denies fever, chills, blurry vision, shortness of breath, cough, chest pain, palpitations, vomiting, dyuria, hematuria, hematochezia, melena. ED documentation reviewed. In the ED patient was treated with aspirin 324 mg, heparin, Dilaudid, labetalol, lorazepam, ondansetron, 0.9 normal saline. Vitals on admission T 98.1 F, WA 82 bpm, RR 22, BP 184/110, O2 sat 100% on room air EKG sinus rhythm with frequent supraventricular premature complexes, rate 76 bpm, QTc [address] shows no evidence for acute process, multiple calcifications near the expected location of the urethra correlate for urethral diverticulum, scattered colonic diverticula, fat-containing umbilical hernia, grade 2 anterolisthesis of L4 and L5 with no evidence for spondylolysis Labs on admission show WBC 11.5, hemoglobin 17.8, APTT 21.7, D-dimer 1.28 sodium 137, potassium 3.5, lactic acid 2.7, phosphorus 2.1, magnesium 1.9, total bilirubin 1.6, AST 60 Troponin I 0.248, 0.231, 0.252, 0.220 UA shows trace protein, trace ketones, small blood, rare bacteria, rare mucus Respiratory panel is negative Lipid panel Triglycerides 115, cholesterol 188, LDL 113.3, VLDL 23, HDL 51.7 10/04/24: Patient seen and examined at bedside today. No acute events overnight. She reports nausea, dry heaves, and the urge to defecate but hasn't been able to have a bowel movement. Echocardiogram shows EF 55-60% and normal left ventricular size and systolic function with trace MR, mild MR and no pulmonary hypertension. 10/05/24: Patient evaluated at bedside. She did have 3 bowel movements yesterday. Denies nausea. Gallbladder ultrasound shows bile duct dilated up to 1.8 cm may be chronic, borderline hydropic gallbladder without any gallstones or abnormal wall thickening, slightly heterogenous liver parenchyma. Review of systems: Pertinent positives and negatives as discussed in HPI, a complete review of systems was performed and all other systems are negative. Vitals: Signs Reviewed Physical examination: General: nontoxic, no distress, appears at stated age Derm: warm, dry, intact Head: atraumatic, normocephalic, symmetric Eyes: EOMI, anicteric sclera Mouth: no lip lesion, mucus membranes moist Cardiovascular: S1 S2 reg, no murmur Lungs: CTA bilateral, no rhonchi, no rales, no accessory muscle use Abdominal: soft, non-tender to palpation Extremities: No cyanosis, clubbing, or pedal edema. Neuro: Alert, Oriented, Gross neurological examination did not reveal any focal deficits. Psych: well appearing, appropriate affect Assessment/Plan: Patient is a 69-year-old female with past medical history of COPD, hyperlipidemia, osteoarthritis, hypothyroidism presented to the ED with abdominal pain, nausea, vomiting and poor oral intake. In the ED she was found to have elevated D-dimer and troponin x 3. ACS has been ruled out. She continues to be on lactulose and enema is ordered today for constipation. Active: #. Epigastric pain #. Constipation CTAP- no evidence for acute process, multiple calcifications near expected location of urethra correlate for urethral diverticulum, scattered colonic diverticula, fat-containing umbilical hernia, grade 2 anterolisthesis of L4 and L5 no evidence for spondylolysis Gallbladder ultrasound shows bile duct dilated up to 1.8 cm may be chronic, borderline hydropic gallbladder without any gallstones or abnormal wall thickening, slightly heterogenous liver parenchyma. Continue acetaminophen 650 mg p.o. every 6 hours as needed, Tramadol 50 mg PO QID PRN for pain management Continue Senokot 8.6 mg p.o. daily as needed, MiraLAX 17 gm PO daily PRN, Lactulose 30 gm TID PRN and Maalox 30 mg PO QID PRN Pantoprazole 40 mg p.o. BID General Surgery is following #. Elevated troponin, ACS r/o Continue Aspirin 81 mg p.o. daily and nitroglycerin 0.4 mg sublingual Q5M as needed Echocardiogram shows EF 55-60% and normal left ventricular size and systolic function with trace MR, mild MR and no pulmonary hypertension. Continue telemetry monitoring #. Nausea and vomiting Continue Ondansetron 4 mg IVP Q6HR PRN #. Hypokalemia Potassium replacement per protocol Monitor BMP Chronic: #. Hyperlipidemia Continue atorvastatin 40 mg p.o. daily and ezetimibe 10 mg p.o. daily #. Hypothyroidism Continue levothyroxine 100 mcg p.o. daily #. Anxiety/depression Continue escitalopram 20 mg p.o. daily #. GERD Pantoprazole 40 mg p.o. BID #. Neuropathy Continue pregabalin 100 mg p.o. 3 times daily #. Tobacco dependence Nicotine 21 mg/24-hour patch transdermal daily Resolved: #. Hypertensive urgency F: 0.9 normal saline 100 mL/h E: Potassium replacement per protocol N: Soft solid diet A: DVT prophylaxis: Heparin 5000 unit SQ Q8HR GI prophylaxis: Pantoprazole 40 mg PO BID Objective - Vital Signs Vital signs: Vital Signs Temp 98.1 F 10/05/24 01:02 Pulse 46 L 10/05/24 01:02 Resp 17 10/05/24 01:02 BP 152/77 10/05/24 01:02 Pulse Ox 95 10/05/24 01:02 FiO2 Intake & Output 10/04/24 10/05/24 10/05/24 18:59 06:59 18:59 Intake Total 1800 Balance 1800 Weight 77.5 kg Intake: Oral 1800 Other: Voiding Method Toilet # Voids 3 6 # Bowel Movements 2 - Labs CBC & Chem 7: 10/05/24 03:23 10/05/24 03:23 Labs: Abnormal Lab Results - Last 24 Hours (Table) 10/04/24 10/04/24 Range/Units 02:34 02:34 RBC 3.91 L (4.10-5.20) X 10*6/uL MCV 98.2 H (80.0-97.0) FL MCH 33.5 H (27.0-32.0) pg Calcium 8.5 L (8.7-10.3) mg/dL
--- NOTE | 2024-10-05 14:27 | P.DS ---
Providers Date of admission: 10/02/24 17:21 Expected date of discharge: 10/05/24 Attending physician: Teodora Lara Consults: 10/02/24 17:20 Consult Physician Urgent Consulting Provider: Lewis Lui Consult Reason/Comments: elevTrop Do you want consulting provider notified?: Yes 10/04/24 10:30 Consult Physician Routine Consulting Provider: Jacqueline Lopes Consult Reason/Comments: abdominal pain Do you want consulting provider notified?: Yes Primary care physician: Stated None Hospital Course: Discharge diagnosis: Epigastric pain Constipation Elevated troponin, ACS r/o Nausea and vomiting Hypokalemia Hyperlipidemia Hypothyroidism Anxiety/depression GERD Neuropathy Tobacco dependence Hospital Course: Patient is a 69 year old female with past medical history of COPD, hyperlipidemia, osteoarthritis, hypothyroidism presented to the ED with abdominal pain, nausea, vomiting and poor oral intake. She mentions the pain started 4 days ago. It is epigastric pain, crampy in nature and no alleviating or relieving factors. Denies any radiation of the pain. She states not having a bowel movement in 4 days. She denies the need of taking stool softeners regularly. She also reports having nausea and dry heaves since 4 days. Denies vomiting. Additionally she also complains of a headache. Denies fever, chills, blurry vision, shortness of breath, cough, chest pain, palpitations, vomiting, dyuria, hematuria, hematochezia, melena. Vitals on admission T 98.1 F, AR 82 bpm, RR 22, BP 184/110, O2 sat 100% on room air. EKG sinus rhythm with frequent supraventricular premature complexes, rate 76 bpm, QTc [address] shows no evidence for acute process, multiple calcifications near the expected location of the urethra correlate for urethral diverticulum, scattered colonic diverticula, fat-containing umbilical hernia, grade 2 anterolisthesis of L4 and L5 with no evidence for spondylolysis. Labs on admission show WBC 11.5, hemoglobin 17.8, APTT 21.7, D-dimer 1.28 sodium 137, potassium 3.5, lactic acid 2.7, phosphorus 2.1, magnesium 1.9, total bilirubin 1.6, AST 60. Troponin I 0.248, 0.231, 0.252, 0.220. UA shows trace protein, trace ketones, small blood, rare bacteria, rare mucus. Respiratory panel is negative. Lipid panel Triglycerides 115, cholesterol 188, LDL 113.3, VLDL 23, HDL 51.7 10/04/24: Patient seen and examined at bedside today. No acute events overnight. She reports nausea, dry heaves, and the urge to defecate but hasn't been able to have a bowel movement. Echocardiogram shows EF 55-60% and normal left ventricular size and systolic function with trace MR, mild MR and no pulmonary hypertension. 10/05/24: Patient evaluated at bedside. She did have 3 bowel movements yesterday. Denies nausea. Gallbladder ultrasound shows bile duct dilated up to 1.8 cm may be chronic, borderline hydropic gallbladder without any gallstones or abnormal wall thickening, slightly heterogenous liver parenchyma. Patient seen at bedside today and is feeling good and excited about discharge. Patient will be discharged today and is given a script for lactulose 30 gm PO TID PRN and atorvastatin 40 mg PO daily Patient is given a handout for Low fiber diet, Acute nausea and vomiting and Acute abdominal pain is advised to be compliant with medications. Patient is advised to follow-up with PCP in 1-2 days and general surgery in 1 week and cardiology in 1 week. Vital signs are reviewed and stable General: nontoxic, no distress, appears at stated age Derm: warm, dry, intact Head: atraumatic, normocephalic, symmetric Eyes: EOMI, anicteric sclera Mouth: no lip lesion, mucus membranes moist Cardiovascular: S1 S2 reg, no murmur Lungs: CTA bilateral, no rhonchi, no rales, no accessory muscle use Abdominal: soft, non-tender to palpation Extremities: No cyanosis, clubbing, or pedal edema. Neuro: Alert, Oriented, Gross neurological examination did not reveal any focal deficits. Psych: well appearing, appropriate affect A total of 30 minutes of time were spent preparing this complex discharge summary. Patient was discharged on 10/05/24 at 1430. Patient Condition at Discharge: Stable Plan - Discharge Summary New Discharge Prescriptions: New Lactulose [Cephulac] 30 gm PO TID PRN 14 Days #2000 ml PRN Reason: Constipation Atorvastatin [Lipitor] 40 mg PO DAILY 14 Days #14 tab Continue Ezetimibe [Zetia] 10 mg PO DAILY Escitalopram [Lexapro] 20 mg PO DAILY oxyCODONE-APAP 10-325MG [Percocet 10-325 mg] 1 tab PO TID PRN PRN Reason: Pain Pregabalin [Lyrica] 100 mg PO TID Levothyroxine Sodium [Synthroid] 100 mcg PO DAILY Omeprazole 40 mg PO DAILY Discontinued Atorvastatin [Lipitor] 20 mg PO DAILY Discharge Medication List Ezetimibe [Zetia] 10 mg PO DAILY 09/29/17 [History] Escitalopram [Lexapro] 20 mg PO DAILY 09/20/21 [History] oxyCODONE-APAP 10-325MG [Percocet 10-325 mg] 1 tab PO TID PRN 03/22/24 [History] Levothyroxine Sodium [Synthroid] 100 mcg PO DAILY 10/02/24 [History] Omeprazole 40 mg PO DAILY 10/02/24 [History] Pregabalin [Lyrica] 100 mg PO TID 10/02/24 [History] Atorvastatin [Lipitor] 40 mg PO DAILY 14 Days #14 tab 10/05/24 [Rx] Lactulose [Cephulac] 30 gm PO TID PRN 14 Days #2000 ml 10/05/24 [Rx] Follow up Appointment(s)/Referral(s): Lewis Lui MD [STAFF PHYSICIAN] - 1 Week (Pre-op clearance. Please call Tuesday for appt, office closed today) Jacqueline Lopes MD [STAFF PHYSICIAN] - 1 Week [facility] [NON-STAFF] - 1-2 Days Patient Instructions/Handouts: Low Fiber Diet (DC), Acute Nausea and Vomiting (DC), Acute Abdominal Pain (DC) Discharge Disposition: HOME SELF-CARE
[2024-10-05 15:44] VITALS: BP 134/81; PULSE 52; TEMP 98.5
--- NOTE | 2024-10-05 20:50 | P.PN ---
Subjective Progress Note Date: 10/05/24 CHIEF COMPLAINT: Abdominal pain HISTORY OF PRESENT ILLNESS: The patient is a 69-year-old female admitted for acute nausea and vomiting abdominal pain and incidental non-ST FL. Cardiac workup excluded acute coronary syndrome. Additionally, patient reports she is feeling better. No further abdominal pain. She tolerated diet. REVIEW OF ORGAN SYSTEMS: Having bowel movements. No fevers or chills. No acute chest pain. PHYSICAL EXAM: VITALS: Reviewed CONSTITUTIONAL: Well developed and in no acute distress. EYES: Conjuctivae without sclera icterus. Extraocular movements grossly intact. HEAD, EARS, NOSE, THROAT: Moist buccal mucosa. Head is atraumatic, normocephalic. Hears conversational speech. No nasal drainage. RESPIRATORY: Non-labored respirations and equal bilateral excursions. No gross wheezes. CARDIOVASCULAR: Palpable 2+ radial pulses. ABDOMEN: Nontender. MUSCULOSKELETAL: No clubbing cyanosis or edema SKIN: Warm and well perfused with good skin turgor. NEUROLOGIC: Cranial nerves II through XII grossly intact. No focal or lateralizing signs. PSYCH: Appropriate affect. Alert and oriented to person, place and time. Displays appropriate insight. CLINCAL LABS: Reviewed. WBC normal at 6.1. Hemoglobin down 13.1-12.5. LFTs normalized. IMAGING: Independently reviewed. Ultrasound of gallbladder demonstrates questionable gallbladder sludge. No large gallstones identified. This is my independent or potation. CT of the abdomen pelvis with dilated common bile duct 1.5 cm. RADIOLOGY: Report reviewed. Ultrasound report demonstrated hydrops of the gallbladder with moderately dilated common bile duct 1.8 cm. No identified stones. RECORDS: Prior CT scan from March 2024 reviewed demonstrated dilated common bile duct. This is my independent interpretation. ASSESSMENT: 1. Abdominal pain, epigastric 2. Clinical cholecystitis 3. Elevated LFTs 4. Non-ST FL with abnormal EKG 5. Change in bowel habits with diarrhea 6. Dilated common bile duct 7. Gallbladder hydrops PLAN: 1. Her LFTs has normalized however with new diagnostic finding of dilated common bile duct. Additional workup may be warranted including as outpatient. 2. Outpatient assessment for cholecystectomy pending cardiac clearance for surgery. 3. Recommend low-fat diet. Dietary changes reviewed in detail including avoiding fatty foods, cottage cheese, avocado etc. 4. Stable for discharge as she has clinical improvement. Objective - Vital Signs Vital signs: Vital Signs Temp 98.5 F 10/05/24 14:45 Pulse 52 L 10/05/24 14:45 Resp 17 10/05/24 14:45 BP 134/81 10/05/24 14:45 Pulse Ox 98 10/05/24 14:45 FiO2 Intake & Output 10/05/24 10/05/24 10/06/24 06:59 18:59 06:59 Intake Total 1800 1250 Balance 1800 1250 Weight 77.5 kg Intake: Intake, IV Titration 800 Amount Sodium Chloride 0.9% 1, 800 000 ml @ 100 mls/hr IV . Q10H [facility] Rx#:[id number] Oral 1800 450 Other: Voiding Method Toilet # Voids 6 - Labs CBC & Chem 7: 10/05/24 03:23 10/05/24 03:23 Labs: Abnormal Lab Results - Last 24 Hours (Table) 10/05/24 10/05/24 Range/Units 03:23 03:23 RBC 3.75 L (4.10-5.20) X 10*6/uL Hct 36.7 L (37.2-46.3) % MCV 97.9 H (80.0-97.0) FL MCH 33.3 H (27.0-32.0) pg Potassium 3.4 L (3.5-5.5) mmol/L Chloride 110 H (96-109) mmol/L BUN 8.0 L (9.0-27.0) mg/dL BUN/Creatinine Ratio 11.43 L (12.00-20.00) Ratio Calcium 8.6 L (8.7-10.3) mg/dL Total Protein 5.4 L (6.2-8.2) g/dL Albumin 3.4 L (3.8-4.9) g/dL
== END 2024-10-05 16:09 | disposition home or self-care (01) | DRG 392 ==
LOC: EC 14:47 → 3SCARD 17:21 → 4SSUR 10-03 13:13
PROVIDERS: ADMIT Hospitalist; ATTEND Hospitalist
DX: K59.00 Constipation, unspecified (principal); K82.1 Hydrops of gallbladder; K81.9 Cholecystitis, unspecified; E03.9 Hypothyroidism, unspecified; E78.5 Hyperlipidemia, unspecified; E86.0 Dehydration; E87.6 Hypokalemia; F32.A Depression, unspecified; F41.9 Anxiety disorder, unspecified; F17.200 Nicotine dependence, unspecified, uncomplicated; G62.9 Polyneuropathy, unspecified; I16.0 Hypertensive urgency; J44.9 Chronic obstructive pulmonary disease, unspecified; K21.9 Gastro-esophageal reflux disease without esophagitis; R19.7 Diarrhea, unspecified; R79.89 Other specified abnormal findings of blood chemistry; K83.8 Other specified diseases of biliary tract; Z79.890 Hormone replacement therapy; Z79.899 Other long term (current) drug therapy
CPT/HCPCS: 36415; 74177; 76705; 80048; 80053; 80061; 81001; 82150; 83605; 83690; 83735; 84100; 84484; 85025; 85027; 85379; 85610; 85730; 87636; 93005; 93306; 94760; 96361; 96365; 96366; 96372; 96375; 96376; 99291

== ENCOUNTER 2025-02-02 18:50 | Inpatient (IN) | payer MEDICARE, OTHER ==
--- NOTE | 2025-02-02 19:26 | ED ---
Abdominal Pain HPI - General Chief Complaint: Abdominal Pain Stated Complaint: abd pain Time Seen by Provider: 02/02/25 18:58 Source: patient, RN notes reviewed Mode of arrival: ambulatory Limitations: no limitations - History of Present Illness Initial Comments: This is a 69-year-old female who presents to the emergency department for abdominal pain. States that it started 2 days ago. Pain is in the upper abdomen and she has associated nausea and vomiting. She is scheduled to have her gallbladder out with Dr. Lopes in the next few days, but was supposed to have cardiac clearance with a stress test first. She was told that if the pain became severe to come to the emergency department. She is concerned that the pain could be related to her gallbladder. MD Complaint: abdominal pain - Related Data Home Medications Medication Instructions Recorded Confirmed Ezetimibe [Zetia] 10 mg PO DAILY 09/29/17 10/02/24 Escitalopram [Lexapro] 20 mg PO DAILY 09/20/21 10/02/24 oxyCODONE-APAP 10-325MG [Percocet 1 tab PO TID PRN 03/22/24 10/02/24 10-325 mg] Levothyroxine Sodium [Synthroid] 100 mcg PO DAILY 10/02/24 10/02/24 Omeprazole 40 mg PO DAILY 10/02/24 10/02/24 Pregabalin [Lyrica] 100 mg PO TID 10/02/24 10/02/24 Previous Rx's Medication Instructions Recorded Atorvastatin [Lipitor] 40 mg PO DAILY 14 Days #14 tab 10/05/24 Lactulose [Cephulac] 30 gm PO TID PRN 14 Days #2000 ml 10/05/24 Allergies Allergy/AdvReac Type Severity Reaction Status Date / Time No Known Allergies Allergy Verified 02/02/25 18:57 Review of Systems ROS Statement: Those systems with pertinent positive or pertinent negative responses have been documented in the HPI. ROS Other: All systems not noted in ROS Statement are negative. Past Medical History Past Medical History: COPD, Hyperlipidemia, Osteoarthritis (OA), Thyroid Disorder Additional Past Medical History / Comment(s): diverticulitis, arthritis History of Any Multi-Drug Resistant Organisms: None Reported Past Surgical History: Bariatric Surgery, Bladder Surgery, Hernia Repair, Joint Replacement, Tubal Ligation Additional Past Surgical History / Comment(s): kilo hip replacement, kilo carpal tunnel, bladder suspension, lap band in, now removed, abd hernia, TOTAL LEFT KNEE. Colonoscopy. bladder lsing Past Anesthesia/Blood Transfusion Reactions: No Reported Reaction Past Psychological History: No Psychological Hx Reported Smoking Status: Current every day smoker Past Alcohol Use History: Occasional Past Drug Use History: None Reported - Past Family History Mother Family Medical History: No Reported History General Exam Limitations: no limitations General appearance: alert, in distress Head exam: Present: atraumatic, normocephalic, normal inspection Respiratory exam: Present: normal lung sounds bilaterally. Absent: respiratory distress, wheezes, rales, rhonchi, stridor Cardiovascular Exam: Present: regular rate, normal rhythm GI/Abdominal exam: Present: soft, tenderness (Upper abdomen), normal bowel sounds. Absent: distended Neurological exam: Present: alert, oriented X3, CN II-XII intact Psychiatric exam: Present: normal affect, normal mood Skin exam: Present: warm, dry, intact, normal color. Absent: rash Course Vital Signs 02/02/25 02/02/25 02/02/25 18:53 21:36 22:37 Temperature Pulse Rate 103 H 61 57 L Pulse Rate [ Fork Operator ] Respiratory 18 18 18 Rate Blood Pressure 158/110 119/75 119/95 Blood Pressure [Left Arm] O2 Sat by Pulse 98 94 L Oximetry 02/03/25 02/03/25 02/03/25 01:08 02:20 04:56 Temperature 97.5 F L Pulse Rate 50 L 57 L Pulse Rate [ Fork Operator ] Respiratory 18 18 Rate Blood Pressure 100/71 105/68 Blood Pressure [Left Arm] O2 Sat by Pulse 97 97 Oximetry 02/03/25 02/03/25 05:20 08:00 Temperature 98.1 F Pulse Rate 54 L Pulse Rate [ 50 L Fork Operator ] Respiratory 16 16 Rate Blood Pressure 100/60 Blood Pressure 106/73 [Left Arm] O2 Sat by Pulse 95 95 Oximetry Medical Decision Making - Medical Decision Making This is a 69-year-old female who presents to the emergency department for abdominal pain. Was pt. sent in by a medical professional or institution? @ -No Did you speak to anyone other than the patient for history? @ -No Did you review nursing and triage notes? @ -Yes, and I agree, it is accurate with regards to the patient's symptoms. Were old charts reviewed? @ -No Differential Diagnosis? @ -Differential Abdominal Pain Women: Appendicitis, Cholecystitis, diverticulosis, ischemic bowel, pancreatitis, hepatitis, UTI, gastroenteritis, AAA, incarcerated hernia, bowel obstruction, constipation, inflammatory bowel, hepatitis, peptic ulcer disease, splenic infarction, perforated viscus, vulvitis, ovarian torsion, PID, kidney stone, placenta abruption, this is not meant to be an all-inclusive list EKG interpreted by me (3pts min.)? @ -EKG interpreted by me demonstrating the following: Sinus rhythm. Ventricular rate 71 bpm, CA interval 153 ms, QRS duration 93 ms, QTc 457 ms. X-rays interpreted by me (1pt min.)? @ -Not obtained CT interpreted by me (1pt min.)? @ -Pending U/S interpreted by me (1pt. min.)? @ -Gallbladder ultrasound obtained. My interpretation identifies no cholelithiasis. What testing was considered but not performed? (CT, X-rays, U/S, labs)? Why? @ -None What meds were considered but not given? Why? @ -None Did you discuss the management of the patient with other professionals? @ -Yes, Dr. Barger, who accepts the patient for admission Did you reconcile home meds? @ -No Was smoking cessation discussed for >3mins.? @ -No Was critical care preformed (if so, how long)? @ -Yes, >35 minutes Were there social determinants of health that impacted care today? How? (Homele ssness, low income, unemployed, alcoholism, drug addiction, transportation, low edu. Level, literacy, decrease access to med. care, custodial, rehab)? @ -No Was there de-escalation of care discussed even if they declined? (Discuss DNR or withdrawal of care, Hospice)? @ -No What co-morbidities impacted this encounter? (DM, HTN, Smoking, COPD, CAD, Canc er, CVA, Hep., AIDS, mental health diagnosis, sleep apnea, morbid obesity)? @ -None Was patient admitted / discharged? @ -Admitted. Lab work demonstrates leukocytosis with a white blood cell count of 11.9. Lactic acid elevated at 2.7. Troponin returned elevated at 0.826. Gallbladder ultrasound demonstrates a stable dilated CBD. Bilirubin and AST are mildly elevated and similar when compared with prior. ALT and alkaline phosphatase within normal limits. Hydropic gallbladder is redemonstrated without stones or evidence for acute cholecystitis. Patient was evaluated here in September for abdominal pain and elevated troponins. Troponins were 0.2 at that time but remained flat and ACS was ruled out. Troponins appear to be continuing to trend upwards and EKG was concerning for mild ST depressions. Patient subsequently started on the heparin protocol. Patient admitted to medicine for NSTEMI with abdominal pain and gallbladder hydrops. CT scan of the abdomen and pelvis ordered to evaluate for any other process contributing to her symptoms. Results pending at the time of admission. Case discussed with ED attending Dr. Villeda. Undiagnosed new problem with uncertain prognosis? @ -None Drug Therapy requiring intensive monitoring for toxicity (Heparin, Nitro, Insulin, Cardizem)? @ -Heparin Were any procedures done? @ -None Diagnosis/symptom? @ -NSTEMI, abdominal pain, nausea and vomiting Acute, or Chronic, or Acute on Chronic? @ -Acute Uncomplicated (without systemic symptoms) or Complicated (systemic symptoms)? @ -Complicated Side effects of treatment? @ -None Exacerbation, Progression, or Severe Exacerbation] @ -Not applicable Poses a threat to life or bodily function? @ -Yes, if due to ACS can be life-threatening. - Lab Data Result diagrams: 02/03/25 04:46 02/03/25 04:46 Lab Results 02/02/25 02/02/25 02/02/25 Range/Units 19:31 19:36 19:36 WBC 11.9 H (3.8-10.6) k/uL RBC 5.34 (3.80-5.40) m/uL Hgb 18.5 H (11.4-16.0) gm/dL Hct 50.8 H (34.0-46.0) % MCV 95.2 (80.0-100.0) fL MCH 34.6 (25.0-35.0) pg MCHC 36.3 (31.0-37.0) g/dL RDW 11.7 (11.5-15.5) % Plt Count 208 (150-450) k/uL MPV 8.5 Neutrophils % 71 % Lymphocytes % 19 % Monocytes % 7 % Eosinophils % 1 % Basophils % 0 % Neutrophils # 8.4 H (1.3-7.7) k/uL Lymphocytes # 2.3 (1.0-4.8) k/uL Monocytes # 0.9 (0-1.0) k/uL Eosinophils # 0.1 (0-0.7) k/uL Basophils # 0.0 (0-0.2) k/uL PT 11.7 (10.0-12.5) sec INR 1.1 (<1.2) APTT 22.7 (22.0-30.0) sec Sodium 136 L (137-145) mmol/L Potassium 3.4 L (3.5-5.1) mmol/L Chloride 100 (98-107) mmol/L Carbon Dioxide 20 L (22-30) mmol/L Anion Gap 16 mmol/L BUN 12 (7-17) mg/dL Creatinine 0.71 (0.52-1.04) mg/dL Est GFR (CKD-EPI)AfAm >90 (>60 ml/min/1.73 sqM) Est GFR (CKD-EPI)NonAf 86 (>60 ml/min/1.73 sqM) Glucose 178 H (74-99) mg/dL Lactic Ac Sepsis Rflx Plasma Lactic Acid Franklyn (0.7-2.0) mmol/L Calcium 10.7 H (8.4-10.2) mg/dL Total Bilirubin 1.8 H (0.2-1.3) mg/dL AST 48 H (14-36) U/L ALT 20 (4-34) U/L Alkaline Phosphatase 102 (38-126) U/L Troponin I (0.000-0.034) ng/mL Total Protein 8.7 H (6.3-8.2) g/dL Albumin 5.1 H (3.5-5.0) g/dL Amylase 53 (30-110) U/L Lipase 120 (23-300) U/L 02/02/25 02/02/25 02/02/25 Range/Units 19:36 19:36 20:12 WBC (3.8-10.6) k/uL RBC (3.80-5.40) m/uL Hgb (11.4-16.0) gm/dL Hct (34.0-46.0) % MCV (80.0-100.0) fL MCH (25.0-35.0) pg MCHC (31.0-37.0) g/dL RDW (11.5-15.5) % Plt Count (150-450) k/uL MPV Neutrophils % % Lymphocytes % % Monocytes % % Eosinophils % % Basophils % % Neutrophils # (1.3-7.7) k/uL Lymphocytes # (1.0-4.8) k/uL Monocytes # (0-1.0) k/uL Eosinophils # (0-0.7) k/uL Basophils # (0-0.2) k/uL PT (10.0-12.5) sec INR (<1.2) APTT (22.0-30.0) sec Sodium (137-145) mmol/L Potassium (3.5-5.1) mmol/L Chloride (98-107) mmol/L Carbon Dioxide (22-30) mmol/L Anion Gap mmol/L BUN (7-17) mg/dL Creatinine (0.52-1.04) mg/dL Est GFR (CKD-EPI)AfAm (>60 ml/min/1.73 sqM) Est GFR (CKD-EPI)NonAf (>60 ml/min/1.73 sqM) Glucose (74-99) mg/dL Lactic Ac Sepsis Rflx Y Plasma Lactic Acid Franklyn 2.7 H* (0.7-2.0) mmol/L Calcium (8.4-10.2) mg/dL Total Bilirubin (0.2-1.3) mg/dL AST (14-36) U/L ALT (4-34) U/L Alkaline Phosphatase (38-126) U/L Troponin I 0.826 H* (0.000-0.034) ng/mL Total Protein (6.3-8.2) g/dL Albumin (3.5-5.0) g/dL Amylase (30-110) U/L Lipase (23-300) U/L - Radiology Data Radiology results: report reviewed, image reviewed Critical Care Time Critical Care Time: Yes Critical Care Time: >35 minutes Disposition Clinical Impression: NSTEMI (non-ST elevated myocardial infarction), Gallbladder hydrops, Intractable abdominal pain, Nausea and vomiting Disposition: ADMITTED IP TO THIS HOSP
[2025-02-02 19:51] LABS: Basophils % (A) 0 %; Eosinophils # (A) 0.1 k/uL (0-0.7); Eosinophils % (A) 1 %; HCT 50.8 % (34.0-46.0); HGB 18.5 gm/dL (11.4-16.0); Lymphocytes # (A) 2.3 k/uL (1.0-4.8); Lymphocytes % (A) 19 %; MCH 34.6 pg (25.0-35.0); MCHC 36.3 g/dL (31.0-37.0); MCV 95.2 fL (80.0-100.0); Mean Platelet Volume 8.5; Monocytes # (A) 0.9 k/uL (0-1.0); Monocytes % (A) 7 %; Neutrophils # (A) 8.4 k/uL (1.3-7.7); Neutrophils % (A) 71 %; Platelet Count 208 k/uL (150-450); RBC 5.34 m/uL (3.80-5.40); RDW 11.7 % (11.5-15.5); WBC 11.9 k/uL (3.8-10.6)
[2025-02-02] MEDS: ONDANSETRON 4 MG/2 ML VIAL IVP STA (19:56)
[2025-02-02] MEDS: SODIUM CHLORIDE 0.9% 1,000 ML IV ONE ×2 (19:56→23:05)
[2025-02-02] MEDS: HYDROmorphone 1 MG/ML 1 ML SYRINGE IVP STA ×2 (19:56→21:37)
[2025-02-02 20:03] LABS: ALT 20 U/L (4-34); AST 48 U/L (14-36); African American GFR (CKD) >90 (>60 ml/min/1.73 sqM); Albumin 5.1 g/dL (3.5-5.0); Alkaline Phosphatase 102 U/L (38-126); Amylase 53 U/L (30-110); Anion Gap 16 mmol/L; Blood Urea Nitrogen 12 mg/dL (7-17); Calcium 10.7 mg/dL (8.4-10.2); Carbon Dioxide 20 mmol/L (22-30); Chloride 100 mmol/L (98-107); Glucose 178 mg/dL (74-99); Lipase 120 U/L (23-300); Non-African American GFR(CKD) 86 (>60 ml/min/1.73 sqM); Potassium 3.4 mmol/L (3.5-5.1); Sodium 136 mmol/L (137-145); Total Bilirubin 1.8 mg/dL (0.2-1.3); Total Protein 8.7 g/dL (6.3-8.2)
--- NOTE | 2025-02-02 21:10 | US ---
EXAMINATION TYPE: US gallbladder DATE OF EXAM: 02/02/2025 COMPARISON: Gallbladder ultrasound 10/05/2024, CT abdomen and pelvis 10/02/2024 CLINICAL INDICATION: Female, 69 years old with history of Epigastric pain, known gallstones; Epigastr ic pain x 3 days. Known Gallstones per ordering provider. Patient unaware. no stones on prior imaging . TECHNIQUE: Grayscale and color Doppler imaging of the right upper quadrant was performed. FINDINGS: EXAM MEASUREMENTS: Liver Length: 18.3 cm Gallbladder Wall: 0.2 cm CBD: 1.7 cm Right Kidney: 9.7x4.3x5.2 cm POULTRY [employer]ET[employer]INARIAN NOTES: Pancreas: Tail obscured by overlying bowel gas Liver: hepatomegaly, echogenic Gallbladder: hydropic Evidence for sonographic Javed's sign: No CBD: dilation again seen Right Kidney: anechoic area superior pole: 1.9x1.8x2.0cm exam limited by bowel gas The visualized portions of the pancreas are within normal limits. The tail is obscured by overlying b owel gas. Liver is enlarged and mildly echogenic without focal lesion. Hydropic gallbladder without w all thickening, stones, or surrounding fluid. Negative sonographic Javed's sign. Common bile duct is again dilated. Simple right renal cyst measuring up to 2.0 cm. No right renal hydronephrosis, solid mass, shadowing calculus. IMPRESSION: 1. Stable dilated common bile duct. Correlate with biliary obstructive labs. 2. Hydropic gallbladder redemonstrated without stones or evidence for acute cholecystitis. 3. Hepatomegaly with mild hepatic steatosis. 4. Right renal simple cyst. [facility], , 02/02/2025 9:08 PM
[2025-02-02] MEDS ORDERED: HEPARIN SODIUM 1,000 UN/ML (10ML VL) IV PRN (21:19)
[2025-02-02] MEDS ORDERED: NALOXONE 0.4 MG/ML 1 ML VIAL IV PRN (21:30)
[2025-02-02] MEDS: HEPARIN SOD,PORK IN 0.45% NACL 25,000 UNIT in 0.45% NACL 1 250ML.BAG IV SCH (22:05)
--- NOTE | 2025-02-02 22:06 | CT ---
EXAMINATION TYPE: CT abdomen pelvis w con CT DLP: 853.8 mGycm, Automated exposure control for dose reduction was used. DATE OF EXAM: 02/02/2025 9:55 PM COMPARISON: CT abdomen pelvis 10/02/2024, 03/13/2024, gallbladder ultrasound 02/02/2025, 10/05/2024 CLINICAL INDICATION:Female, 69 years old with history of Epigastric pain; Epigastric pain. TECHNIQUE: Standard CT of the abdomen and pelvis following the administration of 100 cc of Isovue 3 00 IV contrast material. Coronal and sagittal reformats were performed. FINDINGS: LOWER CHEST: Minimal posterior dependent subsegmental atelectasis is noted. Minimal right middle lobe and lingular subsegmental atelectasis. Mitral annulus calcifications. ABDOMEN LIVER: Unremarkable GALLBLADDER AND BILE DUCTS: Hydropic gallbladder. No surrounding inflammatory changes. Dilated common bile duct measuring 1.3 cm at the pancreatic head. There is abrupt tapering at the ampulla. Previous ly measured 0.9 cm when measured in similar region. No significant intrahepatic biliary ductal dilata tion. PANCREAS: Unremarkable. SPLEEN: Unremarkable. ADRENAL GLANDS: Unremarkable. KIDNEYS AND URETERS: No evidence of hydronephrosis or renal calculus. The kidneys enhance symmetrica lly. Right renal upper pole 1.9 cm simple cyst. Left renal upper pole 1 cm simple cyst. No follow-up. Contrast is demonstrated within both collecting systems and proximal ureters on the delayed phase. PELVIS BLADDER: Unremarkable REPRODUCTIVE: Multiple calcifications identified within the vaginal and perineal region. ABDOMEN & PELVIS STOMACH AND BOWEL: Surgical changes of the stomach.Distal colonic diverticulosis without acute divert iculitis. No focal bowel wall thickening or surrounding inflammatory changes. The appendix is not toan ntified. No evidence of bowel obstruction. PERITONEUM: No evidence of pneumoperitoneum or free fluid. VASCULATURE: Mild atherosclerotic calcifications are present throughout the abdominal aorta and its b ranches. No evidence of aortic aneurysm. Pelvic phleboliths. MUSCULOSKELETAL: No acute osseous abnormalities. Postsurgical changes from bilateral total hip arthro plasty. This creates streak artifact. Multilevel degenerative disc disease. Grade 1/nearly grade 2 an terolisthesis of L4 on L5 without evidence of pars defects. LYMPH NODES: No gross evidence for lymphadenopathy. SOFT TISSUE/ABDOMINAL WALL: Small fat filled umbilical hernia. Post surgical changes of the anterior pelvic wall with surgical clips. IMPRESSION: 1. Increased common bile duct dilatation with abrupt tapering at the ampulla when compared to prior C T. Could be seen with an ampullary mass versus choledocholithiasis versus other etiologies. Correlate with biliary obstructive labs and consideration for MRCP/ERCP. 2. Hydropic gallbladder without surrounding inflammatory changes. 3. Colonic diverticulosis without evidence for acute diverticulitis. [facility], , 02/02/2025 10:04 PM
[2025-02-02 22:13] LABS: INR 1.1 (<1.2); Partial Thromboplastin Time 22.7 sec (22.0-30.0); Prothrombin Time 11.7 sec (10.0-12.5)
[2025-02-02] MEDS: HEPARIN SODIUM 1,000 UN/ML (10ML VL) IV ONE (22:23)
[2025-02-02] MEDS: METOCLOPRAMIDE 5 MG/ML 2 ML VIAL IVP STA (22:27)
[2025-02-02] MEDS: ASPIRIN 81 MG PO STA (22:27)
[2025-02-02] MEDS: PANTOPRAZOLE 40 MG/10 ML VIAL IVP STA (22:28)
[2025-02-02] MEDS: CIPROFLOXACIN-DEXAMETH 0.3-0.1% DROPS 7.5 ML BTL RIGHT EAR SCH (22:28)
[2025-02-02] MEDS: SODIUM CHLORIDE 0.9% 1,000 ML IV SCH (22:29)
--- NOTE | 2025-02-03 01:18 | P.HPIM ---
History of Present Illness H&P Date: 02/02/25 Chief Complaint: Abdominal pain 69-year-old female who presents to the emergency department for abdominal pain. States that it started 2 days ago. Pain is in the upper abdomen and she has associated nausea and vomiting. She is scheduled to have her gallbladder out with Dr. Lopes in the next few days, but was supposed to have cardiac clearance with a stress test first. She was told that if the pain became severe to come to the emergency department. She is concerned that the pain could be related to her gallbladder. Blood work completed in ED reveals WBC of 11.9, hemoglobin of 18.5 and platelet count of 50.8, sodium 208, potassium 3.4, BUNs/creatinine of 12/0.71, calcium of 10.7, total bilirubin 1.8 and AST of 4.8 lactic acid of 2.7, troponin elevated at 0.826 EKG: Sinus rhythm. Ventricular rate 71 bpm, KS interval 153 ms, QRS duration 93 ms, QTc [address] of the abdomen and pelvis reveals increased common bile duct dilatation with abrupt tapering at the ampulla when compared to prior CT; could be seen with ampullary mass versus choledocholithiasis versus other etiology MRCP is recommended; hydropic gallbladder without surrounding inflammatory changes Review of Systems REVIEW OF SYSTEMS: CONSTITUTIONAL: No fever, no malaise, no fatigue. HEENT: No recent visual problems or hearing problems. Denied any sore throat. CARDIOVASCULAR: No chest pain, orthopnea, PND, no palpitations, no syncope. PULMONARY: No shortness of breath, no cough, no hemoptysis. GASTROINTESTINAL: No diarrhea, no nausea, no vomiting, no abdominal pain. NEUROLOGICAL: No headaches, no weakness, no numbness. HEMATOLOGICAL: Denies any bleeding or petechiae. GENITOURINARY: Denies any burning micturition, frequency, or urgency. MUSCULOSKELETAL/RHEUMATOLOGICAL: Denies any joint pain, swelling, or any muscle pain. ENDOCRINE: Denies any polyuria or polydipsia. The rest of the 14-point review of systems is negative. Past Medical History Past Medical History: COPD, Hyperlipidemia, Osteoarthritis (OA), Thyroid Disorder Additional Past Medical History / Comment(s): diverticulitis, arthritis History of Any Multi-Drug Resistant Organisms: None Reported Past Surgical History: Bariatric Surgery, Bladder Surgery, Hernia Repair, Joint Replacement, Tubal Ligation Additional Past Surgical History / Comment(s): kilo hip replacement, kilo carpal tunnel, bladder suspension, lap band in, now removed, abd hernia, TOTAL LEFT KNEE. Colonoscopy. bladder lsing Past Anesthesia/Blood Transfusion Reactions: No Reported Reaction Past Psychological History: No Psychological Hx Reported Smoking Status: Current every day smoker Past Alcohol Use History: Occasional Past Drug Use History: None Reported - Past Family History Mother Family Medical History: No Reported History Medications and Allergies Home Medications Medication Instructions Recorded Confirmed Type Ezetimibe [Zetia] 10 mg PO DAILY 09/29/17 10/02/24 History Escitalopram [Lexapro] 20 mg PO DAILY 09/20/21 10/02/24 History oxyCODONE-APAP 10-325MG [Percocet 1 tab PO TID PRN 03/22/24 10/02/24 History 10-325 mg] Levothyroxine Sodium [Synthroid] 100 mcg PO DAILY 10/02/24 10/02/24 History Omeprazole 40 mg PO DAILY 10/02/24 10/02/24 History Pregabalin [Lyrica] 100 mg PO TID 10/02/24 10/02/24 History Atorvastatin [Lipitor] 40 mg PO DAILY 14 Days #14 tab 10/05/24 Rx Lactulose [Cephulac] 30 gm PO TID PRN 14 Days #2000 ml 10/05/24 Rx Allergies Allergy/AdvReac Type Severity Reaction Status Date / Time No Known Allergies Allergy Verified 02/02/25 18:57 Physical Exam Vitals: Vital Signs Pulse Resp BP Pulse Ox 02/02/25 21:36 61 18 119/75 02/02/25 18:53 103 H 18 158/110 98 Intake and Output 02/02/25 02/02/25 02/02/25 06:59 14:59 22:59 Other: Weight 77.111 kg General appearance: alert, in distress Head exam: Present: atraumatic, normocephalic, normal inspection Respiratory exam: Present: normal lung sounds bilaterally. Absent: respiratory distress, wheezes, rales, rhonchi, stridor Cardiovascular Exam: Present: regular rate, normal rhythm GI/Abdominal exam: Present: soft, tenderness (Upper abdomen), normal bowel sounds. Absent: distended Neurological exam: Present: alert, oriented X3, CN II-XII intact Psychiatric exam: Present: normal affect, normal mood Skin exam: Present: warm, dry, intact, normal color. Absent: rash Results CBC & Chem 7: 02/02/25 19:36 02/02/25 19:36 Labs: Abnormal Lab Results - Last 24 Hours (Table) 02/02/25 02/02/25 02/02/25 Range/Units 19:36 19:36 19:36 WBC 11.9 H (3.8-10.6) k/uL Hgb 18.5 H (11.4-16.0) gm/dL Hct 50.8 H (34.0-46.0) % Neutrophils # 8.4 H (1.3-7.7) k/uL Sodium 136 L (137-145) mmol/L Potassium 3.4 L (3.5-5.1) mmol/L Carbon Dioxide 20 L (22-30) mmol/L Glucose 178 H (74-99) mg/dL Plasma Lactic Acid Franklyn 2.7 H* (0.7-2.0) mmol/L Calcium 10.7 H (8.4-10.2) mg/dL Total Bilirubin 1.8 H (0.2-1.3) mg/dL AST 48 H (14-36) U/L Troponin I (0.000-0.034) ng/mL Total Protein 8.7 H (6.3-8.2) g/dL Albumin 5.1 H (3.5-5.0) g/dL 02/02/25 Range/Units 19:36 WBC (3.8-10.6) k/uL Hgb (11.4-16.0) gm/dL Hct (34.0-46.0) % Neutrophils # (1.3-7.7) k/uL Sodium (137-145) mmol/L Potassium (3.5-5.1) mmol/L Carbon Dioxide (22-30) mmol/L Glucose (74-99) mg/dL Plasma Lactic Acid Franklyn (0.7-2.0) mmol/L Calcium (8.4-10.2) mg/dL Total Bilirubin (0.2-1.3) mg/dL AST (14-36) U/L Troponin I 0.826 H* (0.000-0.034) ng/mL Total Protein (6.3-8.2) g/dL Albumin (3.5-5.0) g/dL Assessment and Plan Assessment: 1. NSTEMI; initial troponin is elevated at 0.826 -Patient received aspirin and has been placed on IV heparin -We will monitor EKG and trend troponin; order 2D echo -Consult cardiology 2. Gallbladder hydrops/mild transaminitis -Surgery is consulted; given slight elevation in WBC and lactic acid level,; we will start patient on IV antibiotics 3. Lactic acidosis; likely dehydration versus associated with gallbladder pathology; repeat lactic acid level is 1.4 4. Elevated liver enzymes; total bilirubin elevated at 1.8 with AST of 48; we will monitor liver enzymes -Will order MRI 5. Hypothyroidism; levothyroxine 100 mcg daily 6. Hyperlipidemia; Zetia 10 mg daily; Lipitor 40 mg daily 7. Gastroesophageal reflux disease; omeprazole 40 mg daily 8. Anxiety/depression; Lexapro 20 mg daily DVT prophylaxis; SCD/IV heparin CODE STATUS; full code
[2025-02-03] MEDS: AMPICILLIN-SULBACTAM 3 GM in SODIUM CHLORIDE 0.9% 100 ML IVPB SCH (02:21)
[2025-02-03] MEDS: HYDROmorphone 0.5 MG/0.5 ML SYRINGE IVP PRN (02:22)
[2025-02-03 04:01] LABS: Appearance,Urine Clear (Clear); Bacteria,Urine Rare /hpf; Bilirubin,Urine Negative (Negative); Blood,Urine Moderate (Negative); Color,Urine Yellow; Glucose,Urine (UA) Negative (Negative); Hyaline Casts,Urine 27 /lpf (0-2); Ketones,Urine 1+ (Negative); Leukocyte Esterase,Urine Trace (Negative); Mucus,Urine Rare /hpf; Nitrite,Urine Negative (Negative); Protein,Urine 2+ (Negative); RBC,Urine 13 /hpf (0-5); Squamous Epithelial Cell,Urine 7 /hpf (0-4); Urobilinogen,Urine <2.0 mg/dL (<2.0); WBC,Urine 9 /hpf (0-5)
[2025-02-03 04:05] LABS: Specific Gravity,Urine >1.050 (1.001-1.035)
[2025-02-03 05:06] LABS: Basophils % (A) 0 %; Eosinophils % (A) 0 %; HCT 42.8 % (34.0-46.0); Lymphocytes # (A) 2.5 k/uL (1.0-4.8); Lymphocytes % (A) 25 %; MCH 32.9 pg (25.0-35.0); MCHC 33.7 g/dL (31.0-37.0); MCV 97.7 fL (80.0-100.0); Mean Platelet Volume 8.8; Monocytes # (A) 0.9 k/uL (0-1.0); Monocytes % (A) 9 %; Neutrophils # (A) 6.1 k/uL (1.3-7.7); Neutrophils % (A) 63 %; Platelet Count 174 k/uL (150-450); RBC 4.39 m/uL (3.80-5.40); RDW 11.9 % (11.5-15.5); WBC 9.8 k/uL (3.8-10.6)
[2025-02-03 05:15] LABS: INR 1.1 (<1.2); Partial Thromboplastin Time 57.4 sec (22.0-30.0); Prothrombin Time 11.9 sec (10.0-12.5)
[2025-02-03 05:51] LABS: HGB 14.4 gm/dL (11.4-16.0)
[2025-02-03 05:57] LABS: ALT 14 U/L (4-34); AST 39 U/L (14-36); African American GFR (CKD) >90 (>60 ml/min/1.73 sqM); Albumin 3.4 g/dL (3.5-5.0); Alkaline Phosphatase 67 U/L (38-126); Anion Gap -1 mmol/L; Bilirubin, Delta 0.1 mg/dL (0.0-0.2); Bilirubin,Unconjugated 0.8 mg/dL (0.0-1.1); Blood Urea Nitrogen 15 mg/dL (7-17); Calcium 8.9 mg/dL (8.4-10.2); Carbon Dioxide 27 mmol/L (22-30); Chloride 105 mmol/L (98-107); Glucose 105 mg/dL (74-99); Non-African American GFR(CKD) 88 (>60 ml/min/1.73 sqM); Potassium 3.4 mmol/L (3.5-5.1); Sodium 131 mmol/L (137-145); Total Bilirubin 0.9 mg/dL (0.2-1.3); Total Protein 6.1 g/dL (6.3-8.2)
--- NOTE | 2025-02-03 09:04 | P.GSCN ---
History of Present Illness Consult date: 02/03/25 History of present illness: CHIEF COMPLAINT: Abdominal pain HISTORY OF PRESENT ILLNESS: The patient is a 69-year-old female admitted being admitted for nausea and vomiting abdominal pain and non-ST CA. She presented with very similar symptoms 5 months ago for which she was seen also for abdominal pain. Patient had been lost to follow-up since her last assessment in the hospital. Patient now complains of moderate abdominal pain. She comes with moderately elevated troponins. Last endoscopies was 8 months ago, May 2024, with Dr. Rizvi with findings of hiatal hernia and diverticulosis. This time, patient seeking surgical intervention. PAST MEDICAL HISTORY: See list and reviewed PAST SURGICAL HISTORY: See list and reviewed MEDICATIONS: See list and reviewed ALLERGIES: See list and reviewed SOCIAL HISTORY: See list and reviewed FAMILY HISTORY: See list and reviewed REVIEW OF ORGAN SYSTEMS: CONSTITUTIONAL: No fevers or chills. EYES: Denies any trouble with vision. No glasses. HEENT: No difficulties with hearing. No nosebleeds. No difficulty swallowing. RESPIRATORY: Has chronic obstructive pulmonary disease. Has active tobacco abuse disorder. CARDIOVASCULAR: Has current non-ST CA. Has hypertensive heart disease. GASTROINTESTINAL: Has gastroesophageal reflux disease. Has current diarrhea, loose stools. Has diverticulitis. GENITOURINARY: Denies any blood in urine or increased urinary frequency. NEUROLOGICAL: Has chronic pain syndrome. MUSCULOSKELETAL: Denies any back pain, stiffness or joint arthritis. SKIN: No current skin cancer. No rash. PSYCHIATRIC: Denies current depression or suicidal thoughts. ENDOCRINE: Has hypothyroidism. HEME/LYMPHATIC: Denies any lumps and bumps around the neck. No recent deep venous thrombosis. ALLERGY/IMMUNOLOGY: No immunoglobulin therapy. No immune deficiencies. BREAST: Denies current breast lumps, pain or nipple discharge. PHYSICAL EXAM: VITALS: Reviewed CONSTITUTIONAL: Well developed and in no acute distress. EYES: Conjuctivae without sclera icterus. Extraocular movements grossly intact. HEAD, EARS, NOSE, THROAT: Moist buccal mucosa. Head is atraumatic, normocephalic. Hears conversational speech. No nasal drainage. NECK: Supple. No JV distention. No thyroidomegaly. RESPIRATORY: Non-labored respirations and equal bilateral excursions. No gross wheezes. CARDIOVASCULAR: Palpable 2+ radial pulses. ABDOMEN: No diffuse peritonitis. Epigastric pain. LYMPH: No neck lymphadenopathy. MUSCULOSKELETAL: No clubbing cyanosis or edema SKIN: Warm and well perfused with good skin turgor. NEUROLOGIC: Cranial nerves II through XII grossly intact. No focal or lateraliz ing signs. PSYCH: Appropriate affect. Alert and oriented to person, place and time. Displays appropriate insight. CLINCAL LABS: Reviewed. WBC on admission 11.9 now normal, 9.8. Total bilirubin on admission 1.8, now normal 0.9. Liver enzymes also moderately improved since admission. Troponins elevated 0.8 IMAGING: Independently reviewed. CT of the abdomen pelvis independently reviewed demonstrate moderately dilated common bile duct including dilated gallbladder. No obvious stones identified. This is my independent interpretation. Ultrasound of gallbladder independent reviewed demonstrates gallbladder sludge. Also presence of fatty liver disease. No pericholecystic fluid or thickened gallbladder wall consistent for acute cholecystitis. RADIOLOGY: Report reviewed. CT abdomen pelvis demonstrating increase in size common bile duct 1.3 cm with concern of obstructive biliary disease due to acute tapering. RECORDS: previous old records reviewed. EGD and colonoscopy from 2023 reviewed demonstrates diaphragmatic hiatal hernia including diverticulosis. Pathology report from May 2024 reviewed demonstrates chronic gastritis. EKG: EKG reviewed with left anterior fascicular block. Abnormal ASSESSMENT: 1. Hydropic gallbladder with epigastric abdominal pain 2. Abnormal CT scan for biliary pathology, common bile duct obstruction 3. Elevated LFTs 4. Non-ST CA with abnormal EKG PLAN: 1. MRCP has been ordered to identify stricture or common bile duct disease whic h can also lead to hydropic gallbladder. 2. HIDA scan ordered to identify acute cholecystitis 3. Due to active acute myocardial infarction, no surgery at this time until cardiac risk assessment and clearance is obtained. 4. May have clear liquid diet in the interim. ADVANCE DIRECTIVE: CODE STATUS in chart. Thank you for this kind consultation. Past Medical History Past Medical History: COPD, Hyperlipidemia, Osteoarthritis (OA), Thyroid Disorder Additional Past Medical History / Comment(s): diverticulitis, arthritis History of Any Multi-Drug Resistant Organisms: None Reported Past Surgical History: Bariatric Surgery, Bladder Surgery, Hernia Repair, Joint Replacement, Tubal Ligation Additional Past Surgical History / Comment(s): kilo hip replacement, kilo carpal tunnel, bladder suspension, lap band in, now removed, abd hernia, TOTAL LEFT KNEE. Colonoscopy. bladder lsing Past Anesthesia/Blood Transfusion Reactions: No Reported Reaction Past Psychological History: No Psychological Hx Reported Smoking Status: Current every day smoker Past Alcohol Use History: Occasional Past Drug Use History: None Reported - Past Family History Mother Family Medical History: No Reported History Medications and Allergies Home Medications Medication Instructions Recorded Confirmed Type Ezetimibe [Zetia] 10 mg PO DAILY 09/29/17 10/02/24 History Escitalopram [Lexapro] 20 mg PO DAILY 09/20/21 10/02/24 History oxyCODONE-APAP 10-325MG [Percocet 1 tab PO TID PRN 03/22/24 10/02/24 History 10-325 mg] Levothyroxine Sodium [Synthroid] 100 mcg PO DAILY 10/02/24 10/02/24 History Omeprazole 40 mg PO DAILY 10/02/24 10/02/24 History Pregabalin [Lyrica] 100 mg PO TID 10/02/24 10/02/24 History Atorvastatin [Lipitor] 40 mg PO DAILY 14 Days #14 tab 10/05/24 Rx Lactulose [Cephulac] 30 gm PO TID PRN 14 Days #2000 ml 10/05/24 Rx Allergies Allergy/AdvReac Type Severity Reaction Status Date / Time No Known Allergies Allergy Verified 02/02/25 18:57 Surgical - Exam Vital Signs Pulse Resp BP Pulse Ox 103 H 18 158/110 98 02/02/25 18:53 02/02/25 18:53 02/02/25 18:53 02/02/25 18:53 Results - Labs 02/03/25 04:46 02/03/25 04:46 Abnormal Lab Results - Last 24 Hours (Table) 02/02/25 02/02/25 02/02/25 Range/Units 19:36 19:36 19:36 WBC 11.9 H (3.8-10.6) k/uL Hgb 18.5 H (11.4-16.0) gm/dL Hct 50.8 H (34.0-46.0) % Neutrophils # 8.4 H (1.3-7.7) k/uL APTT (22.0-30.0) sec Sodium 136 L (137-145) mmol/L Potassium 3.4 L (3.5-5.1) mmol/L Carbon Dioxide 20 L (22-30) mmol/L Glucose 178 H (74-99) mg/dL Plasma Lactic Acid Franklyn 2.7 H* (0.7-2.0) mmol/L Calcium 10.7 H (8.4-10.2) mg/dL Total Bilirubin 1.8 H (0.2-1.3) mg/dL AST 48 H (14-36) U/L Troponin I (0.000-0.034) ng/mL Total Protein 8.7 H (6.3-8.2) g/dL Albumin 5.1 H (3.5-5.0) g/dL Ur Specific [place] (1.001-1.035) Urine Protein (Negative) Urine Ketones (Negative) Urine Blood (Negative) Ur Leukocyte Esterase (Negative) Urine RBC (0-5) /hpf Urine WBC (0-5) /hpf Ur Squamous Epith Cells (0-4) /hpf Urine Bacteria (None) /hpf Hyaline Casts (0-2) /lpf Urine Mucus (None) /hpf 02/02/25 02/02/25 02/03/25 Range/Units 19:36 23:15 03:02 WBC (3.8-10.6) k/uL Hgb (11.4-16.0) gm/dL Hct (34.0-46.0) % Neutrophils # (1.3-7.7) k/uL APTT (22.0-30.0) sec Sodium (137-145) mmol/L Potassium (3.5-5.1) mmol/L Carbon Dioxide (22-30) mmol/L Glucose (74-99) mg/dL Plasma Lactic Acid Franklyn (0.7-2.0) mmol/L Calcium (8.4-10.2) mg/dL Total Bilirubin (0.2-1.3) mg/dL AST (14-36) U/L Troponin I 0.826 H* 0.803 H* (0.000-0.034) ng/mL Total Protein (6.3-8.2) g/dL Albumin (3.5-5.0) g/dL Ur Specific [place] >1.050 H (1.001-1.035) Urine Protein 2+ H (Negative) Urine Ketones 1+ H (Negative) Urine Blood Moderate H (Negative) Ur Leukocyte Esterase Trace H (Negative) Urine RBC 13 H (0-5) /hpf Urine WBC 9 H (0-5) /hpf Ur Squamous Epith Cells 7 H (0-4) /hpf Urine Bacteria Rare H (None) /hpf Hyaline Casts 27 H (0-2) /lpf Urine Mucus Rare H (None) /hpf 02/03/25 02/03/25 02/03/25 Range/Units 04:46 04:46 04:46 WBC (3.8-10.6) k/uL Hgb (11.4-16.0) gm/dL Hct (34.0-46.0) % Neutrophils # (1.3-7.7) k/uL APTT 57.4 H (22.0-30.0) sec Sodium 131 L (137-145) mmol/L Potassium 3.4 L (3.5-5.1) mmol/L Carbon Dioxide (22-30) mmol/L Glucose 105 H (74-99) mg/dL Plasma Lactic Acid Franklyn (0.7-2.0) mmol/L Calcium (8.4-10.2) mg/dL Total Bilirubin (0.2-1.3) mg/dL AST 39 H (14-36) U/L Troponin I 0.572 H* (0.000-0.034) ng/mL Total Protein 6.1 L (6.3-8.2) g/dL Albumin 3.4 L (3.5-5.0) g/dL Ur Specific [place] (1.001-1.035) Urine Protein (Negative) Urine Ketones (Negative) Urine Blood (Negative) Ur Leukocyte Esterase (Negative) Urine RBC (0-5) /hpf Urine WBC (0-5) /hpf Ur Squamous Epith Cells (0-4) /hpf Urine Bacteria (None) /hpf Hyaline Casts (0-2) /lpf Urine Mucus (None) /hpf Diabetes panel 02/02/25 02/03/25 Range/Units 19:36 04:46 Sodium 136 L 131 L (137-145) mmol/L Potassium 3.4 L 3.4 L (3.5-5.1) mmol/L Chloride 100 105 (98-107) mmol/L Carbon Dioxide 20 L 27 (22-30) mmol/L BUN 12 15 (7-17) mg/dL Creatinine 0.71 0.69 (0.52-1.04) mg/dL Glucose 178 H 105 H (74-99) mg/dL Calcium 10.7 H 8.9 (8.4-10.2) mg/dL AST 48 H 39 H (14-36) U/L ALT 20 14 (4-34) U/L Alkaline Phosphatase 102 67 (38-126) U/L Total Protein 8.7 H 6.1 L (6.3-8.2) g/dL Albumin 5.1 H 3.4 L (3.5-5.0) g/dL Calcium panel 02/02/25 02/03/25 Range/Units 19:36 04:46 Calcium 10.7 H 8.9 (8.4-10.2) mg/dL Albumin 5.1 H 3.4 L (3.5-5.0) g/dL Pituitary panel 02/02/25 02/03/25 Range/Units 19:36 04:46 Sodium 136 L 131 L (137-145) mmol/L Potassium 3.4 L 3.4 L (3.5-5.1) mmol/L Chloride 100 105 (98-107) mmol/L Carbon Dioxide 20 L 27 (22-30) mmol/L BUN 12 15 (7-17) mg/dL Creatinine 0.71 0.69 (0.52-1.04) mg/dL Glucose 178 H 105 H (74-99) mg/dL Calcium 10.7 H 8.9 (8.4-10.2) mg/dL Adrenal panel 02/02/25 02/03/25 Range/Units 19:36 04:46 Sodium 136 L 131 L (137-145) mmol/L Potassium 3.4 L 3.4 L (3.5-5.1) mmol/L Chloride 100 105 (98-107) mmol/L Carbon Dioxide 20 L 27 (22-30) mmol/L BUN 12 15 (7-17) mg/dL Creatinine 0.71 0.69 (0.52-1.04) mg/dL Glucose 178 H 105 H (74-99) mg/dL Calcium 10.7 H 8.9 (8.4-10.2) mg/dL Total Bilirubin 1.8 H 0.9 (0.2-1.3) mg/dL AST 48 H 39 H (14-36) U/L ALT 20 14 (4-34) U/L Alkaline Phosphatase 102 67 (38-126) U/L Total Protein 8.7 H 6.1 L (6.3-8.2) g/dL Albumin 5.1 H 3.4 L (3.5-5.0) g/dL
[2025-02-03] MEDS: PANTOPRAZOLE 40 MG/10 ML VIAL IV SCH (09:15)
--- NOTE | 2025-02-03 10:44 | P.CRDCN ---
History of Present Illness Consult date: 02/03/25 History of present illness: The patient is a 69-year-old female patient who is known to our service from before was seen by our service back in 2023 with abnormal troponin felt to be not consistent with acute coronary syndrome and echocardiogram was performed at that time showed normal LV systolic function. She was seen by Dr. Saini at that point. She subsequently presented to the hospital complaining of abdominal discomfort and she was seen by her surgeon recently and scheduled to undergo cholecystectomy but she presented to the hospital complaining of severe a bdominal discomfort associated with nausea but no vomiting. No symptoms of any pain in the chest or shortness of breath or any other cardiovascular symptoms which she underwent further evaluation including an EKG showing sinus mechanism with no ischemic ST or T wave abnormalities and troponin came to be mildly abnormal and appears to be also somewhat flat across the board. No history of CAD but she does have dyslipidemia currently she is on statin and ezetimibe. No hypertension. No diabetes. She said today that she stop smoking and she stopped drinking alcohol. Currently she is experiencing abdominal discomfort appears to be severe and she is requiring pain medications. She underwent an evaluation for the gallbladder and that revealed dilated common bile duct. The physical examination is remarkable for regular rhythm with mild bilateral expiratory wheezing and the abdomen is soft and no edema was noted in the lower extremities Assessment Evidence of myocardial injury with no evidence of ischemia clinically or by EKG Abdominal discomfort consistent with cholecystitis Multiple comorbid conditions Plan Start the patient on aspirin if is okay from the surgical standpoint of view Restart the patient back on the lipid-lowering agents including ezetimibe and Zetia Obtain an echo for risk stratification The patient can proceed with the gallbladder surgery Past Medical History Past Medical History: COPD, Hyperlipidemia, Osteoarthritis (OA), Thyroid Disorder Additional Past Medical History / Comment(s): diverticulitis, arthritis History of Any Multi-Drug Resistant Organisms: None Reported Past Surgical History: Bariatric Surgery, Bladder Surgery, Hernia Repair, Joint Replacement, Tubal Ligation Additional Past Surgical History / Comment(s): kilo hip replacement, kilo carpal tunnel, bladder suspension, lap band in, now removed, abd hernia, TOTAL LEFT KNEE. Colonoscopy. bladder lsing Past Anesthesia/Blood Transfusion Reactions: No Reported Reaction Past Psychological History: No Psychological Hx Reported Smoking Status: Current every day smoker Past Alcohol Use History: Occasional Past Drug Use History: None Reported - Past Family History Mother Family Medical History: No Reported History Medications and Allergies Home Medications Medication Instructions Recorded Confirmed Type Ezetimibe [Zetia] 10 mg PO DAILY 09/29/17 10/02/24 History Escitalopram [Lexapro] 20 mg PO DAILY 09/20/21 10/02/24 History oxyCODONE-APAP 10-325MG [Percocet 1 tab PO TID PRN 03/22/24 10/02/24 History 10-325 mg] Levothyroxine Sodium [Synthroid] 100 mcg PO DAILY 10/02/24 10/02/24 History Omeprazole 40 mg PO DAILY 10/02/24 10/02/24 History Pregabalin [Lyrica] 100 mg PO TID 10/02/24 10/02/24 History Atorvastatin [Lipitor] 40 mg PO DAILY 14 Days #14 tab 10/05/24 Rx Lactulose [Cephulac] 30 gm PO TID PRN 14 Days #2000 ml 10/05/24 Rx Allergies Allergy/AdvReac Type Severity Reaction Status Date / Time No Known Allergies Allergy Verified 02/02/25 18:57 Physical Exam Vitals: Vital Signs Temp Pulse Pulse Resp BP BP Pulse Ox 02/03/25 08:00 98.1 F 50 L 16 106/73 95 02/03/25 05:20 54 L 16 100/60 95 02/03/25 04:56 97.5 F L 02/03/25 02:20 57 L 18 105/68 97 02/03/25 01:08 50 L 18 100/71 97 02/02/25 22:37 57 L 18 119/95 94 L 02/02/25 21:36 61 18 119/75 02/02/25 18:53 103 H 18 158/110 98 Intake and Output 02/02/25 02/03/25 02/03/25 22:59 06:59 14:59 Intake Total 66.776 Balance 66.776 Intake: Intake, IV Titration 66.776 Amount Heparin Sod,Pork in 0.45% 66.776 NaCl 25,000 unit In 0.45 % NaCl 1 250ml.bag @ 12 UNITS/KG/HR 9.253 mls/hr IV .Q24H [facility] Rx#: [id number] Other: Weight 77.111 kg Results 02/03/25 04:46 02/03/25 04:46 Cardiac Enzymes 02/02/25 02/02/25 02/02/25 Range/Units 19:36 19:36 23:15 AST 48 H (14-36) U/L Troponin I 0.826 H* 0.803 H* (0.000-0.034) ng/mL 02/03/25 02/03/25 Range/Units 04:46 04:46 AST 39 H (14-36) U/L Troponin I 0.572 H* (0.000-0.034) ng/mL Coagulation 02/02/25 02/03/25 Range/Units 19:31 04:46 PT 11.7 11.9 (10.0-12.5) sec APTT 22.7 57.4 H (22.0-30.0) sec CBC 02/02/25 02/03/25 Range/Units 19:36 04:46 WBC 11.9 H 9.8 (3.8-10.6) k/uL RBC 5.34 4.39 (3.80-5.40) m/uL Hgb 18.5 H 14.4 D (11.4-16.0) gm/dL Hct 50.8 H 42.8 (34.0-46.0) % Plt Count 208 174 (150-450) k/uL Comprehensive Metabolic Panel 02/02/25 02/03/25 Range/Units 19:36 04:46 Sodium 136 L 131 L (137-145) mmol/L Potassium 3.4 L 3.4 L (3.5-5.1) mmol/L Chloride 100 105 (98-107) mmol/L Carbon Dioxide 20 L 27 (22-30) mmol/L BUN 12 15 (7-17) mg/dL Creatinine 0.71 0.69 (0.52-1.04) mg/dL Glucose 178 H 105 H (74-99) mg/dL Calcium 10.7 H 8.9 (8.4-10.2) mg/dL Unconjugated Bilirubin 0.8 (0.0-1.1) mg/dL AST 48 H 39 H (14-36) U/L ALT 20 14 (4-34) U/L Alkaline Phosphatase 102 67 (38-126) U/L Total Protein 8.7 H 6.1 L (6.3-8.2) g/dL Albumin 5.1 H 3.4 L (3.5-5.0) g/dL Current Medications Generic Name Dose Route Start Last Admin Trade Name Freq PRN Reason Stop Dose Admin Acetaminophen 650 mg 02/02/25 21:30 Acetaminophen Tab 325 Mg Tab PO Q6HR PRN Mild Pain or Fever > 100.5 Ciprofloxacin/Dexamethasone 4 drops 02/02/25 22:15 02/03/25 10:34 Ciprofloxacin-Dexameth 0.3-0.1% Drops 7.5 Ml Btl RIGHT EAR Not Given BID [facility] Heparin Sodium (Porcine) 0 unit 02/02/25 21:19 Heparin Sodium 1,000 Un/Ml (10ml Vl) IV PER PROTOCOL PRN Low PTT Protocol Hydromorphone HCl 0.5 mg 02/02/25 21:30 02/03/25 09:15 Hydromorphone 0.5 Mg/0.5 Ml Syringe IVP 0.5 mg Q3HR PRN Administration Moderate Pain (Scale 4 to 6) Hydromorphone HCl 1 mg 02/02/25 21:30 Hydromorphone 1 Mg/Ml 1 Ml Syringe IVP Q3HR PRN Severe Pain (Scale 7 to 10) Heparin Sodium/Sodium Chloride 250 mls @ 9.253 mls/hr 02/02/25 21:30 02/03/25 05:18 25,000 unit/ Sodium Chloride IV 12 units/kg/hr .Q24H [facility] 9.253 mls/hr Titration Protocol 12 UNITS/KG/HR Sodium Chloride 1,000 mls @ 75 mls/hr 02/02/25 21:30 02/03/25 09:15 Saline 0.9% IV 75 mls/hr .[id number] [facility] Administration Ampicillin Sodium/Sulbactam 100 mls @ 200 mls/hr 02/03/25 02:00 02/03/25 09:15 Sodium 3 gm/ Sodium Chloride IVPB 200 mls/hr Q6H [facility] Administration Protocol Naloxone HCl 0.2 mg 02/02/25 21:30 Naloxone 0.4 Mg/Ml 1 Ml Vial IV Q2M PRN Opioid Reversal Ondansetron HCl 4 mg 02/02/25 21:30 Ondansetron 4 Mg/2 Ml Vial IVP Q8HR PRN Nausea And Vomiting Pantoprazole Sodium 40 mg 02/03/25 09:00 02/03/25 09:15 Pantoprazole 40 Mg/10 Ml Vial IV 40 mg DAILY [facility] Administration Intake and Output 02/02/25 02/03/25 02/03/25 22:59 06:59 14:59 Intake Total 66.776 Balance 66.776 Intake: Intake, IV Titration 66.776 Amount Heparin Sod,Pork in 0.45% 66.776 NaCl 25,000 unit In 0.45 % NaCl 1 250ml.bag @ 12 UNITS/KG/HR 9.253 mls/hr IV .Q24H [facility] Rx#: [id number] Other: Weight 77.111 kg 02/03/25 04:46 02/03/25 04:46
[2025-02-03] MEDS ORDERED: Potassium Replacement Protocol 1 EACH MISC MISCELLANE PRN (10:45)
[2025-02-03] MEDS: POTASSIUM CHLORIDE ER 20 MEQ TAB.ER PO SCH (11:30)
--- NOTE | 2025-02-03 12:18 | P.PN ---
Subjective Progress Note Date: 02/03/25 69-year-old female who presents to the emergency department for abdominal pain. States that it started 2 days ago. Pain is in the upper abdomen and she has associated nausea and vomiting. She is scheduled to have her gallbladder out with Dr. Lopes in the next few days, but was supposed to have cardiac clearance with a stress test first. She was told that if the pain became severe to come to the emergency department. She is concerned that the pain could be related to her gallbladder. Blood work completed in ED reveals WBC of 11.9, hemoglobin of 18.5 and platelet count of 50.8, sodium 208, potassium 3.4, BUNs/creatinine of 12/0.71, calcium of 10.7, total bilirubin 1.8 and AST of 4.8 lactic acid of 2.7, troponin elevated at 0.826 EKG: Sinus rhythm. Ventricular rate 71 bpm, SD interval 153 ms, QRS duration 93 ms, QTc [address] of the abdomen and pelvis reveals increased common bile duct dilatation with abrupt tapering at the ampulla when compared to prior CT; could be seen with ampullary mass versus choledocholithiasis versus other etiology MRCP is recommended; hydropic gallbladder without surrounding inflammatory changes --Patient has been evaluated by cardiology; evidence of myocardial injury without evidence of ischemia; recommending 2D echo for risk stratification; patient remains on Zetia and Crestor; cardiology recommending to proceed with gallbladder surgery Objective - Vital Signs Vital signs: Vital Signs Temp Pulse 50 L 02/03/25 01:08 Resp 18 02/03/25 01:08 BP 100/71 02/03/25 01:08 Pulse Ox 97 02/03/25 01:08 FiO2 Intake & Output 02/02/25 02/02/25 02/03/25 06:59 18:59 06:59 Weight 77.111 kg - Exam General appearance: alert, in distress Head exam: Present: atraumatic, normocephalic, normal inspection Respiratory exam: Present: normal lung sounds bilaterally. Absent: respiratory distress, wheezes, rales, rhonchi, stridor Cardiovascular Exam: Present: regular rate, normal rhythm GI/Abdominal exam: Present: soft, tenderness (Upper abdomen), normal bowel sounds. Absent: distended Neurological exam: Present: alert, oriented X3, CN II-XII intact Psychiatric exam: Present: normal affect, normal mood Skin exam: Present: warm, dry, intact, normal color. Absent: rash - Labs CBC & Chem 7: 02/03/25 04:46 02/03/25 04:46 Labs: Abnormal Lab Results - Last 24 Hours (Table) 02/02/25 02/02/25 02/02/25 Range/Units 19:36 19:36 19:36 WBC 11.9 H (3.8-10.6) k/uL Hgb 18.5 H (11.4-16.0) gm/dL Hct 50.8 H (34.0-46.0) % Neutrophils # 8.4 H (1.3-7.7) k/uL Sodium 136 L (137-145) mmol/L Potassium 3.4 L (3.5-5.1) mmol/L Carbon Dioxide 20 L (22-30) mmol/L Glucose 178 H (74-99) mg/dL Plasma Lactic Acid Franklyn 2.7 H* (0.7-2.0) mmol/L Calcium 10.7 H (8.4-10.2) mg/dL Total Bilirubin 1.8 H (0.2-1.3) mg/dL AST 48 H (14-36) U/L Troponin I (0.000-0.034) ng/mL Total Protein 8.7 H (6.3-8.2) g/dL Albumin 5.1 H (3.5-5.0) g/dL 02/02/25 Range/Units 19:36 WBC (3.8-10.6) k/uL Hgb (11.4-16.0) gm/dL Hct (34.0-46.0) % Neutrophils # (1.3-7.7) k/uL Sodium (137-145) mmol/L Potassium (3.5-5.1) mmol/L Carbon Dioxide (22-30) mmol/L Glucose (74-99) mg/dL Plasma Lactic Acid Frank[place] (0.7-2.0) mmol/L Calcium (8.4-10.2) mg/dL Total Bilirubin (0.2-1.3) mg/dL AST (14-36) U/L Troponin I 0.826 H* (0.000-0.034) ng/mL Total Protein (6.3-8.2) g/dL Albumin (3.5-5.0) g/dL Assessment and Plan Assessment: 1. NSTEMI; initial troponin is elevated at 0.826 -Patient received aspirin and has been placed on IV heparin -We will monitor EKG and trend troponin; order 2D echo -Consult cardiology 2. Gallbladder hydrops/mild transaminitis -Surgery is consulted; given slight elevation in WBC and lactic acid level,; we will start patient on IV antibiotics 3. Lactic acidosis; likely dehydration versus associated with gallbladder pathology; repeat lactic acid level is 1.4 4. Elevated liver enzymes; total bilirubin elevated at 1.8 with AST of 48; we will monitor liver enzymes -Will order MRI 5. Hypothyroidism; levothyroxine 100 mcg daily 6. Hyperlipidemia; Zetia 10 mg daily; Lipitor 40 mg daily 7. Gastroesophageal reflux disease; omeprazole 40 mg daily 8. Anxiety/depression; Lexapro 20 mg daily DVT prophylaxis; SCD/IV heparin CODE STATUS; full code
[2025-02-03] MEDS: ONDANSETRON 4 MG/2 ML VIAL IVP PRN (14:45)
--- NOTE | 2025-02-03 17:04 | CA ---
Transthoracic Echo Report Name: Wen Schwarz Age: 69 Gender: F : 1955 Exam Date: 02/03/2025 15:59 Exam Location: [facility] Ht (in): 72 Wt (lb): 170 Ordering Physician: Ferdinand Manzano MD ([id number]) Attending/Referring Phys: Jacqueline Lopes MD Insurance Sales Assistant Michela Montenegro RDCS Procedure CPT: Indications: nstemi Cardiac Hx: Technical Quality: Fair Contrast 1: Total Dose (mL): Contrast 2: Total Dose (mL): MEASUREMENTS (Male / Female) Normal Values 2D ECHO LV Diastolic Diameter PLAX 4.2 cm 4.2 - 5.9 / 3.9 - 5.3 cm LV Systolic Diameter PLAX 2.7 cm IVS Diastolic Thickness 1.0 cm 0.6 - 1.0 / 0.6 - 0.9 cm LVPW Diastolic Thickness 1.2 cm 0.6 - 1.0 / 0.6 - 0.9 cm LV Relative Wall Thickness 0.5 RV Internal Dim ED PLAX 3.3 cm LA Systolic Diameter LX 3.6 cm 3.0 - 4.0 / 2.7 - 3.8 cm LV Diastolic Volume MOD BP 47.1 cm??? 67 - 155 / 56 - 104 cm??? LV Systolic Volume MOD BP 22.2 cm??? 22 - 58 / 19 - 49 cm??? LV Ejection Fraction MOD BP 52.9 % >= 55 % LV Cardiac Index MOD BP 616.4 cm???/min???m??? LV Diastolic Volume MOD 4C 48.3 cm??? LV Systolic Volume MOD 4C 16.2 cm??? LV Ejection Fraction MOD 4C 66.4 % LV Cardiac Index MOD 4C 795.1 cm???/min???m??? LV Diastolic Length 4C 7.0 cm LV Systolic Length 4C 5.9 cm LV Diastolic Volume MOD 2C 43.0 cm??? LV Systolic Volume MOD 2C 27.3 cm??? LV Ejection Fraction MOD 2C 36.5 % LV Cardiac Index MOD 2C 389.0 cm???/min???m??? LV Diastolic Length 2C 6.5 cm LV Systolic Length 2C 6.7 cm LA Volume 57.3 cm??? 18 - 58 / 22 - 52 cm??? LA Volume Index 29.0 cm???/m??? 16 - 28 cm???/m??? M-MODE Aortic Root Diameter MM 2.9 cm DOPPLER AV Peak Velocity 141.5 cm/s AV Peak Gradient 8.0 mmHg TR Peak Velocity 192.0 cm/s TR Peak Gradient 14.7 mmHg Right Ventricular Systolic Press 29.7 mmHg FINDINGS Left Ventricle Left ventricular ejection fraction is estimated at 55-60 %. Left ventricular cavity size normal. Mildly increased septal wall thickness. Mildly increased posterior wall thickness. Right Ventricle Mild right ventricular dilatation. Right ventricular systolic pressure within normal limits. Right Atrium Normal right atrial size. No right atrial thrombus or mass seen. Left Atrium Mildly increased left atrial volume. No left atrial thrombus or mass present. Mitral Valve Mild thickening/calcification of the posterior mitral valve leaflet. No mitral stenosis, regurgitation or prolapse. Aortic Valve Trileaflet aortic valve. No aortic valve stenosis or regurgitation. Tricuspid Valve Structurally normal tricuspid valve. Mild tricuspid regurgitation. Pulmonic Valve Pulmonic valve not well visualized. Pericardium No pericardial effusion. Aorta Normal size aortic root and proximal ascending aorta. CONCLUSIONS Technically difficult study Normal LV systolic function Previewed by: Dr. Ferdinand Manzano MD (Electronically Signed) Final Date: 03 February 2025 17:02
[2025-02-03] MEDS: HYDROmorphone 1 MG/ML 1 ML SYRINGE IVP PRN (19:54)
[2025-02-03] MEDS: ACETAMINOPHEN TAB 325 MG TAB PO PRN (22:52)
[2025-02-04 05:46] LABS: Basophils % (A) 0 %; Eosinophils # (A) 0.2 k/uL (0-0.7); Eosinophils % (A) 3 %; HCT 41.4 % (34.0-46.0); Lymphocytes % (A) 45 %; MCH 33.3 pg (25.0-35.0); MCHC 33.7 g/dL (31.0-37.0); MCV 98.7 fL (80.0-100.0); Mean Platelet Volume 9.1; Monocytes # (A) 0.4 k/uL (0-1.0); Monocytes % (A) 6 %; Neutrophils % (A) 44 %; Platelet Count 151 k/uL (150-450); RDW 11.9 % (11.5-15.5); WBC 6.8 k/uL (3.8-10.6)
[2025-02-04 06:07] LABS: African American GFR (CKD) >90 (>60 ml/min/1.73 sqM); Anion Gap 4 mmol/L; Blood Urea Nitrogen 15 mg/dL (7-17); Carbon Dioxide 27 mmol/L (22-30); Chloride 104 mmol/L (98-107); Glucose 79 mg/dL (74-99); Non-African American GFR(CKD) >90 (>60 ml/min/1.73 sqM); Potassium 3.5 mmol/L (3.5-5.1); Sodium 135 mmol/L (137-145)
[2025-02-04] MEDS: ASPIRIN 81 MG PO SCH (09:07)
[2025-02-04] MEDS: ATORVASTATIN 40 MG TAB PO SCH (09:08)
[2025-02-04] MEDS: EZETIMIBE 10 MG TAB PO SCH (09:08)
--- NOTE | 2025-02-04 12:32 | NM ---
EXAMINATION TYPE: NM hepatobiliary wo EF DATE OF EXAM: 02/04/2025 12:08 PM COMPARISON: 02/02/2025 CLINICAL INDICATION:Female, 69 years old with history of Right upper quadrant abdominal pain; TECHNIQUE: The patient was given 5.2 mCi of Technetium 99m-Mebrofenin as a radiotracer and multiple scintigraphic images were obtained of the abdomen. Delayed imaging was performed. FINDINGS: Normal uptake of radiotracer was identified within the liver with excretion into the hepatic and comm on biliary ducts within 60 min. There was normal progressive washout of the liver over the course of the study. Radiotracer uptake within the gallbladder at 4 hours as well as small bowel activity was i dentified at 60 minutes. IMPRESSION: Delayed filling of the gallbladder correlate for chronic cholecystitis. [facility], , 02/04/2025 12:30 PM
--- NOTE | 2025-02-04 12:38 | P.PN ---
Subjective Progress Note Date: 02/04/25 CHIEF COMPLAINT: Abdominal pain HISTORY OF PRESENT ILLNESS: Patient continues to remain in the ER. She reports abdominal pain mostly epigastric and left upper quadrant. She feels nauseous no vomiting. She complains of headache. She is scheduled for HIDA scan and MRCP today. Afebrile. WBC 6.8 elevated troponins followed by cardiology. Echo normal EF 55 to 60%. PHYSICAL EXAM: VITAL SIGNS: Reviewed GENERAL: Well-developed in no acute distress. HEENT: No sclera icterus. Extraocular movements grossly intact. Moist buccal mucosa. Head is atraumatic, normocephalic. Hears conversational speech. No nasal drainage. NECK: Supple without lymphadenopathy. CHEST: Non-labored respirations and equal bilateral excursions. CARDIOVASCULAR: Palpable 2+ radial pulses. ABDOMEN: Soft. Nondistended. Epigastric and left upper quadrant tenderness with palpation MUSCULOSKELETAL: No clubbing or cyanosis. NEUROLOGIC: No focal or lateralizing signs. Cranial nerves II through XII grossly intact. PSYCH: Appropriate affect. Alert and oriented to person, place and time. SKIN: Well perfused. Good skin turgor. ASSESSMENT: 1. Hydropic gallbladder with epigastric abdominal pain 2. Abnormal CT scan for biliary pathology, common bile duct obstruction 3. Elevated LFTs 4. Elevated troponins. Evaluated by cardiology PLAN: -MRCP has been ordered to identify stricture or common bile duct disease which can also lead to hydropic gallbladder. -HIDA scan ordered to identify acute cholecystitis -Compazine added for continuous nausea -IV Tylenol added for headache -Okay to start aspirin -Cardiology has cleared patient for gallbladder surgery -Further recommendations forthcoming per surgeon Physician Rifle Case Repairer note has been reviewed by physician. Signing provider agrees with the documented findings, assessment, and plan of care. Objective - Vital Signs Vital signs: Vital Signs Temp 97.8 F 02/04/25 09:17 Pulse 50 L 02/04/25 09:17 Resp 18 02/04/25 09:17 BP 115/78 02/04/25 09:17 Pulse Ox 100 02/04/25 09:17 FiO2 Intake & Output 02/03/25 02/04/25 02/04/25 18:59 06:59 18:59 Intake Total 1122.593 Balance 1122.593 Intake: Intake, IV Titration 622.593 Amount Ampicillin-Sulbactam 3 gm 200 In Sodium Chloride 0.9% 100 ml @ 200 mls/hr IVPB Q6H [facility] Rx#:[id number] Heparin Sod,Pork in 0.45% 182.593 NaCl 25,000 unit In 0.45 % NaCl 1 250ml.bag @ 12 UNITS/KG/HR 9.253 mls/hr IV .Q24H [facility] Rx#: [id number] Sodium Chloride 0.9% 1, 240 000 ml @ 75 mls/hr IV . [id number] [facility] Rx#:[id number] Oral 500 Other: # Voids 2 - Labs CBC & Chem 7: 02/04/25 05:03 02/04/25 05:03 Labs: Abnormal Lab Results - Last 24 Hours (Table) 02/04/25 02/04/25 Range/Units 05:03 05:03 APTT 59.3 H (22.0-30.0) sec Sodium 135 L (137-145) mmol/L
[2025-02-04] MEDS: ACETAMINOPHEN IV (For NPO) 1,000 MG in EMPTY BAG 1 BAG IVPB ONE (14:04)
[2025-02-04] MEDS ORDERED: IPRATROPIUM-ALBUTEROL 3 ML NEB INHALATION PRN (14:56)
--- NOTE | 2025-02-04 15:14 | XR ---
EXAMINATION TYPE: XR chest 1V portable DATE OF EXAM: 02/04/2025 3:08 PM COMPARISON: Chest radiographs from 03/23/2024. CLINICAL INDICATION: Female, 69 years old with history of chf; TECHNIQUE: XR chest 1V portable Frontal view of the chest. FINDINGS: Lungs/Pleura: There is no evidence of pleural effusion, focal consolidation, or pneumothorax. Pulmonary vascularity: Unremarkable. Heart/mediastinum: Cardiomediastinal silhouette is unremarkable. Musculoskeletal: Degenerative changes of the shoulder joints. IMPRESSION: No acute cardiopulmonary disease/process. [facility], , 02/04/2025 3:11 PM
[2025-02-04] MEDS: PIPERACILLIN-TAZOBACTAM 3.375 GM in SODIUM CHLORIDE 0.9% 100 ML IVPB SCH (17:45)
[2025-02-04] MEDS: IPRATROPIUM-ALBUTEROL 3 ML NEB INHALATION SCH (18:34)
[2025-02-04] MEDS: PANTOPRAZOLE 40 MG/10 ML VIAL IV SCH (22:10)
--- NOTE | 2025-02-05 02:04 | PN ---
PROGRESS NOTE DATE OF SERVICE: 02/04/2025 SUBJECTIVE: This is a 69-year-old woman, who was admitted with significant abdominal pain, also had possibly acute ply-VR-byhoxhf-elevation myocardial infarction also. The patient is complaining of severe pain. HIDA scan showed some delayed emptying. The patient had hydropic gallbladder. MRCP has also been ordered by Surgery. A 2D echo showed normal ejection fraction. Cardiology is planning echo and the patient is cleared for gallbladder surgery at this time. There is no history of any fever or rigors. PAST MEDICAL HISTORY: Reviewed. REVIEW OF SYSTEMS: Fourteen-point review of systems is negative except as mentioned earlier. CURRENT MEDICATIONS: Reviewed. PHYSICAL EXAMINATION: VITAL SIGNS: Pulse is 58, blood pressure 115/70, respirations 18. HEENT: Conjunctivae normal. NECK: No JVD. CARDIOVASCULAR: S1, S2. RESPIRATIONS: Breath sounds diminished at the bases. A few scattered rhonchi. ABDOMEN: Soft, mild diffuse tenderness. No guarding. No rigidity. No masses. LEGS: No edema. NERVOUS SYSTEM: Nonfocal. LABORATORY DATA: Reviewed. ASSESSMENT: 1. Abdominal pain, possibly hydropic gallbladder with possible acute on chronic cholecystitis. 2. Troponin elevated up to 0.803. Possible acute fxo-JO-hcygjzo elevation myocardial infarction. 3. Severe abdominal pain. 4. Chronic obstructive pulmonary disease. 5. Degenerative joint disease. 6. Hyperlipidemia. 7. History of bariatric surgery. 8. Multiple complex medical issues. RECOMMENDATIONS AND DISCUSSION: This is a 69-year-old woman, who presented with multiple complex medical issues. We will monitor the patient closely. Continue the current management and continue symptomatic treatment. Continue with empiric antibiotics. I would recommend IV Zosyn and continue with Surgery and Cardiology. Prognosis extremely guarded because of multiple complex medical issues. I would also recommend bronchodilators and DVT prophylaxis also. MMODL / IJN: [id number] /
[2025-02-05 07:27] LABS: Basophils % (A) 0 %; Eosinophils # (A) 0.3 k/uL (0-0.7); Eosinophils % (A) 5 %; HCT 39.9 % (34.0-46.0); HGB 13.7 gm/dL (11.4-16.0); Lymphocytes # (A) 2.2 k/uL (1.0-4.8); Lymphocytes % (A) 34 %; MCH 33.5 pg (25.0-35.0); MCHC 34.2 g/dL (31.0-37.0); Mean Platelet Volume 8.7; Monocytes # (A) 0.4 k/uL (0-1.0); Monocytes % (A) 6 %; Neutrophils # (A) 3.4 k/uL (1.3-7.7); Neutrophils % (A) 52 %; Platelet Count 154 k/uL (150-450); RBC 4.07 m/uL (3.80-5.40); RDW 11.6 % (11.5-15.5); WBC 6.5 k/uL (3.8-10.6)
[2025-02-05 08:27] LABS: ALT 16 U/L (4-34); AST 29 U/L (14-36); African American GFR (CKD) >90 (>60 ml/min/1.73 sqM); Albumin 3.3 g/dL (3.5-5.0); Alkaline Phosphatase 65 U/L (38-126); Anion Gap 7 mmol/L; Blood Urea Nitrogen 13 mg/dL (7-17); Carbon Dioxide 24 mmol/L (22-30); Chloride 106 mmol/L (98-107); Glucose 92 mg/dL (74-99); Non-African American GFR(CKD) 89 (>60 ml/min/1.73 sqM); Potassium 3.3 mmol/L (3.5-5.1); Sodium 137 mmol/L (137-145); Total Bilirubin 0.9 mg/dL (0.2-1.3); Total Protein 5.8 g/dL (6.3-8.2)
--- NOTE | 2025-02-05 08:50 | P.PN ---
Subjective Progress Note Date: 02/04/25 The patient is a 69-year-old female patient who is known to our service from before was seen by our service back in 2023 with abnormal troponin felt to be not consistent with acute coronary syndrome and echocardiogram was performed at that time showed normal LV systolic function. She was seen by Dr. Saini at that point. She subsequently presented to the hospital complaining of abdominal discomfort and she was seen by her surgeon recently and scheduled to undergo cholecystectomy but she presented to the hospital complaining of severe abdominal discomfort associated with nausea but no vomiting. No symptoms of any pain in the chest or shortness of breath or any other cardiovascular symptoms which she underwent further evaluation including an EKG showing sinus mechanism with no ischemic ST or T wave abnormalities and troponin came to be mildly abnormal and appears to be also somewhat flat across the board. No history of CAD but she does have dyslipidemia currently she is on statin and ezetimibe. No hypertension. No diabetes. She said today that she stop smoking and she stopped drinking alcohol. Currently she is experiencing abdominal discomfort appears to be severe and she is requiring pain medications. She underwent an evaluation for the gallbladder and that revealed dilated common bile duct. The physical examination is remarkable for regular rhythm with mild bilateral expiratory wheezing and the abdomen is soft and no edema was noted in the lower extremities 02/04/2025 Patient is in distress because of her abdominal pain. She denies any chest pain chest pressure. She denies any new or worsening shortness of breath or signs of congestive heart failure. On telemetry she is in sinus rhythm. Assessment Evidence of myocardial injury with no evidence of ischemia clinically or by EKG Abdominal discomfort consistent with cholecystitis Multiple comorbid conditions Perioperative cardiac risk assessment Pertinent cardiac testing Echo from this admission shows normal LV systolic function with a EF of 55%, technically difficult study. Plan Continue aspirin 81 mg, Lipitor 40 mg, discontinue Zetia Discontinue IV heparin drip Cannot do beta-katya because of low resting heart rate in mid 50s. At this time patient is cleared to undergo gallbladder surgery from cardio vascular standpoint. After surgery I would recommend outpatient follow-up with cardiology and recomm end outpatient Lexiscan nuclear stress test for further evaluation and restratification for obstructive coronary artery disease. At this time patient is cleared from cardiovascular standpoint. Cardiology team will sign off. Please reconsult us in case of any question. Objective - Vital Signs Vital signs: Vital Signs Temp 98.1 F 02/05/25 04:31 Pulse 54 L 02/05/25 04:31 Resp 18 02/05/25 04:31 BP 135/79 02/05/25 04:31 Pulse Ox 98 02/05/25 04:31 FiO2 Intake & Output 02/04/25 02/05/25 02/05/25 18:59 06:59 18:59 Intake Total 218.988 Balance 218.988 Weight 77 kg Intake: Intake, IV Titration 218.988 Amount Heparin Sod,Pork in 0.45% 218.988 NaCl 25,000 unit In 0.45 % NaCl 1 250ml.bag @ 12 UNITS/KG/HR 9.253 mls/hr IV .Q24H [facility] Rx#: [id number] Other: Voiding Method Toilet # Voids 2 - Labs CBC & Chem 7: 02/05/25 06:45 02/05/25 06:45 Labs: Abnormal Lab Results - Last 24 Hours (Table) 02/05/25 02/05/25 Range/Units 06:45 06:45 APTT 60.0 H (22.0-30.0) sec Potassium 3.3 L (3.5-5.1) mmol/L Total Protein 5.8 L (6.3-8.2) g/dL Albumin 3.3 L (3.5-5.0) g/dL
[2025-02-05] MEDS: NA PHOS,M-B/NA PHOS,DI-BA 133 ML ENEMA RECTAL ONE (10:54)
--- NOTE | 2025-02-05 11:31 | CDI ---
Documentation Clarification Form Date: 02/05/2025 11:10:26 AM From: Maria Dolores Malave RN CCDS Phone: [phone] Admit Date: 02/02/2025 09:33:00 PM Patient Name: Wen Schwarz Visit Number: [id number] Discharge Date: ATTENTION: The Clinical Documentation Specialists (CDI) and [facility] Coding Staff appreciate your assistance in clarifying documentation. Please respond to the clarification below the line at the bottom and electronically sign. The CDI & [facility] Coding staff will review the response and follow-up if needed. Please note: Queries are made part of the Legal Health Record. If you have any questions, please contact the author of this message via ITS. Doctor: Teodora Lara Conflicting documentation has been found in the medical record. As attending physician, please provide clarification. Possible Acute elz-OB-lpjoejk elevation myocardial infarction, 02/04 Medicine note Evidence of myocardial injury with no evidence of ischemia clinically or by EKG, 02/04 Cardiology note. History/Risk Factors: 69 year old female presents to the ED with right upper abdominal pain with nausea and vomiting. Medical history: Scheduled to have her gallbladder out with Dr. Lopes in the next few days, but was supposed to have cardiac clearance with a stress test first. She was told if the pain became severe to come to the emergency department. COPD, HLD, OA and Thyroid disorder. 02/02. ED note. Clinical Indicators: Troponin: 02/02- 0.829; 0.803; 02/03 0.572 EKG, 02/02: Sinus rhythm left axis deviation. Probable septal myocardial infarction, probably old, abnormal EKG EKG, 02/02: Sinus rhythm with occasional supraventricular premature complexes Pattern consistent with pulmonary disease. Left anterior fascicular block ECHO, 02/03: EF 55-60% Technically difficult study. Normal LV systolic function. Treatment: Please clarify which diagnosis is most appropriate: [ ] Non-ST segment elevation myocardial infarction. [ ] Evidence of myocardial injury with no evidence of ischemia [ ] Other (please specify) [ ] Unable to determine (Template Last Revised: January 2021) Evidence of myocardial injury with no evidence of ischemia MTDD
--- NOTE | 2025-02-05 13:26 | P.PN ---
Subjective Progress Note Date: 02/05/25 CHIEF COMPLAINT: Abdominal pain HISTORY OF PRESENT ILLNESS: Patient currently on the cardiac floor. She continues to complain of abdominal pain in the epigastric and left upper quadrant area. She reports nausea. No vomiting. She is complaining of constipation. Last bowel movement 3 days ago. Medicine service has ordered an enema. Stool softener added. She is scheduled for MRCP today. Afebrile. WBC 6.5 LFTs normal. HIDA scan reported delayed filling of the gallbladder correlate for chronic cholecystitis. Cardiology service did cleared patient for surgery. PHYSICAL EXAM: VITAL SIGNS: Reviewed GENERAL: Well-developed in no acute distress. HEENT: No sclera icterus. Extraocular movements grossly intact. Moist buccal mucosa. Head is atraumatic, normocephalic. Hears conversational speech. No nasal drainage. NECK: Supple without lymphadenopathy. CHEST: Non-labored respirations and equal bilateral excursions. CARDIOVASCULAR: Palpable 2+ radial pulses. ABDOMEN: Soft. Nondistended. Epigastric and left upper quadrant tenderness with palpation MUSCULOSKELETAL: No clubbing or cyanosis. NEUROLOGIC: No focal or lateralizing signs. Cranial nerves II through XII grossly intact. PSYCH: Appropriate affect. Alert and oriented to person, place and time. SKIN: Well perfused. Good skin turgor. ASSESSMENT: 1. Hydropic gallbladder with epigastric abdominal pain 2. Chronic cholecystitis 3. Abnormal CT scan for biliary pathology, common bile duct obstruction 4. Elevated LFTs improved 5. Myocardial infarction. Elevated troponins. Evaluated by cardiology PLAN: -No surgical intervention planned for chronic cholecystitis at this time -MRCP has been ordered to identify stricture or common bile duct disease which can also lead to hydropic gallbladder. -Colace added for constipation. Agree with Fleet enema. -Noted that there is no GI service available this week. Will follow-up on MRCP results. Depending on those results patient may require transfer to be evaluated by GI service for ERCP. Physician Rip Machine Operator note has been reviewed by physician. Signing provider agrees with the documented findings, assessment, and plan of care. Objective - Vital Signs Vital signs: Vital Signs Temp 97.7 F 02/05/25 11:26 Pulse 47 L 02/05/25 11:26 Resp 20 02/05/25 11:26 BP 156/80 02/05/25 11:26 Pulse Ox 96 02/05/25 11:26 FiO2 Intake & Output 02/04/25 02/05/25 02/05/25 18:59 06:59 18:59 Intake Total 218.988 100 Balance 218.988 100 Weight 77 kg Intake: Intake, IV Titration 218.988 Amount Heparin Sod,Pork in 0.45% 218.988 NaCl 25,000 unit In 0.45 % NaCl 1 250ml.bag @ 12 UNITS/KG/HR 9.253 mls/hr IV .Q24H [facility] Rx#: [id number] Oral 100 Other: Voiding Method Toilet # Voids 2 - Labs CBC & Chem 7: 02/05/25 06:45 02/05/25 06:45 Labs: Abnormal Lab Results - Last 24 Hours (Table) 02/05/25 02/05/25 Range/Units 06:45 06:45 APTT 60.0 H (22.0-30.0) sec Potassium 3.3 L (3.5-5.1) mmol/L Total Protein 5.8 L (6.3-8.2) g/dL Albumin 3.3 L (3.5-5.0) g/dL
[2025-02-05] MEDS ORDERED: Potassium Replacement Protocol 1 EACH MISC MISCELLANE PRN (15:15)
[2025-02-05] MEDS: IPRATROPIUM-ALBUTEROL 3 ML NEB INHALATION SCH (16:26)
--- NOTE | 2025-02-05 16:36 | MR ---
EXAMINATION TYPE: MR MRCP DATE OF EXAM: 02/05/2025 4:16 PM COMPARISON: 02/02/2025. CLINICAL INDICATION: Female, 69 years old with history of Biliary obstruction; PHH, biliary obstructi on TECHNIQUE: Multi planar, T2-weighted imaging with and without fat saturation and chemical shift imag ing was performed of the abdomen. Then, heavily T2 weighted imaging (half-Fourier acquisition single- shot turbo spin-echo) was utilized in order to study the biliary system. Maximum intensity projectio n images were reconstructed from the original data of the biliary tree. 3D images were created on [employer] work station. No Gadolinium given. FINDINGS: Lower Thorax: No evidence for acute process. Heart is mildly enlarged. MRCP: * The intrahepatic ducts dilated essentially * The extrahepatic ducts are dilated. * The common hepatic duct measures 18 mm in size. * The common bile duct at the level of the pancreatic head measures 13 mm in size. There may be nono bstructing stone on series 411 image 16 measuring 5 mm. * The pancreatic duct is minimally dilated up to 5 mm at the neck. * The gallbladder appears hydropic measuring dilated at up to 8.5 cm x 5.0 cm. Abdomen: Liver: No evidence for hepatic steatosis or cirrhosis. Pancreas: No ductal dilation. No evidence for solid mass. Scattered cysts in the pancreatic tail nuris uring up to 7 mm some tortuosity to the main pancreatic duct. Spleen: Normal for size. Adrenal glands: Unremarkable. Kidneys: No evidence for obstructive uropathy. No suspicious renal masses. Stomach and Bowel: No evidence for bowel wall thickening or evidence for obstruction. Scattered colon ic diverticula. Retroperitoneum/Peritoneum: No evidence of pneumoperitoneum or free fluid. Vasculature: No aortic aneurysm. Musculoskeletal: The osseous structures appear intact. Bilateral hip arthroplasties present. L2 verte bral body and vertebral body hemangioma. Lymph Nodes: No gross evidence for lymphadenopathy. Abdominal wall: Unremarkable. IMPRESSION: 1. Severe dilation of the biliary system there may be a obstructing choledocholith series 411 image 16 versus masslike parenchyma. If there is no stone and consideration for ampullary mass should be co nsidered given prominence of the pancreatic duct. Evaluation for ERCP recommended. 2. Pancreatic tail cystic lesion possibly representing sequela of prior pancreatitis versus side bra nch intraductal mucinous neoplasm versus other cystic neoplasms. Attention on follow-up imaging in on e year with MRI MRCP with contrast to ensure stability. 3. Mild cardiomegaly. 4. Colonic diverticulosis. 5. Simple appearing renal cysts, no follow-up recommended. [facility], , 02/05/2025 4:33 PM
[2025-02-05] MEDS: DOCUSATE 100 MG CAP PO SCH (16:46)
[2025-02-05] MEDS: POTASSIUM CHLORIDE 10 MEQ in WATER FOR INJECTION 1 100ML.BAG IVPB SCH (16:47)
[2025-02-05] MEDS: HYDROcodone/APAP 5-325MG 1 EACH TAB PO PRN (18:37)
--- NOTE | 2025-02-05 22:40 | PN ---
PROGRESS NOTE DATE OF SERVICE: 02/05/2025 SUBJECTIVE: This is a 69-year-old woman, who was admitted with abdominal pain with possibly hydropic gallbladder, who had acute on chronic cholecystitis. The patient is complaining of severe pain. MRCP has been ordered. Conservative line of management is recommended with Surgery at this time. No fever, no cough. PAST MEDICAL HISTORY: Reviewed. REVIEW OF SYSTEMS: Fourteen-point review of systems negative except as mentioned earlier. CURRENT MEDICATIONS: Reviewed. PHYSICAL EXAMINATION: VITAL SIGNS: Pulse 55, blood pressure n, respirations 20. HEENT: Conjunctivae normal. NECK: No JVD. CARDIOVASCULAR: S1, S2. RESPIRATIONS: Breath sounds diminished at the bases. A few scattered rhonchi. ABDOMEN: Soft, mild diffuse discomfort and tenderness. LABORATORY DATA: Reviewed. ASSESSMENT: 1. Abdominal pain, possible hydropic gallbladder with possible acute on chronic cholecystitis. 2. Troponin is elevated up to 0.803. Possible acute tnl-CQ-xdwyqoy-elevation myocardial infarction. 3. Severe abdominal pain. 4. Chronic obstructive pulmonary disease. 5. Degenerative joint disease. 6. Hyperlipidemia. 7. History of bariatric surgery. 8. Multiple complex medical issues. RECOMMENDATIONS: Recommended to continue with current management; continue with antibiotics. Pain management. Closely followed by Surgery and Cardiology. Guarded prognosis. Further recommendations to follow. Broad-spectrum IV antibiotics. We will repeat a chest x-ray tomorrow. CIARAN / CARENN: [id number] / SEAMUS
[2025-02-06] MEDS: LEVOTHYROXINE 112 MCG TAB PO SCH (06:22)
[2025-02-06 07:51] LABS: Basophils % (A) 0 %; Eosinophils # (A) 0.5 k/uL (0-0.7); Eosinophils % (A) 7 %; HGB 12.9 gm/dL (11.4-16.0); Lymphocytes # (A) 2.3 k/uL (1.0-4.8); Lymphocytes % (A) 37 %; MCH 32.9 pg (25.0-35.0); MCHC 33.2 g/dL (31.0-37.0); MCV 99.3 fL (80.0-100.0); Mean Platelet Volume 8.8; Monocytes # (A) 0.4 k/uL (0-1.0); Monocytes % (A) 6 %; Neutrophils % (A) 48 %; Platelet Count 154 k/uL (150-450); RBC 3.93 m/uL (3.80-5.40); RDW 11.5 % (11.5-15.5); WBC 6.3 k/uL (3.8-10.6)
--- NOTE | 2025-02-06 08:03 | XR ---
EXAMINATION TYPE: XR chest 1V portable DATE OF EXAM: 02/06/2025 6:57 AM COMPARISON: Chest radiograph from one day prior. CLINICAL INDICATION: Female, 69 years old with history of chf; [facility] TECHNIQUE: XR chest 1V portable Frontal view of the chest. FINDINGS: Lungs/Pleura: There is no evidence of pleural effusion, focal consolidation, or pneumothorax. Pulmonary vascularity: Unremarkable. Heart/mediastinum: Cardiomediastinal silhouette is unremarkable. Musculoskeletal: Degenerative changes of the shoulder joints. IMPRESSION: No acute cardiopulmonary disease/process. [facility], , 02/06/2025 8:00 AM
[2025-02-06 08:06] LABS: ALT 15 U/L (4-34); AST 26 U/L (14-36); African American GFR (CKD) >90 (>60 ml/min/1.73 sqM); Albumin 3.2 g/dL (3.5-5.0); Alkaline Phosphatase 55 U/L (38-126); Amylase 54 U/L (30-110); Anion Gap 4 mmol/L; Blood Urea Nitrogen 6 mg/dL (7-17); Calcium 8.5 mg/dL (8.4-10.2); Carbon Dioxide 30 mmol/L (22-30); Chloride 106 mmol/L (98-107); Glucose 82 mg/dL (74-99); Lipase 302 U/L (23-300); Non-African American GFR(CKD) >90 (>60 ml/min/1.73 sqM); Potassium 3.6 mmol/L (3.5-5.1); Sodium 140 mmol/L (137-145); Total Protein 5.6 g/dL (6.3-8.2)
--- NOTE | 2025-02-06 08:24 | P.PN ---
Subjective Progress Note Date: 02/06/25 CHIEF COMPLAINT: Abdominal pain HISTORY OF PRESENT ILLNESS: The patient is a 69-year-old female admitted being admitted for nausea and vomiting abdominal pain and non-ST ND. She has been complaining primarily left upper quadrant abdominal pain. She reported nausea. Patient is being treated for acute myocardial infarction. REVIEW OF ORGAN SYSTEMS: No shortness of breath. No increased chest pain. PHYSICAL EXAM: VITALS: Reviewed CONSTITUTIONAL: Well developed and in no acute distress. EYES: Conjuctivae without sclera icterus. Extraocular movements grossly intact. HEAD, EARS, NOSE, THROAT: Moist buccal mucosa. Head is atraumatic, normocephalic. Hears conversational speech. No nasal drainage. RESPIRATORY: Non-labored respirations and equal bilateral excursions. No gross wheezes. CARDIOVASCULAR: Palpable 2+ radial pulses. ABDOMEN: No diffuse peritonitis. Left upper quadrant pain. MUSCULOSKELETAL: No clubbing cyanosis or edema SKIN: Warm and well perfused with good skin turgor. NEUROLOGIC: Cranial nerves II through XII grossly intact. No focal or lateralizing signs. PSYCH: Appropriate affect. Alert and oriented to person, place and time. Displays appropriate insight. CLINCAL LABS: Reviewed. WBC normal. LFTs normal. IMAGING: Independently reviewed. HIDA scan demonstrates no acute cholecystitis. This is my independent interpretation. RADIOLOGY: Report reviewed. MRCP demonstrates common bile duct stricture with partial blockage from possible gallstone. Presence of pancreatic cyst at the tail. Request for ERCP per radiologist advised. ASSESSMENT: 1. Hydropic gallbladder with epigastric abdominal pain 2. Abnormal CT scan for biliary pathology, common bile duct obstruction 3. Elevated LFTs 4. Non-ST ND with abnormal EKG 5. Common bile duct stricture versus obstruction 6. Pancreatic tail cyst PLAN: 1. Recommend immediate transfer for urgent ERCP from gastroenterology. Gastroenterology not available at this institution. 2. No acute surgical intervention for chronic cholecystitis Objective - Vital Signs Vital signs: Vital Signs Temp 98.1 F 02/06/25 03:29 Pulse 49 L 02/06/25 03:29 Resp 18 02/06/25 03:29 BP 128/72 02/06/25 03:29 Pulse Ox 95 02/06/25 03:29 FiO2 Intake & Output 02/05/25 02/06/25 02/06/25 18:59 06:59 18:59 Intake Total 1780 Balance 1780 Weight 73.3 kg Intake: Intake, IV Titration 1200 Amount Piperacillin-Tazobactam 3 200 .375 gm In Sodium Chloride 0.9% 100 ml @ 25 mls/hr IVPB Q8HR [facility] Rx# :[id number] Potassium Chloride 10 meq 100 In Water For Injection 1 100ml.bag @ 100 mls/hr IVPB Q1HR [facility] Rx#: [id number] Sodium Chloride 0.9% 1, 900 000 ml @ 75 mls/hr IV . [id number] [facility] Rx#:[id number] Oral 580 Other: Voiding Method Toilet # Voids 3 # Bowel Movements 1 - Labs CBC & Chem 7: 02/06/25 06:49 02/06/25 06:49 Labs: Abnormal Lab Results - Last 24 Hours (Table) 02/05/25 02/06/25 Range/Units 06:45 06:49 Potassium 3.3 L (3.5-5.1) mmol/L BUN 6 L (7-17) mg/dL Total Protein 5.8 L 5.6 L (6.3-8.2) g/dL Albumin 3.3 L 3.2 L (3.5-5.0) g/dL Lipase 302 H (23-300) U/L
[2025-02-06] MEDS: ESCITALOPRAM 20 MG TAB PO SCH (08:53)
[2025-02-06] MEDS: PROCHLORPERAZINE INJ 10 MG/2 ML VIAL IVP PRN (10:53)
[2025-02-06 20:39] VITALS: RESP 18; TEMP 97.7
--- NOTE | 2025-02-06 21:10 | P.PN ---
Subjective Progress Note Date: 02/06/25 69-year-old female who presents to the emergency department for abdominal pain. States that it started 2 days ago. Pain is in the upper abdomen and she has associated nausea and vomiting. She is scheduled to have her gallbladder out with Dr. Lopes in the next few days, but was supposed to have cardiac clearance with a stress test first. She was told that if the pain became severe to come to the emergency department. She is concerned that the pain could be related to her gallbladder. Blood work completed in ED reveals WBC of 11.9, hemoglobin of 18.5 and platelet count of 50.8, sodium 208, potassium 3.4, BUNs/creatinine of 12/0.71, calcium of 10.7, total bilirubin 1.8 and AST of 4.8 lactic acid of 2.7, troponin elevated at 0.826 EKG: Sinus rhythm. Ventricular rate 71 bpm, VA interval 153 ms, QRS duration 93 ms, QTc [address] of the abdomen and pelvis reveals increased common bile duct dilatation with abrupt tapering at the ampulla when compared to prior CT; could be seen with amp ullary mass versus choledocholithiasis versus other etiology MRCP is recommended; hydropic gallbladder without surrounding inflammatory changes --Patient has been evaluated by cardiology; evidence of myocardial injury without evidence of ischemia; recommending 2D echo for risk stratification; patient remains on Zetia and Crestor; cardiology recommending to proceed with gallbladder surgery 02/06/2025 Patient is seen in follow-up today with multiple consultations following including general surgery. Patient did undergo MRCP yesterday revealing severe dilation of the biliary system may be an obstructing choledocholith versus masslike parenchyma with a pancreatic ta cystic lesion possibly representing sequela of prior pancreatitis versus sidebranch intraductal mucinous neoplasm versus other cystic neoplasm with mild cardiomegaly, colonic diverticulosis and simple appearing renal cysts recommending MRI MRCP with possible intervention. Given that we have no GI availability here, general surgery recommending transfer to tertiary treatment center that has GI for evaluation. Patient is currently afebrile and white count is normal maintained on antibiotics in the form of Zosyn. Review of systems: Constitutional: reports of fatigue, no fever, or chills Cardiovascular: No reports of chest pain or palpitations Respiratory: No reports of shortness of breath or cough GI: reports of nausea, no vomiting, or diarrhea, reports abdominal pain : No reports of dysuria or retention Neurovascular: reports of generalized weakness All medications have been reviewed Physical exam: Gen: This is a 69-year-old female who is asleep although easily arousable, alert and oriented x 3, well-developed, elderly appearing, ill-appearing HEENT: Head is atraumatic, normocephalic. Pupils equal, round. Sclerae is anicteric. NECK: Supple. No JVD. No lymphadenopathy. No thyromegaly. LUNGS: Diminished breath sounds bilaterally otherwise clear to auscultation. No wheezes or rhonchi. No intercostal retractions. HEART: S1, S2 are muffled ABDOMEN: Soft. Bowel sounds are present. No masses. tenderness noted of right and left upper quadrants. EXTREMITIES: No pedal edema. No calf tenderness. NEUROLOGICAL: Patient is asleep but easily arousable, alert and oriented x3. Cranial nerves 2 through 12 are grossly intact. Assessment: -NSTEMI; initial troponin is elevated at 0.826, evidence of myocardial injury with no evidence of ischemia per cardiology -Hydropic gallbladder with continued right and left upper quadrant abdominal pain, status post MRCP recommending ERCP and awaiting tertiary transfer -Lactic acidosis; likely dehydration versus associated with gallbladder pathology; repeat lactic acid level is 1.4 -Pancreatic tail cyst as noted on MRCP -Elevated liver enzymes; total bilirubin elevated at 1.8 with AST of 48 -Hypothyroidism -Hyperlipidemia -Gastroesophageal reflux disease -Anxiety/depression GI prophylaxis DVT prophylaxis; SCD/IV heparin full code Plan: Per general surgery there is no GI available here and patient is in need of ERCP urgently and transfer has been initiated. Patient has been accepted by Dr. Man internal medicine at [facility] with GI for evaluation. Currently awaiting a bed Follow-up on repeat labs and replace electrolytes per protocol Continue on IV Zosyn and gentle hydration Due to multiple complex medical issues, overall prognosis is guarded The impression and plan of care has been dictated by Nurse Carrie Pra ctitioner as directed. Dr. Marco MD I have performed a history and examination and MDM of this patient, discussed the same with the dictator, and agree with the dictator's assessment and plan as written ,documented as a scribe. Based on total visit time, I have performed more than 50% of the visit. Objective - Vital Signs Vital signs: Vital Signs Temp 98.2 F 02/06/25 15:44 Pulse 46 L 02/06/25 15:44 Resp 17 02/06/25 15:44 BP 154/76 02/06/25 15:44 Pulse Ox 97 02/06/25 15:44 FiO2 Intake & Output 02/05/25 02/06/25 02/06/25 18:59 06:59 18:59 Intake Total 1780 540 Balance 1780 540 Weight 73.3 kg Intake: Intake, IV Titration 1200 Amount Piperacillin-Tazobactam 3 200 .375 gm In Sodium Chloride 0.9% 100 ml @ 25 mls/hr IVPB Q8HR [facility] Rx# :[id number] Potassium Chloride 10 meq 100 In Water For Injection 1 100ml.bag @ 100 mls/hr IVPB Q1HR [facility] Rx#: [id number] Sodium Chloride 0.9% 1, 900 000 ml @ 75 mls/hr IV . [id number] [facility] Rx#:[id number] Oral 580 540 Other: Voiding Method Toilet Toilet # Voids 3 1 # Bowel Movements 1 1 - Labs CBC & Chem 7: 02/06/25 06:49 02/06/25 06:49 Labs: Abnormal Lab Results - Last 24 Hours (Table) 02/06/25 Range/Units 06:49 BUN 6 L (7-17) mg/dL Total Protein 5.6 L (6.3-8.2) g/dL Albumin 3.2 L (3.5-5.0) g/dL Lipase 302 H (23-300) U/L
--- NOTE | 2025-02-06 21:15 | P.DS ---
Providers Date of admission: 02/02/25 21:33 Expected date of discharge: 02/06/25 Attending physician: Tex Barger MD Consults: 02/02/25 21:30 Consult Physician Urgent Consulting Provider: Jacqueline Lopes Consult Reason/Comments: Gallbladder hydrops, abdominal pain Do you want consulting provider notified?: Yes 02/04/25 11:24 Consult Physician Urgent Consulting Provider: Anny Henao Consult Reason/Comments: ERCP dilated CBD Do you want consulting provider notified?: Yes Primary care physician: Physician Nonstaff Hospital Course: Final diagnosis -NSTEMI; initial troponin is elevated at 0.826, evidence of myocardial injury with no evidence of ischemia per cardiology -Hydropic gallbladder with continued right and left upper quadrant abdominal pain, status post MRCP recommending ERCP and awaiting tertiary transfer -Lactic acidosis; likely dehydration versus associated with gallbladder pathology; repeat lactic acid level is 1.4 -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 Patient will follow-up with Antonina Payton in the outpatient setting upon discharge. Patient is to continue with IV Zosyn and only clear liquid diet currently awaiting a bed at [facility]. Transfer team will contact unit once a bed is available. Total time taken is greater than 35 minutes. Hospital course 69-year-old female who presents to the emergency department for abdominal pain. States that it started 2 days ago. Pain is in the upper abdomen and she has associated nausea and vomiting. She is scheduled to have her gallbladder out with Dr. Lopes in the next few days, but was supposed to have cardiac c learance with a stress test first. She was told that if the pain became severe to come to the emergency department. She is concerned that the pain could be related to her gallbladder. Blood work completed in ED reveals WBC of 11.9, hemoglobin of 18.5 and platelet count of 50.8, sodium 208, potassium 3.4, BUNs/creatinine of 12/0.71, calcium of 10.7, total bilirubin 1.8 and AST of 4.8 lactic acid of 2.7, troponin elevated at 0.826 EKG: Sinus rhythm. Ventricular rate 71 bpm, W[place] interval 153 ms, QRS duration 93 ms, QTc [address] of the abdomen and pelvis reveals increased common bile duct dilatation with abrupt tapering at the ampulla when compared to prior CT; could be seen with ampullary mass versus choledocholithiasis versus other etiology MRCP is recommended; hydropic gallbladder without surrounding inflammatory changes --Patient has been evaluated by cardiology; evidence of myocardial injury without evidence of ischemia; recommending 2D echo for risk stratification; patient remains on Zetia and Crestor; cardiology recommending to proceed with gallbladder surgery 02/06/2025 Patient is seen in follow-up today with multiple consultations following including general surgery. Patient did undergo MRCP yesterday revealing severe dilation of the biliary system may be an obstructing choledocholith versus masslike parenchyma with a pancreatic ta cystic lesion possibly representing sequela of prior pancreatitis versus sidebranch intraductal mucinous neoplasm versus other cystic neoplasm with mild cardiomegaly, colonic diverticulosis and simple appearing renal cysts recommending MRI MRCP with possible intervention. Given that we have no GI availability here, general surgery recommending transfer to tertiary treatment center that has GI for evaluation. Patient is currently afebrile and white count is normal maintained on antibiotics in the form of Zosyn. Physical exam: Gen: This is a 69-year-old female who is asleep although easily arousable, alert and oriented x 3, well-developed, elderly appearing, ill-appearing HEENT: Head is atraumatic, normocephalic. Pupils equal, round. Sclerae is anicteric. NECK: Supple. No JVD. No lymphadenopathy. No thyromegaly. LUNGS: Diminished breath sounds bilaterally otherwise clear to auscultation. No wheezes or rhonchi. No intercostal retractions. HEART: S1, S2 are muffled ABDOMEN: Soft. Bowel sounds are present. No masses. tenderness noted of right and left upper quadrants. EXTREMITIES: No pedal edema. No calf tenderness. NEUROLOGICAL: Patient is asleep but easily arousable, alert and oriented x3. Cranial nerves 2 through 12 are grossly intact. Please refer to medication reconciliation sheet for a list of medications. The impression and plan of care has been dictated by Marilou Osman, Nurse Practitioner as directed. Dr. Marco MD I have performed a history and examination and MDM of this patient, discussed the same with the dictator, and agree with the dictator's assessment and plan as written ,documented as a scribe. Based on total visit time, I have performed more than 50% of the visit. Patient Condition at Discharge: Stable Plan - Discharge Summary Discharge Rx Participant: No New Discharge Prescriptions: No Action Ezetimibe [Zetia] 10 mg PO DAILY Escitalopram [Lexapro] 20 mg PO DAILY oxyCODONE-APAP 10-325MG [Percocet 10-325 mg] 1 tab PO TID PRN PRN Reason: Pain Pregabalin [Lyrica] 100 mg PO TID Omeprazole 40 mg PO DAILY Lactulose [Cephulac] 30 gm PO TID PRN 14 Days #2000 ml PRN Reason: Constipation Atorvastatin [Lipitor] 40 mg PO DAILY 14 Days #14 tab Levothyroxine Sodium [Synthroid] 112 mcg PO DAILY Discharge Medication List Ezetimibe [Zetia] 10 mg PO DAILY 09/29/17 [History] Escitalopram [Lexapro] 20 mg PO DAILY 09/20/21 [History] oxyCODONE-APAP 10-325MG [Percocet 10-325 mg] 1 tab PO TID PRN 03/22/24 [History] Omeprazole 40 mg PO DAILY 10/02/24 [History] Pregabalin [Lyrica] 100 mg PO TID 10/02/24 [History] Atorvastatin [Lipitor] 40 mg PO DAILY 14 Days #14 tab 10/05/24 [Rx] Lactulose [Cephulac] 30 gm PO TID PRN 14 Days #2000 ml 10/05/24 [Rx] Levothyroxine Sodium [Synthroid] 112 mcg PO DAILY 02/04/25 [History] Follow up Appointment(s)/Referral(s): Ferdinand Manzano MD [STAFF PHYSICIAN] - 1 Week Nonstaff,Physician [Primary Care Provider] - 1-2 days Activity/Diet/Wound Care/Special Instructions: Patient is being transferred to [facility] for GI evaluation and is in need of an ERCP. Patient accepted by internal medicine currently awaiting a bed Discharge Disposition: OTHER INSTITUTION NOT DEFINED Plan of Treatment: Outpatient Lexiscan nuclear stress test
[2025-02-06 23:42] VITALS: BP 173/84; PULSE 51
== END 2025-02-07 01:20 | disposition short-term general hospital (02) | DRG 444 ==
LOC: EC 18:50 → 3SCARD 21:33
PROVIDERS: ADMIT Internal Medicine; ATTEND Internal Medicine
DX: K82.1 Hydrops of gallbladder (principal); K83.1 Obstruction of bile duct; E87.20 Acidosis, unspecified; J44.9 Chronic obstructive pulmonary disease, unspecified; I11.9 Hypertensive heart disease without heart failure; E03.9 Hypothyroidism, unspecified; F32.A Depression, unspecified; I5A Non-ischemic myocardial injury (non-traumatic); K81.1 Chronic cholecystitis; E78.5 Hyperlipidemia, unspecified; F41.9 Anxiety disorder, unspecified; K21.9 Gastro-esophageal reflux disease without esophagitis; K44.9 Diaphragmatic hernia without obstruction or gangrene; N28.1 Cyst of kidney, acquired; K57.30 Diverticulosis of large intestine without perforation or abscess without bleeding; F17.210 Nicotine dependence, cigarettes, uncomplicated; K59.00 Constipation, unspecified; R74.01 Elevation of levels of liver transaminase levels; Z79.890 Hormone replacement therapy; Z79.899 Other long term (current) drug therapy; Z96.643 Presence of artificial hip joint, bilateral; Z96.652 Presence of left artificial knee joint
CPT/HCPCS: 36415; 71045; 74177; 74181; 76705; 78226; 80048; 80053; 81001; 82150; 82248; 83605; 83690; 84484; 85025; 85379; 85610; 85730; 93005; 93306; 94640; 96361; 96365; 96366; 96368; 96375; 96376; 99291

== ENCOUNTER → 2025-05-23 | Outpatient (CLI) | payer MEDICARE ==
--- NOTE | 2025-05-23 15:40 | CTL ---
EXAMINATION TYPE: CT Low Dose Lung DATE OF EXAM ORDERED: 05/23/2025 COMPARISON: 1124 CLINICAL INDICATION: Female, 69 years old with history of Z12.2 LUNG CANCER SCRN, F17.210; PHH, histo ry of smoking, Lung cancer screening, History of Smoking/tobacco use. TECHNIQUE: Low dose computed tomography scan was performed through the chest at 1 mm thick sections a nd reconstructed images in multiple planes at 1 mm and [address] DLP: 109.[address] CTDI: 3.1 mGy Automated exposure control for dose reduction was used. CT DIAGNOSTIC QUALITY: Satisfactory Findings: There are multiple scattered calcified granulomas. There is no suspicious lung mass or nodule.. There is no airspace consolidation. There is mild interstitial scarring in the lung bases.. There is no pleural effusion or pneumothorax. The ascending thoracic aorta is mildly dilated at 4 cm. There is no mediastinal, hilar or axillary adenopathy. Limited scanning through the upper abdomen reveals no gross abnormality. There are no focal osseous lesions. IMPRESSION: 1. Lung RADS category 1 negative. Continue routine screening at yearly intervals. 2. No acute cardiopulmonary disease.. 3. 4 cm dilatation of the ascending thoracic aorta. 4. Stable mild interstitial changes in the lung bases. [facility], , 05/23/2025 3:37 PM
== END | disposition home or self-care (01) ==
LOC: RADCTMAIN 15:14
PROVIDERS: ATTEND Family Medicine
DX: Z12.2 Encounter for screening for malignant neoplasm of respiratory organs (principal); F17.210 Nicotine dependence, cigarettes, uncomplicated; J84.9 Interstitial pulmonary disease, unspecified; I77.810 Thoracic aortic ectasia
CPT/HCPCS: 71271